=== PATIENT | female | born 1965 | race Caucasian/White ===

== ENCOUNTER → 2019-10-18 10:40 | Outpatient (BNVA) | payer MEDICAID, SELFPAY | PROVIDERS: Family Provider Nurse Practitioner; PCP Family Medicine; Referring Provider Family Medicine; Visit Provider Family Medicine | DX: M25.571 Pain in right ankle and joints of right foot (principal) | CPT/HCPCS: 73610 ==

== ENCOUNTER 2019-12-15 11:42 | Outpatient (CLI) | payer MEDICAID, SELFPAY ==
--- NOTE | 2019-12-15 11:50 | XR_ITS ---
WS: [id number] CHEST 2 VIEWS HISTORY: BRONCHITIS ACUTE COMPARISON: 09/19/2018 Lungs: Hyperinflated lungs from emphysema. No mass or pulmonary nodule. Cardiac size: Normal. Mediastinum/Aorta: Normal mediastinum. Bones: Normal. XR/XR chest 2V* [id number] IMPRESSION: Moderate chronic emphysema. No pneumonia.
== END 2019-12-15 11:43 | disposition home or self-care (01) ==
LOC: RADWPI 11:47
PROVIDERS: Family Provider Nurse Practitioner; PCP Nurse Practitioner; Visit Provider Nurse Practitioner
DX: J42 Unspecified chronic bronchitis (principal); J43.9 Emphysema, unspecified
CPT/HCPCS: 71046

== ENCOUNTER 2020-06-08 14:26 | Outpatient (CLI) | payer MEDICAID, SELFPAY ==
--- NOTE | 2020-06-08 15:01 | XR_ITS ---
WS: [id number] Left foot, 3 views, 06/08/2020 Clinical Data: ACUTE FOOT PAIN Comparison: Left foot, 03/11/2010. Findings: No new fractures or dislocations are seen. No bone destruction or erosion is noted. The joint spaces and soft tissues are normal. There is minimal irregularity of the medial distal aspect of the first cuneiform which represents a h ealed fracture. XR/XR foot LT min 3V* [id number] Impression: Negative left foot.
== END 2020-06-08 14:27 | disposition home or self-care (01) ==
LOC: RADWPI 14:30
PROVIDERS: Family Provider Nurse Practitioner; PCP Nurse Practitioner; Visit Provider Nurse Practitioner
DX: M79.672 Pain in left foot (principal)
CPT/HCPCS: 73630

== ENCOUNTER 2021-02-01 14:30 | Emergency (ER) | payer MEDICAID, SELFPAY ==
[2021-02-01 15:40] VITALS: BP 167/94; PULSE 86; RESP 18; TEMP 36.6; O2SAT 93
[2021-02-01 16:26] VITALS: BP 164/86; PULSE 74; RESP 18; O2SAT 95
[2021-02-01 16:31] LABS: Urine Appearance Hazy (CLEAR); Urine Color Yellow (Yellow)
[2021-02-01 16:32] LABS: Add Urine Microscopic? YES; Bilirubin Urine 2+ (Negative); Blood Urine 3+ (Negative); Glucose Urine UA Norm (Normal); Ketones Urine Negative (Negative); Leukocyte Esterase Urine 2+ (Negative); Nitrate Urine Positive (Negative); Protein Urine 3+ (Negative); Specific Gravity, Urine 1.025 (1.005-1.030); Urobilinogen Urine 8 mg/dL (Negative); WBC Urine 15-25 /hpf (0-5); pH Urine 5 (5-7)
[2021-02-01 16:33] LABS: Add Urine Culture? Yes; Bacteria Urine 2+ /hpf; Mucus Urine 1+ /hpf
--- NOTE | 2021-02-01 16:34 | CTR_ITS ---
PROCEDURE INFORMATION: Exam: CT Abdomen And Pelvis Without Contrast Exam date and time: 02/01/2021 4:34 PM Age: 55 years old Clinical indication: Prior surgery; Surgery date: 6+ months; Surgery type: Hyst, gb, appy; Patient HX: C/O hematuria x 5 days w worsening R flank pain; Additional info: Right flank pain TECHNIQUE: Imaging protocol: Computed tomography of the abdomen and pelvis without contrast. Radiation optimization: All CT scans at this facility use at least one of these dose optimization techniques: automated exposure control; mA and/or kV adjustment per patient size (includes targeted exams where dose is matched to clinical indication); or iterative reconstruction. COMPARISON: No relevant prior studies available. RADIATION DOSE METRICS: Total DLP (mGy-cm): 567.86 FINDINGS: Limitations: The absence of intravenous contrast lessens the sensitivity of this study for solid organ abnormalities. Liver: There is no focal abnormality within the liver. Gallbladder and bile ducts: There has been a cholecystectomy. Pancreas: The pancreas is normal. Spleen: The spleen is normal. Adrenal glands: The adrenal glands are normal. Kidneys and ureters: The kidneys are normal. There is no evidence of hydronephrosis. There is no evidence of renal or ureteral calcifications. Stomach and bowel: Moderate diverticulosis is present in the distal colon. There is no evidence of colitis/diverticulitis. There is no evidence of intestinal obstruction. Appendix: Not Identified Intraperitoneal space: There is no evidence of free intraperitoneal fluid. There is no evidence of free intraperitoneal fluid. Vasculature: The aorta demonstrates moderate atherosclerotic calcification. There is mild ectasia of the mid to distal abdominal aorta with maximum transverse diameter of 2.4 cm. Lymph nodes: There is no evidence of lymphadenopathy. Urinary bladder: Unremarkable as visualized. Reproductive: There has been a hysterectomy. Bones/joints: Unremarkable. No acute fracture. Soft tissues: There is a Bochdalek's hernia on the left containing only fat. Surgical clips are seen along the anterior abdominal wall of uncertain significance. CT/CT kidney stone [id number] IMPRESSION: No acute findings. There is no evidence for urinary tract calculi. Radiation Dose CTDIVOL = (mGy): DLP = 567.86 (mGy-cm)
[2021-02-01 16:40] LABS: Basophils # 0.1 10^3/uL (0.0-0.1); Basophils % 0.9 %; Eosinophils # 0.4 10^3/uL (0.0-0.8); Eosinophils % 3.5 %; Hematocrit 42.3 % (37.0-47.0); Hemoglobin 13.8 g/dL (11.5-15.3); Lymphocytes % 34.8 %; Mean Corpuscular HGB Conc 32.6 g/dL (30.0-36.0); Mean Corpuscular Hemoglobin 29.7 pg (28.0-34.0); Mean Corpuscular Volume 91.2 fL (81-99); Mean Platelet Volume 10.3 fL (7.4-10.4); Monocytes # 0.9 10^3/uL (0.2-0.9); Monocytes % 8.1 %; Neutrophils # 5.98 10^3/uL (1.8-7.7); Neutrophils % 52.4 %; Nucleated Red Blood Cells % 0 %; Platelet Count 280 10^3/cmm (130-400); Red Blood Count 4.64 10^6/uL (4.1-5.3); Red Cell Distribution Width 14.8 % (12.1-15.1); White Blood Count 11.4 10^3/uL (4.0-10.0)
[2021-02-01] MEDS: sodium chloride 0.9% 1,000 ML 999 ML IV (16:57)
[2021-02-01 16:59] LABS: Lactate (Lactic Acid level) 0.6 mmol/L (0.5-2.2); Lipase 26 U/L (13-60)
[2021-02-01 17:00] VITALS: BP 152/92; PULSE 82; RESP 16; O2SAT 95
[2021-02-01 17:00] LABS: Alanine Aminotransferase 22 U/L (0-33); Albumin Level 4.4 g/dL (3.5-5.2); Alkaline Phosphatase 82 IU/L (35-105); Anion Gap 14.2 (5-19); Aspartate Amino Transferase 21 U/L (0-32); Blood Urea Nitrogen 19 mg/dL (6-20); Calcium 9.3 mg/dL (8.5-10.5); Carbon Dioxide 25 mmol/L (22-29); Chloride 104 mmol/L (98-107); Globulin 2.9 g/dL (1.3-4.6); Glomerular Filtration Rate 64.8 mL/min (90-130); Glucose 82 mg/dL (65-115); Osmolality Calculated 289 mOsm/kg (285-295); Potassium 4.2 mmol/L (3.5-5.1); Sodium 139 mmol/L (136-145); Total Bilirubin 0.2 mg/dL (0.15-1.2); Total Protein 7.3 g/dL (6.6-8.7)
[2021-02-01] MEDS: cefTRIAXone 1,000 MG in sodium chloride 0.9% (plus) 50 ML 100 MG IV (17:36)
[2021-02-01] MEDS: ketorolac 30 mg/mL INJ 15 MG IVP (17:37)
--- NOTE | 2021-02-01 18:30 | ED_ITS ---
HPI - Female Genitourinary General: Chief complaint: Urogenital-Female Stated complaint: blood in urine Time Seen by Provider: 02/01/21 16:12 History of Present Illness: HPI Narrative: The patient is a 55-year-old female with past medical history UTIs and she thinks she has had a kidney stone 1 time. She says she is had right flank pain radiating to her groin for the past 4 days and thinks she had some blood in her urine today. She is taking Flomax and Azo without relief. She thinks she possibly start a stone this morning in the bottom of her toilet but she is not sure. She has a history of an appendectomy years ago. MD elicited complaint: dysuria, UTI and flank pain Severity: moderate Female Urogenital Radiation: R Flank Quality of pain: sharp Vaginal discharge: none Vaginal bleeding: none Urinary symptoms: Dysuria, Flank Pain and Hematuria Exacerbating factors: none Relieving factors: none Associated symptoms: Reports no associated symptoms; Deny abdominal pain or headache(s) Review of Systems General: Reports: 10 or more systems reviewed and unremarkable except in HPI and below Const: Denies: fatigue Eyes: Denies: change in vision, blurry vision or eye redness ENMT: Denies: throat pain, swelling of lips/tongue, ear or mastoid pain or nasal congestion Card: Denies: chest pain, palpitations, irregular heart rhythm, edema, dyspnea on exertion or orthopnea Resp: Denies: dyspnea, productive cough or non-productive cough GI: Denies: abdominal pain, diarrhea or GI cramping : Reports: flank pain; Denies: difficulty voiding, urinary frequency or urinary urgency Musc: Denies: neck pain, back pain, extremity pain, joint pain, joint redness, limited range of motion or muscle weakness Skin/Breast: Denies: rash, pruritus, erythema, skin pain or skin tenderness Neuro: Denies: headache(s), numbness in extremities, weakness in extremities, sensory changes, difficulty walking, dizziness, confusion or Slurred speech present Psych: Denies: anxiety or depression Endo: Denies: polyuria All/Imm: Denies: urticaria, throat swelling or tongue swelling PFSH ED PFSH: Social History (Updated 10/18/19 @ 10:15 by Donita Reynolds LPN) Smoking and tobacco status: current every day smoker Alcohol intake: never Physical Exam Const: COMMON NORMALS: no acute distress, average body habitus, patient oriented x3, no limitations, healthy appearing, alert and well nourished GENERAL APPEARANCE: cooperative, comfortable, well kempt and well developed ORIENTATION/CONSCIOUSNESS: Yes awake, Yes oriented to person, Yes oriented to place and Yes oriented to time HENMT: COMMON NORMALS: normocephalic, external ears normal and Normal external nose present HEAD & SCALP: normal to inspection and normocephalic NOSE: Normal external nose present EXTERNAL EAR: Yes external ears normal MOUTH: Normal oral and palatal mucosa present THROAT: posterior oropharynx normal Eye: COMMON NORMALS: Equal, round and reactive pupils present and EOMs intact bilaterally GENERAL EYE: appearance normal, both eyes and all related structures PUPIL: Yes Equal, round and reactive pupils present Neck/C-Spine: COMMON NORMALS: full ROM, no lymphadenopathy, no meningeal signs and no JVD GENERAL: Yes normal visual inspection Lymph: LYMPHATIC: no lymphadenopathy noted Chest: COMMONS NORMALS: normal inspection of the chest and normal palpation of entire chest wall Resp: COMMON NORMALS: normal respiratory effort, No retractions, No use of accessory muscles, clear to auscultation bilaterally and percussion normal EFFORT & INSPECTION: Yes able to speak in complete sentences AUSCULTATION: clear to auscultation bilaterally PERCUSSION: percussion normal Cardio: COMMON NORMALS: no JVD, regular rate, regular rhythm, S1 normal heart sound present, S2 normal heart sound present and Peripheral pulses 2+ throughout RATE: regular rate RHYTHM: regular rhythm HEART SOUNDS: S1 normal heart sound present and S2 normal heart sound present PERIPHERAL PULSES: Peripheral pulses 2+ throughout GI: COMMON NORMALS: Normal to inspection, nondistended, normoactive bowel sounds present, Soft to palpation, non-tender and no masses INSPECTION: Yes normal to inspection PALPATION: Yes Soft to palpation : BLADDER/KIDNEY EXAM: Yes CVA tenderness on the right Back/Pelvis: COMMON NORMALS: thoracic and lumbar spine normal to inspection, no thoracic nor lumbar tenderness and thoraco-lumbar ROM normal GENERAL BACK: Yes CVA tenderness Extremity: COMMON NORMALS: normal to inspection, full ROM, capillary refill normal, no joint enlargement and no pedal edema GENERAL: Yes normal exam except as noted Neuro: COMMON NORMALS: patient oriented x3, CN's II-XII intact bilaterally, moves all extremities, no focal motor deficits, no sensory deficits noted and gait normal SENSORIUM/ORIENTATION: Yes alert, Yes oriented to person, Yes oriented to place and Yes oriented to time MENINGEAL SIGNS: Yes no meningeal signs Psych: COMMON NORMALS: mental status grossly normal, Normal thought process present, cooperative, normal affect and speech normal APPEARANCE: Yes well kempt ATTITUDE: Yes calm SPEECH: Yes normal speech THOUGHT PROCESS: Normal thought process present Skin: COMMON NORMALS: no rashes or lesions noted GENERAL SKIN EXAM: no rashes or lesions noted Course Vital Signs: Vital signs: Vital Signs Temperature 97.9 F 02/01/21 15:40 Pulse Rate 81 02/01/21 18:40 Respiratory Rate 16 02/01/21 18:40 Blood Pressure 151/100 02/01/21 18:40 Pulse Oximetry 96 02/01/21 18:40 MDM - Female MDM Narrative: Medical decision making narrative: The patient comes to the ER complaining of right flank pain radiating to her groin for 4 days. Suspicious of UTI though she does have some complains of some blood in it. Microscopic analysis does show some blood but also white cells. She has been taking Azo with no effect. CT abdomen pelvis shows no stone. She was given a gram of ceftriaxone and discharged with Keflex. Lab Data: Labs: Lab Results 02/01/21 02/01/21 02/01/21 Range/Units 16:00 16:24 16:24 WBC 11.4 H (4.0-10.0) 10^3/ uL RBC 4.64 (4.1-5.3) 10^6/u L Hgb 13.8 (11.5-15.3) g/dL Hct 42.3 (37.0-47.0) % MCV 91.2 (81-99) fL MCH 29.7 (28.0-34.0) pg MCHC 32.6 (30.0-36.0) g/dL RDW 14.8 (12.1-15.1) % Plt Count 280 (130-400) 10^3/c mm MPV 10.3 (7.4-10.4) fL Neut % (Auto) 52.4 % Lymph % (Auto) 34.8 % [place] % (Auto) 8.1 % Eos % (Auto) 3.5 % Baso % (Auto) 0.9 % Neut # (Auto) 5.98 (1.8-7.7) 10^3/u L Lymph # (Auto) 4.0 (0.8-4.8) 10^3/u L [place] # (Auto) 0.9 (0.2-0.9) 10^3/u L Eos # (Auto) 0.4 (0.0-0.8) 10^3/u L Baso # (Auto) 0.1 (0.0-0.1) 10^3/u L Nucleated RBC % (a uto) 0 % Nucleated RBCs # 0.0 /100WBC Sodium 139 (136-145) mmol/L Potassium 4.2 (3.5-5.1) mmol/L Chloride 104 (98-107) mmol/L Carbon Dioxide 25 (22-29) mmol/L Anion Gap 14.2 (5-19) BUN 19 (6-20) mg/dL Creatinine 0.9 (0.5-0.9) mg/dL GFR Calculation 64.8 L (90-130) mL/min Glucose 82 (65-115) mg/dL Calculated Osmolal ity 289 (285-295) mOsm/k g Lactate (0.5-2.2) mmol/L Calcium 9.3 (8.5-10.5) mg/dL Total Bilirubin 0.2 (0.15-1.2) mg/dL AST 21 (0-32) U/L ALT 22 (0-33) U/L Alkaline Phosphata se 82 (35-105) IU/L Total Protein 7.3 (6.6-8.7) g/dL Albumin 4.4 (3.5-5.2) g/dL Globulin 2.9 (1.3-4.6) g/dL Lipase (13-60) U/L Urine Color Yellow (Yellow) Urine Appearance Hazy A (CLEAR) Urine pH 5 (5-7) Ur Specific Gravit y 1.025 (1.005-1.030) Urine Protein 3+ H (Negative) Urine Glucose (UA) Norm (Normal) Urine Ketones Negative (Negative) Urine Blood 3+ H (Negative) Urine Nitrate Positive H (Negative) Urine Bilirubin 2+ H (Negative) Urine Urobilinogen 8 H (Negative) mg/dL Ur Leukocyte [place] ase 2+ H (Negative) Urine RBC 5-10 H (0-2) /hpf Urine WBC 15-25 H (0-5) /hpf Ur Squamous Epith Cells 5-10 H (0-5) /hpf Amorphous Sediment Not Reportable Urine Bacteria 2+ H (NONE) /hpf Urine Mucus 1+ /hpf 02/01/21 02/01/21 Range/Units 16:24 16:24 WBC (4.0-10.0) 10^3/ uL RBC (4.1-5.3) 10^6/u L Hgb (11.5-15.3) g/dL Hct (37.0-47.0) % MCV (81-99) fL MCH (28.0-34.0) pg MCHC (30.0-36.0) g/dL RDW (12.1-15.1) % Plt Count (130-400) 10^3/c mm MPV (7.4-10.4) fL Neut % (Auto) % Lymph % (Auto) % [place] % (Auto) % Eos % (Auto) % Baso % (Auto) % Neut # (Auto) (1.8-7.7) 10^3/u L Lymph # (Auto) (0.8-4.8) 10^3/u L [place] # (Auto) (0.2-0.9) 10^3/u L Eos # (Auto) (0.0-0.8) 10^3/u L Baso # (Auto) (0.0-0.1) 10^3/u L Nucleated RBC % (a uto) % Nucleated RBCs # /100WBC Sodium (136-145) mmol/L Potassium (3.5-5.1) mmol/L Chloride (98-107) mmol/L Carbon Dioxide (22-29) mmol/L Anion Gap (5-19) BUN (6-20) mg/dL Creatinine (0.5-0.9) mg/dL GFR Calculation (90-130) mL/min Glucose (65-115) mg/dL Calculated Osmolal ity (285-295) mOsm/k g Lactate 0.6 (0.5-2.2) mmol/L Calcium (8.5-10.5) mg/dL Total Bilirubin (0.15-1.2) mg/dL AST (0-32) U/L ALT (0-33) U/L Alkaline Phosphata se (35-105) IU/L Total Protein (6.6-8.7) g/dL Albumin (3.5-5.2) g/dL Globulin (1.3-4.6) g/dL Lipase 26 (13-60) U/L Urine Color (Yellow) Urine Appearance (CLEAR) Urine pH (5-7) Ur Specific Gravit y (1.005-1.030) Urine Protein (Negative) Urine Glucose (UA) (Normal) Urine Ketones (Negative) Urine Blood (Negative) Urine Nitrate (Negative) Urine Bilirubin (Negative) Urine Urobilinogen (Negative) mg/dL Ur Leukocyte [place] ase (Negative) Urine RBC (0-2) /hpf Urine WBC (0-5) /hpf Ur Squamous Epith Cells (0-5) /hpf Amorphous Sediment Urine Bacteria (NONE) /hpf Urine Mucus /hpf Discharge Plan Discharge Patient Disposition: Home Clinical Impression: Urinary tract infection, Pyelonephritis Condition: Stable Prescriptions: New cephalexin 500 mg capsule 500 mg PO BID 14 Days Qty: 28 RF: 0 No Action clopidogrel [Plavix] 75 mg tablet 75 mg PO DAILY RF: 0 ibuprofen 800 mg tablet 800 mg PO Q8H PRN (Reason: pain) RF: 0 lisinopril 10 mg tablet 10 mg PO DAILY RF: 0 diltiazem HCl 180 mg capsule,extended release 24hr 180 mg PO DAILY RF: 0 tamsulosin 0.4 mg capsule 0.4 mg PO DAILY RF: 0 pantoprazole 40 mg tablet,delayed release (DR/EC) 40 mg PO BID RF: 0 nitroglycerin 0.4 mg tablet, sublingual 0.4 mg sublingual Q5MIN PRN (Reason: Chest Pain) RF: 0 perphenazine-amitriptyline 2-10 mg tablet 1 tab PO TID PRN (Reason: depression) RF: 0 aspirin 81 mg Tablet,Chewable 81 mg PO DAILY RF: 0 ProAir HFA 90 mcg/actuation HFA aerosol inhaler 2 puff INHALATION QID PRN (Reason: Shortness Of Breath) RF: 0 ezetimibe 10 mg tablet 10 mg PO DAILY RF: 0 rosuvastatin 40 mg tablet 40 mg PO DAILY RF: 0 Repatha SureClick 140 mg/mL pen injector 140 mg SUBCUT Q14D RF: 0 Discharge Orders: Discharge ED (Routine); Ordered 02/01/21 Ordered By: Denzel Freitas Referrals: Lulu Briceno FNP [Primary Care Provider] - Discharge Diet: Advance as tolerated Discharge Activity: Resume usual activity Patient Instructions: Acute Pyelonephritis (ED), Opioid Safety Activity Restrictions/Additional Instructions: You likely have a urinary tract infection going up to your kidney. Please take the antibiotics as directed and return to the ER with worsening symptoms. Follow-up with your primary care physician in a week and have your urine checked again to make sure you are clear of infection. Coding Level of Care Code ED Cut Out Marker for Yolig Fwd Exam Comprehensive
[2021-02-01 18:40] VITALS: BP 151/100; PULSE 81; RESP 16; O2SAT 96
[2021-02-01 19:45] VITALS: BP 166/80; PULSE 80; RESP 18; TEMP 37; O2SAT 95
== END 2021-02-01 20:16 | disposition home or self-care (01) ==
PROVIDERS: Physician Assistant; Emergency Provider Family Medicine; PCP Nurse Practitioner
DX: N39.0 Urinary tract infection, site not specified (principal); N12 Tubulo-interstitial nephritis, not specified as acute or chronic; Z79.02 Long term (current) use of antithrombotics/antiplatelets; Z79.82 Long term (current) use of aspirin; F17.210 Nicotine dependence, cigarettes, uncomplicated
CPT/HCPCS: 74176; 80053; 81001; 83605; 83690; 85025; 87086; 96365; 96375; 99284; J0696; J1885; J7030

== ENCOUNTER 2021-02-17 09:18 | Emergency (ER) | payer MEDICAID, SELFPAY ==
[2021-02-17] VITALS (7 sets, daily range): BP systolic 136–166; BP diastolic 72–94; PULSE 70–85; RESP 16–22; TEMP 36.1; O2SAT 94–97; BMI 20.2
--- NOTE | 2021-02-17 09:58 | ECG_ITS ---
[facility] Test Date: 2021-02-17 Pat Name: Luil Rios Department: Room: Gender: Female [employer] Tester: : 1965 Requested By: Raymond Suazo Order Number: [id number] Yue MD: Johnathan Rossi M.D. Measurements Intervals Maxie Rate: 74 P: 81 AR: 152 QRS: 80 QRSD: 89 T: 82 QT: 379 QTc: 422 Interpretive Statements SINUS RHYTHM Compared to ECG 09/19/2018 17:51:51 Sinus tachycardia no longer present T-wave abnormality no longer present Electronically Signed On 02-18-2021 21:02:58 CDT by Johnathan Rossi M.D. [id number] f
--- NOTE | 2021-02-17 09:58 | XRR_ITS ---
PROCEDURE INFORMATION: Exam: XR Chest Exam date and time: 02/17/2021 9:58 AM Age: 55 years old Clinical indication: Pain; On breathing; Additional info: Cp TECHNIQUE: Imaging protocol: XR of the chest. Views: 1 view. COMPARISON: CR XR chest 2V* [id number] 12/15/2019 12:36 PM FINDINGS: Lungs: Stable moderate COPD . Pleural spaces: Unremarkable. No pleural effusion. No pneumothorax. Heart/Mediastinum: Unremarkable. No cardiomegaly. Bones/joints: Unremarkable. XR/XR chest 1V portable [id number] IMPRESSION: Stable moderate COPD .
--- NOTE | 2021-02-17 10:00 | ED_ITS ---
HPI - Chest Pain General: Chief Complaint: Chest Pain Stated Complaint: CP, BP HIGH Time Seen by Provider: 02/17/21 09:53 History of Present Illness: HPI narrative: Patient complained about kidney problems. Just recently an angiogram was completely negative. That was 2 weeks ago. Did have a chest pain short time in duration yesterday lasting a few seconds. When her blood pressure is up. Did have higher blood pressure in day and she is concerned about her blood pressure and has some reading support mild hypertension. Says she still pain blood and has appointment scheduled see Dr. Holloway. THAPA complaint: other (Kidney problems) Onset (ago): week(s) Timing of current episode: episodic Prior episodes: Yes Associated symptoms: Deny abdominal pain, dyspnea, fever(s), nausea or vomiting Review of Systems Narrative: Says hands are swollen Const: Denies: fever(s), chills or body aches Eyes: Denies: change in vision or blurry vision ENMT: Denies: throat pain or nasal congestion Card: Reports: chest pain (When her blood pressure is high recent angiogram negative for vessel diseas); Denies: dyspnea on exertion Resp: Denies: dyspnea, productive cough or non-productive cough GI: Denies: abdominal pain, nausea or vomiting : Reports: urinary frequency and hematuria Musc: Denies: extremity pain Skin/Breast: Denies: rash Neuro: Denies: headache(s) Psych: Denies: anxiety or depression Jeffery/Lymph: Denies: easy bruising PFS ED PFSH: Social History (Updated 10/18/19 @ 10:15 by Donita Reynolds LPN) Smoking and tobacco status: current every day smoker Alcohol intake: never Physical Exam Const: COMMON NORMALS: no acute distress, average body habitus and patient oriented x3 HENMT: COMMON NORMALS: normocephalic HEAD & SCALP: normal to inspection and normocephalic FACE & SINUS: normal facial exam Eye: COMMON NORMALS: conjunctivae normal GENERAL EYE: appearance normal, both eyes and all related structures CONJUNCTIVA: Yes conjunctivae normal Neck/C-Spine: COMMON NORMALS: no JVD Chest: COMMONS NORMALS: normal inspection of the chest Resp: COMMON NORMALS: normal respiratory effort and clear to auscultation bilaterally AUSCULTATION: clear to auscultation bilaterally Cardio: COMMON NORMALS: no JVD, regular rate and regular rhythm RATE: regular rate RHYTHM: regular rhythm GI: COMMON NORMALS: Normal to inspection, nondistended, normoactive bowel sounds present Extremity: COMMON NORMALS: normal to inspection and full ROM Neuro: COMMON NORMALS: patient oriented x3 Skin: NARRATIVE SKIN EXAM: No significant swelling on the hands or lower extremities. Course Vital Signs: Vital signs: Vital Signs Temperature 96.9 F L 02/17/21 09:39 Pulse Rate 70 02/17/21 12:22 Respiratory Rate 18 02/17/21 12:22 Blood Pressure 149/85 02/17/21 12:00 Pulse Oximetry 97 02/17/21 12:22 MDM - Chest Pain MDM Narrative: Medical decision making narrative: Patient did not have chest pain while here. Labs negative except for urine shows blood and bacteria. Will treat for ongoing UTI follow-up primary care to get urine repeated. Lab Data: Labs: Lab Results 02/17/21 02/17/21 02/17/21 Range/Units 10:20 10:20 10:20 WBC 7.1 (4.0-10.0) 10^3/ uL RBC 4.39 (4.1-5.3) 10^6/u L Hgb 13.1 (11.5-15.3) g/dL Hct 39.6 (37.0-47.0) % MCV 90.2 (81-99) fL MCH 29.8 (28.0-34.0) pg MCHC 33.1 (30.0-36.0) g/dL RDW 14.5 (12.1-15.1) % Plt Count 221 (130-400) 10^3/c mm MPV 10.9 H (7.4-10.4) fL Neut % (Auto) 47.9 % Lymph % (Auto) 37.6 % [place] % (Auto) 8.9 % Eos % (Auto) 4.2 % Baso % (Auto) 1.1 % Neut # (Auto) 3.41 (1.8-7.7) 10^3/u L Lymph # (Auto) 2.7 (0.8-4.8) 10^3/u L [place] # (Auto) 0.6 (0.2-0.9) 10^3/u L Eos # (Auto) 0.3 (0.0-0.8) 10^3/u L Baso # (Auto) 0.1 (0.0-0.1) 10^3/u L Nucleated RBC % (a uto) 0 % Nucleated RBCs # 0.0 /100WBC Sodium 142 (136-145) mmol/L Potassium 4.7 (3.5-5.1) mmol/L Chloride 107 (98-107) mmol/L Carbon Dioxide 25 (22-29) mmol/L Anion Gap 14.7 (5-19) BUN 22 H (6-20) mg/dL Creatinine 1.0 H (0.5-0.9) mg/dL GFR Calculation 57.4 L (90-130) mL/min Glucose 102 (65-115) mg/dL Calculated Osmolal ity 298 H (285-295) mOsm/k g Calcium 9.8 (8.5-10.5) mg/dL Total Bilirubin 0.2 (0.15-1.2) mg/dL AST 16 (0-32) U/L ALT 11 (0-33) U/L Alkaline Phosphata se 78 (35-105) IU/L Troponin T Gen 5 n g/L 6 (0-10) ng/L Total Protein 6.2 L (6.6-8.7) g/dL Albumin 4.0 (3.5-5.2) g/dL Globulin 2.2 (1.3-4.6) g/dL Urine Color (Yellow) Urine Appearance (CLEAR) Urine pH (5-7) Ur Specific Gravit y (1.005-1.030) Urine Protein (Negative) Urine Glucose (UA) (Normal) Urine Ketones (Negative) Urine Blood (Negative) Urine Nitrate (Negative) Urine Bilirubin (Negative) Urine Urobilinogen (Negative) mg/dL Ur Leukocyte [place] ase (Negative) Urine RBC (0-2) /hpf Urine WBC (0-5) /hpf Ur Squamous Epith Cells (0-5) /hpf Amorphous Sediment Urine Bacteria (NONE) /hpf 02/17/ Range/Units 10:30 WBC (4.0-10.0) 10^3/ uL RBC (4.1-5.3) 10^6/u L Hgb (11.5-15.3) g/dL Hct (37.0-47.0) % MCV (81-99) fL MCH (28.0-34.0) pg MCHC (30.0-36.0) g/dL RDW (12.1-15.1) % Plt Count (130-400) 10^3/c mm MPV (7.4-10.4) fL Neut % (Auto) % Lymph % (Auto) % [place] % (Auto) % Eos % (Auto) % Baso % (Auto) % Neut # (Auto) (1.8-7.7) 10^3/u L Lymph # (Auto) (0.8-4.8) 10^3/u L [place] # (Auto) (0.2-0.9) 10^3/u L Eos # (Auto) (0.0-0.8) 10^3/u L Baso # (Auto) (0.0-0.1) 10^3/u L Nucleated RBC % (a uto) % Nucleated RBCs # /100WBC Sodium (136-145) mmol/L Potassium (3.5-5.1) mmol/L Chloride (98-107) mmol/L Carbon Dioxide (22-29) mmol/L Anion Gap (5-19) BUN (6-20) mg/dL Creatinine (0.5-0.9) mg/dL GFR Calculation (90-130) mL/min Glucose (65-115) mg/dL Calculated Osmolal ity (285-295) mOsm/k g Calcium (8.5-10.5) mg/dL Total Bilirubin (0.15-1.2) mg/dL AST (0-32) U/L ALT (0-33) U/L Alkaline Phosphata se (35-105) IU/L Troponin T Gen 5 n g/L (0-10) ng/L Total Protein (6.6-8.7) g/dL Albumin (3.5-5.2) g/dL Globulin (1.3-4.6) g/dL Urine Color Straw (Yellow) Urine Appearance Clear (CLEAR) Urine pH 5 (5-7) Ur Specific Gravit y 1.010 (1.005-1.030) Urine Protein Neg (Negative) Urine Glucose (UA) Norm (Normal) Urine Ketones Negative (Negative) Urine Blood 2+ H (Negative) Urine Nitrate Negative (Negative) Urine Bilirubin Neg (Negative) Urine Urobilinogen Norm (Negative) mg/dL Ur Leukocyte [place] ase Negative (Negative) Urine RBC Rare (0-2) /hpf Urine WBC 0-4 H (0-5) /hpf Ur Squamous Epith Cells 5-10 H (0-5) /hpf Amorphous Sediment Not Reportable Urine Bacteria 1+ H (NONE) /hpf EKG Data^: EKG 1: EKG interpretation date: 02/17/21 EKG interpretation time: 09:47 Computer generated interpretation: Normal sinus rhythm ventricular rate 74 bpm UT interval 152 ms QRS duration 89 ms QT 379 ms Discharge Plan Discharge Patient Disposition: Home Clinical Impression: UTI (urinary tract infection) Qualifiers: Urinary tract infection type: acute cystitis Hematuria presence: with hematuria Qualified Code(s): N30.01 - Acute cystitis with hematuria Condition: Stable Prescriptions: New Macrobid 100 mg capsule 100 mg PO BID 5 Days Qty: 10 RF: 0 No Action clopidogrel [Plavix] 75 mg tablet 75 mg PO DAILY RF: 0 ibuprofen 800 mg tablet 800 mg PO Q8H PRN (Reason: pain) RF: 0 lisinopril 10 mg tablet 10 mg PO BID RF: 0 diltiazem HCl 180 mg capsule,extended release 24hr 180 mg PO DAILY RF: 0 tamsulosin 0.4 mg capsule 0.4 mg PO DAILY RF: 0 pantoprazole 40 mg tablet,delayed release (DR/EC) 40 mg PO BID RF: 0 nitroglycerin 0.4 mg tablet, sublingual 0.4 mg sublingual Q5MIN PRN (Reason: Chest Pain) RF: 0 aspirin 81 mg Tablet,Chewable 81 mg PO DAILY RF: 0 albuterol sulfate [ProAir HFA] 90 mcg/actuation HFA aerosol inhaler 2 puff INHALATION QID PRN (Reason: Shortness Of Breath) RF: 0 ezetimibe 10 mg tablet 10 mg PO DAILY RF: 0 rosuvastatin 40 mg tablet 40 mg PO DAILY RF: 0 Repatha SureClick 140 mg/mL pen injector 140 mg SUBCUT Q14D RF: 0 cyclobenzaprine 10 mg Tablet 10 mg PO TID RF: 0 Discharge Orders: Discharge ED (Routine); Ordered 02/17/21 Ordered By: Raymond Suazo Referrals: Lulu Briceno FNP [Primary Care Provider] - Discharge Diet: Usual diet Discharge Activity: Increase activity as tolerated Patient Instructions: Urinary Tract Infection in Women (ED) Activity Restrictions/Additional Instructions: Follow-up with medical provider as directed. Take medications as prescribed. Return to the ER or your medical provider if condition worsens. Please read and understand discharge instructions. If any questions ask please. Keep appointment Dr. Lowe's office. Coding Level of Care Code ED Resin Shaver for Chg Fwd Exam Comprehensive
[2021-02-17 10:40] LABS: Basophils # 0.1 10^3/uL (0.0-0.1); Basophils % 1.1 %; Eosinophils # 0.3 10^3/uL (0.0-0.8); Eosinophils % 4.2 %; Hematocrit 39.6 % (37.0-47.0); Hemoglobin 13.1 g/dL (11.5-15.3); Lymphocytes # 2.7 10^3/uL (0.8-4.8); Lymphocytes % 37.6 %; Mean Corpuscular HGB Conc 33.1 g/dL (30.0-36.0); Mean Corpuscular Hemoglobin 29.8 pg (28.0-34.0); Mean Corpuscular Volume 90.2 fL (81-99); Mean Platelet Volume 10.9 fL (7.4-10.4); Monocytes # 0.6 10^3/uL (0.2-0.9); Monocytes % 8.9 %; Neutrophils # 3.41 10^3/uL (1.8-7.7); Neutrophils % 47.9 %; Nucleated Red Blood Cells % 0 %; Platelet Count 221 10^3/cmm (130-400); Red Blood Count 4.39 10^6/uL (4.1-5.3); Red Cell Distribution Width 14.5 % (12.1-15.1); White Blood Count 7.1 10^3/uL (4.0-10.0)
[2021-02-17 10:59] LABS: Alanine Aminotransferase 11 U/L (0-33); Alkaline Phosphatase 78 IU/L (35-105); Aspartate Amino Transferase 16 U/L (0-32); Blood Urea Nitrogen 22 mg/dL (6-20); Calcium 9.8 mg/dL (8.5-10.5); Carbon Dioxide 25 mmol/L (22-29); Chloride 107 mmol/L (98-107); Globulin 2.2 g/dL (1.3-4.6); Glomerular Filtration Rate 57.4 mL/min (90-130); Glucose 102 mg/dL (65-115); Osmolality Calculated 298 mOsm/kg (285-295); Sodium 142 mmol/L (136-145); Total Bilirubin 0.2 mg/dL (0.15-1.2); Total Protein 6.2 g/dL (6.6-8.7)
[2021-02-17 11:00] LABS: Add Urine Microscopic? YES; Bilirubin Urine Neg (Negative); Blood Urine 2+ (Negative); Glucose Urine UA Norm (Normal); Ketones Urine Negative (Negative); Leukocyte Esterase Urine Negative (Negative); Nitrate Urine Negative (Negative); Protein Urine Neg (Negative); Urine Appearance Clear (CLEAR); Urine Color Straw (Yellow); Urobilinogen Urine Norm (Negative); pH Urine 5 (5-7)
[2021-02-17 11:01] LABS: Add Urine Culture? No; Bacteria Urine 1+ /hpf; RBC Urine RARE /hpf (0-2); WBC Urine 0-4 /hpf (0-5)
[2021-02-17 11:04] LABS: Anion Gap 14.7 (5-19); Potassium 4.7 mmol/L (3.5-5.1)
[2021-02-17 11:47] LABS: Troponin T (5th) Once 6 ng/L (0-10)
== END 2021-02-17 12:22 | disposition home or self-care (01) ==
PROVIDERS: Emergency Provider Nurse Practitioner Family; PCP Nurse Practitioner
DX: N30.01 Acute cystitis with hematuria (principal); Z79.82 Long term (current) use of aspirin; Z79.02 Long term (current) use of antithrombotics/antiplatelets; F17.210 Nicotine dependence, cigarettes, uncomplicated
CPT/HCPCS: 71045; 80053; 81001; 84484; 85025; 93005; 99283

== ENCOUNTER → 2021-03-07 15:21 | Outpatient (BNVA) | payer MEDICAID, SELFPAY | PROVIDERS: PCP Nurse Practitioner; Visit Provider Nurse Practitioner Family | DX: R31.9 Hematuria, unspecified (principal); N39.0 Urinary tract infection, site not specified | CPT/HCPCS: 81003; 87086; 88112 ==

== ENCOUNTER → 2021-03-19 07:47 | Outpatient (BNVA) | payer MEDICAID, SELFPAY | PROVIDERS: PCP Nurse Practitioner; Visit Provider Urology | DX: N39.0 Urinary tract infection, site not specified (principal); R31.0 Gross hematuria; M54.5 Low back pain | CPT/HCPCS: 81003 ==

== ENCOUNTER 2021-04-01 08:05 | Outpatient (CLI) | payer MEDICAID, SELFPAY ==
--- NOTE | 2021-04-01 08:17 | XR_ITS ---
WS: [id number] THORACIC SPINE TECHNIQUE: AP and lateral views are performed. HISTORY: BACK PAIN AT L4-L5 COMPARISON: None available. Mild straightening of the normal thoracic kyphosis. Pedicles are all identified. No fractures. Minima l atherosclerosis within the aorta. Row of surgical sutures in the LEFT upper lung. XR/XR thoracic spine 3V* [id number] IMPRESSION: Very minimal spondylitic changes in thoracic spine. No fracture.
--- NOTE | 2021-04-01 08:17 | XR_ITS ---
WS: [id number] LUMBAR SPINE: 3 VIEWS TECHNIQUE: AP, lateral and L5-S1 spot. HISTORY: BACK PAIN L4-L5 COMPARISON: None available. Mild LEFT curvature lumbar spine. Posterior alignment is normal. Very minimal facet joint arthritis a t L4-5 and L5-S1. Pedicles are identified. No loss of disc space or vertebral body height. SI joints are symmetric bilaterally. No soft tissue abnormalities. Numerous clips are noted within the abdominal wall from prior hernia repair. Mild scattered calcifica tions in the aorta. XR/XR lumbar spine 2-3V* [id number] IMPRESSION: 1. Mild LEFT curvature lumbar spine. 2. No fracture. 3. Mild facet joint arthritis L4-5 and L5-S1.
== END 2021-04-01 08:06 | disposition home or self-care (01) ==
PROVIDERS: PCP Nurse Practitioner; Visit Provider Nurse Practitioner
DX: M47.816 Spondylosis without myelopathy or radiculopathy, lumbar region (principal); M47.817 Spondylosis without myelopathy or radiculopathy, lumbosacral region
CPT/HCPCS: 72072; 72100

== ENCOUNTER → 2021-04-30 10:32 | Outpatient (BNVA) | payer MEDICAID, SELFPAY | PROVIDERS: PCP Nurse Practitioner; Referring Provider Nurse Practitioner; Visit Provider Orthopaedic Surgery | DX: M54.5 Low back pain (principal) | CPT/HCPCS: 72110 ==

== ENCOUNTER → 2021-05-11 14:21 | Outpatient (BNVA) | payer MEDICAID, SELFPAY | PROVIDERS: PCP Nurse Practitioner; Visit Provider Registered Nurse Neonatal Intensive Care | DX: Z20.822 Contact with and (suspected) exposure to COVID-19 (principal) | CPT/HCPCS: 87635 ==

== ENCOUNTER → 2021-05-21 08:41 | Outpatient (BNVA) | payer MEDICAID, SELFPAY | PROVIDERS: PCP Nurse Practitioner; Visit Provider Urology | DX: N30.20 Other chronic cystitis without hematuria (principal); R33.9 Retention of urine, unspecified; R31.0 Gross hematuria | CPT/HCPCS: 81003 ==

== ENCOUNTER 2021-05-27 07:27 | Outpatient (CLI) | payer MEDICAID, SELFPAY ==
--- NOTE | 2021-05-27 08:00 | MR_ITS ---
WS: [id number] MRI LUMBAR SPINE NONCONTRAST HISTORY: M54.5 - Low back pain, bilateral leg pain and numbness for 3 months. COMPARISON: 03/15/2015 TECHNIQUE: Sagittal and axial multisequence imaging is submitted. Mild straightening of the normal lumbar lordosis with LEFT curvature. Similar to the prior examinatio n. Mild disc desiccation at L5-S1. No acute marrow edema or fracture. Conus terminates normally at L1-2 disc level. L1-L2: Normal. L2-L3: Normal. L3-L4: Very minimal ligamentum flavum and facet arthritis. No stenosis. L4-L5: Very mild annular disc bulging with annular fissures bilaterally in the neural foramen. No foc al disc protrusion. Mild ligamentum flavum and facet hypertrophy. Very mild encroachment and contact upon the exiting L5 nerve roots. Similar to the prior study. No progression. L5-S1: Small central disc protrusion and mild annular disc bulging. Central disc protrusion is contac ting the S1 nerve roots bilaterally, slightly greater involving the LEFT S1 nerve root. Very mild pro gression of disease since the prior study. Mild ligamentum flavum and facet arthritis. Small bilateral renal cysts. MR/MR lumbar spine wo con* [id number] IMPRESSION: 1. Small central disc protrusion at L5-S1 contacting the S1 nerve roots bilate rally, greatest on the LEFT. Very minimal progression since the prior study. 2. Mild annular disc bulging at L4-5 with minimal disc contact on the L5 nerve roots but no displacement. No change. 3. Facet joint arthritis stable from L3-4 to L5-S1.
== END 2021-05-27 07:28 | disposition home or self-care (01) ==
LOC: RADSHAW 07:31
PROVIDERS: PCP Nurse Practitioner; Visit Provider Orthopaedic Surgery
DX: M51.27 Other intervertebral disc displacement, lumbosacral region (principal); M51.26 Other intervertebral disc displacement, lumbar region; M47.816 Spondylosis without myelopathy or radiculopathy, lumbar region; M47.817 Spondylosis without myelopathy or radiculopathy, lumbosacral region
CPT/HCPCS: 72148

== ENCOUNTER → 2021-06-04 09:30 | Outpatient (BNVA) | payer MEDICAID, SELFPAY | PROVIDERS: PCP Nurse Practitioner; Referring Provider Physician Assistant; Visit Provider Anesthesiology Pain Medicine | DX: G89.29 Other chronic pain (principal); M47.816 Spondylosis without myelopathy or radiculopathy, lumbar region; M48.062 Spinal stenosis, lumbar region with neurogenic claudication; M79.604 Pain in right leg; M79.605 Pain in left leg; Z79.891 Long term (current) use of opiate analgesic | CPT/HCPCS: 99204 ==

== ENCOUNTER → 2021-06-11 14:18 | Outpatient (BNVA) | payer MEDICAID, SELFPAY | PROVIDERS: PCP Nurse Practitioner; Visit Provider Anesthesiology Pain Medicine | DX: M47.816 Spondylosis without myelopathy or radiculopathy, lumbar region (principal); M48.062 Spinal stenosis, lumbar region with neurogenic claudication | CPT/HCPCS: 64493; 64494; 64495; J3490 ==

== ENCOUNTER → 2021-06-25 10:46 | Outpatient (BNVA) | payer MEDICAID, SELFPAY | PROVIDERS: PCP Nurse Practitioner; Visit Provider Anesthesiology Pain Medicine | DX: M48.062 Spinal stenosis, lumbar region with neurogenic claudication (principal); M47.816 Spondylosis without myelopathy or radiculopathy, lumbar region; M79.604 Pain in right leg; M79.605 Pain in left leg; F17.200 Nicotine dependence, unspecified, uncomplicated | CPT/HCPCS: 99214 ==

== ENCOUNTER → 2021-07-23 13:37 | Outpatient (BNVA) | payer MEDICAID, SELFPAY | PROVIDERS: PCP Nurse Practitioner; Visit Provider Anesthesiology Pain Medicine | DX: M47.816 Spondylosis without myelopathy or radiculopathy, lumbar region (principal); M48.062 Spinal stenosis, lumbar region with neurogenic claudication | CPT/HCPCS: 64635; 64636; J1030 ==

== ENCOUNTER → 2021-07-29 09:50 | Outpatient (BNVA) | payer MEDICAID, SELFPAY | PROVIDERS: PCP Nurse Practitioner; Visit Provider Nurse Practitioner Family | DX: Z20.822 Contact with and (suspected) exposure to COVID-19 (principal) | CPT/HCPCS: 87635 ==

== ENCOUNTER → 2021-07-31 11:15 | Outpatient (BNVA) | payer MEDICAID, SELFPAY | PROVIDERS: PCP Nurse Practitioner; Visit Provider Nurse Practitioner | DX: R05.9 Cough, unspecified (principal) | CPT/HCPCS: 87400 ==

== ENCOUNTER 2021-12-31 14:14 | Outpatient (CLI) | payer MEDICAID, SELFPAY ==
--- NOTE | 2021-12-31 15:16 | XR_ITS ---
WS: [id number] CHEST 2 VIEWS HISTORY: ACUTE COUGH COMPARISON: 02/17/2021 Lungs: LEFT upper lobectomy. Surgical sutures are noted at the LEFT lung apex. No mass identified. Th e lungs are clear. No pneumonia. Normal vasculature. Cardiac size: Normal. Mediastinum/Aorta: Normal mediastinum. Bones: Normal. XR/XR chest 2V* [id number] IMPRESSION: 1. Postsurgical changes LEFT upper lobe. Stable chest. 2. No pneumonia.
--- NOTE | 2021-12-31 15:16 | XR_ITS ---
WS: [id number] RIGHT WRIST: 3 VIEW(S) TECHNIQUE: PA, oblique and lateral. HISTORY: HAND PAIN COMPARISON: None available. No acute fracture or dislocation. No joint space abnormality. No soft tissue swelling. XR/XR wrist RT min 3V* [id number] IMPRESSION: Negative RIGHT wrist.
--- NOTE | 2021-12-31 15:16 | XR_ITS ---
WS: [id number] RIGHT HAND: 3 VIEW(S) TECHNIQUE: PA, oblique and lateral. HISTORY: HAND PAIN COMPARISON: None available. No acute fracture or dislocation. No soft tissue or bone abnormality. XR/XR hand RT min 3V* [id number] IMPRESSION: Normal RIGHT hand.
== END 2021-12-31 14:15 | disposition home or self-care (01) ==
LOC: RAD 14:23
PROVIDERS: PCP Nurse Practitioner; Visit Provider Nurse Practitioner
DX: M79.641 Pain in right hand (principal); R05.1 Acute cough
CPT/HCPCS: 71046; 73110; 73130

== ENCOUNTER → 2022-01-03 10:18 | Outpatient (BNVA) | payer MEDICAID, SELFPAY | PROVIDERS: PCP Nurse Practitioner; Referring Provider Nurse Practitioner; Visit Provider Nurse Practitioner Family | DX: S69.91XA Unspecified injury of right wrist, hand and finger(s), initial encounter (principal); X58.XXXA Exposure to other specified factors, initial encounter; F17.210 Nicotine dependence, cigarettes, uncomplicated | CPT/HCPCS: 99214 ==

== ENCOUNTER → 2022-01-07 10:16 | Outpatient (BNVA) | payer MEDICAID, SELFPAY | PROVIDERS: PCP Nurse Practitioner; Visit Provider Surgery | DX: K92.1 Melena (principal); K21.9 Gastro-esophageal reflux disease without esophagitis; R19.7 Diarrhea, unspecified | CPT/HCPCS: 99214 ==

== ENCOUNTER 2022-03-12 15:53 | Outpatient (CLI) | payer MEDICAID, SELFPAY ==
--- NOTE | 2022-03-12 16:00 | CT_ITS ---
WS: [id number] CT RIGHT HAND, NONCONTRAST. HISTORY: right hand injury Technique: All CT scans at [facility] use at least one of these dose optimization techniques: automated exposure control; mA and/or kV adjustment per patient size (includes targeted exams where dose is matched to clinical indication); or iterative reconstruction. DLP: 122.78 mGy.cm COMPARISON: Radiograph 12/31/2021 No fracture is identified. There is a normal alignment at the metacarpal and phalangeal joints. Mild degenerative changes at the first carpometacarpal joint with slight subluxation. No soft tissue abnor malities are identified. The hook of the hamate is intact. CT/CT hand RT wo con* [id number] IMPRESSION: No acute fracture identified. If pain persists MRI may provide additional information concerning the soft tis sid and ligamentous and also evaluate for more subtle marrow edema.
== END 2022-03-12 15:54 | disposition home or self-care (01) ==
LOC: RAD 15:54
PROVIDERS: PCP Nurse Practitioner; Visit Provider Nurse Practitioner Family
DX: S69.91XA Unspecified injury of right wrist, hand and finger(s), initial encounter (principal); X58.XXXA Exposure to other specified factors, initial encounter
CPT/HCPCS: 73200

== ENCOUNTER → 2022-03-14 07:50 | Outpatient (BNVA) | payer MEDICAID, SELFPAY | PROVIDERS: PCP Nurse Practitioner; Visit Provider Nurse Practitioner Family | DX: M19.041 Primary osteoarthritis, right hand (principal) | CPT/HCPCS: 99214 ==

== ENCOUNTER → 2022-03-20 15:05 | Outpatient (BNVA) | payer MEDICAID, SELFPAY | PROVIDERS: PCP Nurse Practitioner; Visit Provider Surgery | DX: R19.7 Diarrhea, unspecified (principal); K21.9 Gastro-esophageal reflux disease without esophagitis | CPT/HCPCS: 99213 ==

== ENCOUNTER → 2022-05-28 08:57 | Outpatient (BNVA) | payer MEDICAID, SELFPAY | PROVIDERS: PCP Nurse Practitioner; Visit Provider Surgery | DX: R19.7 Diarrhea, unspecified (principal); R10.9 Unspecified abdominal pain | CPT/HCPCS: 99213 ==

== ENCOUNTER 2022-05-30 05:59 | Day surgery (SDC) | payer MEDICAID, SELFPAY ==
[2022-05-26 12:11] VITALS: BMI 19.2
[2022-05-30 06:25] VITALS: BP 141/84; PULSE 94; RESP 18; TEMP 36.1; O2SAT 95
--- NOTE | 2022-05-30 06:31 | W.PM.OPSUD ---
Surgery/Procedure H&P Update DATE OF PROCEDURE: May 30, 2022 DATE H&P PERFORMED: 05/28/22 H&P UPDATE INFORMATION: I have reviewed H&P completed within last 30 days, I have examined patient prior to procedure and No changes to prior documentation PREOP DIAGNOSIS: Abdominal pain and bloody diarrhea PRIMARY INDICATION FOR PROCEDURE: The same PLANNED PROCEDURE: Operation Date: 05/30/22 07:30 Proposed Procedures p EGD and colonoscopy [id number],R10.9,K92.1,Kk21.9,R19.7(Not Applicable) - Kian Ellsworth MD s Colonoscopy(Not Applicable) - Kian Ellsworth MD
[2022-05-30] MEDS: sodium chloride 0.9% 1,000 ML 30 ML IV (06:37)
--- NOTE | 2022-05-30 06:58 | ANES.PREANE2 ---
Pre-Anesthetic Assessment Height/Weight: Height 1.63 m Weight 50.802 kg Temp Pulse Resp BP Pulse Ox O2 Del Method 97 F L 94 18 141/84 95 05/30/22 06:25 05/30/22 06:25 05/30/22 06:25 05/30/22 06:25 05/30/22 06:25 05/30/22 06:25 Preop Diagnosis: Abdominal pain and bloody diarrhea Operation Date: 05/30/22 07:30 Proposed Procedures p EGD and colonoscopy [id number],R10.9,K92.1,Kk21.9,R19.7(Not Applicable) - Kian Ellsworth MD s Colonoscopy(Not Applicable) - Kian Ellsworth MD Familial anesthetic complications: none Was Beta Karen taken within 24 hours: N/A Was Clonidine taken within 24 hours: N/A Last intake: Intake Last Liquid Date 05/29/22 Last Liquid Time 23:55 Last Solid Date 05/28/22 Last Solid Time 19:00 Social Tobacco and No alcohol Exam alert, oriented x 3 and regular rate & rhythm Wheezing b/l Airway Submandibular: within normal limits Cervical ROM: within normal limits Mallampati: Class II Comments: Comments: missing teeth Pulmonary Chronic Obstructive Pulmonary Disease CV/HEM Coronary Artery Disease (1 stetn ) and Hypertension None reported Hepatic None reported GI Gastroesophageal Reflux Disease (Poorly controlled ) Metabolic None reported Musc/skel Lower Back Pain and Osteoarthritis/DJD Neuropsych None reported Anesthetic Plan ASA status: 3 Anesthesia: Anesthesia Evaluation, General and MAC Other: I discussed with the patient risks, goals, and benefits of MAC and general anesthesia. We discussed spectrum of MAC anesthesia including conversion to general as well as possibility of recall of intraoperative stimuli including discomfort/pain. Patient agrees to proceed with MAC. Risk of > 500 ml blood loss (7ml/kg in children): No Medications/Allergies Home Medications Medication Instructions Recorded Confirmed Last Taken Type clopidogrel 75 mg tablet (Plavix) 75 mg PO DAILY 10/18/19 05/28/22 05/24/22 History albuterol sulfate 90 mcg/actuation 2 puff inhalation QID PRN 02/01/21 05/30/22 05/30/22 History aerosol inhaler (ProAir HFA) Shortness Of Breath aspirin 81 mg chewable tablet 81 mg PO DAILY 02/01/21 05/28/2222 History evolocumab 140 mg/mL subcutaneous 140 mg SUBCUT Q14D 02/01/21 05/28/22 05/18/22 History pen injector (Yolette Carter) ezetimibe 10 mg tablet 10 mg PO DAILY 02/01/21 05/28/22 05/29/22 History nitroglycerin 0.4 mg sublingual 0.4 mg sublingual Q5MIN PRN Chest 02/01/21 05/28/22 Unknown History tablet Pain pantoprazole 40 mg tablet,delayed 40 mg PO BID 02/01/21 05/28/22 05/29/22 History release rosuvastatin 40 mg tablet 40 mg PO DAILY 02/01/21 05/28/22 05/29/22 History diltiazem HCl 240 mg capsule,24 240 mg PO DAILY 03/07/21 05/28/22 05/29/22 History hr,extended release losartan 25 mg tablet 25 mg PO DAILY 03/19/21 05/28/22 05/29/22 History cholestyramine (with sugar) 4 gram 4 g PO TID #378 grams 10/25/21 05/28/22 Unknown Rx oral powder diclofenac sodium 50 mg 50 mg PO BID PRN pain #60 tabs 03/14/22 05/28/22 04/26/22 Rx tablet,delayed release sucralfate 1 gram tablet (Carafate) 1 g PO TID 12 weeks #252 tabs 05/30/22 Unknown Rx Allergies Allergy/AdvReac Type Severity Reaction Status Date / Time morphine Allergy RASH Verified 05/28/22 10:34 Penicillins Allergy RASH Verified 05/28/22 10:34 Current Medications Generic Name Dose Route Start Last Admin Trade Name Freq PRN Reason Stop Dose Admin Sodium Chloride 1,000 mls @ 30 mls/hr 05/30/22 06:15 05/30/22 06:37 Sodium Chloride 0.9% IV 30 mls/hr .Q24H VONDA Administration PFSH Anesthesia Medical History COVID-19 GERD (gastroesophageal reflux disease) Incomplete bladder emptying Melena Surgical History H/O esophagogastroduodenoscopy H/O ventral hernia repair History of appendectomy History of cholecystectomy History of colon resection History of colonoscopy History of hysterectomy History of lobectomy of lung Family History Father , AT 39 No problems noted. Mother Heart disease Social History Smoking and tobacco status: current every day smoker Alcohol intake: never Marital status: Current occupational status: disabled History of recent travel: No Data Anesthesia Cardiac Studies: No Data to Display
[2022-05-30 07:45] VITALS: BP 134/93; PULSE 70; RESP 20; TEMP 36.1; O2SAT 92
[2022-05-30 07:52] VITALS: BP 155/93; PULSE 74; RESP 18; O2SAT 96
[2022-05-30 08:01] VITALS: BP 133/99; PULSE 77; RESP 18; O2SAT 95
--- NOTE | 2022-05-30 14:38 | ANE.PACU2 ---
Inpatient post-anesthesia follow up: Airway intact: Yes Vital signs: Temperature 97.0 F Pulse Rate 77 Respiratory Rate 18 Blood Pressure 133/99 Pulse Oximetry 95 Oxygen Delivery Me thod Room Air Oxygen Flow Rate 3 Fraction of Inspir ed Oxygen Hydration adequate: Yes Nausea and vomiting: No Pain level: 1 Mental status: Baseline
== END 2022-05-30 08:12 | disposition home or self-care (01) ==
PROVIDERS: PCP Nurse Practitioner; Visit Provider Surgery
PROC: 0DJ08ZZ Inspection of Upper Intestinal Tract, Via Natural or Artificial Opening Endoscopic (ICD-10-PCS; CPT 43235; principal; 2022-05-30 07:30)
PROC: 0DJD8ZZ Inspection of Lower Intestinal Tract, Via Natural or Artificial Opening Endoscopic (ICD-10-PCS; CPT 45378; 2022-05-30 07:30)
DX: K92.1 Melena (principal); K57.30 Diverticulosis of large intestine without perforation or abscess without bleeding; K21.00 Gastro-esophageal reflux disease with esophagitis, without bleeding; K44.9 Diaphragmatic hernia without obstruction or gangrene; K29.80 Duodenitis without bleeding; K29.50 Unspecified chronic gastritis without bleeding; B96.81 Helicobacter pylori [H. pylori] as the cause of diseases classified elsewhere; J44.9 Chronic obstructive pulmonary disease, unspecified; I25.10 Atherosclerotic heart disease of native coronary artery without angina pectoris; I10 Essential (primary) hypertension; Z95.5 Presence of coronary angioplasty implant and graft; Z86.16 Personal history of COVID-19; F17.210 Nicotine dependence, cigarettes, uncomplicated
CPT/HCPCS: 43239; 45378; 82274; 83630; 87493; 87506; 88305; J2704; J7030

== ENCOUNTER → 2022-06-16 14:34 | Outpatient (BNVA) | payer MEDICAID, SELFPAY | PROVIDERS: PCP Nurse Practitioner; Visit Provider Surgery | DX: Z09 Encounter for follow-up examination after completed treatment for conditions other than malignant neoplasm (principal); Z87.898 Personal history of other specified conditions; K57.31 Diverticulosis of large intestine without perforation or abscess with bleeding; K29.90 Gastroduodenitis, unspecified, without bleeding; R19.7 Diarrhea, unspecified | CPT/HCPCS: 99213 ==

== ENCOUNTER 2022-08-21 09:06 | Outpatient (CLI) | payer MEDICAID, SELFPAY ==
--- NOTE | 2022-08-21 10:12 | CT_ITS ---
WS: [id number] CT ABDOMEN PELVIS TECHNIQUE: Contrast-enhanced CT of the abdomen and pelvis with coronal and sagittal reformatted image s. CLINICAL INFORMATION: R10.9 - Unspecified abdominal pain COMPARISON: CT March 01, 2021 DLP: 718.[address] scans at [facility] use at least one of these dose optimization techniques: automated e xposure control; mA and/or kV adjustment per patient size (includes targeted exams where dose is matc hed to clinical indication); or iterative reconstruction. FINDINGS: Prior ventral abdominal wall hernia repair. No evidence of recurrent hernia. No herniated b owel. Lung bases are well aerated. Prior hysterectomy. Diffuse fatty infiltration liver. Normal portal vein and splenic vein. Prior cholecystectomy. Normal GE junction. Air-fluid level in the stomach. Lung bases are well aerated. Slightly aneurysmal infrare nal abdominal aorta measuring 2.1 x 2.3 CM. Adrenal glands are normal. Normal renal parenchymal enhan cement. No hydronephrosis. Incidental bilateral renal cysts. Some are too small to characterize. Norm al pancreatic parenchymal enhancement. Rectosigmoid constipation. Sigmoid diverticulosis. No evidence of acute diverticulitis. No evidence o f high-grade small or large bowel obstruction. Normal lumbar spine. CT/CT abdomen pelvis w con* [id number] IMPRESSION: 1. Prior postoperative changes ventral abdominal wall hernia repair. No eviden ce of recurrent hernia. 2. Tiny fat-containing umbilical hernia. 3. Sigmoid diverticulosis. No evidence of acute diverticulitis. 4. Rectosigmoid constipation with distention of the rectum. 5. Prior cholecystectomy. 6. Slightly aneurysmal infrarenal abdominal aorta measuring 2.1 x 2.3 cm AP by transverse. 7. Prior hysterectomy. 8. No other acute findings.
[2022-08-21] MEDS: iohexol 350 mg/mL 500 mL Btl (per mL) IV (10:33)
[2022-08-21] MEDS: iohexol 350 mg/mL 500 mL Btl (per mL) PO (10:33)
== END 2022-08-21 09:07 | disposition home or self-care (01) ==
LOC: RAD 09:07
PROVIDERS: PCP Nurse Practitioner; Visit Provider Surgery
DX: K42.9 Umbilical hernia without obstruction or gangrene (principal); Z98.890 Other specified postprocedural states; K57.30 Diverticulosis of large intestine without perforation or abscess without bleeding; Z90.49 Acquired absence of other specified parts of digestive tract; K59.00 Constipation, unspecified; I71.43 Infrarenal abdominal aortic aneurysm, without rupture; Z90.710 Acquired absence of both cervix and uterus
CPT/HCPCS: 74177; Q9967

== ENCOUNTER → 2022-08-26 08:56 | Outpatient (BNVA) | payer MEDICAID, SELFPAY | PROVIDERS: PCP Nurse Practitioner; Visit Provider Surgery | DX: Z09 Encounter for follow-up examination after completed treatment for conditions other than malignant neoplasm (principal); R19.7 Diarrhea, unspecified; R10.9 Unspecified abdominal pain | CPT/HCPCS: 99213 ==

== ENCOUNTER 2022-08-28 09:03 | Outpatient (CLI) | payer MEDICAID, SELFPAY ==
--- NOTE | 2022-08-28 10:00 | FL_ITS ---
WS: [id number] Small bowel follow-through, 08/28/2022 Clinical Data: DYSPHAGIA Comparison: None. Fluoroscopy time: 0min [id number] # of spot films: Findings: The preliminary film showed surgical clips and aziza in the upper abdomen. At ingestion of barium t he stomach and duodenum were normal. At 15 minutes postingestion there was rapid progress from the du odenum into the jejunum and ileum. The small bowel is normal in size with no evidence of any obstruct ion or dilatation. There is no stenosis. The barium proceeded through the ileum and entered the cecum via the ileocecal valve. FL/FL small bowel series* [id number] Impression: Normal small bowel follow-through.
== END 2022-08-28 09:04 | disposition home or self-care (01) ==
LOC: RAD 09:04
PROVIDERS: PCP Nurse Practitioner; Visit Provider Surgery
DX: R13.10 Dysphagia, unspecified (principal)
CPT/HCPCS: 74250

== ENCOUNTER → 2022-08-29 10:30 | Outpatient (BNVA) | payer MEDICAID, SELFPAY | PROVIDERS: PCP Nurse Practitioner; Visit Provider Surgery | DX: Z09 Encounter for follow-up examination after completed treatment for conditions other than malignant neoplasm (principal); R19.7 Diarrhea, unspecified | CPT/HCPCS: 99212 ==

== ENCOUNTER 2023-03-24 06:00 | Outpatient (CLI) | payer MEDICAID, SELFPAY | END 2023-03-24 06:01 | disposition home or self-care (01) | LOC: SOT 04-20 07:44 | PROVIDERS: PCP Nurse Practitioner; Visit Provider Student in an Organized Health Care Education/Training Program | DX: Z46.89 Encounter for fitting and adjustment of other specified devices (principal); S61.419A Laceration without foreign body of unspecified hand, initial encounter; S66.929A Laceration of unspecified muscle, fascia and tendon at wrist and hand level, unspecified hand, initial encounter; X58.XXXA Exposure to other specified factors, initial encounter | CPT/HCPCS: 97760; L3806; L3923 ==

== ENCOUNTER 2023-03-28 10:08 | Emergency (ER) | payer MEDICAID, SELFPAY ==
[2023-03-28 10:12] VITALS: BP 129/91; PULSE 95; RESP 18; TEMP 37; O2SAT 95; BMI 19.3
--- NOTE | 2023-03-28 10:20 | ED_ITS ---
Documented by User: CHERI Albert 03/30/23 09:46 HPI - Extremity Problem General: Chief complaint: Extremity Injury, Upper Stated complaint: RT hand lac Time Seen by Provider: 03/28/23 10:10 Source: patient Mode of arrival: ambulatory Limitations: no limitations History of Present Illness: Patient is a 57-year-old female presents to ED today with a complaint of a lacer ation to the right hand that she sustained just prior to arrival after a piece of glass came down and landed directly onto the dorsum of the hand. She states she sustained a laceration to the dorsal aspect of the fifth MCP joint. Patient states she cannot extend her fifth finger. She states her tetanus is up-to-date. MD Complaint: extremity pain and other (finger laceration) Onset (ago): hour(s) Pain Consistency: constant Location: right and upper extremity Radiation: none Relieving factors: immobilization Exacerbating factors: range of motion Associated symptoms: Reports no associated symptoms Review of Systems Musc: Reports: extremity pain (R hand/finger) Skin/Breast: Reports: other (laceration R hand/finger) Neuro: Reports: numbness in extremities, weakness in extremities and sensory changes PFS ED PFSH: Medical History COVID-19 GERD (gastroesophageal reflux disease) Incomplete bladder emptying Melena Surgical History H/O esophagogastroduodenoscopy H/O ventral hernia repair History of appendectomy History of cholecystectomy History of colon resection History of colonoscopy History of hysterectomy History of lobectomy of lung Family History Father , AT 39 No problems noted. Mother Heart disease Social History Smoking and tobacco status: current every day smoker Alcohol intake: never Substance/Drug Use: never Marital status: Current occupational status: disabled Physical Exam Const: COMMON NORMALS: no acute distress, average body habitus, patient oriented x3, no limitations, alert and well nourished GENERAL APPEARANCE: cooperative ORIENTATION/CONSCIOUSNESS: Yes awake, Yes oriented to person, Yes oriented to place and Yes oriented to time Extremity: COMMON NORMALS: capillary refill normal GENERAL: Yes normal exam except as noted RIGHT UPPER EXTREMITY: Yes hand & digits OTHER: patient has a 1cm laceration overlying the dorsal aspect of right MCP joint; with passive ROM of 5th finger I can visualize lacerated extensor tendon; no bleeding; sensory appears intact at this time; normal cap refill Neuro: COMMON NORMALS: patient oriented x3 SENSORIUM/ORIENTATION: Yes alert, Yes oriented to person, Yes oriented to place and Yes oriented to time Course ED course: Care transferred to Dr. Cody pending XR and repair. ES Vital Signs: Vital signs: Vital Signs Temperature 98.6 F 03/28/23 10:12 Pulse Rate 99 03/28/23 10:31 Respiratory Rate 14 03/28/23 13:22 Blood Pressure 166/100 03/28/23 13:22 Pulse Oximetry 94 03/28/23 10:31 Oxygen Delivery Me thod Room Air 03/28/23 10:31 MDM - Extremity (Nontraumatic) Medical Decision Making Care transferred to Dr. Cody. Please see his note for procedure/disposition. ES Lab Data Radiology Impressions Finger X-Ray 03/28/23 10:20 IMPRESSION: No acute findings. Discharge Plan Discharge Patient Disposition: Home Clinical Impression: Hand laceration involving tendon Condition: Stable Prescriptions: New cephalexin 500 mg capsule 500 mg PO Q6H 10 Days Qty: 40 0RF ondansetron 4 mg tablet,disintegrating 4 mg PO Q8H PRN (Reason: nausea and vomiting) Qty: 15 0RF oxycodone 5 mg tablet 5 mg PO Q4H PRN (Reason: pain) Qty: 10 0RF No Action clopidogrel [Plavix] 75 mg tablet 75 mg PO DAILY Hold Instructions: Resume on 06/04/22. diltiazem HCl 240 mg capsule,extended release 24 hr 240 mg PO DAILY (DME) cock up splint See Rx Instructions .Route .MEDSUPPLY Qty: 1 0RF Rx Instructions: As directed diclofenac sodium 50 mg tablet,delayed release (DR/EC) 50 mg PO BID PRN (Reason: pain) Qty: 60 0RF Hold Instructions: Resume on 06/04/22. pantoprazole [Protonix] 40 mg tablet,delayed release (DR/EC) 40 mg PO BID 14 Days Qty: 28 0RF diphenhydramine HCl [Benadryl] 25 mg capsule 50 mg PO ONCE PRN (Reason: allergy symptoms) Qty: 2 0RF Rx Instructions: take two capsules 1 hour prior to appointment nitroglycerin 0.4 mg tablet, sublingual 0.4 mg sublingual Q5MIN PRN (Reason: Chest Pain) aspirin 81 mg Tablet,Chewable 81 mg PO DAILY Hold Instructions: Resume on 06/04/22. albuterol sulfate [ProAir HFA] 90 mcg/actuation HFA aerosol inhaler 2 puff INHALATION QID PRN (Reason: Shortness Of Breath) ezetimibe 10 mg tablet 10 mg PO DAILY rosuvastatin [Crestor] 40 mg tablet 40 mg PO DAILY Questran 4 gram powder 4 g PO TID Rx Instructions: administer w/meal; avoid other meds within 1hr before or 4-6hr after dose Farxiga 10 mg tablet 10 mg PO 1XD hydrocodone-acetaminophen 5-325 mg tablet 1 tab PO Q6H PRN (Reason: pain) 5 Days Qty: 20 0RF Discharge Orders: Discharge ED (Routine); Ordered 03/28/23 Ordered By: Moustapha Cody Referrals: Luul Briceno FNP [Primary Care Provider] - Discharge Diet: Usual diet Discharge Activity: Limit activity as instructed Patient Instructions: Laceration (ED), Tendon Laceration (ED), Opioid Safety Activity Restrictions/Additional Instructions: Thank you for visiting the emergency department. You were seen and evaluated for hand injury. The most likely cause of your symptoms is laceration with tendon laceration. The skin was closed with sutures. Keep the area clean and dry. We will place you in a splint. Please wear this until follow-up. I will message case management for follow-up with orthopedics. If you do not hear from them by Thursday please call Dr. Kothari's office at orthopedics at [phone] and let them know that you were seen in the emergency department and need follow-up appointment ideally on Thursday. I will prescribe pain medication. Use this cautiously. You may use sxuy-prs-smnyviv medications such as acetaminophen and ibuprofen for pain however please do not exceed the daily recommended dosage as listed on the packaging and please keep in mind that many namebrand medications contain the same active ingredients. Please avoid these medications if previously instructed to do so by another physician due to other underlying medical condition. Elevation will also likely help. Return for uncontrolled pain, or anything else that you are concerned about and feel needs emergency department evaluation. Coding Level of Care Code ED Maintenance Dispatcher for Chg Fwd Documented by User: Moustapha Cody MD 04/05/23 22:11 HPI - Extremity Problem General: Chief complaint: Extremity Injury, Upper Stated complaint: RT hand lac Time Seen by Provider: 03/28/23 10:10 PFSH ED PFSH: Medical History COVID-19 GERD (gastroesophageal reflux disease) Incomplete bladder emptying Melena Surgical History H/O esophagogastroduodenoscopy H/O ventral hernia repair History of appendectomy History of cholecystectomy History of colon resection History of colonoscopy History of hysterectomy History of lobectomy of lung Family History Father , AT 39 No problems noted. Mother Heart disease Social History Smoking and tobacco status: current every day smoker Alcohol intake: never Substance/Drug Use: never Marital status: Current occupational status: disabled Procedures Laceration Laceration 1: Site: hand Side (If applicable): right Size (cm): 1 Description: linear Depth: involves tendon Local Anesthetic: lidocaine 1% and with epi Amount of anesthesia used (mL): 1 Pre-repair: wound explored and irrigated extensively Skin layer closed with: nylon Size (cm): 6-0 Number of sutures: 2 Course Vital Signs: Vital signs: Vital Signs Temperature 98.6 F 03/28/23 10:12 Pulse Rate 99 03/28/23 10:31 Respiratory Rate 14 03/28/23 13:22 Blood Pressure 166/100 03/28/23 13:22 Pulse Oximetry 94 03/28/23 10:31 Oxygen Delivery Me thod Room Air 03/28/23 10:31 MDM - Extremity (Nontraumatic) Medical Decision Making Care transferred to Dr. Cody. Please see his note for procedure/disposition. ES Patient care discussed with CHERI Albert. I personally saw and the patient. I reperformed martinez portions of E/M. Discussed with orthopedics. Suspect extensor tendon laceration. Loose closure of the laceration and plan for outpatient orthopedic follow-up with splint placed. Discussed with orthopedics. The results of ED evaluation were discussed with the patient including prescriptions and/or symptomatic cares (if applicable) including appropriate and responsible use, followup plan, and return precautions. The patient verbalized understanding and felt safe for discharge. Moustapha Cody MD Emergency Medicine Lab Data Radiology Impressions Finger X-Ray 03/28/23 10:20 IMPRESSION: No acute findings. Discharge Plan Discharge Patient Disposition: Home Clinical Impression: Hand laceration involving tendon Condition: Stable Prescriptions: New cephalexin 500 mg capsule 500 mg PO Q6H 10 Days Qty: 40 0RF ondansetron 4 mg tablet,disintegrating 4 mg PO Q8H PRN (Reason: nausea and vomiting) Qty: 15 0RF oxycodone 5 mg tablet 5 mg PO Q4H PRN (Reason: pain) Qty: 10 0RF No Action clopidogrel [Plavix] 75 mg tablet 75 mg PO DAILY Hold Instructions: Resume on 06/04/22. diltiazem HCl 240 mg capsule,extended release 24 hr 240 mg PO DAILY (DME) cock up splint See Rx Instructions .Route .MEDSUPPLY Qty: 1 0RF Rx Instructions: As directed diclofenac sodium 50 mg tablet,delayed release (DR/EC) 50 mg PO BID PRN (Reason: pain) Qty: 60 0RF Hold Instructions: Resume on 06/04/22. pantoprazole [Protonix] 40 mg tablet,delayed release (DR/EC) 40 mg PO BID 14 Days Qty: 28 0RF diphenhydramine HCl [Benadryl] 25 mg capsule 50 mg PO ONCE PRN (Reason: allergy symptoms) Qty: 2 0RF Rx Instructions: take two capsules 1 hour prior to appointment nitroglycerin 0.4 mg tablet, sublingual 0.4 mg sublingual Q5MIN PRN (Reason: Chest Pain) aspirin 81 mg Tablet,Chewable 81 mg PO DAILY Hold Instructions: Resume on 06/04/22. albuterol sulfate [ProAir HFA] 90 mcg/actuation HFA aerosol inhaler 2 puff INHALATION QID PRN (Reason: Shortness Of Breath) ezetimibe 10 mg tablet 10 mg PO DAILY rosuvastatin [Crestor] 40 mg tablet 40 mg PO DAILY Questran 4 gram powder 4 g PO TID Rx Instructions: administer w/meal; avoid other meds within 1hr before or 4-6hr after dose Farxiga 10 mg tablet 10 mg PO 1XD hydrocodone-acetaminophen 5-325 mg tablet 1 tab PO Q6H PRN (Reason: pain) 5 Days Qty: 20 0RF Discharge Orders: Discharge ED (Routine); Ordered 03/28/23 Ordered By: Moustapha Cody Referrals: Lulu Briceno FNP [Primary Care Provider] - Discharge Diet: Usual diet Discharge Activity: Limit activity as instructed Patient Instructions: Laceration (ED), Tendon Laceration (ED), Opioid Safety Activity Restrictions/Additional Instructions: Thank you for visiting the emergency department. You were seen and evaluated for hand injury. The most likely cause of your symptoms is laceration with tendon laceration. The skin was closed with sutures. Keep the area clean and dry. We will place you in a splint. Please wear this until follow-up. I will message case management for follow-up with orthopedics. If you do not hear from them by Thursday please call Dr. Kothari's office at orthopedics at [phone] and let them know that you were seen in the emergency department and need follow-up appointment ideally on Thursday. I will prescribe pain medication. Use this cautiously. You may use nfaw-duu-xjuuxxj medications such as acetaminophen and ibuprofen for pain h owever please do not exceed the daily recommended dosage as listed on the packaging and please keep in mind that many namebrand medications contain the same active ingredients. Please avoid these medications if previously instructed to do so by another physician due to other underlying medical condition. Elevation will also likely help. Return for uncontrolled pain, or anything else that you are concerned about and feel needs emergency department evaluation. Coding Level of Care Code ED Maintenance Dispatcher for Vicky Alegria
--- NOTE | 2023-03-28 10:20 | XRR_ITS ---
PROCEDURE INFORMATION: Exam: XR Right Finger(s) Exam date and time: 03/28/2023 10:32 AM Age: 57 years old Clinical indication: Injury or trauma; Other: Laceration; Right; Little finger; Additional info: 5th; Laceration, tendon involvement TECHNIQUE: Imaging protocol: Radiologic exam of the right fingers. Views: Minimum 2 views. COMPARISON: No relevant prior studies available. FINDINGS: Bones/joints: No acute fracture or dislocation. No focal osteopenia. Joints are maintained. Soft tissues: Unremarkable. XR/XR finger RT min 2V [id number] IMPRESSION: No acute findings.
[2023-03-28 10:31] VITALS: BP 128/97; PULSE 99; RESP 16; O2SAT 94
[2023-03-28] MEDS: oxyCODONE 5 mg IR Tab/Cap PO (11:52)
[2023-03-28] MEDS: ketorolac 30 mg/mL INJ 15 MG IM (11:53)
[2023-03-28] MEDS: ondansetron 2 mg/ML SDV 2 mL 4 MG IM (11:54)
[2023-03-28] MEDS: lidocaine-epi 1% 20 mL INJ INJECTION (11:54)
[2023-03-28 13:22] VITALS: BP 166/100; RESP 14
--- NOTE | 2023-03-30 09:29 | DCPLANNER ---
Addendum entered by Sydnie Pugh 04/01/23 08:56: Patient had a follow up appointment scheduled with ortho - patient did attend appointment. Original Note: international tax manager had message to schedule a follow up appointment for patient with ortho. international tax manager sent patients information to the front office staff at ortho. Patients information will be printed and reviewed. Clinic will call patient with appointment information.
== END 2023-03-28 13:24 | disposition home or self-care (01) ==
PROVIDERS: Emergency Provider Emergency Medicine; PCP Nurse Practitioner
DX: S61.411A Laceration without foreign body of right hand, initial encounter (principal); S66.821A Laceration of other specified muscles, fascia and tendons at wrist and hand level, right hand, initial encounter; Z79.82 Long term (current) use of aspirin; Z79.02 Long term (current) use of antithrombotics/antiplatelets; F17.210 Nicotine dependence, cigarettes, uncomplicated; W25.XXXA Contact with sharp glass, initial encounter
CPT/HCPCS: 73140; 96372; 99284; J1885; J2405

== ENCOUNTER → 2023-03-31 15:29 | Outpatient (BNVA) | payer MEDICAID, SELFPAY | PROVIDERS: PCP Nurse Practitioner; Referring Provider Emergency Medicine; Visit Provider Student in an Organized Health Care Education/Training Program | DX: S61.411A Laceration without foreign body of right hand, initial encounter; S66.921A Laceration of unspecified muscle, fascia and tendon at wrist and hand level, right hand, initial encounter; W25.XXXA Contact with sharp glass, initial encounter | CPT/HCPCS: 99204 ==

== ENCOUNTER 2023-04-02 09:38 | Day surgery (SDC) | payer MEDICAID, SELFPAY ==
[2023-04-01 11:23] VITALS: BMI 19.3
[2023-04-02] VITALS (8 sets, daily range): BP systolic 106–153; BP diastolic 65–105; PULSE 71–87; RESP 16–18; TEMP 36.2–36.6; O2SAT 90–97
[2023-04-02] MEDS: ketorolac 30 mg/mL INJ IVP (10:18)
[2023-04-02] MEDS: acetaminophen 1,000 MG/100 ML PIGGYBACK 400 MG IV (10:20)
[2023-04-02] MEDS: sodium chloride 0.9% 1,000 ML 30 ML IV (10:21)
[2023-04-02 10:31] LABS: Hematocrit 47.9 % (37.0-47.0); Mean Corpuscular HGB Conc 33.4 g/dL (30.0-36.0); Mean Corpuscular Hemoglobin 29.3 pg (28.0-34.0); Mean Corpuscular Volume 87.7 fl (81-99); Mean Platelet Volume 10.3 fL (7.4-10.4); Platelet Count 298 10^3/cmm (130-400); Red Blood Count 5.46 10^6/uL (4.1-5.3); Red Cell Distribution Width 15.8 % (12.1-15.1)
[2023-04-02] MEDS: ondansetron 2 mg/ML SDV 2 mL 4 MG IVP (10:33)
--- NOTE | 2023-04-02 11:00 | ANES.PREANE2 ---
Pre-Anesthetic Assessment Height/Weight: Height 1.63 m Weight 51.256 kg Temp Pulse Resp BP Pulse Ox O2 Del Method 97.7 F 87 16 153/105 93 Room Air 04/02/23 10:04 04/02/23 10:04 04/02/23 10:04 04/02/23 10:04 04/02/23 10:04 04/02/23 10:08 Preop Diagnosis: Right extensor tendon injury small finger Operation Date: 04/02/23 11:30 Proposed Procedures p RIGHT SMALL FINGER, WOUND EXPLORATION,IRRIGATION AND DEBRIDEMENT,EXTENSOR TENDON REPAIR S61.419A(Right) - Royer Sabine, DO s Wound Exploration(Right) - Royer Saniya, DO s Tendon Repair Finger(Right) - Royer Sabine, DO Familial anesthetic complications: None Was Beta Karen taken within 24 hours: N/A Was Clonidine taken within 24 hours: N/A Last intake: Intake Last Liquid Date 04/01/23 Last Liquid Time 23:30 Last Solid Date 04/01/23 Last Solid Time 19:00 Social Tobacco and No alcohol Exam alert, oriented x 3, clear to auscultation bilaterally and regular rate & rhythm Airway Mallampati: Class II Dentition: false Pulmonary Chronic Obstructive Pulmonary Disease CV/HEM Coronary Artery Disease and Hypertension GI Gastroesophageal Reflux Disease Anesthetic Plan ASA status: 3 Anesthesia: General Risk of > 500 ml blood loss (7ml/kg in children): No Medications/Allergies Home Medications Medication Instructions Recorded Confirmed Last Taken Type clopidogrel 75 mg tablet (Plavix) 75 mg PO DAILY 10/18/19 04/01/23 03/27/23 History albuterol sulfate 90 mcg/actuation 2 puff inhalation QID PRN 02/01/21 04/01/23 04/02/23 History aerosol inhaler (ProAir HFA) Shortness Of Breath aspirin 81 mg chewable tablet 81 mg PO DAILY 02/01/21 04/01/23 03/28/23 History ezetimibe 10 mg tablet 10 mg PO DAILY 02/01/21 04/01/23 03/22/23 History nitroglycerin 0.4 mg sublingual 0.4 mg sublingual Q5MIN PRN Chest 02/01/21 04/01/23 Unknown History tablet Pain rosuvastatin 40 mg tablet (Crestor) 40 mg PO DAILY 02/01/21 04/01/23 03/31/23 History diltiazem HCl 240 mg capsule,24 240 mg PO DAILY 03/07/21 04/01/23 04/02/23 History hr,extended release diclofenac sodium 50 mg 50 mg PO BID PRN pain #60 tabs 03/14/22 04/01/23 12/31/22 Rx tablet,delayed release pantoprazole 40 mg tablet,delayed 40 mg PO BID 14 days #28 tabs 06/20/22 04/01/23 04/02/23 Rx release (Protonix) diphenhydramine HCl 25 mg capsule 50 mg PO ONCE PRN allergy symptoms 08/20/22 04/01/23 03/28/23 Rx (Benadryl) #2 caps cephalexin 500 mg capsule 500 mg PO Q6H 10 days #40 caps 03/28/23 04/01/23 04/01/23 Rx ondansetron 4 mg disintegrating 4 mg PO Q8H PRN nausea and 03/28/23 04/01/23 Unknown Rx tablet vomiting #15 tabs oxycodone 5 mg tablet 5 mg PO Q4H PRN pain #10 tabs 03/28/23 04/01/23 03/31/23 Rx cock up splint #1 ea 03/31/23 03/31/23 Unknown Rx cholestyramine (with sugar) 4 gram 4 g PO TID 04/01/23 04/01/23 12/31/22 History oral powder (Questran) dapagliflozin 10 mg tablet 10 mg PO 1XD 04/01/23 04/01/23 04/02/23 History (Farxiga) hydrocodone 5 mg-acetaminophen 325 1 tab PO Q6H PRN pain 5 days #20 04/02/23 Unknown Rx mg tablet tabs ondansetron 4 mg disintegrating 4 mg PO DAILY PRN nausea and 04/02/23 Unknown Rx tablet vomiting 3 days #9 tabs Allergies Allergy/AdvReac Type Severity Reaction Status Date / Time Iodinated Contrast Media Allergy burning, Verified 03/31/23 15:53 itch, throat swelling morphine Allergy RASH Verified 03/31/23 15:53 Penicillins Allergy ALGY-Anaphy Verified 04/02/23 09:55 laxis Current Medications Generic Name Dose Route Start Last Admin Trade Name Freq PRN Reason Stop Dose Admin Sodium Chloride 1,000 mls @ 30 mls/hr 04/02/23 09:45 04/02/23 10:21 Sodium Chloride 0.9% IV 04/03/23 09:44 30 mls/hr .Q24H VONDA Administration Ondansetron HCl 4 mg 04/02/23 09:44 04/02/23 10:33 Ondansetron 2 Mg/Ml Sdv 2 Ml IVP 4 mg Q5M PRN Administration NAUSEA AND VOMITING PFSH Anesthesia Medical History COVID-19 GERD (gastroesophageal reflux disease) Incomplete bladder emptying Melena Surgical History H/O esophagogastroduodenoscopy H/O ventral hernia repair History of appendectomy History of cholecystectomy History of colon resection History of colonoscopy History of hysterectomy History of lobectomy of lung Family History Father , AT 39 No problems noted. Mother Heart disease Social History Smoking and tobacco status: current every day smoker Alcohol intake: never Substance/Drug Use: never Marital status: Current occupational status: disabled Data Anesthesia 04/02/23 10:10 04/02/23 10:10 Short CBC 04/02/23 Range/Units 10:10 WBC 10.0 (4.0-10.0) 10^3/uL Hgb 16.0 H (11.5-15.3) g/dL Hct 47.9 H (37.0-47.0) % MCV 87.7 (81-99) fl Plt Count 298 (130-400) 10^3/cmm Cardiac Studies: No Data to Display
[2023-04-02 11:01] LABS: Anion Gap 16.7 (5-19); Blood Urea Nitrogen 18 mg/dL (6-20); Calcium 10.1 mg/dL (8.5-10.5); Carbon Dioxide 26 mmol/L (22-29); Chloride 103 mmol/L (98-107); Glomerular Filtration Rate 64.3 mL/min (90-130); Glucose 101 mg/dL (65-115); Osmolality Calculated 294 mOsm/kg (285-295); Potassium 4.7 mmol/L (3.5-5.1); Sodium 141 mmol/L (136-145)
[2023-04-02 11:07] LABS: Absolute Eosinophils 0.2 10^3/cmm (0.0-0.7); Eosinophils 2 %; Lymphocytes 43 %; Lymphocytes Absolute 4.3 10^3/cmm (1.2-3.4); Monocytes Absolute 0.5 10^3/cmm (0.1-0.6); Platelet Estimate Normal (Normal); Segmented Neutrophils 50 %; Total Cells Counted 100 (0-100)
--- NOTE | 2023-04-02 12:26 | W.PM.OPSUD ---
Surgery/Procedure H&P Update DATE OF PROCEDURE: April 02, 2023 DATE H&P PERFORMED: 03/31/23 CHANGES TO PREVIOUS DOCUMENTATION: none. PREOP DIAGNOSIS: Right extensor tendon injury small finger PRIMARY INDICATION FOR PROCEDURE: Right small finger extensor tendon injury PLANNED PROCEDURE: Operation Date: 04/02/23 11:30 Proposed Procedures p RIGHT SMALL FINGER, WOUND EXPLORATION,IRRIGATION AND DEBRIDEMENT,EXTENSOR TENDON REPAIR S61.419A(Right) - DO precious Braswell Wound Exploration(Right) - DO precious Braswell Tendon Repair Finger(Right) - Royer Kothari DO
[2023-04-02] MEDS: ceFAZolin 2,000 MG in sodium chloride 0.9% (plus) 50 ML 100 MG IV (12:31)
--- NOTE | 2023-04-02 12:56 | PM.OP ---
Operative Report Date of procedure: April 02, 2023 Pre-op diagnosis: Preop Diagnosis Right extensor tendon injury small finger Post-op diagnosis: Right dorsal hand zone 6 extensor tendon injury to extensor digiti minimi Procedure done: Right small finger irrigation and debridement with wound exploration Right small finger extensor tendon digiti minimi repair zone 6 Right ulnar gutter splint application Implants: Arthrex 4-0 FiberWire and Prolene suture Surgeon: oRyer Kothari DO Senior Network Security Engineer: Marshall Kothari PA-C PA was necessary for this case for protection of neurovascular structures as well as an assistance with hand positioning and maintenance of extensor tendon tension while performing repair. Estimated blood loss (mL): 3 24min IV fluids: 200 mL Complications: None Findings: See operative report narrative Condition: stable Disposition: same day Brief History: Patient presents to the office in outpatient setting with her a laceration to the right small finger she has inability to fully extend her right small finger. Injury is in a zone 6 region of the right hand. We talked about treatment options given her lack of extension and function of the right small finger recommended surgical exploration as well as likely tendon repair. She understands the ins and outs procedure risk benefits complication alternatives with surgery through shared decision making she elects proceed with surgical intervention all questions been answered at this time. Procedure: Patient was seen evaluate in the preoperative holding area. Consent was reviewed and signed with patient correct extremity was then marked. Patient was then seen evaluate by anesthesia was cleared for surgery was taken back to the operative suite she was kept on the OR gurney and transported the OR safely she then had an armboard applied to the right upper arm. She then underwent anesthesia per the anesthesia apartment once properly anesthetized the right upper extremity had a nonsterile tourniquet applied to the right upper arm. Once properly anesthetized the right upper extremity was then prepped and draped in standard orthopedic fashion. Final timeout performed. Patient received appropriate preoperative antibiotics. Esmarch tourniquet was used exsanguinate the right upper extremity and tourniquet was insufflated to 250 mmHg. Small transverse incision was then extended both proximally and distally from previous laceration site. I switched to Littler dissection scissors to create full-thickness skin flaps protecting my neurovascular structures utilizing my assistant professor of nursing CHERI. Once this was performed I then came down directly over to the extensor digit and me tendon which was found to be completely lacerated at zone 6. There had been retraction of the tendon proximally. At this point time I had him extend my incision proximally in order to find the tendon. This was retracted right up to the distal aspect of the dorsal wrist crease/extensor compartment hoods. At this point in time I performed appropriate dissection and then utilizing a tendon passer stayed within the sheath distally and dorsal are in the hand and subsequently reapproximated this tendon into appropriate position and I utilized a 22-gauge needle to loving the tendon into appropriate position to allow for repair. At this point time I Manship the appropriate ends I did have to freshen up a small couple millimeters and of the tendon that was frayed and nonviable for repair once this was then done I then thoroughly irrigated the wound bed my entire area of irrigation debridement of skin and subcutaneous tissue fascia and tendon that was debrided was a total of 8 cm x 2 cm x 1 cm. Once this was completed I was ready for my repair I utilized Arthrex 4-0 FiberWire and placed a standard 4 core strand stitches within the tendon to reapproximate that. These were then tied and appropriate opposition was made this finger was held under appropriate tension utilizing my assistant professor of nursing. Once this was then completed I then selected 6-0 Prolene suture and did a running epitendinous stitch to increase strength and my repair as well as to debulk the repair site. This was then tied off satisfied with my repair I then took the hand through tenodesis effect which had appropriate excursion as well as stress to my repair and there is no evidence of tendon gapping. This completed my repair. Tourniquet was deflated hemostasis satisfactory wound bed was then thoroughly irrigated. Wound was closed with interrupted 3-0 Vicryl suture as well as interrupted horizontal mattress stitches. This was then dressed with Xeroform 4 x 4's ABD Curlex soft roll Vivi wrap as well as ulnar gutter splint applied. Patient was then awakened from anesthesia and taken to PACU in stable condition. Disposition: Patient taken to PACU in stable condition recovering well will receive appropriate discharge structure as well as pain medication postoperatively. We will keep her in a splint until follow-up after that we will begin to start her on extensor tendon repair protocol. Patient understands and agrees with current plan. All questions answered. We will follow-up in the office in 2 weeks. Patient instructed to continue and complete her Keflex antibiotics that were written from the emergency department.
[2023-04-02] MEDS: ROPivacaine 0.5% SDV 30 mL 50 MG INJECTION (13:46)
[2023-04-02] MEDS: lidocaine 1% INJ 10 mL (per mL) XX (13:48)
--- NOTE | 2023-04-02 13:55 | PM.OP2 ---
Brief Operative Note Date of procedure: 04/02/23 Pre-op diagnosis: Right Small finger Tendon Laceration Post-op diagnosis: same Procedure Done: Right small finger, wound exploration, irrigation and debridement, extensor tendon repair Surgeon: Royer Kothari Estimated blood loss (mL): 3 Complications: No complications Post-op Plan: ulnar gutter splint with her fourth and fifth digits held in extension. Follow up in 2 weeks. Pain and Nausea meds sent to pt's preferred pharmacy. Condition: stable Disposition: same day Coding Level of Care Code Acute Code for Vicky Alegria
--- NOTE | 2023-04-02 14:00 | PM.PACU ---
PACU note Narrative: Patient had right small finger, wound exploration, irrigation and debridement, extensor tendon repair performed by Dr. Kothari. Procedure went well and tendon laceration was repaired. Patient was placed in a ulnar gutter splint with fourth and fifth digits held in extension. Patient is feeling well and is awake, alert and interactive. She has good perfusion to the digits on right hand. Decreased sensation secondary to local. rest of exam on Right hand is limited due to splint in place. No other complaints. Exam: awake and vital signs stable Disposition: discharged
--- NOTE | 2023-04-02 14:25 | ANE.PACU2 ---
Inpatient post-anesthesia follow up: Airway intact: Yes Vital signs: Temperature 97.8 F Pulse Rate 77 Respiratory Rate 16 Blood Pressure 125/80 Pulse Oximetry 94 Oxygen Delivery Me thod Room Air Oxygen Flow Rate 2 Fraction of Inspir ed Oxygen Hydration adequate: Yes Nausea and vomiting: No Pain level: 1 Mental status: Baseline
== END 2023-04-02 14:40 | disposition home or self-care (01) ==
PROVIDERS: Anesthesiology; PCP Nurse Practitioner; Visit Provider Student in an Organized Health Care Education/Training Program
PROC: (CPT 26180; principal; 2023-04-02 11:30)
PROC: (CPT 26180; 2023-04-02 11:30)
PROC: (CPT 26180; 2023-04-02 11:30)
DX: S66.326A Laceration of extensor muscle, fascia and tendon of right little finger at wrist and hand level, initial encounter (principal); J44.9 Chronic obstructive pulmonary disease, unspecified; I10 Essential (primary) hypertension; I25.10 Atherosclerotic heart disease of native coronary artery without angina pectoris; K21.9 Gastro-esophageal reflux disease without esophagitis; F17.200 Nicotine dependence, unspecified, uncomplicated; Z79.82 Long term (current) use of aspirin; Z79.899 Other long term (current) drug therapy; Z86.16 Personal history of COVID-19; Z88.0 Allergy status to penicillin; Z88.5 Allergy status to narcotic agent; W25.XXXA Contact with sharp glass, initial encounter
CPT/HCPCS: 26180; 29130; 36415; 80048; 85007; 85027; J0131; J0690; J1885; J2371; J2405; J2704; J2795; J3010; J7030

== ENCOUNTER → 2023-04-07 10:51 | Outpatient (BNVA) | payer MEDICAID, SELFPAY | PROVIDERS: PCP Nurse Practitioner; Visit Provider Nurse Practitioner Family | DX: Z98.890 Other specified postprocedural states (principal) | CPT/HCPCS: 99024; 99213 ==

== ENCOUNTER 2023-04-21 06:00 | Outpatient (RCR) | payer SELFPAY | END 2023-04-23 23:59 | disposition home or self-care (01) | LOC: SOT 06:00 | PROVIDERS: PCP Nurse Practitioner; Visit Provider Physician Assistant | DX: Z98.890 Other specified postprocedural states (principal) | CPT/HCPCS: 97140; 97165 ==

== ENCOUNTER 2023-04-24 06:00 | Outpatient (RCR) | payer SELFPAY | END 2023-05-23 23:59 | disposition home or self-care (01) | LOC: SOT 06:00 | PROVIDERS: PCP Nurse Practitioner; Visit Provider Physician Assistant | DX: S61.419D Laceration without foreign body of unspecified hand, subsequent encounter (principal); X58.XXXD Exposure to other specified factors, subsequent encounter | CPT/HCPCS: 97022; 97110; 97140 ==

== ENCOUNTER → 2023-05-15 07:28 | Outpatient (BNVA) | payer MEDICAID, SELFPAY | PROVIDERS: PCP Nurse Practitioner; Visit Provider Physician Assistant | DX: S66.306A Unspecified injury of extensor muscle, fascia and tendon of right little finger at wrist and hand level, initial encounter; S66.326A Laceration of extensor muscle, fascia and tendon of right little finger at wrist and hand level, initial encounter; X58.XXXA Exposure to other specified factors, initial encounter | CPT/HCPCS: 99213 ==

== ENCOUNTER → 2023-06-25 11:02 | Outpatient (BNVA) | payer MEDICAID, SELFPAY | PROVIDERS: PCP Nurse Practitioner; Visit Provider Physician Assistant | DX: M25.811 Other specified joint disorders, right shoulder; Z98.890 Other specified postprocedural states | CPT/HCPCS: 20610; 73030; 99213; J3301 ==

== ENCOUNTER → 2023-11-03 14:54 | Outpatient (BNVA) | payer MEDICARE, MEDICAID, SELFPAY | PROVIDERS: PCP Nurse Practitioner; Visit Provider Podiatrist Foot & Ankle Surgery | DX: B35.1 Tinea unguium (principal) | CPT/HCPCS: 36415; 80053; 99203 ==

== ENCOUNTER → 2023-11-24 10:54 | Outpatient (BNVA) | payer MEDICARE, MEDICAID, SELFPAY | PROVIDERS: PCP Nurse Practitioner; Visit Provider Physician Assistant | DX: Z98.890 Other specified postprocedural states (principal); M25.811 Other specified joint disorders, right shoulder | CPT/HCPCS: 99213 ==

== ENCOUNTER 2023-12-02 20:07 | Emergency (ER) | payer MEDICARE, MEDICAID, SELFPAY ==
--- NOTE | 2023-12-02 20:10 | ECG_ITS ---
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 Measurements Intervals [place] Rate: 115 P: 82 MA: 132 QRS: 75 QRSD: 97 T: 74 QT: 385 QTc: 533 Interpretive Statements SINUS TACHYCARDIA POSSIBLE RIGHT ATRIAL ENLARGEMENT [0.25mV P-WAVE] POSSIBLE LEFT ATRIAL ENLARGEMENT [-0.1mV P-WAVE IN V1/V2] NONSPECIFIC ST & T-WAVE ABNORMALITY Compared to ECG 02/17/2021 09:47:29 T-wave abnormality now present Sinus rhythm no longer present Electronically Signed On 12-04-2023 17:04:13 CDT by Burke Best M.D. [id number] f
[2023-12-02 20:14] VITALS: BP 145/94; PULSE 117; RESP 24; TEMP 36.8; O2SAT 93
--- NOTE | 2023-12-02 20:24 | XRR_ITS ---
PROCEDURE INFORMATION: Exam: XR Chest Exam date and time: 12/02/2023 8:33 PM Age: 58 years old Clinical indication: Cough; Additional info: Dyspnea TECHNIQUE: Imaging protocol: Radiologic exam of the chest. Views: 1 view. COMPARISON: CR XR chest 2V* [id number] 12/31/2021 3:24 PM FINDINGS: Lungs: Moderately hyperinflated lungs with mild basilar peribronchial thickening. No focal consolidation. Pleural spaces: Unremarkable. No pleural effusion. No pneumothorax. Heart/Mediastinum: Unremarkable. No cardiomegaly. Bones/joints: Unremarkable. XR/XR chest 1V portable [id number] IMPRESSION: Moderate hyperinflation compatible with COPD. Mild chronic basal peribronchial thickening without focal consolidation.
[2023-12-02 20:37] LABS: Basophils # 0.1 10^3/uL (0.0-0.1); Basophils % 0.8 %; Eosinophils # 0.2 10^3/uL (0.0-0.8); Eosinophils % 1.9 %; Hematocrit 42.5 % (36-47); Lymphocytes # 2.6 10^3/uL (0.8-4.8); Lymphocytes % 29.6 %; Mean Corpuscular HGB Conc 33.9 g/dL (30-55); Mean Corpuscular Hemoglobin 30.2 pg (27-33); Mean Corpuscular Volume 89.1 fl (85-98); Mean Platelet Volume 10.1 fL (7.4-10.4); Monocytes # 0.7 10^3/uL (0.2-0.9); Monocytes % 8.5 %; Neutrophils # 5.09 10^3/uL (1.8-7.7); Nucleated Red Blood Cells % 0 %; Platelet Count 234 10^3/cmm (157-399); Red Blood Count 4.77 10^6/uL (3.85-5.65); Red Cell Distribution Width 14.5 % (12.1-15.1); White Blood Count 8.62 10^3/uL (3.29-11.43)
--- NOTE | 2023-12-02 20:47 | ED_ITS ---
HPI - SOB/Dyspnea 2 General: Chief Complaint: Shortness of Breath/Dyspnea Stated Complaint: sob Time Seen by Provider: 12/02/23 20:23 History of Present Illness: HPI Narrative: 58-year-old female presents emergency de partment complaints of intermittent productive cough for the previous 5 days. She states she feels more short of breath over the last 24 hours and reports a fever of 103 ?F last night. She does have a history of COPD and does wear 3 L of supplemental nasal cannula oxygen at night and given her increased shortness of breath she has needed to wear it [id number]. She continues to use tobacco products daily. She denies chills or night sweats. She states that she has been coughing so much that her ribs hurt. She states there rib pain is a 4 out of 10 and worse with coughing. Patient does have a history of COPD, lobectomy of the lung, colon resection and cholecystectomy and appendectomy, H. pylori gastritis, duodenitis, diverticulosis. Review of Systems 2 General: Reports: 10 or more systems reviewed and unremarkable except in HPI and below Resp: Reports: dyspnea, productive cough and wheezing PFSH ED 2 PFSH: Medical History Melena GERD (gastroesophageal reflux disease) COVID-19 Incomplete bladder emptying Surgical History H/O esophagogastroduodenoscopy H/O ventral hernia repair History of colon resection History of lobectomy of lung History of colonoscopy History of appendectomy History of cholecystectomy History of hysterectomy Family History Father , AT 39 No problems noted. Mother Heart disease Social History Smoking and tobacco/nicotine status: current every day tobacco/nicotine user Alcohol intake: never Substance/Drug Use: never Marital status: Current occupational status: disabled Physical Exam 2 Narrative: EXAM NARRATIVE: Constitutional: the patient appears well nourished and of normal development. Vital signs as documented. No acute distress at present. Alert and oriented-to person, place, time and situation. Head, eyes, ears, nose, mouth, throat: Normocephalic, atraumatic. Pupils-equal, round, reactive to light. No scleral icterus. Normal-appearing external ears. Normal appearing nasal turbinates, no drainage. No obvious oral lesions, posterior oropharynx without erythema or exudates. Neck: Supple, trachea is midline, no lymphadenopathy, no jugular venous distension, thyromegaly, or carotid bruits. Carotid upstrokes are brisk bilaterally. Lungs: Symmetrical rise and fall of chest, expiratory wheezes noted, prolonged expiratory phase noted. She does sound like she is having some intermittent crackles bilaterally. She is tachypneic although she is not exhibiting any accessory muscle usage or tripoding. Cardiac: Sinus tachycardia, positive S1, S2. No murmurs, rubs or gallops that I can appreciate Abdomen: Soft, non-tender to palpation, normal active bowel sounds to all quadrants. No palpable masses, no organomegaly and abdominal bruits. Extremities: 2+ pulses in the upper extremities that are equal bilaterally, 2+ pulses in the lower extremities that are equal bilaterally. Non-edematous. Moves all extremities well, sensation to all extremities are noted. Skin: Warm, dry, intact. Course 2 Vital Signs: Vital signs: Vital Signs Temperature 98.2 F 12/02/23 20:14 Pulse Rate 100 12/02/23 22:03 Respiratory Rate 24 H 12/02/23 22:03 Blood Pressure 135/87 12/02/23 22:03 Pulse Oximetry 92 12/02/23 22:03 Oxygen Delivery Me thod Nasal Cannula 12/02/23 20:54 Oxygen Flow Rate 2 12/02/23 20:54 MDM - SOB/Dyspnea Medical Decision Making Physical exam completed and documented I will obtain a CBC, CMP, chest x-ray, I have provided the patient with IV steroids and DuoNeb breathing treatment. I have also ordered serial cardiac enzymes and twelve-lead EKGs for evaluation. A COVID screen is negative. Patient CBC was essentially normal her cardiac enzyme was 13 she has not complained of any chest pain. Her BNP was 461, her CMP was essentially normal, chest x-ray findings are consistent with COPD exacerbation. I have provided the patient with written prescriptions for corticosteroids, antibiotics, and will discharge her home with follow-up with her PCP. Medical Records I reviewed the patient's medical records. Lab Data I reviewed the patient's lab results. 12/02/23 20:29 12/02/23 20:29 Labs/Radiology: Radiology Impressions Chest X-Ray 12/02/23: IMPRESSION: Moderate hyperinflation compatible with COPD. Mild chronic basal peribronchial thickening without focal consolidation. Laboratory Results WBC 8.62 10^3/uL (3.29-11.43) 12/02/23 20: RBC 4.77 10^6/uL (3.85-5.65) 12/02/23 20: Hgb 14.40 g/dL (11.27-16.99) 12/02/23 20: Hct 42.5 % (36-47) 12/02/23 20: MCV 89.1 fl (85-98) 12/02/23 20: MCH 30.2 pg (27-33) 12/02/23: MCHC 33.9 g/dL (30-55) 12/02/23: RDW 14.5 % (12.1-15.1) 12/02/23: Plt Count 234 10^3/cmm (157-399) 12/02/23: MPV 10.1 fL (7.4-10.4) 12/02/23 20: Neut % (Auto) 59.0 % 12/02/23: Lymph % (Auto) 29.6 % 12/02/23: [place] % (Auto) 8.5 % 12/02/23: Eos % (Auto) 1.9 % 12/02/23: Baso % (Auto) 0.8 % 12/02/23: Neut # (Auto) 5.09 10^3/uL (1.8-7.7) 12/02/23 20: Lymph # (Auto) 2.6 10^3/uL (0.8-4.8) 12/02/23: [place] # (Auto) 0.7 10^3/uL (0.2-0.9) 12/02/23 20: Eos # (Auto) 0.2 10^3/uL (0.0-0.8) 12/02/23 20: Baso # (Auto) 0.1 10^3/uL (0.0-0.1) 12/02/23: Nucleated RBC % (auto) 0 % 12/02/23 20: Nucleated RBCs # 0.0 /100WBC 12/02/23 20: PT 12.70 SECONDS (12.1-14.9) 12/02/23 20: INR 0.93 (0.8-1.2) 12/02/23 20: Sodium 139 mmol/L (136-145) 12/02/23 20: Potassium 3.7 mmol/L (3.5-5.1) 12/02/23 20: Chloride 100 mmol/L (98-107) 12/02/23: Carbon Dioxide 25 mmol/L (22-29) 12/02/23: Anion Gap 17.7 (5-19) 12/02/23 20: BUN 17 mg/dL (6-20) 12/02/23 20: Creatinine 1.0 mg/dL (0.5-0.9) H 12/02/23: GFR Calculation 56.7 mL/min (90-130) L 12/02/23: Glucose 142 mg/dL (65-115) H 12/02/23: Calculated Osmolality 292 mOsm/kg (285-295) 12/02/23: Lactic Acid 1.9 mmol/L (0.5-2.2) 12/02/23: Calcium 9.6 mg/dL (8.5-10.5) 12/02/23 20: Total Bilirubin 0.2 mg/dL (0.15-1.2) 12/02/23 20: AST 18 U/L (0-32) 12/02/23 20: ALT 15 U/L (0-33) 12/02/23 20: Alkaline Phosphatase 75 U/L (35-105) 12/02/23 20: Troponin T Baseline 13 ng/L (0-10) H 12/02/23 20: NT-Pro-B Natriuret Pep 461 pg/mL (0-125) H 12/02/23 20: Total Protein 6.9 g/dL (6.6-8.7) 12/02/23 20: Albumin 4.4 g/dL (3.5-5.2) 12/02/23 20:29 Globulin 2.5 g/dL (1.3-4.6) 12/02/23 20:29 Procalcitonin 0.08 ng/mL (0-0.5) 12/02/23 20:29 SARS-CoV-2 Ag (Rapid) negative (Negative) 12/02/23 20:51 All radiology interpretation(s) finalized by discharge EKG Data EKG 1: Interpretation: Twelve-lead EKG obtained at 2009 and reviewed at 2009 demonstrates sinus tachycardia with a ventricular rate of 115, NH interval 132, QRS duration 97, QT 385, QTc [address] elevation or depression at present Discharge Plan Discharge Patient Disposition: Home Clinical Impression: COPD exacerbation, Cough Condition: Stable Prescriptions: New benzonatate 200 mg capsule 200 mg PO TID Qty: 30 0RF guaifenesin 1,200 mg tablet extended release 12hr 1,200 mg PO BID Qty: 14 0RF prednisone 20 mg tablet 40 mg PO DAILY 5 Days Qty: 10 0RF Zithromax TRI-ROXANE 500 mg tablet See Rx Instructions .ROUTE .COMPLEX Qty: 3 0RF Rx Instructions: For 250 mg dose pack: take 500 mg today (day 1), then 250 mg for 4 days (days 2-5) No Action clopidogrel [Plavix] 75 mg tablet 75 mg PO DAILY Hold Instructions: Resume on 06/04/22. diltiazem HCl 240 mg capsule,extended release 24 hr 240 mg PO DAILY (DME) cock up splint See Rx Instructions .Route .MEDSUPPLY Qty: 1 0RF Rx Instructions: As directed tramadol 50 mg tablet 50 mg PO Q6H PRN (Reason: pain) 5 Days Qty: 20 0RF prednisone 20 mg tablet 20 mg PO DAILY Qty: 15 0RF Rx Instructions: 60mg X3 days 40mg X2 days 20mg X 2days diclofenac sodium [Voltaren Arthritis Pain] 1 % gel 2 g topical QID Qty: 100 0RF Rx Instructions: apply to single elbow, wrist or hand; for hand includes palm/fingers/back of hand diclofenac sodium 50 mg tablet,delayed release (DR/EC) 50 mg PO BID PRN (Reason: pain) Qty: 60 0RF Hold Instructions: Resume on 06/04/22. pantoprazole [Protonix] 40 mg tablet,delayed release (DR/EC) 40 mg PO BID 14 Days Qty: 28 0RF hydrocodone-acetaminophen 5-325 mg tablet 1 tab PO Q6H PRN (Reason: pain) 5 Days Qty: 20 0RF (DME) Volar Blocking Splint See Rx Instructions .Route .MEDSUPPLY Qty: 1 0RF Rx Instructions: As directed diphenhydramine HCl [Benadryl] 25 mg capsule 50 mg PO ONCE PRN (Reason: allergy symptoms) Qty: 2 0RF Rx Instructions: take two capsules 1 hour prior to appointment terbinafine HCl 250 mg tablet 250 mg PO DAILY Qty: 30 2RF nitroglycerin 0.4 mg tablet, sublingual 0.4 mg sublingual Q5MIN PRN (Reason: Chest Pain) aspirin 81 mg Tablet,Chewable 81 mg PO DAILY Hold Instructions: Resume on 06/04/22. albuterol sulfate [ProAir HFA] 90 mcg/actuation HFA aerosol inhaler 2 puff INHALATION QID PRN (Reason: Shortness Of Breath) ezetimibe 10 mg tablet 10 mg PO DAILY rosuvastatin [Crestor] 40 mg tablet 40 mg PO DAILY ondansetron 4 mg tablet,disintegrating 4 mg PO Q8H PRN (Reason: nausea and vomiting) Qty: 15 0RF oxycodone 5 mg tablet 5 mg PO Q4H PRN (Reason: pain) Qty: 10 0RF Questran 4 gram powder 4 g PO TID Rx Instructions: administer w/meal; avoid other meds within 1hr before or 4-6hr after dose Farxiga 10 mg tablet 10 mg PO 1XD Discharge Orders: Discharge ED (Routine); Ordered 12/02/23 Ordered By: Spencer Yung Referrals: Lulu Briceno FNP [Primary Care Provider] - Discharge Diet: Usual diet Discharge Activity: Resume usual activity Patient Instructions: Opioid Safety, Pain Management Activity Restrictions/Additional Instructions: Activity Restrictions/Additional Instructions: Thank you for choosing [facility] for your healthcare needs today. Please realize that you were seen in the Emergency Department and that we are providing you with an emergency medical screening exam and this may not be a complete and all inclusive of all the testing and or medical work-up that you may need to determine your ailment or severity of your illness. It is very important that you follow-up as instructed with your Primary care provider or Specialist for additional evaluation and to discuss your medical treatment plan. You may return to the Emergency Department should you have concerns or if your condition changes or worsens in any way. Coding Level of Care Code ED Deputy Manager for Vicky Alegria
[2023-12-02 20:50] VITALS: PULSE 110; RESP 20; O2SAT 94
[2023-12-02] MEDS: ipratropium-albuterol 3 mL Neb INHALATION (20:50)
[2023-12-02 20:54] VITALS: PULSE 113; RESP 18; O2SAT 94
[2023-12-02] MEDS: methylPREDNISolone sod succ 125 mg/2 mL INJ 60 MG IVP (20:54)
[2023-12-02 20:58] LABS: INR 0.93 (0.8-1.2)
[2023-12-02 21:02] VITALS: BP 158/100; PULSE 103; RESP 26; O2SAT 95
[2023-12-02 21:05] LABS: Troponin(5th) Baseline 13 ng/L (0-10)
[2023-12-02 21:08] LABS: Lactic Sepsis W/Reflex 1.9 mmol/L (0.5-2.2)
[2023-12-02 21:14] LABS: SARS Covid-2 Antigen negative (Negative)
[2023-12-02 21:17] LABS: NT Pro B Type Natriuretic Pept 461 pg/mL (0-125); Procalcitonin 0.08 ng/mL (0-0.5)
[2023-12-02 21:28] LABS: Alanine Aminotransferase 15 U/L (0-33); Albumin Level 4.4 g/dL (3.5-5.2); Alkaline Phosphatase 75 U/L (35-105); Anion Gap 17.7 (5-19); Aspartate Amino Transferase 18 U/L (0-32); Blood Urea Nitrogen 17 mg/dL (6-20); Calcium 9.6 mg/dL (8.5-10.5); Carbon Dioxide 25 mmol/L (22-29); Chloride 100 mmol/L (98-107); Creatinine Clr Calc Pharmacy 52.5509; Globulin 2.5 g/dL (1.3-4.6); Glomerular Filtration Rate 56.7 mL/min (90-130); Glucose 142 mg/dL (65-115); Osmolality Calculated 292 mOsm/kg (285-295); Potassium 3.7 mmol/L (3.5-5.1); Sodium 139 mmol/L (136-145); Total Bilirubin 0.2 mg/dL (0.15-1.2); Total Protein 6.9 g/dL (6.6-8.7)
[2023-12-02 21:36] VITALS: BP 147/101; PULSE 96; RESP 30; O2SAT 94
[2023-12-02 22:03] VITALS: BP 135/87; PULSE 100; RESP 24; O2SAT 92
== END 2023-12-02 22:04 | disposition home or self-care (01) ==
PROVIDERS: Emergency Provider Internal Medicine; PCP Nurse Practitioner
DX: J44.1 Chronic obstructive pulmonary disease with (acute) exacerbation (principal); Z79.02 Long term (current) use of antithrombotics/antiplatelets; Z79.82 Long term (current) use of aspirin; Z11.52 Encounter for screening for COVID-19; Z72.0 Tobacco use; Z90.2 Acquired absence of lung [part of]
CPT/HCPCS: 71045; 80053; 83605; 83880; 84145; 84484; 85025; 85610; 87426; 93005; 94640; 96374; 99285; J2919

== ENCOUNTER → 2023-12-15 12:45 | Outpatient (BNVA) | payer MEDICARE, MEDICAID, SELFPAY | PROVIDERS: PCP Nurse Practitioner; Visit Provider Podiatrist Foot & Ankle Surgery | DX: B35.1 Tinea unguium (principal); L60.3 Nail dystrophy | CPT/HCPCS: 36415; 80053; 99213 ==

== ENCOUNTER → 2024-01-26 14:50 | Outpatient (BNVA) | payer MEDICARE, MEDICAID, SELFPAY | PROVIDERS: PCP Nurse Practitioner; Referring Provider Nurse Practitioner; Visit Provider Internal Medicine | DX: R07.9 Chest pain, unspecified (principal); I25.10 Atherosclerotic heart disease of native coronary artery without angina pectoris | CPT/HCPCS: 93005; 99204 ==

== ENCOUNTER 2024-02-01 09:24 | Outpatient (CLI) | payer MEDICARE, MEDICAID, SELFPAY ==
--- NOTE | 2024-02-01 | ECG_ITS ---
[facility] Test Date: 2024-02-01 Pat Name: Luli Rios Department: Room: Gender: Female Manager Asset: : 1965 Requested By: Burke Best Order Number: [id number] Yue MD: Burke Best M.D. Interpretive Statements NAME OF STUDY: LEXISCAN SESTAMIBI STRESS TEST INDICATION: [Chest Pain, ] Procedure: At the baseline, the blood pressure was 167/102 mmHg with a heart rate of 91 bpm. The electrocardiogram showed normal sinus rhythm, normal axis with normal ST and T's. The Lexiscan was infused over a period of 20 seconds. A total of 0.4 mg of Lexiscan was infused. The stress phase was continued for a total of 5 minutes. Heart rate was at the end of stress phase was 108 bpm and a blood pressure of 174/105 mmHg. The EKG at the peak infusion revealed normal sinus rhythm with no significant ST-T wave changes. Sestamibi was injected 20 seconds after the Lexiscan infusion. Blood pressure at the end of recovery phase was 163/88 mmHg with a heart rate of 106 bpm. Conclusion: 1. Normal EKG response to Lexiscan infusion 2. No Lexiscan induced chest pain or cardiac arrhythmia. 3. Normal blood pressure and heart rate response. 4. Sestamibi/sestamibi perfusion scan pending; see separate report. Electronically Signed On 02-08-2024 9:05:44 CDT by Burke Best M.D. [id number]
[2024-02-01 09:41] VITALS: BMI 20.5
--- NOTE | 2024-02-01 09:44 | NMCV_ITS ---
NM girish perf SPECT r/s* [id number] Luli Rios Age: 58 Gender: F : 1965 Exam Date: 02/01/2024 10:23 Ordering Phys: Burke Best M.D ([email or web address]) Technologist: JOVANNI Palomares Exam Location: [facility] Indications: CP, SOB STRESS TEST Please [facility] IMAGE PROTOCOL Rest/Stress 1 Lexiscan Day Radiopharmaceutical Dose (mCi) Administration Site Administered by Rest: Tc-99m 10.8 IV JOVANNI Palomares Sestamibi Stress:Tc-99m 32.6 IV JOVANNI Palomares Sestamibi Rest: 01-Feb-2024 30 Discovery 630 Stress: 01-Feb-2024 60 Discovery 630 0.4mg Lexiscan. Images obtained in supine and prone position. SPECT RESULTS Technical Quality: Good Raw Data Analysis: Normal Image Corrections: No attenuation or motion correction applied Summed Stress Score: 0 Summed Rest Score: 3 Summed Difference Score: 0 PERFUSION FINDINGS SPECT images demonstrate homogeneous tracer distribution throughout the myocardium. FUNCTIONAL RESULTS (calculated via Gated SPECT) Stress Image LV EF (%): 49 Stress EDV (mL):74 TID: 0.73 Stress ESV (mL):38 FUNCTIONAL FINDINGS: LV systolic function is borderline low with heart rate of 49% IMPRESSIONS 1. Normal myocardial perfusion imaging with no evidence of ischemia 2. LV systolic function is normal Burke Best MD (Electronically Signed) Final Date: 01 February 2024 12:36 S
[2024-02-01] MEDS: regadenoson 0.4 Mg/5 ml Syringe 0.400000000000000022 MG IVP (11:04)
[2024-02-01 11:34] VITALS: BP 181/105; PULSE 105
== END 2024-02-01 09:25 | disposition home or self-care (01) ==
PROVIDERS: PCP Nurse Practitioner; Visit Provider Internal Medicine
DX: R07.9 Chest pain, unspecified (principal)
CPT/HCPCS: 36415; 78452; 93017; 96374; A9500; J2785

== ENCOUNTER → 2024-02-10 10:39 | Outpatient (CLI) | payer MEDICARE, MEDICAID, SELFPAY ==
--- NOTE | 2024-02-10 11:15 | USCV_ITS ---
Luli Rios Age: 58 Gender: F : 1965 Exam Date: 02/10/2024 10:54 Ordering Phys: Burke Best M.D ([email or web address]) Technologist: [place] [facility] [place]: CP BP: / HR: Rhythm: Sinus Technical Quality: Technically difficult study MEASUREMENTS (Male / Female) Normal Values FINDINGS Left Ventricle Mildly increased left ventricular cavity size. Moderately decreased left ventricular systolic function. Left ventricular ejection fraction is estimated at 45 %. Global left ventricular hypokinesis. Grade I/IV diastolic dysfunction (abnormal relaxation filling pattern), normal to mildly elevated filling pressures. Right Ventricle The right ventricle is normal in size and function. Right Atrium The right atrium is normal in size. Left Atrium The left atrium is normal in size. Mitral Valve Moderately thickened mitral valve. Moderate mitral annular calcification. No mitral valve stenosis. Trace mitral valve regurgitation. Aortic Valve Structurally normal aortic valve without significant sclerosis or stenosis. There is no aortic regurgitation. Tricuspid Valve Structurally normal tricuspid valve without significant stenosis or regurgitation. Pulmonary artery systolic pressure is normal. Pulmonic Valve Structurally normal pulmonic valve without significant stenosis. There is no pulmonic regurgitation. Pericardium Normal pericardium without effusion. Aorta Normal ascending aorta dimension. IVC The inferior vena cava appears normal. CONCLUSIONS 1-Mildly increased left ventricular cavity size. Moderately decreased left ventricular systolic function. Left ventricular ejection fraction is estimated at 45 %. Global left ventricular hypokinesis. Grade I/IV diastolic dysfunction (abnormal relaxation filling pattern), normal to mildly elevated filling pressures. 2-Moderately thickened mitral valve. Moderate mitral annular calcification. No mitral valve stenosis. Trace mitral valve regurgitation. 3-There is no pericardial effusion. 4-Right atrial pressure is around 5 mm of mercury. Jackelin Velasquez MD (Electronically Signed) Final Date: 10 February 2024 23:09 S
== END | disposition home or self-care (01) ==
LOC: RAD 10:38
PROVIDERS: PCP Nurse Practitioner; Visit Provider Internal Medicine
DX: I51.7 Cardiomegaly (principal); I50.30 Unspecified diastolic (congestive) heart failure; I34.81 Nonrheumatic mitral (valve) annulus calcification; R06.02 Shortness of breath
CPT/HCPCS: 93306

== ENCOUNTER 2024-03-02 09:59 | Emergency (ER) | payer MEDICARE, MEDICAID, SELFPAY ==
--- NOTE | 2024-03-02 10:08 | ECG_ITS ---
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 Measurements Intervals [place] Rate: 109 P: 85 IN: 151 QRS: 78 QRSD: 94 T: 78 QT: 347 QTc: 468 Interpretive Statements SINUS TACHYCARDIA POSSIBLE RIGHT ATRIAL ENLARGEMENT [0.25mV P-WAVE] LEFT ATRIAL ENLARGEMENT [-0.15mV P-WAVE IN V1/V2] NONSPECIFIC T-WAVE ABNORMALITY Compared to ECG 01/26/2024 15:02:30 T-wave abnormality now present Sinus rhythm no longer present Electronically Signed On 03-02-2024 17:11:50 CDT by Burke Best M.D. [id number] f
--- NOTE | 2024-03-02 10:08 | XR_ITS ---
WS: [id number] Portable AP upright chest, 03/02/2024 Clinical Data: dyspnea/cough Comparison: Portable chest, 12/02/2023 Findings: No nodules, masses or effusions are seen. The heart is normal. The pulmonary vascularity is not increased. No pneumonia or pneumothorax is seen. The diaphragms are flattened. Monitor leads are on the chest wall. XR/XR chest 1V portable [id number] Impression: Hyperinflation.
[2024-03-02 10:12] VITALS: BP 130/75; PULSE 97; TEMP 36.7; O2SAT 91
--- NOTE | 2024-03-02 10:13 | ED_ITS ---
HPI - Chest Pain 2 General: Chief Complaint: Chest Pain Stated Complaint: sob, tigh chest, left arm numbness Time Seen by Provider: 03/02/24 10:07 Source: patient Mode of arrival: ambulatory History of Present Illness: 58-year-old female who presents to the [facility] complaining of chest tightness at times radiates into her arms. She has had this intermittently for several days. She does have a history of coronary disease with previous stent placement. She had a stress test 1 month ago today that was read as negative. She is noticing mostly that she gets short of breath with exertion and has increased cough mildly productive. He denies any hemoptysis. No fever. MD complaint: chest pain Pertinent past history: coronary artery disease Onset (ago): day(s) Onset: during rest Pain location: left chest Pain radiation: left shoulder Severity: mild Quality: heaviness Relieving factors: nothing Exacerbating factors: nothing Associated symptoms: Deny no associated symptoms, abdominal pain, diaphoresis, dyspnea, fever(s), leg edema, nausea, palpitations, sense of impending doom, syncope, vomiting or other Risk Factors: Coronary artery disease risk factors: smoking history Thoracic aortic dissection risk factors: acortic valve defect (bicuspid aortic valve) Review of Systems 2 Const: Denies: fever(s), chills or diaphoresis Card: Denies: chest pain, palpitations or syncope Resp: Denies: dyspnea GI: Denies: abdominal pain, nausea or vomiting : Denies: dysuria, urinary frequency or urinary urgency Musc: Denies: neck pain or back pain Skin/Breast: Denies: rash PFSH ED 2 PFSH: Medical History Melena GERD (gastroesophageal reflux disease) COVID-19 Incomplete bladder emptying Surgical History H/O esophagogastroduodenoscopy H/O ventral hernia repair History of colon resection History of lobectomy of lung History of colonoscopy History of appendectomy History of cholecystectomy History of hysterectomy Family History Father , AT 39 No problems noted. Mother Heart disease Social History (Reviewed 03/02/24 @ 10:13 by JOHN Camargo Smoking and tobacco/nicotine status: current every day tobacco/nicotine user Alcohol intake: never Substance/Drug Use: never Marital status: Current occupational status: disabled Physical Exam 2 Const: COMMON NORMALS: no acute distress GENERAL APPEARANCE: cooperative and comfortable ORIENTATION/CONSCIOUSNESS: Yes awake, Yes oriented to person, Yes oriented to place and Yes oriented to time HENMT: COMMON NORMALS: normocephalic, atraumatic and hearing grossly normal bilaterally HEAD & SCALP: normocephalic and atraumatic Resp: COMMON NORMALS: normal respiratory effort, No retractions, No use of accessory muscles and clear to auscultation bilaterally AUSCULTATION: clear to auscultation bilaterally Cardio: COMMON NORMALS: regular rate, regular rhythm and No murmurs present (Cardio) RATE: regular rate RHYTHM: regular rhythm GI: COMMON NORMALS: Soft to palpation and No hepatosplenomegaly present A USCULTATION: Yes normoactive bowel sounds PALPATION: Yes Soft to palpation, No Tenderness to palpation present (GI), No Guarding due to palpation present (GI) and Yes No hepatosplenomegaly present Extremity: COMMON NORMALS: normal to inspection, capillary refill normal, no clubbing, cyanosis or edema, no calf tenderness and no pedal edema Neuro: SENSORIUM/ORIENTATION: Yes oriented to person, Yes oriented to place and Yes oriented to time Skin: COMMON NORMALS: no rashes or lesions noted GENERAL SKIN EXAM: no rashes or lesions noted Course 2 Vital Signs: Vital signs: Vital Signs Temperature 98.1 F 03/02/24 10:12 Pulse Rate 77 03/02/24 14:13 Respiratory Rate 13 03/02/24 10:29 Blood Pressure 132/90 03/02/24 14:13 Pulse Oximetry 91 03/02/24 14:13 Oxygen Delivery Me thod Room Air 03/02/24 10:12 MDM - Chest Pain Medical Decision Making Cardiac enzymes and EKG unremarkable no sign of acute coronary syndrome given the fact she recently had a stress test that was negative and she is completely asymptomatic now with a productive cough we will go and treat her for exacerbation COPD steroid taper doxycycline regular use of her albuterol recheck if not improving or symptoms change. Medical Records I reviewed the patient's medical records. Lab Data I reviewed the patient's lab results. 03/02/24 10:30 03/02/24 10:30 Radiology Impressions Chest X-Ray 03/02/24 10:08 Impression: Hyperinflation. Laboratory Results WBC 7.98 10^3/uL (3.29-11.43) 03/02/24 10:30 RBC 5.17 10^6/uL (3.85-5.65) 03/02/24 10:30 Hgb 15.10 g/dL (11.27-16.99) 03/02/24 10:30 Hct 44.9 % (36-47) 03/02/24 10:30 MCV 86.8 fl (85-98) 03/02/24 10:30 MCH 29.2 pg (27-33) 03/02/24 10: MCHC 33.6 g/dL (30-55) 03/02/24 10:30 RDW 15.2 % (12.1-15.1) H 03/02/24 10:30 Plt Count 268 10^3/cmm (157-399) 03/02/24 10:30 MPV 10.5 fL (7.4-10.4) H 03/02/24 10:30 Neut % (Auto) 53.3 % 03/02/24 10:30 Lymph % (Auto) 35.2 % 03/02/24 10:30 Parker % (Auto) 7.8 % 03/02/24 10:30 Eos % (Auto) 2.5 % 03/02/24 10:30 Baso % (Auto) 0.9 % 03/02/24 10:30 Neut # (Auto) 4.26 10^3/uL (1.8-7.7) 03/02/24 10:30 Lymph # (Auto) 2.8 10^3/uL (0.8-4.8) 03/02/24 10:30 Parker # (Auto) 0.6 10^3/uL (0.2-0.9) 03/02/24 10:30 Eos # (Auto) 0.2 10^3/uL (0.0-0.8) 03/02/24 10:30 Baso # (Auto) 0.1 10^3/uL (0.0-0.1) 03/02/24 10:30 Nucleated RBC % (auto) 0 % 03/02/24 10:30 Nucleated RBCs # 0.0 /100WBC 03/02/24 10:30 Sodium 137 mmol/L (136-145) 03/02/24 10:30 Potassium 4.3 mmol/L (3.5-5.1) 03/02/24 10:30 Chloride 100 mmol/L (98-107) 03/02/24 10:30 Carbon Dioxide 23 mmol/L (22-29) 03/02/24 10:30 Anion Gap 18.3 (5-19) 03/02/24 10:30 BUN 18 mg/dL (6-20) 03/02/24 10:30 Creatinine 0.8 mg/dL (0.5-0.9) 03/02/24 10:30 GFR Calculation 73.4 mL/min (90-130) L 03/02/24 10:30 Glucose 152 mg/dL (65-115) H 03/02/24 10:30 Calculated Osmolality 289 mOsm/kg (285-295) 03/02/24 10:30 Calcium 9.9 mg/dL (8.5-10.5) 03/02/24 10:30 Magnesium 1.9 mg/dL (1.7-2.3) 03/02/24 10:30 Total Bilirubin 0.3 mg/dL (0.15-1.2) 03/02/24 10:30 AST 16 U/L (0-32) 03/02/24 10:30 ALT 13 U/L (0-33) 03/02/24 10:30 Alkaline Phosphatase 83 U/L (35-105) 03/02/24 10:30 Troponin T Baseline 10 ng/L (0-10) 03/02/24 10:30 Troponin T 120 Minute 10.67 ng/L (0-10) H 03/02/24 12:50 Delta Troponin T 0.67 ABS# (0-10) 03/02/24 12:50 Total Protein 6.9 g/dL (6.6-8.7) 03/02/24 10:30 Albumin 4.3 g/dL (3.5-5.2) 03/02/24 10:30 Globulin 2.6 g/dL (1.3-4.6) 03/02/24 10:30 All radiology interpretation(s) finalized by discharge Discharge Plan Discharge Patient Disposition: Home Clinical Impression: COPD with acute exacerbation Condition: Stable Prescriptions: New doxycycline hyclate 100 mg capsule 100 mg PO BID 10 Days Qty: 20 0RF prednisone 20 mg tablet 20 mg PO TID Qty: 15 0RF Rx Instructions: 1 p.o. 3 times daily x3 days, 1 p.o. twice daily x2 days, 1 p.o. daily x2 days albuterol sulfate 90 mcg/actuation HFA aerosol inhaler 2 inh INHALATION Q4H PRN (Reason: shortness of breath or wheezing) Qty: 18 0RF No Action (DME) cock up splint See Rx Instructions .Route .MEDSUPPLY Qty: 1 0RF Rx Instructions: As directed metoprolol tartrate 25 mg tablet 25 mg PO BID Qty: 180 3RF amlodipine 2.5 mg tablet 2.5 mg PO DAILY Qty: 60 3RF pantoprazole [Protonix] 40 mg tablet,delayed release (DR/EC) 40 mg PO BID 14 Days Qty: 28 0RF (DME) Volar Blocking Splint See Rx Instructions .Route .MEDSUPPLY Qty: 1 0RF Rx Instructions: As directed Entresto 24-26 mg tablet 1 tab PO BID Qty: 180 3RF nitroglycerin 0.4 mg tablet, sublingual 0.4 mg sublingual Q5MIN PRN (Reason: Chest Pain) Qty: 30 2RF aspirin 81 mg Tablet,Chewable 81 mg PO QAM Hold Instructions: Resume on 06/04/22. benzonatate 200 mg capsule 200 mg PO TID Qty: 30 0RF guaifenesin 1,200 mg tablet extended release 12hr 1,200 mg PO BID Qty: 14 0RF Ventolin HFA 90 mcg/actuation HFA aerosol inhaler 2 puff INHALATION QID PRN (Reason: Shortness Of Breath) Voltaren Arthritis Pain 1 % gel 2 g topical QID PRN (Reason: Pain) Rx Instructions: apply to single elbow, wrist or hand; for hand includes palm/fingers/back of hand cetirizine 10 mg tablet 10 mg PO DAILY Praluent Pen 150 mg/mL pen injector 150 mg SUBCUT Q14D Discharge Orders: Discharge ED (Routine); Ordered 03/02/24 Ordered By: Haseeb Juarez Referrals: Lulu Briceno FNP [Primary Care Provider] - Discharge Diet: Usual diet Discharge Activity: Resume usual activity Patient Instructions: Opioid Safety, Pain Management Activity Restrictions/Additional Instructions: Thank you for choosing [facility] for your healthcare needs today. It is very important that you follow up as instructed or that you return to the Emergency Department should you have concerns or if your condition changes or worsens in any way. Cardiac evaluation was normal. Your EKG and troponins did not show any acute abnormalities. Stress testing done last month was negative. 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
[2024-03-02] MEDS: aspirin 81 mg Chew Tablet 324 MG PO (10:22)
[2024-03-02 10:29] VITALS: BP 130/75; PULSE 85; RESP 13; O2SAT 92
[2024-03-02 10:45] LABS: Basophils # 0.1 10^3/uL (0.0-0.1); Basophils % 0.9 %; Eosinophils # 0.2 10^3/uL (0.0-0.8); Eosinophils % 2.5 %; Hematocrit 44.9 % (36-47); Lymphocytes # 2.8 10^3/uL (0.8-4.8); Lymphocytes % 35.2 %; Mean Corpuscular HGB Conc 33.6 g/dL (30-55); Mean Corpuscular Hemoglobin 29.2 pg (27-33); Mean Corpuscular Volume 86.8 fl (85-98); Mean Platelet Volume 10.5 fL (7.4-10.4); Monocytes # 0.6 10^3/uL (0.2-0.9); Monocytes % 7.8 %; Neutrophils # 4.26 10^3/uL (1.8-7.7); Neutrophils % 53.3 %; Nucleated Red Blood Cells % 0 %; Platelet Count 268 10^3/cmm (157-399); Red Blood Count 5.17 10^6/uL (3.85-5.65); Red Cell Distribution Width 15.2 % (12.1-15.1); White Blood Count 7.98 10^3/uL (3.29-11.43)
[2024-03-02 11:04] LABS: Troponin(5th) Baseline 10 ng/L (0-10)
[2024-03-02 11:17] LABS: Alanine Aminotransferase 13 U/L (0-33); Albumin Level 4.3 g/dL (3.5-5.2); Alkaline Phosphatase 83 U/L (35-105); Anion Gap 18.3 (5-19); Aspartate Amino Transferase 16 U/L (0-32); Blood Urea Nitrogen 18 mg/dL (6-20); Calcium 9.9 mg/dL (8.5-10.5); Carbon Dioxide 23 mmol/L (22-29); Chloride 100 mmol/L (98-107); Globulin 2.6 g/dL (1.3-4.6); Glomerular Filtration Rate 73.4 mL/min (90-130); Glucose 152 mg/dL (65-115); Magnesium 1.9 mg/dL (1.7-2.3); Osmolality Calculated 289 mOsm/kg (285-295); Potassium 4.3 mmol/L (3.5-5.1); Sodium 137 mmol/L (136-145); Total Bilirubin 0.3 mg/dL (0.15-1.2); Total Protein 6.9 g/dL (6.6-8.7)
--- NOTE | 2024-03-02 12:08 | ECG_ITS ---
[facility] Test Date: 2024-03-02 Pat Name: Luli Rios Department: Room: Gender: Female Form Drafter: : 1965 Requested By: Haseeb Mccarthy Order Number: [id number] Yue MD: Burke Best M.D. Measurements Intervals [place] Rate: 77 P: 79 [place]: 174 QRS: 74 QRSD: 97 T: 76 QT: 404 QTc: 459 Interpretive Statements SINUS RHYTHM Compared to ECG 03/02/2024 10:06:02 Sinus tachycardia no longer present Atrial abnormality no longer present T-wave abnormality no longer present Electronically Signed On 03-02-2024 17:13:31 CDT by Burke Best M.D. [id number]
[2024-03-02 13:15] LABS: Troponin 5 2HR 10.67 ng/L (0-10); Troponin 5 2HR Delta 0.67 ABS# (0-10)
[2024-03-02 13:19] VITALS: BP 137/35; PULSE 79; O2SAT 93
[2024-03-02 14:13] VITALS: BP 132/90; PULSE 77; O2SAT 91
== END 2024-03-02 14:14 | disposition home or self-care (01) ==
PROVIDERS: Emergency Provider Family Medicine; PCP Nurse Practitioner
DX: J44.1 Chronic obstructive pulmonary disease with (acute) exacerbation; Z72.0 Tobacco use
CPT/HCPCS: 36415; 71045; 80053; 83735; 84484; 85025; 93005; 99285

== ENCOUNTER → 2024-04-05 12:44 | Outpatient (BNVA) | payer MEDICARE, MEDICAID, SELFPAY | PROVIDERS: PCP Nurse Practitioner; Visit Provider Internal Medicine | DX: R07.9 Chest pain, unspecified (principal); I25.10 Atherosclerotic heart disease of native coronary artery without angina pectoris; Z72.0 Tobacco use | CPT/HCPCS: 99214 ==

== ENCOUNTER 2024-04-19 05:57 | Outpatient (CLI) | payer MEDICARE, MEDICAID, SELFPAY ==
[2024-04-19] VITALS (17 sets, daily range): BP systolic 114–178; BP diastolic 69–107; PULSE 79–89; RESP 18–24; TEMP 36.5; O2SAT 91–97; BMI 20.5
--- NOTE | 2024-04-19 06:00 | XACV_ITS ---
Exam Room: 2 Ht: 163 cm Wt: 54 kg BSA: 1.57 m2 Gender: Female : 1965 Any Known Allergies: Contrast Exam Priority: Routine Procedure(s): Procedure Description: Diagnostic procedure Procedure Description: Left Heart Catheterization Procedure Description: Coronary Angiography Procedure Description: Pressure Wire Diagnostic Cath Status: Elective Diagnostic Findings * Left Main has no significant disease. * Left Anterior Descending has mild luminal irregularities. * Circumflex has mild luminal irregularities. Large sized OM 1 has a moderate 60% stenosis. * Proximal to mid Right Coronary Artery: has a patent prior stent. minimal 30% stenosis noted in the mid RCA, ERIKA: 3 flow. * First Obtuse Marginal Branch Segment: obstructive 60% stenosis, EIRKA: 3 flow. * Coronary angiography shows right dominance. Interventional Findings * Procedure detail: We engaged left main artery with XB 3.0 guide catheter. IV heparin was administered to maintain anticoagulation. After normalization, IFR wire was advanced into distal OM vessel. iFR value of 0.92 was obtained that was nonischemic. At this time, final angiogram was performed. 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 . Conclusions 1. Moderate OM 1 stenosis s/p iFR that is non-signfiicant. Recommendations * Aggressive risk factor modification. * Outpatient cardiology follow up in 2 weeks. Interventional RX Recommendation: medical therapy and/or counseling Diagnostic RX Recommendation: medical therapy and/or counseling Anticoagulation: Heparin Pressures Phase:Rest AO : 139 / 84 ( 105 ) @ 9:02:00 AM 146 / 78 ( 106 ) @ 9:09:00 AM 144 / 75 ( 103 ) @ 9:09:00 AM LV : 148 / - @ 9:09:00 AM 150 / -9 13 @ 9:09:00 AM 151 / - @ 9:09:00 AM Valves Phase:DefaultPhase AV : 5.0 @ 8:28:06 AM AV Mean Gradient: 11.0 @ 8:28:06 AM Clinical Evaluation EBL: 5mL-10mL Procedural Details Pre-Procedure Time Out. Identified patient by full name and date of as verbalized by the patient/guarantor. Does the consent match the physician's order: Yes. Accurate & Complete Informed Consent: Yes. Inpatient/Outpatient History & Physical on Chart: Yes. If H&P is completed, is and addenduem needed: No; If yes, is the addendum complete: N/A. Visualize and Verify Site with Patient/Guarantor: N/A. Relevant Radiology Images available: Yes. Pre-op teaching completed and patient verbalized understanding. The risks, benefits, and alternatives of sedation and/or procedure were discussed by physician. The patient agrees to continue. Procedure started. Physician arrived. Current Diagnosis : Chest Pain. [facility] Clinical Fraility Score: 4: Vulnerable. 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 Chest Pain Symptom Assessment: Atypical Angina. Correct patient, site and procedure confirmed by cath team. Current diagnosis: Chest Pain. PERRLA. Strong, equal hand predatory hunter bilaterally. Lungs clear x 5 lobes. IV Site on Arrival: 20 gauge in the left forearm. IV Fluids: 0.9% NaCl at KVO. 0 mL infused prior to label printing machinist. Pre Procedural Pulses: bilateral dorsalis pedis was 2+. Pre Procedural Pulses: bilateral posterior tibial was 1+. Pre Procedural Pulses: bilateral radial was 3+. Oxygen started at 2liters/min via nasal canula. right groin was prepped with chloroprep then draped in the usual sterile fashion. right radial was prepped with chloroprep then draped in the usual sterile fashion. Baseline sample Acquired. HR: 78 BPM. Physician scrubbed in. Immediate Pre-Procedure Time Out. Correct Patient: Yes; Correct Procedure: Yes; Correct Site: Yes; Correct Patient Position: Yes; Correct Supplies: Yes; Dried Flammable Prep: Yes; Blood Products Available: N/A;. Lidocaine 1% infiltrated to the right radial. Arterial access obtained. Wire unable to advance. Wire and needle removed. Ultrasound being used to obtain access. Arterial access obtained. A 5 swazi TIG catheter in over wire. Multiple views taken of left coronary artery. Catheter redirected to the RCA. Catheter removed over the exchange wire. A 5 swazi JR4 catheter in over wire. Multiple views taken of right coronary artery. EDP Sample taken: LV 150/-10,13; HR: 83 BPM; SpO2: 96%. Pullback taken: LV 151/-11,13; AO 146/78(106); Mean: 11mmHg, Peak to Peak: 5mmHg, SEP: 22sec/min; HR: 83 BPM; SpO2: 96%. Catheter removed over the exchange wire. 6 swazi XB 3 guide catheter was inserted over the wire. IFR guidewire was advanced through the guide catheter to lesion in the OM. IFR Results: 0.92. Wire out. Results checked. Guide catheter out. A TR Band was successful obtaining hemostatsis at the Right Radial artery insertion site. Post Procedure: Pulses reassessed and unchanged. PERRLA. Strong, equal hand predatory hunter bilaterally. No VTE prophylaxis required. Vital chart was stopped. Medication's Wasted: Lidocaine 1% = 18 mL. Medication's Wasted: Nitro = 49.7 mcg. Medication's Wasted: Heparin = 1000 units. Medication's Wasted: Other = Fentanyl 75mcg. Total IV fluids: 50 mL. Post-op diagnosis: Non-obstructive CAD. Complications: None. Estimated blood loss: 5mL-10mL. Responsiveness - Normal response to verbal stimuli; alert and oriented, PERRLA. Airway - Unaffected, no intervention required; spontaneous ventilation. Circulation: W/N/L, pulses unchanged. Nausea/Vomiting: No. Procedure completed. Patient transferred by wheelchair to CPRU. Access Site Site: Right Radial artery Sheath Size: 6 Fr Hemostasis Method: TR Band Hemostasis Success: Successful Procedure Medications Start: 7:46 AM Stop: 7:46 AM Medication: Zofran (ondansetron) Amount: 4 mg Route: I.V. Start: 7:47 AM Stop: 7:47 AM Medication: Versed 1 mg and Fentanyl 25 mcg Amount: 1 Route: I.V. Start: 8:00 AM Stop: 8:00 AM Medication: Nitrogylcerin Amount: 300 mcg Route: I.A. Start: 8:01 AM Stop: 8:01 AM Medication: Heparin Amount: 5000 units Route: I.V. Start: 8:12 AM Stop: 8:12 AM Medication: Versed Amount: 1 mg Route: I.V. I, the attending physician, have reviewed and verified all procedure medications. Yes, all medications given per verbal order History/Risk Factors Hypertension: Yes Dyslipidemia: Yes Peripheral Arterial Disease (PAD): No Myocardial Infarction (PA): Yes Obesity: No Renal Disease: No Tobacco Use: Current/Recent(w/in 1 year) Prior Interventions PCI: Yes CABG: No Valve Surgery: No Report Signatures Finalized by Burke Best MD on 04/21/2024 02:49 PM
[2024-04-19 06:18] LABS: Basophils % 0.3 %; Hematocrit 42.4 % (36-47); Lymphocytes # 1.2 10^3/uL (0.8-4.8); Lymphocytes % 20.5 %; Mean Corpuscular HGB Conc 32.8 g/dL (30-55); Mean Corpuscular Hemoglobin 29.1 pg (27-33); Mean Corpuscular Volume 88.9 fl (85-98); Mean Platelet Volume 10.4 fL (7.4-10.4); Monocytes # 0.1 10^3/uL (0.2-0.9); Monocytes % 1.7 %; Neutrophils # 4.43 10^3/uL (1.8-7.7); Nucleated Red Blood Cells % 0 %; Platelet Count 279 10^3/cmm (157-399); Red Blood Count 4.77 10^6/uL (3.85-5.65); Red Cell Distribution Width 15.3 % (12.1-15.1); White Blood Count 5.76 10^3/uL (3.29-11.43)
[2024-04-19 06:37] LABS: Anion Gap 17.6 (5-19); Blood Urea Nitrogen 19 mg/dL (6-20); Carbon Dioxide 22 mmol/L (22-29); Chloride 104 mmol/L (98-107); Creatinine Clr Calc Pharmacy 58.0044; Glomerular Filtration Rate 64.1 mL/min (90-130); Glucose 177 mg/dL (65-115); Osmolality Calculated 295 mOsm/kg (285-295); Potassium 4.6 mmol/L (3.5-5.1); Sodium 139 mmol/L (136-145)
--- NOTE | 2024-04-19 07:37 | P.HPUD_ITS ---
Surgery/Procedure H&P Update DATE OF PROCEDURE: April 19, 2024 DATE H&P PERFORMED: 04/05/24 H&P UPDATE INFORMATION: I have reviewed H&P completed within last 30 days, I have examined patient prior to procedure and No changes to prior documentation PREOP DIAGNOSIS: Worsening angina PRIMARY INDICATION FOR PROCEDURE: Worsening angina PLANNED PROCEDURE: Operation Date: 04/19/24 07:00 Proposed Procedures p Cardiac Catheterization - [facility] w/wo LV & Coros(Left) - Burke Best M.D Possible percutaneous coronary intervention PATIENT REASSESSED PRIOR TO SEDATION, WITH NO CHANGE NOTED: Yes PHYSICAL EXAM: alert, oriented x 3, clear to auscultation bilaterally and r egular rate & rhythm AIRWAY EVAL/ANESTHESIA PLAN: normal airway, ASA III, Local Anesthesia, Risks, benefits & alternatives of sedation and/or procedure discussed and Patient ag mariel to continue as planned ADDITIONAL INFORMATION: Moderate sedation
[2024-04-19] MEDS: ipratropium-albuterol 3 mL Neb INHALATION (08:42)
--- NOTE | 2024-04-19 11:10 | PC.NURSE ---
TR band Removal Note Started to release air of right radial TR band at 0930. 1-3ml of air released every 5-15min . TR band deflated and removed at 1100. Site is asymptomatic, no signs of bleeding or hematoma. Radial pulse palpable. Pt complains of numbness and tingling to right hand. Will continue to monitor. Clean bandage applied to right wrist.
== END 2024-04-19 12:06 | disposition home or self-care (01) ==
PROVIDERS: PCP Nurse Practitioner; Visit Provider Internal Medicine
DX: I25.10 Atherosclerotic heart disease of native coronary artery without angina pectoris (principal); Z95.5 Presence of coronary angioplasty implant and graft; I10 Essential (primary) hypertension; E78.5 Hyperlipidemia, unspecified; I25.2 Old myocardial infarction
CPT/HCPCS: 36415; 80048; 85025; 93458; 93571; 94640; 96374; 96375; 99152; 99153; C1769; C1887; C1894; J1644; J2250; J2405; J3010; J3490; J7030; Q9967

== ENCOUNTER → 2024-05-04 13:31 | Outpatient (BNVA) | payer MEDICARE, MEDICAID, SELFPAY | PROVIDERS: PCP Nurse Practitioner; Visit Provider Nurse Practitioner Family | DX: I25.10 Atherosclerotic heart disease of native coronary artery without angina pectoris (principal); Z72.0 Tobacco use | CPT/HCPCS: 99214 ==

== ENCOUNTER 2024-05-09 11:45 | Outpatient (CLI) | payer MEDICARE, MEDICAID, SELFPAY ==
[2024-05-09 13:00] LABS: Anion Gap 16.7 (5-19); Blood Urea Nitrogen 17 mg/dL (6-20); Calcium 9.6 mg/dL (8.5-10.5); Carbon Dioxide 26 mmol/L (22-29); Chloride 98 mmol/L (98-107); Glomerular Filtration Rate 64.1 mL/min (90-130); Glucose 143 mg/dL (65-115); NT Pro B Type Natriuretic Pept 250 pg/mL (0-125); Osmolality Calculated 288 mOsm/kg (285-295); Potassium 3.7 mmol/L (3.5-5.1); Sodium 137 mmol/L (136-145)
== END 2024-05-09 11:46 | disposition home or self-care (01) ==
LOC: LAB 11:46
PROVIDERS: PCP Nurse Practitioner; Visit Provider Nurse Practitioner Family
DX: I25.10 Atherosclerotic heart disease of native coronary artery without angina pectoris (principal)
CPT/HCPCS: 80048; 83880

== ENCOUNTER → 2024-06-02 10:11 | Outpatient (BNVA) | payer MEDICARE, MEDICAID, SELFPAY | PROVIDERS: PCP Nurse Practitioner; Visit Provider Nurse Practitioner Family | DX: I11.0 Hypertensive heart disease with heart failure (principal); I50.22 Chronic systolic (congestive) heart failure; F17.200 Nicotine dependence, unspecified, uncomplicated; R07.89 Other chest pain | CPT/HCPCS: 99214 ==

== ENCOUNTER 2024-06-21 06:55 | Outpatient (CLI) | payer MEDICARE, MEDICAID, SELFPAY ==
[2024-06-21 07:22] VITALS: PULSE 110; RESP 18; O2SAT 92
[2024-06-21] MEDS: albuterol 2.5 mg/3 mL Neb INHALATION (07:22)
== END 2024-06-21 06:56 | disposition home or self-care (01) ==
PROVIDERS: PCP Nurse Practitioner; Visit Provider Nurse Practitioner
DX: J44.0 Chronic obstructive pulmonary disease with (acute) lower respiratory infection (principal); J44.9 Chronic obstructive pulmonary disease, unspecified; R94.2 Abnormal results of pulmonary function studies
CPT/HCPCS: 94060; 94726; 94729; J7613

== ENCOUNTER → 2024-07-05 09:37 | Outpatient (BNVA) | payer MEDICARE, MEDICAID, SELFPAY | PROVIDERS: PCP Nurse Practitioner; Visit Provider Nurse Practitioner Family | DX: I50.22 Chronic systolic (congestive) heart failure (principal); F17.200 Nicotine dependence, unspecified, uncomplicated | CPT/HCPCS: 99213 ==

== ENCOUNTER 2024-07-11 05:57 | Outpatient (CLI) | payer MEDICARE, MEDICAID, SELFPAY ==
--- NOTE | 2024-07-11 06:15 | USCV_ITS ---
Luli Rios Age: 58 Gender: F : 1965 Exam Date: 07/11/2024 06:12 Ordering Phys: Emily Tariq Technologist: [place] [facility] [place]: high risk meds BP: 158 / 85 HR: Rhythm: Sinus Technical Quality: Adequate MEASUREMENTS (Male / Female) Normal Values 2D ECHO LV Diastolic Diameter PLAX 4.8 cm 4.2 - 5.9 / 3.9 - 5.3 cm IVS Diastolic Thickness 0.8 cm 0.6 - 1.0 / 0.6 - 0.9 cm IVS Systolic Thickness 0.9 cm LVPW Diastolic Thickness 1.1 cm 0.6 - 1.0 / 0.6 - 0.9 cm LVPW Systolic Thickness 1.2 cm LVOT Diameter 1.6 cm LV Ejection Fraction 2D Teich 47.9 % LV Ejection Fraction MOD 4C 51.9 % LV Ejection Fraction MOD 2C 42.4 % LV Ejection Fraction 2C AL 43.1 % LA Diameter 2.6 cm Aorta at Sinotubular Diameter 2.4 cm IVC Diameter 1.4 cm M-MODE LA Ao Ratio MM 1.2 AV Cusp Separation MM 2.5 cm FINDINGS Left Ventricle Mildly increased left ventricular cavity size. Moderately decreased left ventricular systolic function. Left ventricular ejection fraction is estimated at 45 %. There appeared to be global hypokinesis. Right Ventricle Right Atrium Left Atrium Mitral Valve Aortic Valve Tricuspid Valve Pulmonic Valve Pericardium Aorta IVC CONCLUSIONS Please note that this is a limited echo Mildly increased left ventricular cavity size. Moderately decreased left ventricular systolic function. Left ventricular ejection fraction is estimated at 45 %. There appeared to be global hypokinesis. There is no pericardial effusion. Right atrial pressure is around 5 mm of mercury. Jackelin Velasquez MD (Electronically Signed) Final Date: 11 July 2024 21:10 S
== END 2024-07-11 05:58 | disposition home or self-care (01) ==
PROVIDERS: PCP Nurse Practitioner; Visit Provider Nurse Practitioner Family
DX: I25.10 Atherosclerotic heart disease of native coronary artery without angina pectoris (principal); I50.20 Unspecified systolic (congestive) heart failure
CPT/HCPCS: 93308

== ENCOUNTER 2024-08-16 08:51 | Emergency (ER) | payer MEDICARE, MEDICAID, SELFPAY ==
[2024-08-16] VITALS (26 sets, daily range): BP systolic 103–160; BP diastolic 66–90; PULSE 80–108; RESP 15–31; TEMP 36.5; O2SAT 90–95; BMI 19.3
--- NOTE | 2024-08-16 08:58 | ECG_ITS ---
[facility] Test Date: 2024-08-16 Pat Name: Luli Rios Department: Room: Gender: Female Engineer Station Mainline: : 1965 Requested By: Shelby Khan Order Number: [id number] Yue MD: Johnathan Rossi M.D. Measurements Intervals [place] Rate: 96 P: 87 [place]: 148 QRS: 81 QRSD: 86 T: 82 QT: 334 QTc: 423 Interpretive Statements SINUS RHYTHM NONSPECIFIC T-WAVE ABNORMALITY Compared to ECG 03/02/2024 12:36:10 T-wave abnormality now present Electronically Signed On 08-16-2024 21:35:16 LABORATORY WORKER by Johnathan Rossi M.D. [id number]
--- NOTE | 2024-08-16 09:04 | XR_ITS ---
WS: [id number] PORTABLE CHEST HISTORY: sob COMPARISON: 03/02/2024 Moderate pulmonary hyperexpansion. Bullous emphysema in the upper lung marquez. Surgical sutures towar ds the LEFT apex. No pleural effusion or pneumothorax. Cardiac size: Normal. Mediastinum/Aorta: Normal mediastinum. No osseous abnormality seen. XR/XR chest 1V portable [id number] IMPRESSION: 1. Hyperinflation from emphysema. 2. No pneumonia.
--- NOTE | 2024-08-16 09:13 | W.ED.SOB ---
HPI - SOB/Dyspnea General: Chief Complaint: Shortness of Breath/Dyspnea Stated Complaint: SOB Time Seen by Provider: 08/16/24 08:58 Source: patient Mode of arrival: ambulatory Limitations: no limitations History of Present Illness: HPI Narrative: Patient is a 58-year-old female presents to ED today stating I cannot breathe . Patient states she has been sick for several weeks with a nonproductive cough. She states she has phlegm feels like it is stuck . She states I cannot cough it up and I cannot swallow it down . She was seen by primary care approximately 2 weeks ago and given azithromycin which did not seem to improve symptoms. She has been using her albuterol inhaler more frequently. Patient has a history of COPD and continues to smoke daily. She states she normally wears 2 to 3 L of oxygen at night. She states over the past week she has had to wear her oxygen continuously. She is not running fevers. Earlier in her illness, she did have some diarrhea but this has subsided. She has had a few episodes of posttussive vomiting. Shortness of breath is significantly exacerbated with minimal exertion. She states her chest hurts from coughing so much. MD elicited complaint: shortness of breath Pertinent past history: COPD Onset (ago): week(s) Timing: progressively worsening Severity: moderate Exacerbating factors: exertion Relieving factors: nothing Known history of: COPD Associated symptoms: Reports chest congestion, chest pain ( from coughing ) and vomiting (post-tussive); Deny abdominal pain, dizziness, extremity pain, fever(s), hemoptysis, lightheadedness, nausea, palpitations or syncope Treatment prior to arrival: none Related Data Home Medications Medication Instructions Recorded Confirmed albuterol sulfate 90 mcg/actuation 2 inh inhalation Q4H PRN shortness 08/16/24 08/16/24 aerosol inhaler (Ventolin HFA) of breath or wheezing ipratropium 0.5 mg-albuterol 3 mg 3 ml inhalation Q6H 08/16/24 08/16/24 (2.5 mg base)/3 mL nebulization soln sacubitril 49 mg-valsartan 51 mg 1 tab PO BID 08/16/24 08/16/24 tablet (Entresto) Previous Rx's Medication Instructions Recorded pantoprazole 40 mg tablet,delayed 40 mg PO BID 14 days #28 tabs 06/20/22 release (Protonix) cock up splint #1 ea 03/31/23 Volar Blocking Splint #1 ea 04/17/23 nitroglycerin 0.4 mg sublingual 0.4 mg sublingual Q5MIN PRN Chest 02/29/24 tablet Pain #30 tabs isosorbide mononitrate 30 mg 15 mg (1/2 x 30 mg) PO DAILY #90 06/02/24 tablet,extended release 24 hr tabs metoprolol succinate 25 mg 25 mg PO DAILY #90 tabs 07/13/24 tablet,extended release 24 hr levofloxacin 750 mg tablet 750 mg PO DAILY 7 days #7 tabs 08/16/24 prednisone 10 mg tablet 10 mg PO DAILY 6 days #20 tabs 08/16/24 Allergies Allergy/AdvReac Type Severity Reaction Status Date / Time doxycycline Allergy Mild ADR-Nausea Verified 08/16/24 09:03 Iodinated Contrast Media Allergy burning, Verified 08/16/24 09:03 itch, throat swelling morphine Allergy RASH Verified 08/16/24 09:03 Penicillins Allergy ALGY-Anaphy Verified 08/16/24 09:03 laxis Review of Systems Const: Reports: fatigue; Denies: fever(s), chills, body aches or malaise ENMT: Denies: throat pain, odynophagia, ear or mastoid pain, nasal discharge, nasal congestion or sinus pain Card: Reports: chest pain ( from coughing ) and dyspnea on exertion (chronic); Denies: palpitations, irregular heart rhythm, edema, swelling of feet/ankles, lightheadedness, syncope or pre-syncope Resp: Reports: dyspnea, non-productive cough, change in phlegm color and chest congestion; Denies: hemoptysis GI: Reports: vomiting (post-tussive) and diarrhea (subsided); Denies: abdominal pain or nausea : Denies: flank pain, difficulty voiding, dysuria, urinary frequency, urinary urgency or urinary hesitancy Musc: Denies: neck pain, back pain, extremity pain, extremity swelling, joint pain or joint swelling Skin/Breast: Denies: rash Neuro: Denies: headache(s), numbness in extremities, weakness in extremities, sensory changes or dizziness PFS ED PFSH: Medical History Systolic CHF Melena GERD (gastroesophageal reflux disease) COVID-19 Incomplete bladder emptying Surgical History H/O esophagogastroduodenoscopy H/O ventral hernia repair History of colon resection History of lobectomy of lung History of colonoscopy History of appendectomy History of cholecystectomy History of hysterectomy Family History Father , AT 39 No problems noted. Mother Heart disease Social History Smoking and tobacco/nicotine status: current every day tobacco/nicotine user Alcohol intake: never Substance/Drug Use: never Marital status: Current occupational status: disabled Physical Exam Const: COMMON NORMALS: patient oriented x3, no limitations, alert and well nourished GENERAL APPEARANCE: cooperative, in distress (probable acute on chronic respiratory distress) and appears older than stated age ORIENTATION/CONSCIOUSNESS: Yes awake, Yes oriented to person, Yes oriented to place and Yes oriented to time HENMT: COMMON NORMALS: normocephalic and atraumatic HEAD & SCALP: normal to inspection, normocephalic and atraumatic Eye: GENERAL EYE: appearance normal, both eyes and all related structures Neck/C-Spine: COMMON NORMALS: no lymphadenopathy Chest: COMMONS NORMALS: normal inspection of the chest and normal palpation of entire chest wall Resp: EFFORT & INSPECTION: Yes tachypneic, Yes respiratory distress, Yes labored, No grunting, No stridor, No Actively coughing and No audible wheezes AUSCULTATION: other (significant diffuse course lung sounds) Cardio: COMMON NORMALS: regular rate and regular rhythm RATE: regular rate RHYTHM: regular rhythm : COMMON NORMALS: Yes no CVA tenderness BLADDER/KIDNEY EXAM: Yes no CVA tenderness Back/Pelvis: COMMON NORMALS: no CVA tenderness and thoracic and lumbar spine normal to inspection Extremity: COMMON NORMALS: no clubbing, cyanosis or edema, no calf tenderness and no pedal edema GENERAL: Yes normal exam except as noted Neuro: BEN COMA SCALE: document GCS findings Ben coma scale eye opening: Spontaneous [place] coma scale verbal response: Orientated [place] coma scale motor response: Obey commands Ben coma scale total score: 15 COMMON NORMALS: patient oriented x3, moves all extremities, no focal motor deficits and no sensory deficits noted SENSORIUM/ORIENTATION: Yes alert, Yes oriented to person, Yes oriented to place and Yes oriented to time Skin: COMMON NORMALS: no rashes or lesions noted GENERAL SKIN EXAM: no rashes or lesions noted Course Vital Signs: Vital signs: Vital Signs Temperature 97.7 F 08/16/24 08:59 Pulse Rate 88 08/16/24 10:00 Respiratory Rate 30 H 08/16/24 10:00 Blood Pressure 121/66 08/16/24 10:00 Pulse Oximetry 95 08/16/24 10:00 Oxygen Delivery Me thod Nasal Cannula 08/16/24 10:00 Oxygen Flow Rate 2 08/16/24 10:00 MDM - SOB/Dyspnea Medical Decision Making Patient is a 58-year-old female here for an acute exacerbation of her chronic COPD. At this time I do not have any other concerns for her dyspnea including coronary artery syndrome, CHF exacerbation, pulmonary emboli, etc. She feels significantly better after IV Solu-Medrol and DuoNeb here. She is currently satting 98% on 2L. She has home O2 that she wears mainly at night but can wear during the day as needed. Patient is not febrile. She has a normal white count as well as a normal lactic and normal procalcitonin. Baseline troponin is unremarkable. EKG is non-ischemic. Her CXR showing chronic hyperinflation from emphysema. Patient does not want to be admitted to the hospital and have to spend [place] here. Will send her home with Prednisone and Levaquin. Return to ED precautions given. Differential Diagnosis Likely acute exacerbation of chronic obstructive airways disease Medical Records I reviewed the patient's medical records. Lab Data I reviewed the patient's lab results. 08/16/24 09:40 08/16/24 09:40 Labs/Radiology: Radiology Impressions Chest X-Ray 08/16/24 09:04 IMPRESSION: 1. Hyperinflation from emphysema. 2. No pneumonia. Laboratory Results WBC 9.65 10^3/uL (3.29-11.43) 08/16/24 09:40 RBC 5.04 10^6/uL (3.85-5.65) 08/16/24 09:40 Hgb 14.30 g/dL (11.27-16.99) 08/16/24 09:40 Hct 44.3 % (36-47) 08/16/24 09:40 MCV 87.9 fl (85-98) 08/16/24 09:40 MCH 28.4 pg (27-33) 08/16/24 09:40 MCHC 32.3 g/dL (30-55) 08/16/24 09:40 RDW 15.4 % (12.1-15.1) H 08/16/24 09:40 Plt Count 263 10^3/cmm (157-399) 08/16/24 09:40 MPV 10.9 fL (7.4-10.4) H 08/16/24 09:40 Neut % (Auto) 51.0 % 08/16/24 09:40 Lymph % (Auto) 37.7 % 08/16/24 09:40 [place] % (Auto) 7.7 % 08/16/24 09:40 Eos % (Auto) 2.6 % 08/16/24 09:40 Baso % (Auto) 0.8 % 08/16/24 09:40 Neut # (Auto) 4.92 10^3/uL (1.8-7.7) 08/16/24 09:40 Lymph # (Auto) 3.6 10^3/uL (0.8-4.8) 08/16/24 09:40 [place] # (Auto) 0.7 10^3/uL (0.2-0.9) 08/16/24 09:40 Eos # (Auto) 0.3 10^3/uL (0.0-0.8) 08/16/24 09:40 Baso # (Auto) 0.1 10^3/uL (0.0-0.1) 08/16/24 09:40 Nucleated RBC % (auto) 0 % 08/16/24 09:40 Nucleated RBCs # 0.0 /100WBC 08/16/24 09:40 Specimen Type Arterial 08/16/24 09:21 Sample Site Brachial, left 08/16/24 09:21 ABG pH 7.39 (7.35-7.45) 08/16/24 09:21 ABG pCO2 45.0 mmHg (35-45) 08/16/24 09:21 ABG pO2 67.8 mmHg (80.0-100.0) L 08/16/24 09:21 ABG PO2/FiO2 Ratio 242 08/16/24 09:21 ABG HCO3 27.0 mmol/L (22-26) H 08/16/24 09:21 ABG O2 Saturation 93.8 08/16/24 09:21 ABG Base Excess 1.5 mmol/L (-2.0-2.0) 08/16/24 09:21 Abdi Test N/a 08/16/24 09:21 A-a O2 Gradient 10.1 mmHg (5-10) H 08/16/24 09:21 Hematocrit 44.1 % (37-47) 08/16/24 09:21 Hgb O2 Saturation 88.7 % (95-100) L 08/16/24 09:21 Carboxyhemoglobin 4.5 %THgb (0.4-20.1) 08/16/24 09:21 Methemoglobin 1.0 % (0.4-1.5) 08/16/24 09:21 Total Hemoglobin 14.4 g/dL (12-16) 08/16/24 09:21 Sodium 139.0 mmol/L (131-143) 08/16/24 09:21 Potassium 4.0 mmol/L (3.5-5.0) 08/16/24 09:21 Glucose 113.0 mg/dL (70-115) 08/16/24 09:21 Ionized Calcium 1.3 mmol/L (1.1-1.4) 08/16/24 09:21 O2 Delivery Device Nc 08/16/24 09:21 O2 Liters/Min 2.0 % 08/16/24 09:21 FiO2 28.0 % 08/16/24 09:21 Corporate Legal Manager ID Amh 08/16/24 09:21 Sodium 138 mmol/L (136-145) 08/16/24 09:40 Potassium 4.6 mmol/L (3.5-5.1) 08/16/24 09:40 Chloride 101 mmol/L (98-107) 08/16/24 09:40 Carbon Dioxide 26 mmol/L (22-29) 08/16/24 09:40 Anion Gap 15.6 (5-19) 08/16/24 09:40 BUN 13 mg/dL (6-20) 08/16/24 09:40 Creatinine 0.7 mg/dL (0.5-0.9) 08/16/24 09:40 GFR Calculation 85.6 mL/min (90-130) L 08/16/24 09:40 Glucose 105 mg/dL (65-115) 08/16/24 09:40 Calculated Osmolality 286 mOsm/kg (285-295) 08/16/24 09:40 Lactic Acid 1.6 mmol/L (0.5-2.2) 08/16/24 09:40 Calcium 9.9 mg/dL (8.5-10.5) 08/16/24 09:40 Total Bilirubin 0.2 mg/dL (0.15-1.2) 08/16/24 09:40 AST 15 U/L (0-32) 08/16/24 09:40 ALT 11 U/L (0-33) 08/16/24 09:40 Alkaline Phosphatase 60 U/L (35-105) 08/16/24 09:40 Troponin T Baseline 10 ng/L (0-10) 08/16/24 09:40 Total Protein 7.1 g/dL (6.6-8.7) 08/16/24 09:40 Albumin 4.1 g/dL (3.5-5.2) 08/16/24 09:40 Globulin 3.0 g/dL (1.3-4.6) 08/16/24 09:40 Procalcitonin 0.04 ng/mL (0-0.5) 08/16/24 09:40 All radiology interpretation(s) finalized by discharge Discharge Plan Discharge Patient Disposition: Home Clinical Impression: Acute exacerbation of chronic obstructive pulmonary disease Condition: Stable Prescriptions: New prednisone 10 mg tablet 10 mg PO DAILY 6 Days Qty: 20 0RF Rx Instructions: Take 5 tabs on day 1-2, 4 tabs on day 3, 3 tabs on day 4, 2 tabs on day 5, and 1 tab on day 6 levofloxacin 750 mg tablet 750 mg PO DAILY 7 Days Qty: 7 0RF No Action (DME) cock up splint See Rx Instructions .Route .MEDSUPPLY Qty: 1 0RF Rx Instructions: As directed pantoprazole [Protonix] 40 mg tablet,delayed release (DR/EC) 40 mg PO BID 14 Days Qty: 28 0RF (DME) Volar Blocking Splint See Rx Instructions .Route .MEDSUPPLY Qty: 1 0RF Rx Instructions: As directed isosorbide mononitrate 30 mg tablet extended release 24 hr 15 mg PO DAILY Qty: 90 3RF nitroglycerin 0.4 mg tablet, sublingual 0.4 mg sublingual Q5MIN PRN (Reason: Chest Pain) Qty: 30 2RF metoprolol succinate 25 mg tablet extended release 24 hr 25 mg PO DAILY Qty: 90 3RF albuterol sulfate [Ventolin HFA] 90 mcg/actuation HFA aerosol inhaler 2 inh INHALATION Q4H PRN (Reason: shortness of breath or wheezing) sacubitril-valsartan [Entresto] 49-51 mg tablet 1 tab PO BID ipratropium-albuterol 0.5 mg-3 mg(2.5 mg base)/3 mL solution for nebulization 3 ml INHALATION Q6H Discharge Orders: Discharge ED (Routine); Ordered 08/16/24 Ordered By: Shelby Khan Referrals: Lulu Briceno FNP [Primary Care Provider] - Patient Instructions: COPD (Chronic Obstructive Pulmonary Disease) (DC) Coding Level of Care Code ED Lymphedema Therapist for Vicky Alegria
[2024-08-16] MEDS: ipratropium-albuterol 3 mL Neb INHALATION (09:21)
[2024-08-16 09:33] LABS: ABG PH Result 7.39 (7.35-7.45); Alveolar-Arterial Oxygen Gradi 10.1 mmHg (5-10); Arterial Blood Gas Hematocrit 44.1 % (37-47); Base Excess ABG 1.5 mmol/L (-2.0-2.0); Blood Gas Operator Identificat AMH; Blood Gas Sample Site Brachial, left; Blood Gas Sample Type Arterial; Carboxyhemoglobin 4.5 %THgb (0.4-20.1); HGB O2 Sat 88.7 % (95-100); Ionized Calcium Level - ABG 1.3 mmol/L (1.1-1.4); Oxygen Device NC; Oxygen Saturation ABG 93.8; PO2 ABG 67.8 mmHg (80.0-100.0); PO2 FiO2 Ratio Arterial Blood 242; Total Hemoglobin 14.4 g/dL (12-16)
[2024-08-16 09:56] LABS: Basophils # 0.1 10^3/uL (0.0-0.1); Basophils % 0.8 %; Eosinophils # 0.3 10^3/uL (0.0-0.8); Eosinophils % 2.6 %; Hematocrit 44.3 % (36-47); Lymphocytes # 3.6 10^3/uL (0.8-4.8); Lymphocytes % 37.7 %; Mean Corpuscular HGB Conc 32.3 g/dL (30-55); Mean Corpuscular Hemoglobin 28.4 pg (27-33); Mean Corpuscular Volume 87.9 fl (85-98); Mean Platelet Volume 10.9 fL (7.4-10.4); Monocytes # 0.7 10^3/uL (0.2-0.9); Monocytes % 7.7 %; Neutrophils # 4.92 10^3/uL (1.8-7.7); Nucleated Red Blood Cells % 0 %; Platelet Count 263 10^3/cmm (157-399); Red Blood Count 5.04 10^6/uL (3.85-5.65); Red Cell Distribution Width 15.4 % (12.1-15.1); White Blood Count 9.65 10^3/uL (3.29-11.43)
[2024-08-16] MEDS: methylPREDNISolone sod succ 125 mg/2 mL INJ IVP (10:03)
[2024-08-16 10:14] LABS: Alanine Aminotransferase 11 U/L (0-33); Albumin Level 4.1 g/dL (3.5-5.2); Alkaline Phosphatase 60 U/L (35-105); Aspartate Amino Transferase 15 U/L (0-32); Blood Urea Nitrogen 13 mg/dL (6-20); Calcium 9.9 mg/dL (8.5-10.5); Carbon Dioxide 26 mmol/L (22-29); Chloride 101 mmol/L (98-107); Creatinine Clr Calc Pharmacy 72.8422; Glomerular Filtration Rate 85.6 mL/min (90-130); Glucose 105 mg/dL (65-115); Lactic Sepsis W/Reflex 1.6 mmol/L (0.5-2.2); Osmolality Calculated 286 mOsm/kg (285-295); Sodium 138 mmol/L (136-145); Total Bilirubin 0.2 mg/dL (0.15-1.2); Total Protein 7.1 g/dL (6.6-8.7)
[2024-08-16 10:15] LABS: Troponin(5th) Baseline 10 ng/L (0-10)
[2024-08-16 10:18] LABS: Anion Gap 15.6 (5-19); Potassium 4.6 mmol/L (3.5-5.1)
[2024-08-16 10:20] LABS: Procalcitonin 0.04 ng/mL (0-0.5)
[2024-08-16 12:34] LABS: Adenovirus Not Detected (NOT DETECT); Chlamydia Pneumoniae Not Detected (NOT DETECT); Coronavirus 229E,HKU1,NL63,OC4 Not Detected (NOT DETECT); Human Metapneumovirus Not Detected (NOT DETECT); Human Rhinovirus/Enterovirus Detected (NOT DETECT); Influenza A Not Detected (NOT DETECT); Influenza A H1 Not Detected (NOT DETECT); Influenza A H1-2009 Not Detected (NOT DETECT); Influenza A H3 Not Detected (NOT DETECT); Influenza B Not Detected (NOT DETECT); Mycoplasma Pneumoniae Not Detected (NOT DETECT); Parainfluenza Virus Type 1 Not Detected (NOT DETECT); Parainfluenza Virus Type 2 Not Detected (NOT DETECT); Parainfluenza Virus Type 3 Not Detected (NOT DETECT); Parainfluenza Virus Type 4 Not Detected (NOT DETECT); Respiratory Syncytial Virus A Not Detected (NOT DETECT); Respiratory Syncytial Virus B Not Detected (NOT DETECT); SARS-COV-2 Not Detected (NOT DETECT)
== END 2024-08-16 11:41 | disposition home or self-care (01) ==
PROVIDERS: Emergency Provider Physician Assistant; PCP Nurse Practitioner
DX: J44.1 Chronic obstructive pulmonary disease with (acute) exacerbation (principal); Z72.0 Tobacco use; I50.20 Unspecified systolic (congestive) heart failure
CPT/HCPCS: 36415; 36600; 71045; 80051; 80053; 82330; 82805; 83605; 84145; 84484; 85025; 87486; 87581; 87633; 93005; 94640; 96374; 99285; J2919

== ENCOUNTER 2024-08-24 20:06 | Emergency (ER) | payer MEDICARE, MEDICAID, SELFPAY ==
[2024-08-24] VITALS (9 sets, daily range): BP systolic 103–159; BP diastolic 69–81; PULSE 87–102; RESP 18–28; TEMP 36.5; O2SAT 90–100
--- NOTE | 2024-08-24 20:10 | XRR_ITS ---
PROCEDURE INFORMATION: Exam: XR Chest Exam date and time: 08/24/2024 8:41 PM Age: 58 years old Clinical indication: Pain; Chest pressure; Additional info: Cp TECHNIQUE: Imaging protocol: Radiologic exam of the chest. Views: 1 view. COMPARISON: CR (CHEST, ) 08/16/2024 9:09 AM FINDINGS: Lungs: Stable hyperinflation. No consolidation. Pleural spaces: Unremarkable. No pleural effusion. No pneumothorax. Heart/Mediastinum: Unremarkable. No cardiomegaly. Bones/joints: Unremarkable. XR/XR chest 1V portable [id number] IMPRESSION: Hyperinflated lungs without focal consolidation. No other significant plain radiographic abnormality.
--- NOTE | 2024-08-24 20:11 | ECG_ITS ---
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 Measurements Intervals [place] Rate: 94 P: 84 VT: 154 QRS: 79 QRSD: 87 T: 76 QT: 324 QTc: 407 Interpretive Statements SINUS RHYTHM Compared to ECG 08/16/2024 08:58:49 T-wave abnormality no longer present Electronically Signed On 08-25-2024 12:27:21 [employer] by Burke Best M.D. [email or web address]
[2024-08-24 20:44] LABS: Basophils # 0.1 10^3/uL (0.0-0.1); Basophils % 0.7 %; Eosinophils # 0.9 10^3/uL (0.0-0.8); Eosinophils % 5.7 %; Hematocrit 43.1 % (36-47); Lymphocytes # 4.6 10^3/uL (0.8-4.8); Lymphocytes % 30.7 %; Mean Corpuscular HGB Conc 32.7 g/dL (30-55); Mean Corpuscular Hemoglobin 29.3 pg (27-33); Mean Corpuscular Volume 89.4 fl (85-98); Mean Platelet Volume 10.2 fL (7.4-10.4); Monocytes # 1.1 10^3/uL (0.2-0.9); Monocytes % 7.7 %; Neutrophils # 8.09 10^3/uL (1.8-7.7); Neutrophils % 54.7 %; Nucleated Red Blood Cells % 0 %; Platelet Count 224 10^3/cmm (157-399); Red Blood Count 4.82 10^6/uL (3.85-5.65); White Blood Count 14.81 10^3/uL (3.29-11.43)
--- NOTE | 2024-08-24 21:06 | W.ED.SOB ---
HPI - SOB/Dyspnea General: Chief Complaint: Shortness of Breath/Dyspnea Stated Complaint: CP SOB CHF Time Seen by Provider: 08/24/24 20:25 History of Present Illness: HPI Narrative: He presents to the ER with complaints of shortness of breath substernal chest pain that radiates to the jaw and right arm. Patient states she has been short of breath ever since [place] where she come and go around of antibiotics she finished them and she is no better. Previous to that she got a round of antibiotics and a round of steroids from her primary care doctor which did not help. Patient's chest pain started earlier today. She says right sided that radiates up into her neck and right arm. Is not reproducible with pain. Patient does have 1 stent multiple years ago. And does see a pm technician here. Related Data Home Medications Medication Instructions Recorded Confirmed albuterol sulfate 90 mcg/actuation 2 inh inhalation Q4H PRN shortness 08/16/24 08/16/24 aerosol inhaler (Ventolin HFA) of breath or wheezing ipratropium 0.5 mg-albuterol 3 mg 3 ml inhalation Q6H 08/16/24 08/16/24 (2.5 mg base)/3 mL nebulization soln sacubitril 49 mg-valsartan 51 mg 1 tab PO BID 08/16/24 08/16/24 tablet (Entresto) Previous Rx's Medication Instructions Recorded pantoprazole 40 mg tablet,delayed 40 mg PO BID 14 days #28 tabs 06/20/22 release (Protonix) cock up splint #1 ea 03/31/23 Volar Blocking Splint #1 ea 04/17/23 nitroglycerin 0.4 mg sublingual 0.4 mg sublingual Q5MIN PRN Chest 02/29/24 tablet Pain #30 tabs isosorbide mononitrate 30 mg 15 mg (1/2 x 30 mg) PO DAILY #90 06/02/24 tablet,extended release 24 hr tabs metoprolol succinate 25 mg 25 mg PO DAILY #90 tabs 07/13/24 tablet,extended release 24 hr prednisone 50 mg tablet 50 mg PO DAILY #5 tabs 08/24/24 Allergies Allergy/AdvReac Type Severity Reaction Status Date / Time doxycycline Allergy Mild ADR-Nausea Verified 08/24/24 20:14 Iodinated Contrast Media Allergy burning, Verified 08/24/24 20:14 itch, throat swelling morphine Allergy RASH Verified 08/24/24 20:14 Penicillins Allergy ALGY-Anaphy Verified 08/24/24 20:14 laxis Review of Systems General: Reports: 10 or more systems reviewed and unremarkable except in HPI and below PFSH ED PFSH: Medical History Systolic CHF Melena GERD (gastroesophageal reflux disease) COVID-19 Incomplete bladder emptying Surgical History H/O esophagogastroduodenoscopy H/O ventral hernia repair History of colon resection History of lobectomy of lung History of colonoscopy History of appendectomy History of cholecystectomy History of hysterectomy Family History Father , AT 39 No problems noted. Mother Heart disease Social History Smoking and tobacco/nicotine status: current every day tobacco/nicotine user Alcohol intake: never Substance/Drug Use: never Marital status: Current occupational status: disabled Physical Exam Const: COMMON NORMALS: no acute distress, average body habitus, patient oriented x3, no limitations, healthy appearing, alert and well nourished HENMT: COMMON NORMALS: normocephalic, atraumatic, hearing grossly normal bilaterally, external ears normal, Normal external nose present and moist oral mucous membranes HEAD & SCALP: normocephalic and atraumatic NOSE: Normal external nose present EXTERNAL EAR: Yes external ears normal Neck/C-Spine: COMMON NORMALS: no JVD Chest: COMMONS NORMALS: normal inspection of the chest and normal palpation of entire chest wall Resp: COMMON NORMALS: normal respiratory effort, No retractions, No use of accessory muscles and clear to auscultation bilaterally AUSCULTATION: clear to auscultation bilaterally Cardio: COMMON NORMALS: no JVD, regular rate, regular rhythm, S1 normal heart sound present, S2 normal heart sound present, No gallops present (Cardio), No clicks present (Cardio), No murmurs present (Cardio) and No rub (Cardio) RATE: regular rate RHYTHM: regular rhythm HEART SOUNDS: S1 normal heart sound present and S2 normal heart sound present GI: COMMON NORMALS: Normal to inspection, nondistended, normoactive bowel sounds present, Soft to palpation, non-tender, No hepatosplenomegaly present and no masses PALPATION: Yes Soft to palpation and Yes No hepatosplenomegaly present Neuro: COMMON NORMALS: patient oriented x3 SENSORIUM/ORIENTATION: Yes alert Course Vital Signs: Vital signs: Vital Signs Temperature 97.7 F 08/24/24 20:08 Pulse Rate 93 08/24/24 22:30 Respiratory Rate 21 H 08/24/24 22:30 Blood Pressure 122/70 08/24/24 22:30 Pulse Oximetry 93 08/24/24 22:30 Oxygen Delivery Me thod Nasal Cannula 08/24/24 21:30 Oxygen Flow Rate 2 08/24/24 20:14 MDM - SOB/Dyspnea Medical Decision Making Patient DuoNeb treatment 125 mg Solu-Medrol, lab work was obtained and reviewed as well as chest x-ray and EKG, is thought to be a typical exacerbation of COPD possible due to chemical pneumonitis. Patient be placed on steroids and discharged home. Medical Records I reviewed the patient's medical records. Lab Data I reviewed the patient's lab results. 08/24/24 20:39 08/24/24 20:39 Labs/Radiology: Radiology Impressions Chest X-Ray 08/24/24 20:10 IMPRESSION: Hyperinflated lungs without focal consolidation. No other significant plain radiographic abnormality. Laboratory Results WBC 14.81 10^3/uL (3.29-11.43) H 08/24/24 20:39 RBC 4.82 10^6/uL (3.85-5.65) 08/24/24 20:39 Hgb 14.10 g/dL (11.27-16.99) 08/24/24 20:39 Hct 43.1 % (36-47) 08/24/24 20:39 MCV 89.4 fl (85-98) 08/24/24 20:39 MCH 29.3 pg (27-33) 08/24/24 20:39 MCHC 32.7 g/dL (30-55) 08/24/24 20:39 RDW 16.0 % (12.1-15.1) H 08/24/24 20:39 Plt Count 224 10^3/cmm (157-399) 08/24/24 20:39 MPV 10.2 fL (7.4-10.4) 08/24/24 20:39 Neut % (Auto) 54.7 % 08/24/24 20:39 Lymph % (Auto) 30.7 % 08/24/24 20:39 [place] % (Auto) 7.7 % 08/24/24 20:39 Eos % (Auto) 5.7 % 08/24/24 20:39 Baso % (Auto) 0.7 % 08/24/24 20:39 Neut # (Auto) 8.09 10^3/uL (1.8-7.7) H 08/24/24 20:39 Lymph # (Auto) 4.6 10^3/uL (0.8-4.8) 08/24/24 20:39 [place] # (Auto) 1.1 10^3/uL (0.2-0.9) H 08/24/24 20:39 Eos # (Auto) 0.9 10^3/uL (0.0-0.8) H 08/24/24 20:39 Baso # (Auto) 0.1 10^3/uL (0.0-0.1) 08/24/24 20:39 Nucleated RBC % (auto) 0 % 08/24/24 20: Nucleated RBCs # 0.0 /100WBC 08/24/24 20:39 Specimen Type Arterial 08/24/24 21:31 Sample Site Brachial, right 08/24/24 21:31 ABG pH 7.41 (7.35-7.45) 08/24/24 21:31 ABG pCO2 46.7 mmHg (35-45) H 08/24/24 21:31 ABG pO2 79.7 mmHg (80.0-100.0) L 08/24/24 21:31 ABG HCO3 29.5 mmol/L (22-26) H 08/24/24 21:31 ABG O2 Saturation 96.4 08/24/24 21:31 ABG Base Excess 3.9 mmol/L (-2.0-2.0) H 08/24/24 21:31 Abdi Test N/a 08/24/24 21:31 A-a O2 Gradient 1.8 mmHg (5-10) L 08/24/24 21:31 Hematocrit 43.4 % (37-47) 08/24/24 21:31 Hgb O2 Saturation 89.0 % (95-100) L 08/24/24 21:31 Carboxyhemoglobin 6.6 %THgb (0.4-20.1) 08/24/24 21:31 Methemoglobin 1.2 % (0.4-1.5) 08/24/24 21:31 Total Hemoglobin 14.2 g/dL (12-16) 08/24/24 21:31 Sodium 138.0 mmol/L (131-143) 08/24/24 21:31 Potassium 4.0 mmol/L (3.5-5.0) 08/24/24 21:31 Glucose 122.0 mg/dL (70-115) H 08/24/24 21:31 Ionized Calcium 1.3 mmol/L (1.1-1.4) 08/24/24 21:31 O2 Delivery Device Nc 08/24/24 21:31 O2 Liters/Min 1.0 % 08/24/24 21:31 Paper Production Engineer ID [email or web address] 08/24/24 21:31 Sodium 136 mmol/L (136-145) 08/24/24 20:39 Potassium 4.7 mmol/L (3.5-5.1) 08/24/24 20:39 Chloride 100 mmol/L (98-107) 08/24/24 20:39 Carbon Dioxide 24 mmol/L (22-29) 08/24/24 20:39 Anion Gap 16.7 (5-19) 08/24/24 20:39 BUN 25 mg/dL (6-20) H 08/24/24 20:39 Creatinine 0.9 mg/dL (0.5-0.9) 08/24/24 20:39 GFR Calculation 64.1 mL/min (90-130) L 08/24/24 20:39 Glucose 120 mg/dL (65-115) H 08/24/24 20:39 Calculated Osmolality 288 mOsm/kg (285-295) 08/24/24 20:39 Calcium 9.2 mg/dL (8.5-10.5) 08/24/24 20:39 Total Bilirubin 0.2 mg/dL (0.15-1.2) 08/24/24 20:39 AST 13 U/L (0-32) 08/24/24 20:39 ALT 10 U/L (0-33) 08/24/24 20:39 Alkaline Phosphatase 59 U/L (35-105) 08/24/24 20:39 Troponin T Baseline 9 ng/L (0-10) 08/24/24 20:39 Troponin T 120 Minute 9.33 ng/L (0-10) 08/24/24 22:26 Delta Troponin T 0.33 ABS# (0-10) 08/24/24 22:26 NT-Pro-B Natriuret Pep 205 pg/mL (0-125) H 08/24/24 20:39 Total Protein 6.0 g/dL (6.6-8.7) L 08/24/24 20:39 Albumin 3.5 g/dL (3.5-5.2) 08/24/24 20:39 Globulin 2.5 g/dL (1.3-4.6) 08/24/24 20:39 All radiology interpretation(s) finalized by discharge Discharge Plan Discharge Patient Disposition: Home Clinical Impression: Acute exacerbation of chronic obstructive airways disease Condition: Stable Prescriptions: New prednisone 50 mg tablet 50 mg PO DAILY Qty: 5 0RF No Action (DME) cock up splint See Rx Instructions .Route .MEDSUPPLY Qty: 1 0RF Rx Instructions: As directed pantoprazole [Protonix] 40 mg tablet,delayed release (DR/EC) 40 mg PO BID 14 Days Qty: 28 0RF (DME) Volar Blocking Splint See Rx Instructions .Route .MEDSUPPLY Qty: 1 0RF Rx Instructions: As directed isosorbide mononitrate 30 mg tablet extended release 24 hr 15 mg PO DAILY Qty: 90 3RF nitroglycerin 0.4 mg tablet, sublingual 0.4 mg sublingual Q5MIN PRN (Reason: Chest Pain) Qty: 30 2RF metoprolol succinate 25 mg tablet extended release 24 hr 25 mg PO DAILY Qty: 90 3RF albuterol sulfate [Ventolin HFA] 90 mcg/actuation HFA aerosol inhaler 2 inh INHALATION Q4H PRN (Reason: shortness of breath or wheezing) sacubitril-valsartan [Entresto] 49-51 mg tablet 1 tab PO BID ipratropium-albuterol 0.5 mg-3 mg(2.5 mg base)/3 mL solution for nebulization 3 ml INHALATION Q6H Discharge Orders: Discharge ED (Routine); Ordered 08/24/24 Ordered By: Shiv Jacome Referrals: Lulu Briceno FNP [Primary Care Provider] - 1 week Patient Instructions: COPD Activity Restrictions/Additional Instructions: Thank you for choosing [facility] for your healthcare needs today. Please realize that you were seen in the emergency department and that we are providing you with an emergency medical screening exam and this may not be a complete and all exclusive of all testing and/or medical workup we may need to determine your element or severity of your illness. It is very important that you follow-up as instructed with your primary care provider or specialist for the additional evaluation and to discuss your medical treatment plan. You may return to the emergency department should you have concerns or if your condition changes or worsens in any way. Coding Level of Care Code ED Instrument Lens Grinder for Vicky Alegria
[2024-08-24] MEDS: methylPREDNISolone sod succ 125 mg/2 mL INJ IVP (21:07)
[2024-08-24 21:20] LABS: Troponin(5th) Baseline 9 ng/L (0-10)
[2024-08-24 21:40] LABS: Alanine Aminotransferase 10 U/L (0-33); Albumin Level 3.5 g/dL (3.5-5.2); Alkaline Phosphatase 59 U/L (35-105); Blood Urea Nitrogen 25 mg/dL (6-20); Calcium 9.2 mg/dL (8.5-10.5); Carbon Dioxide 24 mmol/L (22-29); Chloride 100 mmol/L (98-107); Creatinine Clr Calc Pharmacy 56.4621; Globulin 2.5 g/dL (1.3-4.6); Glomerular Filtration Rate 64.1 mL/min (90-130); Glucose 120 mg/dL (65-115); NT Pro B Type Natriuretic Pept 205 pg/mL (0-125); Osmolality Calculated 288 mOsm/kg (285-295); Sodium 136 mmol/L (136-145); Total Bilirubin 0.2 mg/dL (0.15-1.2)
[2024-08-24 21:41] LABS: Anion Gap 16.7 (5-19); Aspartate Amino Transferase 13 U/L (0-32); Potassium 4.7 mmol/L (3.5-5.1)
[2024-08-24 21:42] LABS: ABG PCO2 46.7 mmHg (35-45); ABG PH Result 7.41 (7.35-7.45); Alveolar-Arterial Oxygen Gradi 1.8 mmHg (5-10); Arterial Blood Gas Hematocrit 43.4 % (37-47); Base Excess ABG 3.9 mmol/L (-2.0-2.0); Blood Gas Sample Site Brachial, right; Blood Gas Sample Type Arterial; Carboxyhemoglobin 6.6 %THgb (0.4-20.1); HCO3 ABG 29.5 mmol/L (22-26); Ionized Calcium Level - ABG 1.3 mmol/L (1.1-1.4); Methemoglobin 1.2 % (0.4-1.5); Oxygen Device NC; Oxygen Saturation ABG 96.4; PO2 ABG 79.7 mmHg (80.0-100.0); Total Hemoglobin 14.2 g/dL (12-16)
[2024-08-24] MEDS: ipratropium-albuterol 3 mL Neb INHALATION (21:44)
--- NOTE | 2024-08-24 22:10 | ECG_ITS ---
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 Measurements Intervals [place] Rate: 93 P: 80 CA: 154 QRS: 76 QRSD: 90 T: 74 QT: 338 QTc: 422 Interpretive Statements SINUS RHYTHM WITH OCCASIONAL VENTRICULAR PREMATURE COMPLEXES Compared to ECG 08/16/2024 08:58:49 Ventricular premature complex(es) now present T-wave abnormality no longer present Electronically Signed On 08-25-2024 12:34:18 STEM DRYER MAINTAINER by Burke Best M.D. [email or web address]
[2024-08-24 22:54] LABS: Troponin 5 2HR 9.33 ng/L (0-10); Troponin 5 2HR Delta 0.33 ABS# (0-10)
== END 2024-08-24 23:40 | disposition home or self-care (01) ==
PROVIDERS: Emergency Medicine; Emergency Provider Emergency Medicine; PCP Nurse Practitioner
DX: J44.1 Chronic obstructive pulmonary disease with (acute) exacerbation (principal); Z72.0 Tobacco use; I50.20 Unspecified systolic (congestive) heart failure
CPT/HCPCS: 36415; 36600; 71045; 80051; 80053; 82330; 82805; 83880; 84484; 85025; 93005; 93010; 94640; 96374; 99285; J2919

== ENCOUNTER 2024-09-19 09:23 | Outpatient (CLI) | payer MEDICARE, MEDICAID, SELFPAY ==
--- NOTE | 2024-09-19 09:33 | MM_ITS ---
WS: [id number] SCREENING DIGITAL BREAST TOMOSYNTHESIS MAMMOGRAM WITH CAD HISTORY: SCREENING COMPARISON: 03/18/2017, 11/01/2015 Bilateral CC and MLO with tomosynthesis and synthetic mammography submitted. Computer aided detection analyzed. Breast composition: The breasts are heterogeneously dense, which may obscure small masses. Irregular mass is indistinct with equal density of adjacent breast parenchyma upper outer quadrant LEFT breast. This mass measures 6 x 4 x 5 mm. Prior biopsy clip in the central retroareolar LEFT breast. Vascular calcifications RIGHT breast. MM/MM scr tomosynthesis [id number] IMPRESSION: BI-RADS: 0 - Incomplete: Need additional imaging evaluation FOLLOW UP: Need Additional Imaging LEFT breast: Spot compression views (CC and MLO). True ML. Ultrasound to follow if abnormality persists.
== END 2024-09-19 09:24 | disposition home or self-care (01) ==
LOC: RAD 09:24
PROVIDERS: PCP Nurse Practitioner; Visit Provider Nurse Practitioner
DX: Z12.31 Encounter for screening mammogram for malignant neoplasm of breast (principal); R92.333 Mammographic heterogeneous density, bilateral breasts; N63.21 Unspecified lump in the left breast, upper outer quadrant; R92.1 Mammographic calcification found on diagnostic imaging of breast; R92.8 Other abnormal and inconclusive findings on diagnostic imaging of breast
CPT/HCPCS: 77063; 77067

== ENCOUNTER 2024-10-18 10:19 | Outpatient (CLI) | payer MEDICARE, MEDICAID, SELFPAY ==
--- NOTE | 2024-10-18 10:24 | MM_ITS ---
WS: [id number] DIAGNOSTIC LEFT DIGITAL TOMOSYNTHESIS MAMMOGRAPHY WITH CAD. HISTORY: Additional imaging. LEFT breast follow-up. COMPARISON: 09/19/2024, 03/18/2017 Technique: Spot compression LEFT CC and MLO. True ML. Breast composition: The breasts are heterogeneously dense, which may obscure small masses. Asymmetry described upper outer quadrant of the LEFT breast resolves with additional spot compression views. There are no suspicious remaining asymmetries. Biopsy clip central breast retroareolar. MM/MM diag LT tomosynthesis [id number] IMPRESSION: BI-RADS: 2 - Benign FOLLOW UP: 1 Year Follow-up LEFT breast asymmetry resolves with additional imaging. Return to annual screen ing mammography.
== END 2024-10-18 10:20 | disposition home or self-care (01) ==
PROVIDERS: PCP Nurse Practitioner; Visit Provider Nurse Practitioner
DX: R92.8 Other abnormal and inconclusive findings on diagnostic imaging of breast (principal); R92.332 Mammographic heterogeneous density, left breast
CPT/HCPCS: 77061; G0279

== ENCOUNTER 2024-12-26 12:33 | Outpatient (CLI) | payer MEDICARE, MEDICAID, SELFPAY | END 2024-12-26 12:34 | disposition home or self-care (01) | LOC: RAD 12-27 07:06 | PROVIDERS: PCP Nurse Practitioner; Visit Provider Internal Medicine | DX: I25.10 Atherosclerotic heart disease of native coronary artery without angina pectoris (principal); F17.200 Nicotine dependence, unspecified, uncomplicated | CPT/HCPCS: 99213 ==

== ENCOUNTER 2025-03-14 10:56 | Emergency (ER) | payer OTHER, MEDICAID, SELFPAY ==
--- OUTSIDE RECORDS SUMMARY | 2022-07-01 06:45 | XMS_ITS | Continuity of Care Document ---
Author Organization [facility] Address [id number] [address] Phone Care Team Providers Care Street Light Cleaner Name Role Phone Ranjeet Salcedo DDS Unavailable Unavailabl e Allergies, Adverse Reactions, Alerts Substance Reaction Status Criticality PENICILLIN Active No Information morphine Active No Information codeine Active No Information Medications Medication Instructions Dosage Effective Dates (start - stop) Status Comments Boniva 150 mg tablet take 1 tablet by oral route every month (same date) with a full glass of water and remain in upright positionat least 1 hour. - Active Celexa 40 mg tablet take 1 tablet by oral route every day 40 MG - Active Combivent Respimat 20 mcg-100 mcg/actuation solution for inhalation inhale 1 puff by inhalation route 4 times every day ; may take additional puffs as needed not to exceed 6 puffs in 24hrs 1.00 puff - Active diltiazem ER (XR/XT) 240 mg capsule,extended release 24 hr, controlled take 1 capsule by oral route every day 240 MG - Active Symjepi 0.3 mg/0.3 mL injection syringe inject 0.3 milliliter by intramuscular route once as needed for anaphylaxis - Active TOUCH-TROL 10 Fr misc - Acti ve ProAir HFA 90 mcg/actuation aerosol inhaler inhale 2 puff by inhalation route every 4 - 6 hours as needed - Active promethazine 25 mg/mL injection solution inject 1 milliliter by intramuscular route once, may repeat in 2 hours 25 MG - Active amitriptyline 10 mg tablet take 1 tablet by oral route every day at bedtime 10 MG - Active All Day Allergy (cetirizine) 10 mg capsule - Active dextromethorphan polistirex ER 30 mg/5 mL oral susp ext.release 12hr - Active diclofenac potassium 50 mg tablet take 1 tablet by oral route 2 times every day 50 MG - Active diclofenac sodium 50 mg tablet,delayed release take 1 tablet by oral route 2 times every day 50 MG - Active Esgic 50 mg-325 mg-40 mg tablet take 1 - 2 tablet by oral route every 4 hours as needed not to exceed 6 tablets per 24hrs - Active hydralazine 10 mg tablet take 1 tablet by oral route 2 times every day with food 10 MG - Active nitroglycerin 0.4 mg/hr transdermal 24 hour patch apply 1 patch by transdermal route every day remove at night for 10-12 hours 1.00 patch - Active pantoprazole 40 mg tablet,delayed release take 1 tablet by oral route every day 40 MG - Active prednisone 10 mg tablet take 1 tablet by oral route every day 10 MG - Active tamsulosin 0.4 mg capsule take 1 capsule by oral route every day 1/2 hour following the same meal each day 0.4 MG - Active Procedures Procedure Date Limited Oral Evaluation Problem Focused EDR Approval Note Advance Directives Directive Yes / No Effective Date File Name No Information Encounters Encounter Description Practice Location Reason(s) For Visit Diagnoses Date Provider Providers Copied on Encounter [facility], [id number] [facility], [place], [place], [id number], [place] tel:[phone] [facility] No Information Matias Pollack. [address] [place] [address], [address], [place]. tel:[phone] Referring Provider: Ranjeet Salcedo, [address] [place], [address]. tel:[phone] Family History Family Member Type Diagnosis Age At Onset No Information Payers Payer name Insurance type Covered constitution party ID Leighton riley(s) D Medicaid [id number] Social History Type Description Quantity Date Captured Comments Alcohol Use Details No Caffeine Use Details Unknown Tobacco Use Status Moderate cigarette smoker (10-19 cigs/day) Smoking Status Heavy tobacco smoker Smoking Tobacco Use Details Cigarette: No Details Available Cigarette: 0.5 Packs per day Sex Female Gender Identity Female Chief Complaint And Reason For Visit No Information Reason For Referral Reason For Referral No Information History Of Present Illness Encounter Date Complaint History Of Prese nt Illness No Information Functional Status Date Functional Assessmen t No Information Instructions Date Instruction Additional Infor mation No Information Assessments Type Assessment Date No Information Patient Care Teams Name Effective Dates (start - stop) Status Members No Information
[2025-03-14 11:01] VITALS: BP 163/103; PULSE 103; RESP 16; TEMP 36.8; O2SAT 85; BMI 19.9
--- NOTE | 2025-03-14 11:05 | XRR_ITS ---
PROCEDURE INFORMATION: Exam: XR Chest Exam date and time: 03/14/2025 11:10 AM Age: 59 years old Clinical indication: Shortness of breath; Additional info: SOB TECHNIQUE: Imaging protocol: Radiologic exam of the chest. Views: 1 view. COMPARISON: CR XR chest 1V portable [id number] 08/24/2024 8:41 PM FINDINGS: Lungs: Hyperinflated lungs. No focal consolidation. Pleural spaces: No pleural effusion. No pneumothorax. Heart/Mediastinum: No cardiomegaly. Bones/joints: No acute abnormality. XR/XR chest 1V portable [id number] IMPRESSION: 1. No acute pulmonary process. 2. COPD/emphysema.
--- NOTE | 2025-03-14 11:13 | ED_ITS ---
HPI - General Adult 2 General: Chief complaint: Shortness of Breath/Dyspnea Stated complaint: Fever, Headache, sore throat Time Seen by Provider: 03/14/25 10:59 Source: patient Mode of arrival: ambulatory Limitations: no limitations History of Present Illness: 59-year-old female who presents to the E D for worsening shortness of breath over the past 2 days. Patient reports of subjective fever, chills, body aches, productive cough, wheezing, sore throat,, and headaches that began around the same time. Has been around someone sick- an aunt that was recovering from a URI. Denies any abdominal pain, nausea, vomiting, or bowel or bladder changes. She states she has tried Mucinex and her albuterol inhaler which gave her some relief. She is on 3L NC at baseline-wears this always at night and sometimes during the day if needed. She is a current every day smoker. No other complaints at this time. MD complaint: Shortness of breath Onset (ago): day(s) (2) Severity: moderate Relieving factors: other (Mucinex and albuterol inhaler) Exacerbating factors: none Associated symptoms: Reports cough, dyspnea, fevers/chills and short of breath; Deny chest pain, headache(s), nausea, palpitations, syncope or vomiting Treatments prior to arrival: none Related Data Home Medications ?Medication ?Instructions ?Recorded ?Confirmed albuterol sulfate 90 mcg/actuation 2 inh inhalation Q4 H PRN shortness 08/16/24 12/26/24 aerosol inhaler (Ventolin HFA) of breath or wheezing ipratropium 0.5 mg-albuterol 3 mg 3 ml inhalation Q6H 08/16/24 12/26/24 (2.5 mg base)/3 mL nebulization soln sacubitril 49 mg-valsartan 51 mg 1 tab PO BID 08/16/24 12/26/24 tablet (Entresto) dapagliflozin propanediol 10 mg 10 mg PO DAILY 5 12/26/24 tablet (Farxiga) Previous Rx's ?Medication ?Instructions ?Recorded pantoprazole 40 mg tablet,delayed 40 mg PO BID 14 days #28 tabs 06/20/22 release (Protonix) cock up splint #1 ea 03/31/23 Volar Blocking Splint #1 ea 04/17/23 isosorbide mononitrate 30 mg 15 mg (1/2 x 30 mg) PO DA MALLIKA #90 06/02/24 tablet,extended release 24 hr tabs metoprolol succinate 25 mg 25 mg PO DAILY #90 tabs tablet,extended release 24 hr nitroglycerin 0.4 mg sublingual See Rx Instructions .R oute 03/10/25 tablet .COMPLEX #25 tabs levofloxacin 500 mg tablet 500 mg PO DAILY 7 days #7 t abs 03/14/25 prednisone 50 mg tablet 50 mg PO DAILY 5 days #5 tab s 03/14/25 Allergies Allergy/AdvReac Type Severity Reaction Status Date / Time doxycycline Allergy Mild ADR-Nausea Verified 12/26/24 12:41 Iodinated Contrast Media Allergy burning, Verified 12/26/24 12:41 itch, throat swelling morphine Allergy RASH Verified 12/26/24 12:41 Penicillins Allergy ALGY-Anaphy Verified 12/26/24 12:41 laxis Review of Systems 2 Const: Reports: fever(s) (subjective), chills and body aches; Denies: change in appetite or change in weight ENMT: Reports: throat pain; Denies: ear or mastoid pain, nasal discharge, nasal congestion or sinus pain Card: Denies: chest pain, palpitations, irregular heart rhythm, edema, lightheadedness, syncope or pre-syncope Resp: Reports: dyspnea, non-productive cough and chest congestion GI: Denies: abdominal pain, nausea, vomiting or diarrhea Musc: Denies: neck pain, back pain, extremity pain, extremity swelling or joint swelling Neuro: Denies: headache(s) or dizziness PFSH ED 2 PFSH: Medical History Systolic CHF Melena GERD (gastroesophageal reflux disease) COVID-19 Incomplete bladder emptying Surgical History H/O esophagogastroduodenoscopy H/O ventral hernia repair History of colon resection History of lobectomy of lung History of colonoscopy History of appendectomy History of cholecystectomy History of hysterectomy Family History Father , AT 39 No problems noted. Mother Heart disease Social History Smoking and tobacco/nicotine status: current every day tobacco/nicotine user Alcohol intake: never Substance/Drug Use: never Marital status: Current occupational status: disabled Physical Exam 2 Const: COMMON NORMALS: average body habitus, patient oriented x3, no limitations, healthy appearing, alert and well nourished GENERAL APPEARANCE: cooperative and in distress (minor respiratory distress with labored breathing; requiring oxygen) ORIENTATION/CONSCIOUSNESS: Yes awake, Yes oriented to person, Yes oriented to place and Yes oriented to time Chest: COMMONS NORMALS: normal inspection of the chest and normal palpation of entire chest wall Resp: EFFORT & INSPECTION: Yes labored and No retractions AUSCULTATION: r honchi Cardio: COMMON NORMALS: regular rate and regular rhythm RATE: regular rate RHYTHM: regular rhythm Extremity: COMMON NORMALS: no clubbing, cyanosis or edema, no calf tenderness and no pedal edema GENERAL: Yes normal exam except as noted Neuro: COMMON NORMALS: patient oriented x3 SENSORIUM/ORIENTATION: Yes alert, Yes oriented to person, Yes oriented to place and Yes oriented to time Course 2 Vital Signs: Vital signs: Vital Signs Temperature 98.3 F 03/14/25 11:01 Pulse Rate 77 03/14/25 11:52 Respiratory Rate 24 H 03/14/25 11:44 Blood Pressure 163/103 03/14/25 11:01 Pulse Oximetry 96 03/14/25 11:44 Oxygen Delivery Me thod Nasal Cannula 03/14/25 11:44 Oxygen Flow Rate 3 03/14/25 11:44 [facility] - General Adult Medical Decision Making Patient reports feeling significantly better after IV Solu-Medrol and DuoNeb. On re-examination she is sleeping comfortably in bed in no acute distress. Blood work showing a white count of almost 19,000. She does have a normal procalcitonin. Flu/COVID/RSV negative. Her CXR is unremarkable apart from chronic emphysema/hyperinflation. Patient feels comfortable going home at this time. Will place her on steroids and antibiotics. She does have a nebulizer machine at home with medications she can continue using. Recommend follow-up with primary care later this week. Return to ED precautions discussed. Medical Records I reviewed the patient's medical records. Lab Data I reviewed the patient's lab results. 03/14/25 11:05 03/14/25 11:05 Laboratory Results WBC 18.98 10^3/uL (3.29-11.43) H 03/14/25 11:05 RBC 4.78 10^6/uL (3.85-5.65) 03/14/25 11:05 Hgb 14.30 g/dL (11.27-16.99) 03/14/25 11:05 Hct 44.7 % (36-47) 03/14/25 11:05 MCV 93.5 fl (85-98) 03/14/25 11:05 MCH 29.9 pg (27-33) 03/14/25 11:05 MCHC 32.0 g/dL (30-55) 03/14/25 11:05 RDW 15.6 % (12.1-15.1) H 03/14/25 11:05 Plt Count 238 10^3/cmm (157-399) 03/14/25 11:05 MPV 10.6 fL (7.4-10.4) H 03/14/25 11:05 Neut % (Auto) 76.5 % 03/14/25 11:05 Lymph % (Auto) 13.3 % 03/14/25 11:05 [place] % (Auto) 7.7 % 03/14/25 11:05 Eos % (Auto) 1.6 % 03/14/25 11:05 Baso % (Auto) 0.5 % 03/14/25 11:05 Neut # (Auto) 14.51 10^3/uL (1.8-7.7) H 03/14/25 11:05 Lymph # (Auto) 2.5 10^3/uL (0.8-4.8) 03/14/25 11:05 [place] # (Auto) 1.5 10^3/uL (0.2-0.9) H 03/14/25 11:05 Eos # (Auto) 0.3 10^3/uL (0.0-0.8) 03/14/25 11:05 Baso # (Auto) 0.1 10^3/uL (0.0-0.1) 03/14/25 11:05 Nucleated RBC % (auto) 0 % 03/14/25 11:05 Nucleated RBCs # 0.0 /100WBC 03/14/25 11:05 Sodium 137 mmol/L (136-145) 03/14/25 11:05 Potassium 4.6 mmol/L (3.5-5.1) 03/14/25 11:05 Chloride 102 mmol/L (98-107) 03/14/25 11:05 Carbon Dioxide 22 mmol/L (22-29) 03/14/25 11:05 Anion Gap 17.6 (5-19) 03/14/25 11:05 BUN 18 mg/dL (8-23) 03/14/25 11:05 Creatinine 0.7 mg/dL (0.5-0.9) 03/14/25 11:05 GFR Calculation 85.4 mL/min (90-130) L 03/14/25 11:05 Glucose 100 mg/dL (65-115) 03/14/25 11:05 Calculated Osmolality 286 mOsm/kg (285-295) 03/14/25 11:05 Calcium 9.6 mg/dL (8.5-10.5) 03/14/25 11:05 Total Bilirubin 0.4 mg/dL (0.15-1.2) 03/14/25 11:05 AST 13 U/L (0-32) 03/14/25 11:05 ALT 8 U/L (0-33) 03/14/25 11:05 Alkaline Phosphatase 72 U/L (35-105) 03/14/25 11:05 Total Protein 7.2 g/dL (6.6-8.7) 03/14/25 11:05 Albumin 3.9 g/dL (3.5-5.2) 03/14/25 11:05 Globulin 3.3 g/dL (1.3-4.6) 03/14/25 11:05 Procalcitonin 0.09 ng/mL (0-0.5) 03/14/25 11:05 Influenza A (PCR) Negative (Negative) 03/14/25 10:08 Influenza Type B (PCR) Negative (Negative) 03/14/25 10:08 RSV (PCR) Negative (Negative) 03/14/25 10:08 SARS-CoV-2 (PCR) Negative (Negative) 03/14/25 10:08 All radiology interpretation(s) finalized by discharge Discharge Plan Discharge Patient Disposition: Home Clinical Impression: COPD exacerbation Condition: Stable Prescriptions: New levofloxacin 500 mg tablet 500 mg PO DAILY 7 Days Qty: 7 0RF Changed prednisone 50 mg tablet 50 mg PO DAILY 5 Days Qty: 5 0RF No Action (DME) cock up splint See Rx Instructions .Route .MEDSUPPLY Qty: 1 0RF Rx Instructions: As directed pantoprazole [Protonix] 40 mg tablet,delayed release (DR/EC) 40 mg PO BID 14 Days Qty: 28 0RF (DME) Volar Blocking Splint See Rx Instructions .Route .MEDSUPPLY Qty: 1 0RF Rx Instructions: As directed isosorbide mononitrate 30 mg tablet extended release 24 hr 15 mg PO DAILY Qty: 90 3RF dapagliflozin propanediol [Farxiga] 10 mg tablet 10 mg PO DAILY metoprolol succinate 25 mg tablet extended release 24 hr 25 mg PO DAILY Qty: 90 3RF nitroglycerin 0.4 mg tablet, sublingual See Rx Instructions .ROUTE .COMPLEX Qty: 25 2RF Dose Instruction: DISSOLVE 1 TABLET UNDER THE TONGUE EVERY 5 MINUTES NEEDED CHEST PAIN Rx Instructions: DISSOLVE 1 TABLET UNDER THE TONGUE EVERY 5 MINUTES NEEDED CHEST PAIN albuterol sulfate [Ventolin HFA] 90 mcg/actuation HFA aerosol inhaler 2 inh INHALATION Q4H PRN (Reason: shortness of breath or wheezing) sacubitril-valsartan [Entresto] 49-51 mg tablet 1 tab PO BID ipratropium-albuterol 0.5 mg-3 mg(2.5 mg base)/3 mL solution for nebulization 3 ml INHALATION Q6H Discharge Orders: Discharge ED (Routine); Ordered 03/14/25 Ordered By: Shelby Khan Referrals: Lulu Briceno FNP [Primary Care Provider, Nurse Practitioner] Patient Instructions: COPD (Chronic Obstructive Pulmonary Disease) (DC), Patient Portal & [facility] Instructions Print Language: Telugu Coding Level of Care Code ED Machine Farmworker for Vicky Alegria
[2025-03-14] MEDS: methylPREDNISolone sod succ 125 mg/2 mL INJ IVP (11:19)
[2025-03-14 11:20] LABS: Hematocrit 44.7 % (36-47); Hemoglobin 14.30 g/dL (11.27-16.99); Mean Corpuscular HGB Conc 32.0 g/dL (30-55); Mean Corpuscular Hemoglobin 29.9 pg (27-33); Mean Corpuscular Volume 93.5 fl (85-98); Nucleated Red Blood Cells % 0 %; Platelet Count 238 10^3/cmm (157-399); Red Blood Count 4.78 10^6/uL (3.85-5.65); White Blood Count 18.98 10^3/uL (3.29-11.43)
--- OUTSIDE RECORDS SUMMARY | 2025-03-14 11:32 | XMS_ITS | Encounter Summary ---
Author Organization [facility] Address [address] [place] [address] Care Team Providers Care Manager Property Name Role Phone Arash Hooper MD Primary Care Provider [phone] Encounter Details Date Type Department Care Team (Latest Contact Info) Description 06/23/2007 Outpatient [facility] Breast Center [facility] [address] [place] [address] Breanna Krishnamurthy, DO [address] [place] [address] Lump or Mass in Breast (Primary Dx) Social History Tobacco Use Types Packs/Day Years Used Date Smoking Tobacco: Never Assessed Comments Unknown Sex and Gender Information Value Date Recorded Sex Assigned at Not on file Legal 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
--- OUTSIDE RECORDS SUMMARY | 2025-03-14 11:32 | XMS_ITS | Clinical Summary ---
Author Organization [facility] Address [address] [place] [address] Phone Care Team Providers Care Lime Kiln And Recausticizing Operator Name Role Phone Arash Hooper MD Primary Care Provider [phone] Allergies Active Allergy Reactions Criticality Noted Date Comments Iodinated Contrast Media Other (See Comments) 05/11/2009 My body feels like it is on fire Morphine Hives,Itching,Other (See Comments) High 05/11/2009 Penicillins Rash,Other (See Comments) Low 05/11/2009 Medications albuterol (PROVENTIL,VENT IZA) 90 mcg/Actuation Inhalation Aero Take 2 Puffs by inhalation every 6 hours as needed for Other (See Comment). Active nitroglycerin (NITROSTAT) 0.[address] 1 Tab under tongue every 5 minutes as needed for Chest Pain. 30 Tab 4 9 Active montelukast (SINGULAIR) 10 mg Oral tablet Take 10 mg by mouth daily at bedtime. Active gabapentin (NEURONTIN) 300 mg Oral capsuleIndicati ons:Throat pain,Odynophagi a,Chronic laryngitis Take 300 mg by mouth 3 times daily. Active dicyclomine (BENTYL) 20 mg tablet Take 20 mg by mouth 1 time daily as needed. Active pantoprazole (PROTONIX) 20 mg Tablet, Delayed Release (E.C.) Take 20 mg by mouth daily. Active mirtazapine (REMERON) 30 mg tablet Take 30 mg by mouth daily. Active aspirin (ECOTRIN EC) 81 mg Tablet, Delayed Release (E.C.) Take 81 mg by mouth daily. Active rosuvastatin (CRESTOR) 40 mg tablet TAKE 1 TABLET BY MOUTH EVERY NIGHT AT BEDTIME 30 Tablet 11 0 Active ezetimibe (ZETIA) 10 mg tablet TAKE 1 TABLET(10 MG) BY MOUTH DAILY 90 Tablet 3 0 Active Repatha SureClick 140 mg/mL Pen Injector INJECT 1 ML UNDER THE SKIN EVERY 2 WEEKS. 2 mL 1 1 Active diltiaZEM (CARDIZEM CD) 180 mg Controlled Delivery 24 hour capsule TAKE ONE CAPSULE BY MOUTH DAILY 180 Capsule 3 1 Active clopidogreL (PLAVIX) 75 mg Tablet Take 1 Tablet (75 mg) by mouth daily. 90 Tablet 3 1 Active Active Problems Problem Noted Date Diagnosed Date Angina, class III 12/24/2020 Overview (12/24/2020): Added automatically from request for surgery [id number] SOB (shortness of breath) 12/24/2020 Overview (12/24/2020): Added automatically from request for surgery [id number] History of coronary artery stent placement 12/20 Tobacco dependence 12/05/2018 Dyslipidemia, goal LDL below 70 12/05/2018 Benign hypertension 12/05/2018 Other headache syndrome 09/01/2017 ASHD (arteriosclerotic heart disease) 09/01/2017 Throat pain 11/21/2011 Otalgia 08/15/2011 Tonsil asymmetry 08/15/2011 Diarrhea 09/16/2010 COPD (chronic obstructive pulmonary disease) Hernia of unspecified site o f abdominal cavity without mention of obstruction or gangrene 05/07/2009 Resolved Problems Problem Noted Date Diagnosed Date Resolved Date Angina, class III 10/20/2018 12/05/2018 Abnormal cardiovascular stress test 10/20/2018 12/05/2018 Chest pain 06/15/2009 10/20/2018 Immunizations Immunization Administration Dates Next Due Influenza Seasonal Unspecified Formulation IM ,06/06/2004 Family History Medical History Relation Name Comments Heart Disease Brother High Cholesterol Brother Hypertension Brother Other Father murdered Asthma Mother Diabetes Mother Heart Disease Mother High Cholesterol Mother Hypertension Mother Stroke Mother Cancer Sister 1 uterine Liver Disease Sister 1 Respiratory Disease Sister 1 Breast Cancer Sister 2 Cancer Sister 2 cervical Colon Cancer Sister 2 Other Sister 2 alcoholism Healthy Son Other Son SIDS in infancy /no resolved Relation Name Status Comments Brother Alive Father Mother Alive Sister 1 Alive Sister 2 Alive Son Alive Social History Tobacco Use Types Packs/Day Years Used Date Smoking Tobacco: Every Day Cigarettes 0.3 30 Smokeless Tobacco: Never Tobacco Cessation:Ready to Q uit: Yes Comments:Currently smokes .50 ppd, 10/23/17 Alcohol Use Standard Drinks/Week Comments No 0 (1 standard drink = 0.6 oz pur e alcohol) Comments No Sex and Gender Information Value Date Recorded Sex Assigned at Not on file Legal 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 Gender Identity Not on file Sexual Orientation Not on file Occupation Industry Job Start Date Job End Date Not on file Not on file Not on file Not on file Last Filed Vital Signs Vital Sign Reading Time Taken Comments Blood Pressure 153/83 01/11/2021 1:00 PM CDT Pulse 80 01/11/2021 1:00 PM CDT Temperature 35.8 C (96.5 F) 01/11/2021 11:46 AM CDT Respiratory Rate 16 01/11/2021 1:00 PM CDT Oxygen Saturation 91% 01/11/2021 1:00 PM CDT Inhaled Oxygen Concentration - - Weight 55.2 kg (121 lb 11.1 oz) 021 11:46 AM CDT Height 162.6 cm (5' 4 ) 01/11/2021 11:4 6 AM CDT Body Mass Index 20.89 01/11/2021 11:46 AM CDT Plan of Treatment Health Maintenance Due Date Last Done Comments DTAP/TDAP/TD VACCINES (1 - Tdap) 11/17/1983 FIT-DNA Q 3 years 2009 FIT/FOBT Q 1 year 2009 Flex Sig/CT Colonography Q 5 years 2009 BREAST CANCER SCREENING 11/27/2011 11/27/19 11, 11/22/2010, 10/22/2010, Additional history exists ZOSTER VACCINE (1 of 2) 2014 COLORECTAL SCREENING 09/17/2020 09/17/2010, 09/16/19 11 Colorectal Cancer Screening 09/17/2020 RSV VACCINE (60+ or ) (1 - Risk 60-74 years 1-dose series) 2024 INFLUENZA VACCINE (#1) 2025 05/24/2020, 2003 HEPATITIS B VACCINES Aged Out No long er eligible based on patient's age to complete this topic Medical Devices Implanted Type Area Collar Starcher Device Identifier Shelf Expiration Date Model / Serial / Lot Closure Perclose Proglide [id number] - [id number] Implanted:Qty: 1 on 01/11/2021 by Aroldo Gonzales MD at [facility] Closure Device Right: Groin FELDER- VASC DEVICE 09/23/2022 [id number] / / [id number] Mesh Proceed [id number] Pcdm1 Implanted:Qty: 1 on 05/17/2009 at [facility] Mesh Abdomen [employer]- [employer] 01/22/2011 PCDM1 / / [id number] Stent- Implanted:Qty: 1 on 10/19/2018 by Aroldo Gonzales MD Stent Heart [id number] 04/13/2020 / / [id number] Description:3.50x16 Procedures Procedure Name Priority Date/Time Associated Diagnosis Comments MAMMO UNILATERAL ADDL VW LEFT Routine 11/26/2010 9:13 AM CDT Lump or mass in breast ENDOSCOPY, COLON, DIAGNOSTIC Routine 09/17/2010 7:51 AM MORTICIAN HELPER Diarrhea Other symptoms involving digestive system from Last 3 Months or Most Recently Relevant to Health Maintenance Results * MAMMO UNILATERAL ADDL VW LEFT (11/26/2010 9:13 AM CDT) Anatomical Region Laterality Modality Breast Left Mammography Narrative 11/28/2010 1:20 PM CDT Post-procedural mammogram report is included in the left breast biopsy report of 11/26/2010. FRANCISCO/jake Procedure Note Reynaldo Batista MD - 11/28/2010 Post-procedural mammogram report is included in the left breast biopsyreport of 11/26/2010. FRANCISCO/jake us Lulupablo Briceno NP MAMMO ORDERABLES Final Re sult * ENDOSCOPY, COLON, DIAGNOSTIC (09/17/2010 7:51 AM MORTICIAN HELPER) Narrative Transcriptions Constantino Locke MD - 09/17/2010 7:51 AM CST [place], [place] ENDOSCOPY NAME LULI RIOS [facility] # [id number] 1965 AGE 44Y PHYSICIAN Constantino Locke MD DATE: 09/16/2010 REFERRING PHYSICIAN: Arash Hooper MD PROCEDURE: Colonoscopy to cecum with biopsies. INDICATIONS: A 44-year-old woman referred for colonoscopy exam toevaluate chronic diarrhea. The patient also reports episodicconstipation. ENDOSCOPIST: Constantino Locke MD NURSES: Esthela Samuel RN and Yamilka Soto RN ENDOSCOPE: Olympus CF-Q180AL video colonoscope. MEDICATIONS: Versed 7 mg IV in increments and fentanyl 150 mcg IV inincrements. MONITORING: Blood pressure, oxygen saturation, and cardiac monitoring.The patient was on 2 liters of oxygen per nasal cannula. DESCRIPTION OF PROCEDURE: Digital rectal examination was unremarkable.The colonoscope was easily advanced to the cecum. Location was verifiedby identifying the base of cecum and ileocecal valve. The valve wasentered and terminal ileum was noted be grossly normal. Circumferentialinspection of the mucosal surface was performed on slow withdrawal of theinstrument. The bowel prep was fair. Mild diverticulosis was notedthrough the sigmoid colon. There was no endoscopic evidence ofdiverticulitis or stricture. A few diminutive, pale, hyperplastic polypswere noted in the region of the rectosigmoid junction, otherwise, therewere no polyps identified. There were no mass lesions. Noangiodysplasias were evident. There were no endoscopic findings toaccount for the patient's chronic diarrheal symptoms. Random colonbiopsies were obtained to rule out microscopic colitis. A retroflex viewof the rectum was unremarkable. The procedure was well tolerated. There were no complications.Endoscopic photos were obtained. IMPRESSION: 1. Sigmoid diverticulosis, mild. 2. No abnormalities identified to account for chronic diarrheal symptoms.Random colon biopsies were obtained to rule out microscopic colitis. RECOMMENDATIONS: Await path results. Constantino Locke MD medq D: [id number] V: [id number] cc: Arash Hooper MD Lulupablo Briceno NP GI PROCEDURE ORDERABLES F inal Result from Last 3 Months or Most Recently Relevant to Health Maintenance Insurance MEDICAID [place] RX INFOCROSSING Medicaid RX INFOCROSSING Medicaid RX STEWART PLANS (INTERNAL) [facility] Internal Plans Advance Directives For more information, please contact: [phone] * Full Code (Latest Code Status on File) Date Activated Date Inactivated Comments 01/11/2021 1:31 PM 01/11/2021 6:23 PM * Full Code Date Activated Date Inactivated Comments 01/11/2021 11:28 AM 01/11/2021 1:31 PM * Full Code Date Activated Date Inactivated Comments 09/01/2017 4:03 PM 09/02/2017 5:17 PM * Full Code Date Activated Date Inactivated Comments 09/16/2010 3:23 PM 09/16/2010 5:48 PM * Full Code Date Activated Date Inactivated Comments 09/16/2010 2:24 PM 09/16/2010 3:23 PM Care Teams Lime Kiln And Recausticizing Operator Relationship Specialty Start Date End Date Arash Hooper MD [address] [facility] [place] [address] PCP - General 06/12/09
--- OUTSIDE RECORDS SUMMARY | 2025-03-14 11:32 | XMS_ITS | Encounter Summary ---
Author Organization [facility] Address [address] [place] [address] Care Team Providers Care Wireless Engineer Name Role Phone Arash Hooper MD Primary Care Provider [phone] Encounter Details Date Type Department Care Team (Late st Contact Info) Description 02/04/2008 Outpatient [facility] Breast Center [facility] [address] [place] [address] Breanna Krishnamurthy, DO [address] [place], [place] [id number] Social History Tobacco Use Types Packs/Day Years Used Date Smoking Tobacco: Never Assessed Comments Unknown Sex and Gender Information Value Date Recorded Sex Assigned at Not on file Legal Sex Female 4:06 AM ROW BOSS Gender Identity Not on file Sexual Orientation Not on file documented as of this encounter Plan of Treatment Not on file documented as of this encounter Procedures Procedure Name Priority Date/Time Associated Diagnosis Comments US BREAST UNI LEFT COMPLETE Routine 02/10/2008 12:15 PM CDT documented in this encounter Results * US BREAST UNILATERAL LEFT (02/10/2008 12:15 PM CDT) Anatomical Region Laterality Modality Breast Left Other 02/10/2008 12:1 5 PM CDT Narrative 02/10/2008 12:15 PM CDT Report Available in [facility] Procedure Note 09/25/2008 Report Available in [facility] us Breanna Krishnamurthy DO US ORDERABLES Final Result documented in this encounter Visit Diagnoses Not on filedocumented in this encounter Care Teams Wireless Engineer Relationship Specialty Start Date End Date Arash Hooper MD [address] [place] [address] PCP - General 06/12/09 documented as of this encounter
--- OUTSIDE RECORDS SUMMARY | 2025-03-14 11:32 | XMS_ITS | Encounter Summary ---
Author Organization [facility] Address [address] [place] [address] Care Team Providers Care Stone Cleaner Name Role Phone Arash Hooper MD Primary Care Provider Reason for Referral * Outpatient Services (Routine) - Canceled Specialty Diagnoses / Procedures Referred By Tamara kwong Referred To Contact Diagnoses Lump or mass in breast Procedures MAMMO UNILATERAL ADDL VW LEFT Lulu Briceno NP [address] [place] [address] Phone: tel: fax: Referral ID Status Reason Start Date Expiration Date V isits Requested Visits Authorized [id number] Canceled 11/25/2010 05/24/2011 1 1 * Outpatient Services (Routine) - Closed Specialty Diagnoses / Procedures Referred By Tamara kwong Referred To Contact Diagnoses Lump or mass in breast Procedures MAMMO BREAST US BIOPSY LEFT Lulu Briceno NP [address] [place] [address] Phone: tel: fax: Referral ID Status Reason Start Date Expiration Date Visits Re quested Visits Authorized [id number] Closed 11/25/2010 05/24/2011 1 2 Encounter Details Date Type Department Care Team (Late st Contact Info) Description 11/25/2010 Ancillary Orders [facility] Breast Center [address] [place] [address] Lulu Briceno NP [address] [facility] [place] [address] Lump or mass in breast Social History Tobacco Use Types Packs/Day Years Used Date Smoking Tobacco: Every Day Cigarettes 0.1 30 Smokeless Tobacco: Never Alcohol Use Standard Drinks/Week Comments No 0 (1 standard drink = 0.6 oz pur e alcohol) Comments No Sex and Gender Information Value Date Recorded Sex Assigned at Not on file 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 That was rechecked with ultrasound prior to performing the biopsy. The procedure was explained to the patient prior to obtaining informed consent. The skin was prepped in a usual fashion and a lateral to medial transverse approach was utilized. Superficial and deep anesthesia was undertaken. A small skin hiwot was made with a scalpel. A 9 gauge Suros probe was utilized to biopsy the hypoechoic region of interest. The probe initially was positioned posterior to the region of interest and biopsy was performed with vacuum assistance. Suros sampling undertaken and excellent correlation of the targeted region being thoroughly biopsied. At the conclusion of the procedure a clip was deployed to jimy the lesion site. There was only minimal hypoechoic change remaining. The postprocedure radiographs show the clip to be present in the central 3 o'clock position. That is different than the 1-2 demarcation. However, the clip was seen to deploy and I believe it is in the proper site. SUMMARY: Successful percutaneous biopsy on the left. We will await final pathology report. Josemanuel PATHOLOGY RESULTS REVIEWED 11/28/10: BENIGN. Left breast percutaneous biopsy reveals a complex sclerosing lesion with focal microcalcifications. No atypia reported. No malignancy. Findings would be deemed concordant and acceptable to me. Recommendation would be for short-term six-month sonographic follow-up. Elizbaeth Procedure Note Reynaldo Batista MD - 11/28/2010 ULTRASOUND-GUIDED PERCUTANEOUS BIOPSY OF THE LEFT BREAST WITH VACUUMASSISTANCE, CLIP PLACEMENT, AND DIGITAL UNILATERAL DIAGNOSTIC MAMMOGRAMLEFT BREAST: The patient has a known indeterminate area of the left breast at the 1- 2position. That was rechecked with ultrasound prior to performing thebiopsy. The procedure was explained to the patient prior to obtaining informedconsent. The skin was prepped in a usual fashion and a lateral to medial transverseapproach was utilized. Superficial and deep anesthesia was undertaken. Asmall skin hiwot was made with a scalpel. A 9 gauge Suros probe wasutilized to biopsy the hypoechoic region of interest. The probe initiallywas positioned posterior to the region of interest and biopsy wasperformed with vacuum assistance. Suros sampling undertaken and excellentcorrelation of the targeted region being thoroughly biopsied. At the conclusion of the procedure a clip was deployed to jimy the lesionsite. There was only minimal hypoechoic change remaining. The postprocedure radiographs show the clip to be present in the central 3o'clock position. That is different than the 1-2 demarcation. However,the clip was seen to deploy and I believe it is in the proper site. SUMMARY: Successful percutaneous biopsy on the left. We will await final pathologyreport. Josemanuel PATHOLOGY RESULTS REVIEWED 11/28/10: BENIGN. Left breast percutaneous biopsy reveals a complex sclerosing lesion withfocal microcalcifications. No atypia reported. No malignancy. Findings would be deemed concordant and acceptable to me. Recommendation would be for short-term six-month sonographic follow-up. Elizabeth us Lulu Briceno VAUDEVILLE ACTOR MAMMO ORDERABLES Final Re sult * MAMMO UNILATERAL ADDL VW LEFT (11/26/2010 9:13 AM CDT) Anatomical Region Laterality Modality Breast Left Mammography Narrative 11/28/2010 1:20 PM CDT Post-procedural mammogram report is included in the left breast biopsy report of 11/26/2010. FRANCISCO/sdm Procedure Note Reynaldo Batista MD - 11/28/2010 Post-procedural mammogram report is included in the left breast biopsyreport of 11/26/2010. FRANCISCO/jake us Lulu Briceno VAUDEVILLE ACTOR MAMMO ORDERABLES Final Re sult documented in this encounter Visit Diagnoses Diagnosis Lump or mass in breast Lump or mass in breast Lump or mass in breast documented in this encounter Care Teams Stone Cleaner Relationship Specialty Start Date End Date Arash Hooper MD [address] [place] [address] PCP - General 06/12/09 documented as of this encounter
--- OUTSIDE RECORDS SUMMARY | 2025-03-14 11:32 | XMS_ITS | Encounter Summary ---
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
--- OUTSIDE RECORDS SUMMARY | 2025-03-14 11:32 | XMS_ITS | Encounter Summary ---
Author Organization [facility] Address [address] [place] [address] Care Team Providers Care Foster Care Therapist Name Role Phone Arash Hooper MD Primary Care Provider [phone] Reason for Referral * Outpatient Services (Routine) - Closed Specialty Diagnoses / Procedures Referred By Tamara kwong Referred To Contact Diagnoses Left adnexal tenderness RUQ pain Family history of ovarian cancer Procedures US PELVIS COMPLETE Lulu Briceno NP [address] [place] [address] Phone: tel: fax: Referral ID Status Reason Start Date Expiration Date Visits Re quested Visits Authorized [id number] Closed 09/16/2010 12/15/2010 1 1 STMENT TRADER Encounter Details Date Type Department Care Team (Latest Contact Info) Description 09/17/2010 Ancillary Orders [facility] Ultrasound [address] [place] [address] Lulu Briceno NP [address] [place] [address] RUQ pain; History of ovarian cancer; Left adnexal tenderness; Family history of ovarian cancer Social History Tobacco Use Types Packs/Day Years Used Date Smoking Tobacco: Every Day Cigarettes 0.1 30 Smokeless Tobacco: Never Alcohol Use Standard Drinks/Week Comments No 0 (1 standard drink = 0.6 oz pur e alcohol) Comments No Sex and Gender Information Value Date Recorded Sex Assigned at Not on file Legal Sex Female 4:06 AM INVESTMENT TRADER Gender Identity Not on file Sexual Orientation Not on file documented as of this encounter Plan of Treatment Not on file documented as of this encounter Results * US PELVIS COMPLETE (10/22/2010 2:17 PM INVESTMENT TRADER) Anatomical Region Laterality Modality Pelvis Ultrasound 10/22/2010 12:4 9 PM INVESTMENT TRADER Impressions 10/22/2010 5:48 PM INVESTMENT TRADER Impression: 1. Surgical absence of the uterus. 2. Follicles identified in both ovaries. ljw 1658 PM - uploaded from [employer]- Narrative 10/22/2010 5:48 PM INVESTMENT TRADER Exam: US PELVIS COMPLETE Date/Time of Exam: Oct 22, 2010 02:17:00 PM History: LEFT ADNEXAL TENDERNESS. Findings: The uterus is surgically absent. The right ovary measures 18 mm x 13 mm x 19 mm in diameter for an estimated volume of 2.5 mL. Two tiny follicles are visible in the right ovary. The left ovary measures 16 mm x 20 mm x 24 mm for an estimated volume of 4.2 mL. There is a 10 mm x 11 mm x 13 mm diameter cyst in the left ovary. Procedure Note Etienne Pace MD - 10/22/2010 Exam: US PELVIS COMPLETE Date/Time of Exam: Oct 22, 2010 02:17:00 PM History: LEFT ADNEXAL TENDERNESS. Findings: The uterus is surgically absent. The right ovary measures 18 mm x 13 mm x 19 mm in diameter for an estimated volume of 2.5 mL. Two tiny follicles are visible in the right ovary. The left ovary measures 16 mm x 20 mm x 24 mm for an estimated volume of 4.2 mL. There is a 10 mm x 11 mm x 13 mm diameter cyst in the left ovary. IMPRESSION Impression: 1. Surgical absence of the uterus. 2. Follicles identified in both ovaries. ljw 8 PM - uploaded from [employer]- us Lulu Briceno HAND TRUCKER US ORDERABLES Final Res ult documented in this encounter Visit Diagnoses Diagnosis RUQ pain Abdominal pain, right upper quadrant History of ovarian cancer Personal history of malignant neoplasm of ovary Left adnexal tenderness Unspecified symptom associated with female genital organs Family history of ovarian cancer Family history of malignant neoplasm of ovary Left adnexal tenderness Unspecified symptom associated with female genital organs RUQ pain Abdominal pain, right upper quadrant Family history of ovarian cancer Family history of malignant neoplasm of ovary documented in this encounter Care Teams Foster Care Therapist Relationship Specialty Start Date End Date Arash Hooper MD [address] [place] [address] PCP - General 06/12/09 documented as of this encounter
--- OUTSIDE RECORDS SUMMARY | 2025-03-14 11:32 | XMS_ITS | Encounter Summary ---
Author Organization [facility] Address [address] [place] [address] Care Team Providers Care Gambling Supervisor Name Role Phone Arash Hooper MD Primary Care Provider [phone] Reason for Referral * Outpatient Services (Routine) - Closed Specialty Diagnoses / Procedures Referred By Tamara kwong Referred To Contact Diagnoses Other (abnormal) findings on radiological examination of breast Procedures MAMMO BREAST US LT Jude Flores MD [address] [place] [address] Phone: tel: fax: Referral ID Status Reason Start Date Expiration Date Visits Re quested Visits Authorized [id number] Closed 10/25/2010 04/23/2011 1 1 D CARE PHYSICIAN * Outpatient Services (Routine) - Closed Specialty Diagnoses / Procedures Referred By Tamara kwong Referred To Contact Diagnoses Other (abnormal) findings on radiological examination of breast Procedures MAMMO DIGITAL DIAG UNI LEFT Jude Flores MD [address] [place] [address] Phone: tel: fax: Referral ID Status Reason Start Date Expiration Date Visits Re quested Visits Authorized [id number] Closed 10/25/2010 04/23/2011 1 1 D CARE PHYSICIAN Encounter Details Date Type Department Care Team (Late st Contact Info) Description 10/25/2010 Ancillary Orders [facility] [place] [address] [facility] [address] [place] [address] Jude Flores MD [address] [place] [address] Other (abnormal) findings on radiological examination of breast Social History Tobacco Use Types Packs/Day Years Used Date Smoking Tobacco: Every Day Cigarettes 0.1 30 Smokeless Tobacco: Never Alcohol Use Standard Drinks/Week Comments No 0 (1 standard drink = 0.6 oz pur e alcohol) Comments No Sex and Gender Information Value Date Recorded Sex Assigned at Not on file Legal Sex Female 4:06 AM WOUND CARE PHYSICIAN Gender Identity Not on file Sexual Orientation Not on file documented as of this encounter Plan of Treatment Not on file documented as of this encounter Results * MAMMO BREAST US LT (11/22/2010 3:31 PM CDT) Anatomical Region Laterality Modality Breast Left Ultrasound Narrative 11/26/2010 8:13 AM CDT For full report, please see diagnostic mammogram of 11/22/2010. FRANCISCO/sdm Procedure Note Reynaldo Batista MD - 11/26/2010 For full report, please see diagnostic mammogram of 11/22/2010. FRANCISCO/sdm us Jude Flores MD MAMMO ORDERABLES Final R esult * MAMMO DIGITAL DIAG UNI LEFT (11/22/2010 2:09 PM CDT) Anatomical Region Laterality Modality Breast Left Mammography Narrative 11/26/2010 8:13 AM CDT UNILATERAL DIGITAL DIAGNOSTIC MAMMOGRAM LEFT BREAST AND LEFT BREAST ULTRASOUND: The patient returned for further evaluation of nodularity in the lateral central aspect of the left breast. The mammographic imaging spreads out most of the nodularity. There is some persistent nodularity identified on the spot CC and spot MLO views. This does appear to correspond with increased tissue density centrally in the lateral view as well. We did take the patient to ultrasound to evaluate the upper outer aspect of the left breast as well as the lateral aspect. Sonographically at the 1-2 position in the left breast there is an area of hypoechogenicity measuring approximately 6 x 11 x 6 mm which is irregular. It is embedded in dense breast tissue. Fremitus imaging shows that this is void of color flow. There is normal color around it making it a suspicious finding. At the 3:30-3 position there initially was thought to be an isoechoic nodule. However, with extensive Real-time scanning that is shown to represent a trapped fatty breast tissue component. A fremitus image there is negative and homogeneous and fairly diffuse with the surrounding fat. I did review the images with the patient and talked to her about biopsy of the lesion of 1-2. This digital mammogram was also analyzed by the Computer Aided Detection System (CAD), Last 2 Left, Version 8.3. SUMMARY: 1. Indeterminate area on ultrasound at the 1-2 position left breast. Ultrasound-guided percutaneous biopsy recommended for histiologic evaluation and to evaluate for possible malignancy. 2. Numerous small cysts in the left breast accounting for some of the mammographic nodularity. Those cysts do not need any further workup. Patient received a result/recommendation letter. FRANCISCO/jake ADDENDUM: The original referring physician was in error. The corrected referring physician is Lulu Briceno N.P. This report has been sent to her office. Procedure Note Reynaldo Batista MD - 11/26/2010 UNILATERAL DIGITAL DIAGNOSTIC MAMMOGRAM LEFT BREAST AND LEFT BREASTULTRASOUND: The patient returned for further evaluation of nodularity in the lateralcentral aspect of the left breast. The mammographic imaging spreads out most of the nodularity. There issome persistent nodularity identified on the spot CC and spot MLO views.This does appear to correspond with increased tissue density centrally inthe lateral view as well. We did take the patient to ultrasound to evaluate the upper outer aspectof the left breast as well as the lateral aspect. Sonographically at the 1-2 position in the left breast there is an area ofhypoechogenicity measuring approximately 6 x 11 x 6 mm which is irregular.It is embedded in dense breast tissue. Fremitus imaging shows that thisis void of color flow. There is normal color around it making it asuspicious finding. At the 3:30-3 position there initially was thought to be an isoechoicnodule. However, with extensive Real-time scanning that is shown torepresent a trapped fatty breast tissue component. A fremitus image thereis negative and homogeneous and fairly diffuse with the surrounding fat. I did review the images with the patient and talked to her about biopsy ofthe lesion of 1-2. This digital mammogram was also analyzed by the Computer Aided DetectionSystem (CAD), Ecovisioner, Version 8.3. SUMMARY: 1. Indeterminate area on ultrasound at the 1-2 position left breast.Ultrasound- guided percutaneous biopsy recommended for histiologicevaluation and to evaluate for possible malignancy. 2. Numerous small cysts in the left breast accounting for some of themammographic nodularity. Those cysts do not need any further workup. Patient received a result/recommendation letter. FRANCISCO/jake ADDENDUM: The original referring physician was in error. The correctedreferring physician is Lulu Briceno N.P. This report has beensent to her office. us Jude Flores MD MAMMO ORDERABLES Final R esult documented in this encounter Visit Diagnoses Diagnosis Other (abnormal) findings on radiological examination of breast Other (abnormal) findings on radiological examination of breast Other (abnormal) findings on radiological examination of breast documented in this encounter Care Teams Gambling Supervisor Relationship Specialty Start Date End Date Arash Hooper MD [address] [place] [address] PCP - General 06/12/09 documented as of this encounter
--- OUTSIDE RECORDS SUMMARY | 2025-03-14 11:32 | XMS_ITS | Encounter Summary ---
Author Organization [facility] Address [address] [place] [address] Care Team Providers Care Director Speech Language Name Role Phone Arash Hooper MD Primary Care Provider [phone] Encounter Details Date Type Department Care Team (Late st Contact Info) Description 11/22/2010 Ancillary Orders [facility] [address] [id number] Jude Flores MD [address] [place] [address] Lump or mass in breast Social History Tobacco Use Types Packs/Day Years Used Date Smoking Tobacco: Every Day Cigarettes 0.1 30 Smokeless Tobacco: Never Alcohol Use Standard Drinks/Week Comments No 0 (1 standard drink = 0.6 oz pur e alcohol) Comments No Sex and Gender Information Value Date Recorded Sex Assigned at Not on file Legal Sex Female 4: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
--- OUTSIDE RECORDS SUMMARY | 2025-03-14 11:32 | XMS_ITS | Encounter Summary ---
Author Organization [facility] Address [address] [place] [address] Care Team Providers Care Extractive Metallurgist Name Role Phone Arash Hooper MD Primary Care Provider [phone] Encounter Details Date Type Department Care Team (Late st Contact Info) Description 01/25/2008 Outpatient Historical [facility] IN BED Ed, Physician NO ADDRESS ON FILE Yuridia Lantigua MD [address] [place] [address] Parth Flowers MD [address] [place] [address] Marshall Carias MD [address] [place] [address] Unspecified Chest Pain Social History Tobacco Use Types Packs/Day Years Used Date Smoking Tobacco: Never Assessed Comments Unknown Sex and Gender Information Value Date Recorded Sex Assigned at Not on file 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 Gender Identity Not on file Sexual Orientation Not on file documented as of this encounter Plan of Treatment Not on file documented as of this encounter Procedures Procedure Name Priority Date/Time Associated Diagnosis Comments CTA CHEST W WO CONTRAST Routine 01/26/2008 7:55 AM CDT CTA CHEST W WO CONTRAST Routine 01/26/2008 7:55 AM CDT CARDIAC ENZYMES Routine 01/26/2008 3:14 AM CDT BASIC METABOLIC PANEL Routine 01/26/2008 3:14 AM CDT CARDIAC ENZYMES Routine 01/25/2008 9:27 PM CDT CARDIAC ENZYMES Stat 01/25/2008 3:11 PM CDT BASIC METABOLIC PANEL Stat 01/25/2008 3:11 PM CDT documented in this encounter Results * CTA CHEST W WO CONTRAST (01/26/2008 7:55 AM CDT) Anatomical Region Laterality Modality Chest Other 01/26/2008 7:55 AM CDT Narrative 01/26/2008 7:55 AM CDT Exam: CT Chest Extra Cardiac Date/Time of Exam: Jan 26, 2008 7:55:24 AM History: Please see admitting diagnosis. Contiguous thin section images were obtained of the chest with and without the administration of IV contrast. A coronary artery CTA protocol was utilized. Images submitted for extra cardiac CT of chest interpretation. Coronal and sagittal reconstructed images were performed. Contrast administered was: 105 mL of Optiray-240 through an existing IV site in the antecubital fossa. No comparisons. Visualized chest: The heart is of normal size and configuration without pericardial effusion. The thoracic aorta appears normal without aneurysm or dissection. The central pulmonary arteries are patent. The tracheal and main bronchial airways are patent. There are nonenlarged but prominent lymph nodes in the mediastinum of uncertain significance. These may be reactive in nature. There is moderate to advancing emphysema. There are enhancing streaky opacities in the posterior lung bases most consistent with atelectasis. There are no consolidations or pleural effusions. There is soft tissue involving the anterior mediastinum measuring 2.8 x 1.8 cm that may represent residual thymic tissue of uncertain significance. There is an enhancing rounded nodule involving the left breast parenchyma laterally measuring 1.3 cm and seen on series 154B image 24. Please correlate with any recent mammography or breast ultrasound. The visualized portions of the liver and spleen appear to be within normal limits. Review of the osseous structures reveals no significant abnormalities. Summary: 1. Mild to moderate bibasilar atelectasis. 2. Moderate to advanced emphysema. 3. Soft tissue in the anterior mediastinum is nonspecific, but may represent residual thymic tissue. 4. Enhancing left breast nodule. Please correlate with recent mammography or breast ultrasound. If no prior imaging exists, further workup is recommended. - Dictated By: Moustapha Wu Jr., M.D. Electronically Signed By: Moustapha Wu Jr., M.D. Date Signed: 01/27/08 Procedure Note Moustapha Wu Jr. - 01/27/2008 Exam: CT Chest Extra Cardiac Date/Time of Exam: Jan 26, 2008 7:55:24 AM History: Please see admitting diagnosis. Contiguous thin section images were obtained of the chest with and withoutthe administration of IV contrast. A coronary artery CTA protocol was utilized. Images submittedfor extra cardiac CT of chest interpretation. Coronal and sagittal reconstructed images were performed.Contrast administered was: 105 mL of Optiray-240 through an existing IV site in the antecubital fossa.No comparisons. Visualized chest: The heart is of normal size and configuration withoutpericardial effusion. The thoracic aorta appears normal without aneurysm or dissection. The centralpulmonary arteries are patent. The tracheal and main bronchial airways are patent. There are nonenlargedbut prominent lymph nodes in the mediastinum of uncertain significance. These may be reactive innature. There is moderate to advancing emphysema. There are enhancing streaky opacities in theposterior lung bases most consistent with atelectasis. There are no consolidations or pleural effusions. Thereis soft tissue involving the anterior mediastinum measuring 2.8 x 1.8 cm that may represent residualthymic tissue of uncertain significance. There is an enhancing rounded nodule involving the leftbreast parenchyma laterally measuring 1.3 cm and seen on series 154B image 24. Please correlate withany recent mammography or breast ultrasound. The visualized portions of the liver and spleen appear to bewithin normal limits. Review of the osseous structures reveals no significant abnormalities. Summary: 1. Mild to moderate bibasilar atelectasis. 2. Moderate to advanced emphysema. 3. Soft tissue in the anterior mediastinum is nonspecific, but mayrepresent residual thymic tissue. 4. Enhancing left breast nodule. Please correlate with recent mammographyor breast ultrasound. If no prior imaging exists, further workup is recommended. - Dictated By: Moustapha Wu Jr., M.D. Electronically Signed By: Moustapha Wu Jr., M.D. Date Signed: 01/27/[address] ORDERABLES Final Result * CTA CHEST W WO CONTRAST (01/26/2008 7:55 AM CDT) Anatomical Region Laterality Modality Chest Other 01/26/2008 7:55 AM CDT Narrative 01/26/2008 7:[address] Scan Report: Left ventricle: The left ventricle is normal size with normal wall thickness. The functional analysis the left ventricle revealed a calculated left ventricular ejection fraction of 69 %. Cardiac output is 4.5 liters per minute. Right ventricle: The right ventricle is normal size. Cardiac valves: The aortic valve was well visualized with no specific abnormalities detected. The mitral valve was well visualized with no specific abnormalities detected. Pericardium: The pericardium was well visualized. No abnormalities were detected. There is a thin structure with no pathological abnormalities. Aorta: Aorta was well visualized. The ascending arch and descending portions were all normal size with no specific pathological abnormalities. Coronary arteries: 1. Left main was well visualized, normal size with no abnormalities. 2. Left anterior descending artery was well visualized as a normal vessel with no evidence for any calcification or any atherosclerotic vascular disease. 3. Circumflex artery supplied the normal obtuse marginal distribution and posterior lateral distribution. It was a normal-sized artery with no evidence of significant atherosclerotic disease. 4. Right coronary artery was a normal-sized vessel with no evidence of coronary artery disease or calcification. - Dictated By: Jude Jennings M.D. Electronically Signed By: Jude Jennings M.D. Date Signed: 01/26/08 Procedure Note Provider, Historical - 01/26/[address] Scan Report: Left ventricle: The left ventricle is normal size with normal wallthickness. The functional analysis the left ventricle revealed a calculated left ventricular ejection fractionof 69 %. Cardiac output is 4.5 liters per minute. Right ventricle: The right ventricle is normal size. Cardiac valves: The aortic valve was well visualized with no specificabnormalities detected. The mitral valve was well visualized with no specific abnormalities detected. Pericardium: The pericardium was well visualized. No abnormalities weredetected. There is a thin structure with no pathological abnormalities. Aorta: Aorta was well visualized. The ascending arch and descendingportions were all normal size with no specific pathological abnormalities. Coronary arteries: 1. Left main was well visualized, normal size with no abnormalities. 2. Left anterior descending artery was well visualized as a normal vesselwith no evidence for any calcification or any atherosclerotic vascular disease. 3. Circumflex artery supplied the normal obtuse marginal distribution andposterior lateral distribution. It was a normal-sized artery with no evidence of significantatherosclerotic disease. 4. Right coronary artery was a normal-sized vessel with no evidence ofcoronary artery disease or calcification. - Dictated By: Jude Jennings M.D. Electronically Signed By: Jude Jennings M.D. Date Signed: 01/26/08 us Parth Flowers MD CT ORDERABLES Final Result * (ABNORMAL) BASIC METABOLIC PANEL (01/26/2008 3:14 AM CDT) OSMOLALITY, CALCULATED 294 275 - 295 mOsm/Kg [facility] CREATININE 0.9 0.7 - 1.2 mg/dL [facility] CALCIUM 9.6 8.4 - 10.5 mg/dL [facility] GLUCOSE 160(H) 70 - 110 mg/dL [facility] CHLORIDE 112(H) 95 - 110 mEq/L [facility] ANION GAP 9 9 - 20 mEq/L [facility] SODIUM 141 136 - 145 mEq/L [facility] BUN 13 7 - 17 mg/dL [facility] CO2 24 22 - 32 mmol/l [facility] POTASSIUM 4.2 3.5 - 5.0 mEq/L [facility] Blood specimen (specimen) 01/26/2008 3:14 AM CDT 01/26/2008 3:35 AM CDT Parth Flowers MD CHEMISTRY ORDERABLES Final Re sult Performing Organization Address [facility] Co de Phone Number [facility] CLIA# [id number] [address] [place] [address] * CARDIAC ENZYMES (01/26/2008 3:14 AM CDT) [facility] TROPONIN I <0.1 0.0 - 1.3 ng/mL [facility] CKMB 0.9 0.0 - 5.0 ng/mL [facility] Blood specimen (specimen) 01/26/2008 3:14 AM CDT 01/26/2008 3:35 AM CDT Yuridia Lantigua MD CHEMISTRY ORDERABLES Final Result Performing Organization Address [facility] de Phone Number [facility] CLIA# [id number] [address] [place] [phone] * CARDIAC ENZYMES (01/25/2008 9:27 PM CDT) [facility] TROPONIN I <0.1 0.0 - 1.3 ng/mL [facility] CKMB 1.2 0.0 - 5.0 ng/mL [facility] Blood specimen (specimen) 01/25/2008 9:27 PM CDT 01/25/2008 9:27 PM CDT Yuridia Lantigua MD CHEMISTRY ORDERABLES Final Result Performing Organization Address [facility] Co de Phone Number [facility] CLIA# [id number] [address] [place] [phone] * (ABNORMAL) BASIC METABOLIC PANEL (01/25/2008 3:11 PM CDT) Pathologist [facility] OSMOLALITY, CALCULATED 288 275 - 295 mOsm/Kg [facility] POTASSIUM 4.1 3.5 - 5.0 mEq/L [facility] CREATININE 0.8 0.7 - 1.2 mg/dL [facility] CALCIUM 9.0 8.4 - 10.5 mg/dL [facility] GLUCOSE 93 70 - 110 mg/dL [facility] CHLORIDE 115(H) 95 - 110 mEq/L [facility] SODIUM 141 136 - 145 mEq/L [facility] ANION GAP 10 9 - 20 mEq/L [facility] BUN 8 7 - 17 mg/dL [facility] CO2 20(L) 22 - 32 mmol/l [facility] Blood specimen (specimen) 01/25/2008 3:11 PM CDT 01/25/2008 7:33 PM CDT us Parth Flowers MD CHEMISTRY ORDERABLES Final Re sult Performing Organization Address [facility] Co de Phone Number [facility] CLIA# [id number] [address] [place] [address] * CARDIAC ENZYMES (01/25/2008 3:11 PM CDT) TROPONIN I <0.1 0.0 - 1.3 ng/mL [facility] CKMB 0.9 0.0 - 5.0 ng/mL [facility] Blood specimen (specimen) 01/25/2008 3:11 PM CDT 01/25/2008 3:11 PM CDT us Yuridia Lantigua MD CHEMISTRY ORDERABLES Edite d Performing Organization Address [facility] de Phone Number [facility] CLIA# [id number] [address] [place] [address] documented in this encounter Visit Diagnoses Diagnosis Chest pain, unspecified documented in this encounter Care Teams Extractive Metallurgist Relationship Specialty Start Date End Date Arash Hooper MD [address] [place] [address] PCP - General 10/20/09 documented as of this encounter
--- OUTSIDE RECORDS SUMMARY | 2025-03-14 11:33 | XMS_ITS | Encounter Summary ---
Author Organization [facility] Address [address] [place] [address] Care Team Providers Care Standard Machine Stitcher Name Role Phone Arash Hooper MD Primary Care Provider [phone] Encounter Details Date Type Department Care Team (Latest Contact Info) Description 06/22/2006 Outpatient Historical [facility] Gastroenterology- [place] [address] [address] Cnostantino Locke MD [address] [address] Foreign Body in Stomach (Primary Dx) Social History Tobacco Use Types Packs/Day Years Used Date Smoking Tobacco: Never Assessed Comments Unknown Sex and Gender Information Value Date Recorded Sex Assigned at Not on file 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
--- OUTSIDE RECORDS SUMMARY | 2025-03-14 11:33 | XMS_ITS | Encounter Summary ---
Author Organization [facility] Address [address] [place] [address] Care Team Providers Care Master Deputy Sheriff Court Security Name Role Phone Arash Hooper MD Primary Care Provider [phone] Encounter Details Date Type Department Care Team (Latest Contact Info) Description 05/27/2004 Outpatient Historical [facility] OBGYN-[address] [place] [address] Kianna Mao MD [address] [place] [address] PREOP EXAM OTHER UNSPECIFIED (Primary Dx); DYSPLASIA OF CERVIX NOS Social History Tobacco Use Types Packs/Day Years Used Date Smoking Tobacco: Never Assessed Comments Unknown Sex and Gender Information Value Date Recorded Sex Assigned at Not on file 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
--- OUTSIDE RECORDS SUMMARY | 2025-03-14 11:33 | XMS_ITS | Encounter Summary ---
Author Organization [facility] Address [address] [place] [address] Care Team Providers Care Analysis Consultant Name Role Phone Arash Hooper MD Primary Care Provider [phone] Encounter Details Date Type Department Care Team (Latest Contact Info) Description 10/22/2006 Outpatient Historical [facility] [place] [facility] 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
--- OUTSIDE RECORDS SUMMARY | 2025-03-14 11:33 | XMS_ITS | Encounter Summary ---
Author Organization [facility] Address [address] [place] [address] Care Team Providers Care Multi Sensor Operator Name Role Phone Arash Hooper MD Primary Care Provider [phone] Encounter Details Date Type Department Care Team (Late st Contact Info) Description 06/11/2009 Ancillary Orders [facility] CT Scan [address] 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 Status post hysterectomy and ventral hernia repair with mild induration/infiltration of the omental fat of the upper abdomen identified possibly postsurgical in etiology. Clinical correlation with time of ventral hernia repair is recommended. 2. Multiple cysts of the left ovary. Further evaluation with pelvic ultrasound may be of benefit if clinical warranted. 3. Status post cholecystectomy. 4. Mild focal eventration of the posterior aspect of the left hemidiaphragm. cgf: [id number] - uploaded from [facility] 06/14/2009 4:08 PM CDT Exam: CT ABDOMEN PELVIS WO CONTRAST Date/Time of Exam: Jun 14, 2009 2:26:00 PM History: ABDOMINAL PAIN. Technique: 5 mm volumetric acquisition with oral contrast alone. No intravenous contrast was administered. Comparison: CT abdomen without contrast 05/11/2009. Findings: Focal eventration of the posterior aspect of the left hemidiaphragm containing fat is present. Patient is status post ventral hernia repair. The gallbladder is surgically absent. The liver, spleen, adrenal glands, pancreas, and kidneys are unremarkable. A small amount of free fluid within the right pelvis is seen. The uterus is surgically absent. No free air or pathologic lymphadenopathy by CT size criteria is identified. The left ovary measures 3.3 x 2.2 cm in size and demonstrates multiple cysts. An approximately 1.3 cm cyst of the right ovary is present. There is mild induration/infiltration within the omental fat of the anterior abdomen identified best demonstrated on images 33 through 37. Findings may be postoperative in etiology. Procedure Note Joan Mehta MD - 06/14/2009 Exam: CT ABDOMEN PELVIS WO CONTRAST Date/Time of Exam: Jun 14, 2009 2:26:00 PM History: ABDOMINAL PAIN. Technique: 5 mm volumetric acquisition with oral contrast alone. Nointravenous contrast was administered. Comparison: CT abdomen without contrast 05/11/2009. Findings: Focal eventration of the posterior aspect of the lefthemidiaphragm containing fat is present. Patient is status post ventral hernia repair. The gallbladder issurgically absent. The liver, spleen, adrenal glands, pancreas, and kidneys are unremarkable. A small amount offree fluid within the right pelvis is seen. The uterus is surgically absent. No free air or pathologiclymphadenopathy by CT size criteria is identified. The left ovary measures 3.3 x 2.2 cm in size anddemonstrates multiple cysts. An approximately 1.3 cm cyst of the right ovary is present. There is mildinduration/infiltration within the omental fat of the anterior abdomen identified best demonstrated onimages 33 through 37. Findings may be postoperative in etiology. IMPRESSION Impression: 1. Status post hysterectomy and ventral hernia repair with mildinduration/infiltration of the omental fat of the upper abdomen identified possibly postsurgical in etiology.Clinical correlation with time of ventral hernia repair is recommended. 2. Multiple cysts of the left ovary. Further evaluation with pelvicultrasound may be of benefit if clinical warranted. 3. Status post cholecystectomy. 4. Mild focal eventration of the posterior aspect of the lefthemidiaphragm. cgf: [id number] - uploaded from [facility] - Arash Hooper MD CT ORDERABLES Final Result documented in this encounter Visit Diagnoses Diagnosis Abdominal pain Abdominal pain, unspecified site Abdominal pain Abdominal pain, unspecified site documented in this encounter Care Teams Multi Sensor Operator Relationship Specialty Start Date End Date Arash Hooper MD [address] [place] [address] PCP - General 06/12/09 documented as of this encounter
--- OUTSIDE RECORDS SUMMARY | 2025-03-14 11:33 | XMS_ITS | Encounter Summary ---
Author Organization [facility] Address [address] [place] [address] Care Team Providers Care Director River Restoration Name Role Phone Arash Hooper MD Primary Care Provider [phone] Encounter Details Date Type Department Care Team (Latest Contact Info) Description 03/26/2007 Outpatient Historical [facility] [address] [place] [id number] Aroldo Chery MD [address] [place], [place] [address] Painful Respiration (Primary Dx) Social History Tobacco Use Types Packs/Day Years Used Date Smoking Tobacco: Never Assessed Comments Unknown Sex and Gender Information Value Date Recorded Sex Assigned at Not on file Legal Sex Female 4:06 AM PRIMARY COUNSELOR Gender Identity Not on file Sexual Orientation Not on file documented as of this encounter Plan of Treatment Not on file documented as of this encounter Procedures Procedure Name Priority Date/Time Associated Diagnosis Comments STRESS TEST EXERCISE NUCLEAR MED Routine 03/26/2007 12:01 AM CDT NM MYOCARD PERF IMAG SPECT MULT Routine 03/26/2007 12:01 AM CDT documented in this encounter Results * NM MYOCARD PERF IMAG SPECT MULT (03/26/2007 12:01 AM CDT) 03/26/2007 12:0 1 AM CDT Narrative INTERFACE SYSTEM - 03/26/2007 12:01 AM CDT Radionuclide Myocardial Perfusion SPECT Rest/Persantine Stress Wall Motion and Ejection FractionEvaluation: Radiopharmaceutical: Tc-99m (technetium-99m) tetrofosminDose: 10.4 mCi (rest) / 31.2 mCi (stress)Reason for Consultation: Anterior chest pain/pressure, CAD risk, COPDRotating planar and tomographic slices demonstrate the left ventricular chamber to be within normallimits in size without transient dilation, pulmonary accumulation, or important motion. Tomographic slices demonstrate physiologic tracer distribution throughout the myocardium withoutreversible or fixed segmental defects. Gated tomographic imaging at rest following stress injection of tracer demonstrates physiologicthickening and excursion of all segments. Left ventricular end diastolic volume is 72 mL. Leftventricular ejection fraction is 50 %. Transient ischemic dilation index is normal at 0.87. Impression: 1. Normal myocardial perfusion imaging examination demonstrating no findings suggesting significantcoronary disease. 2. Normal regional and global left ventricular systolic function with viable myocardium throughout theleft ventricle. 3. Negative electrocardiographic response to pharmacologic intervention. - Dictated By: Aroldo Mustafa M.D. Electronically Signed By: Aroldo Mustafa M.D. Date Signed: 03/26/07 Procedure Note 07/14/2009 Radionuclide Myocardial Perfusion SPECT Rest/Persantine Stress Wall Motionand Ejection FractionEvaluation: Radiopharmaceutical: Tc-99m (technetium-99m) tetrofosminDose: 10.4 mCi (rest) / 31.2 mCi (stress)Reason for Consultation: Anterior chest pain/pressure, CAD risk, COPDRotating planar andtomographic slices demonstrate the left ventricular chamber to be within normallimits in size without transientdilation, pulmonary accumulation, or important motion. Tomographic slices demonstrate physiologic tracer distribution throughoutthe myocardium withoutreversible or fixed segmental defects. Gated tomographic imaging at rest following stress injection of tracerdemonstrates physiologicthickening and excursion of all segments. Left ventricular end diastolic volume is72 mL. Leftventricular ejection fraction is 50 %. Transient ischemic dilation index is normalat 0.87. Impression: 1. Normal myocardial perfusion imaging examination demonstrating nofindings suggesting significantcoronary disease. 2. Normal regional and global left ventricular systolic function withviable myocardium throughout theleft ventricle. 3. Negative electrocardiographic response to pharmacologic intervention. - Dictated By: Aroldo Mustaaf M.D. Electronically Signed By: Aroldo Mustafa M.D. Date Signed: 03/26/07 us Aroldo Chery MD NM ORDERABLES Final Resul t INTERFACE SYSTEM Refer to clinic/hospital department * STRESS TEST,EXERCISE, NUCLEAR MED (03/26/2007 12:01 AM CDT) 03/26/2007 12:0 1 AM CDT Narrative INTERFACE SYSTEM - 03/26/2007 12:01 AM CDT Cardiac Stress Test with Persantine Provocation, Monitoring, and Interpretation: Reason for Consultation: Anterior chest pain/pressure, CAD risk, COPDDr. Ramsey monitored the intervention and administered the pharmacologic agents. Pharmacologicintervention was performed due to exercise intolerance. Following the intravenous infusion of 32.6 mg of Persantine over four minutes, the radiopharmaceuticalagent was injected at maximum effect at seven minutes. Resting heart rate of 61 increased to 88,and blood pressure of 120/82 was measured at 114/66 at tracer administration. The patientexperienced body heaviness which was reversed with 125 mg aminophylline IV administered at 8minutes 30 seconds. Electrocardiographic monitoring demonstrated no changes diagnostic of ischemianor dysrhythmia. The patient was asymptomatic and stable when discharged from the stress area. Impression: Satisfactory pharmacologic stress in preparation for myocardial perfusion imaging. There was noelectrocardiographic evidence of ischemia nor dysrhythmia. Myocardial perfusion imaging report to follow. - Dictated By: Aroldo Mustafa M.D. Electronically Signed By: Aroldo Mustafa M.D. Date Signed: 03/26/07 Procedure Note 07/14/2009 Cardiac Stress Test with Persantine Provocation, Monitoring, andInterpretation: Reason for Consultation: Anterior chest pain/pressure, CAD risk, COPDDrTalon Mustafa monitored theintervention and administered the pharmacologic agents. Pharmacologicintervention was performed due toexercise intolerance. Following the intravenous infusion of 32.6 mg of Persantine over fourminutes, the radiopharmaceuticalagent was injected at maximum effect at seven minutes.Resting heart rate of 61 increased to 88,and blood pressure of 120/82 was measured at 114/66 attracer administration. The patientexperienced body heaviness which was reversed with 125 mgaminophylline IV administered at 8minutes 30 seconds. Electrocardiographic monitoring demonstrated nochanges diagnostic of ischemianor dysrhythmia. The patient was asymptomatic and stable when discharged fromthe stress area. Impression: Satisfactory pharmacologic stress in preparation for myocardial perfusionimaging. There was noelectrocardiographic evidence of ischemia nor dysrhythmia. Myocardial perfusion imaging report to follow. - Dictated By: Aroldo Mustafa M.D. Electronically Signed By: Aroldo Mustafa M.D. Date Signed: 03/26/07 us Aroldo Chery MD NM ORDERABLES Final Resul t INTERFACE SYSTEM Refer to clinic/hospital department documented in this encounter Visit Diagnoses Diagnosis Painful respiration- Primary documented in this encounter Care Teams Director River Restoration Relationship Specialty Start Date End Date Arash Hooper MD [address] [place] [address] PCP - General 06/12/09 documented as of this encounter
--- OUTSIDE RECORDS SUMMARY | 2025-03-14 11:33 | XMS_ITS | Encounter Summary ---
Author Organization [facility] Address [address] [place] [address] Care Team Providers Care Professor Of Communication Arts Name Role Phone Arash Hooper MD Primary Care Provider [phone] Encounter Details Date Type Department Care Team (Latest Contact Info) Description 07/01/2004 Outpatient Historical [facility] OBGYN-[address] [place] [address] Kianna Mao MD [address] [place] [address] SURGERY FOLLOWUP, UNSPEC (Primary Dx); MENSTRUAL DISORDER NEC; DYSMENORRHEA; DYSPLASIA OF CERVIX NOS Social History Tobacco Use Types Packs/Day Years Used Date Smoking Tobacco: Never Assessed Comments Unknown Sex and Gender Information Value Date Recorded Sex Assigned at Not on file Legal 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 Female 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
--- OUTSIDE RECORDS SUMMARY | 2025-03-14 11:33 | XMS_ITS | Encounter Summary ---
Author Organization [facility] Address [address] [place] [address] Care Team Providers Care Circulation Manager Name Role Phone Arash Hooper MD Primary Care Provider [phone] Encounter Details Date Type Department Care Team (Latest Contact Info) Description 05/28/2006 Outpatient Historical [facility] Gen Spec [address]urg [address] [place] [address] Marshall Mei MD [address] [place] [address] Chronic Cholecystitis (Primary Dx); Follow-Up Examination, Following Unspecified Surgery Social History Tobacco Use Types Packs/Day Years Used Date Smoking Tobacco: Never Assessed Comments Unknown Sex and Gender Information Value Date Recorded Sex Assigned at Not on file Legal Sex Female 4:06 AM HAND SOLE SEWER Gender Identity Not on file Sexual Orientation Not on file documented as of this encounter Plan of Treatment Not on file documented as of this encounter Visit Diagnoses Diagnosis Chronic cholecystitis- Primary Follow-up examination, following unspecified surgery documented in this encounter Care Teams Circulation Manager Relationship Specialty Start Date End Date Arash Hooper MD [address] [place], [place] [address] PCP - General 06/12/09 documented as of this encounter
--- OUTSIDE RECORDS SUMMARY | 2025-03-14 11:33 | XMS_ITS | Encounter Summary ---
Author Organization [facility] Address [address] [place] [address] Care Team Providers Care Surgical Territory Manager Name Role Phone Arash Hooper MD Primary Care Provider [phone] Reason for Referral * Eval and Treat (Routine) - Closed Specialty Diagnoses / Procedures Referred By Tamara kwong Referred To Contact Diagnoses Other screening mammogram Procedures MAMMO DIGITAL SCREEN BILAT Jude Flores MD [address] [place] [address] Phone: tel: fax: Referral ID Status Reason Start Date Expiration Date Visits Re quested Visits Authorized [id number] Closed 08/30/2010 02/26/2011 1 1 CTOR OF RETAIL MARKETING Encounter Details Date Type Department Care Team (Late st Contact Info) Description 08/30/2010 Ancillary Orders [facility] [address] [id number] Jude Flores MD [address] [place] [address] Other screening mammogram Social History Tobacco Use Types Packs/Day Years Used Date Smoking Tobacco: Every Day Cigarettes 0.1 30 Alcohol Use Standard Drinks/Week Comments No 0 (1 standard drink = 0.6 oz pur e alcohol) Comments No Sex and Gender Information Value Date Recorded Sex Assigned at Not on file Legal Sex Female 4:06 AM DIRECTOR OF RETAIL MARKETING Gender Identity Not on file Sexual Orientation Not on file documented as of this encounter Plan of Treatment Not on file documented as of this encounter Results * MAMMO DIGITAL SCREEN BILAT (10/22/2010 3:01 PM DIRECTOR OF RETAIL MARKETING) Anatomical Region Laterality Modality Breast Bilateral Mammography Narrative 10/25/2010 4:49 PM DIRECTOR OF RETAIL MARKETING SCREENING MAMMOGRAM: Bilateral CC and MLO views were obtained. Comparison was made with the studies of 09/29/06 and 02/10/08. There is a moderate degree of parenchymal tissue and the distribution of the tissue on the right appears to be stable. On the left, there is some nodularity identified laterally on the CC projection. It appears to be located centrally at the 2 to 4 o'clock position on the MLO view. I would recommend that the patient return for a true lateral projection, a magnification view in the CC projection initially for further evaluation, possible ultrasound. The patient was originally recommended to undergo a six-month follow-up after her evaluation of 02/10/08. This is the patient's first visit to our facility since 2007. This digital mammogram was also analyzed by the Computer Aided Detection System (CAD), [employer]Cell[employer], Version 8.3. KG/eaw Procedure Note Cierra Bustos MD - 10/25/2010 SCREENING MAMMOGRAM: Bilateral CC and MLO views were obtained. Comparison was made with thestudies of 09/29/06 and 02/10/08. There is a moderate degree of parenchymal tissue and the distribution ofthe tissue on the right appears to be stable. On the left, there is some nodularity identified laterally on the CCprojection. It appears to be located centrally at the 2 to 4 o'clockposition on the MLO view. I would recommend that the patient return for atrue lateral projection, a magnification view in the CC projectioninitially for further evaluation, possible ultrasound. The patient wasoriginally recommended to undergo a six-month follow-up after herevaluation of 02/10/08. This is the patient's first visit to our facilitysince 2007. This digital mammogram was also analyzed by the Computer Aided DetectionSystem (CAD), [employer]Cell[employer]cker, Version 8.3. KG/eaw us Jude Flores MD MAMMO ORDERABLES Final R esult documented in this encounter Visit Diagnoses Diagnosis Other screening mammogram Other screening mammogram documented in this encounter Care Teams Surgical Territory Manager Relationship Specialty Start Date End Date Arash Hooper MD [address] [place] [address] PCP - General 06/12/09 documented as of this encounter
--- OUTSIDE RECORDS SUMMARY | 2025-03-14 11:33 | XMS_ITS | Encounter Summary ---
Author Organization [facility] Address [address] [place] [address] Care Team Providers Care Tank Setter Helper Name Role Phone Arash Hooper MD Primary Care Provider [phone] Encounter Details Date Type Department Care Team (Late st Contact Info) Description 06/04/2004 Inpatient Historical [facility] Kianna Mao MD [address] [place] [address] EXCESSIVE MENSTRUATION (Primary Dx) Social History Tobacco Use Types Packs/Day Years Used Date Smoking Tobacco: Never Assessed Comments Unknown Sex and Gender Information Value Date Recorded Sex Assigned at Not on file Legal Sex Female 4:06 AM METALS ANALYST Gender Identity Not on file Sexual Orientation Not on file documented as of this encounter Plan of Treatment Not on file documented as of this encounter Visit Diagnoses Diagnosis Excessive or frequent menstruation- Primary documented in this encounter Care Teams Tank Setter Helper Relationship Specialty Start Date End Date Arash Hooper MD [address] [place], [place] [address] PCP - General 06/12/09 documented as of this encounter
--- OUTSIDE RECORDS SUMMARY | 2025-03-14 11:33 | XMS_ITS | Encounter Summary ---
Author Organization [facility] Address [address] [place] [address] Care Team Providers Care Utilization Coordinator Name Role Phone Arash Hooper MD Primary Care Provider [phone] Encounter Details Date Type Department Care Team (Latest Contact Info) Description 08/10/2009 Ancillary Orders [facility] Imaging Services [address] [place] [address] Arash Hooper MD [address] [place] [address] Diaphragmatic Hernia without Mention of Obstruction or Gangrene; Chronic Vascular Insufficiency of Intestine Social History Tobacco Use Types Packs/Day Years Used Date Smoking Tobacco: Every Day Cigarettes 0.1 30 Alcohol Use Standard Drinks/Week Comments No 0 (1 standard drink = 0.6 oz pur e alcohol) Comments No Sex and Gender Information Value Date Recorded Sex Assigned at Not on file Legal Sex Female 4:06 AM COMMERCIAL INSTRUCTOR SUPERVISOR Gender Identity Not on file Sexual Orientation Not on file documented as of this encounter Plan of Treatment Not on file documented as of this encounter Results * XR UPR GI AIR CONTRAST (08/14/2009 9:55 AM COMMERCIAL INSTRUCTOR SUPERVISOR) Anatomical Region Laterality Modality Abdomen Computed Radiogr aphy 08/14/2009 9:08 AM COMMERCIAL INSTRUCTOR SUPERVISOR Impressions 08/14/2009 2:01 PM COMMERCIAL INSTRUCTOR SUPERVISOR Impression: Unremarkable UGI. Narrative 08/14/2009 2:01 PM COMMERCIAL INSTRUCTOR SUPERVISOR Exam: XR UPR GI AIR CONTRAST Date/Time of Exam: Aug 14, 2009 9:55:00 AM History: DIAPHRAGMATIC HERNIA WITHOUT MENTION OF OBSTRUCTION OR GANGRENE. Findings: The images and findings were reviewed with Dr. Bennett prior to the time of dictation. The patient was given barium and an effervescent agent to swallow. There are no mucosal abnormalities, masses, or strictures seen in the esophagus. The esophageal motility is within normal limits. The gastroesophageal junction is within normal limits. There are no mucosal abnormalities or masses seen in the stomach. The duodenal bulb is within normal limits. The remainder of the duodenum and visualized proximal jejunum are unremarkable. There was no gastroesophageal reflux seen during this examination. Procedure Note Arash Bennett MD - 08/14/2009 Exam: XR UPR GI AIR CONTRAST Date/Time of Exam: Aug 14, 2009 9:55:00 AM History: DIAPHRAGMATIC HERNIA WITHOUT MENTION OF OBSTRUCTION OR GANGRENE. Findings: The images and findings were reviewed with Dr. Bennett prior tothe time of dictation. The patient was given barium and an effervescent agent to swallow. Thereare no mucosal abnormalities, masses, or strictures seen in the esophagus. The esophageal motility iswithin normal limits. The gastroesophageal junction is within normal limits. There are no mucosalabnormalities or masses seen in the stomach. The duodenal bulb is within normal limits. The remainder ofthe duodenum and visualized proximal jejunum are unremarkable. There was no gastroesophageal refluxseen during this examination. IMPRESSION Impression: Unremarkable UGI. Arash Hooper MD DIAGNOSTIC IMAGING ORDERABLES Final Result documented in this encounter Visit Diagnoses Diagnosis Diaphragmatic hernia without mention of obstruction or gangrene Chronic vascular insufficiency of intestine Diaphragmatic hernia without mention of obstruction or gangrene Chronic vascular insufficiency of intestine documented in this encounter Care Teams Utilization Coordinator Relationship Specialty Start Date End Date Arash Hooper MD [address] [place] [address] PCP - General 06/12/09 documented as of this encounter
--- OUTSIDE RECORDS SUMMARY | 2025-03-14 11:33 | XMS_ITS | Encounter Summary ---
Author Organization [facility] Address [address] [place] [address] Care Team Providers Care Ironworker Foreman Name Role Phone Arash Hooper MD Primary Care Provider [phone] Encounter Details Date Type Department Care Team (Late st Contact Info) Description 10/22/2006 Outpatient Historical [facility] Neurology [address], [address] [place] [address] Stevie Mittal MD [address] [phone] Headache (Primary Dx) Social History Tobacco Use Types Packs/Day Years Used Date Smoking Tobacco: Never Assessed Comments Unknown Sex and Gender Information Value Date Recorded Sex Assigned at Not on file Legal Sex Female 4:06 AM HELPER METAL HANGING Gender Identity Not on file Sexual Orientation Not on file documented as of this encounter Plan of Treatment Not on file documented as of this encounter Visit Diagnoses Diagnosis Headache(784.0)- Primary Headache documented in this encounter Care Teams Ironworker Foreman Relationship Specialty Start Date End Date Arash Hooper MD [facility] [address] [place], [place] [id number] PCP - General 06/12/09 documented as of this encounter
--- OUTSIDE RECORDS SUMMARY | 2025-03-14 11:33 | XMS_ITS | Encounter Summary ---
Author Organization [facility] Address [address] [place] [address] Care Team Providers Care Material Control Analyst Name Role Phone Arash Hooper MD Primary Care Provider [phone] Encounter Details Date Type Department Care Team (Latest Contact Info) Description 05/27/2004 Outpatient Historical [facility] [address] [place] [address] [place] [address] Kianna Mao MD [address] [place] [address] PREOP CARDIOVASC EXAM (Primary Dx) Social History Tobacco Use Types Packs/Day Years Used Date Smoking Tobacco: Never Assessed Comments Unknown Sex and Gender Information Value Date Recorded Sex Assigned at Not on file Legal Sex Female 4:06 AM COAL DRIER OPERATOR Gender Identity Not on file Sexual Orientation Not on file documented as of this encounter Plan of Treatment Not on file documented as of this encounter Visit Diagnoses Diagnosis Pre-operative cardiovascular examination- Primary documented in this encounter Care Teams Material Control Analyst Relationship Specialty Start Date End Date Arash Hooper MD [address] [place], [place] [address] PCP - General 06/12/09 documented as of this encounter
--- OUTSIDE RECORDS SUMMARY | 2025-03-14 11:33 | XMS_ITS | Encounter Summary ---
Author Organization [facility] Address [address] [place] [address] Care Team Providers Care Park Worker Supervisor Name Role Phone Arash Hooper MD Primary Care Provider [phone] Encounter Details Date Type Department Care Team (Late st Contact Info) Description 02/12/2004 Outpatient Historical [facility] [address] [place] [address] Social History Tobacco Use Types Packs/Day Years Used Date Smoking Tobacco: Never Assessed Comments Unknown Sex and Gender Information Value Date Recorded Sex Assigned at Not on file Legal Sex Female 4:06 AM CRADLE SLIDE MAKER Gender Identity Not on file Sexual Orientation Not on file documented as of this encounter Plan of Treatment Not on file documented as of this encounter Visit Diagnoses Not on filedocumented in this encounter Care Teams Park Worker Supervisor Relationship Specialty Start Date End Date Arash Hooper MD [facility] [place] [address] PCP - General 06/12/09 documented as of this encounter
--- OUTSIDE RECORDS SUMMARY | 2025-03-14 11:33 | XMS_ITS | Encounter Summary ---
Author Organization [facility] Address [address] [place] [address] Care Team Providers Care Tile Mason Name Role Phone Arash Hooper MD Primary Care Provider [phone] Encounter Details Date Type Department Care Team (Latest Contact Info) Description 07/25/2004 Outpatient Historical [facility] [address] [place] [address] Kianna Mao MD [address] [place] [address] SYMPTOMATIC FEMALE CLIMACTERIC STATE (Primary Dx) Social History Tobacco Use Types Packs/Day Years Used Date Smoking Tobacco: Never Assessed Comments Unknown Sex and Gender Information Value Date Recorded Sex Assigned at Not on file Legal Sex Female 4:06 AM LAP MACHINE TENDER Gender Identity Not on file Sexual Orientation Not on file documented as of this encounter Plan of Treatment Not on file documented as of this encounter Visit Diagnoses Diagnosis Symptomatic menopausal or female climacteric states- Primary documented in this encounter Care Teams Tile Mason Relationship Specialty Start Date End Date Arash Hooper MD [address] [place], [place] [address] PCP - General 06/12/09 documented as of this encounter
--- OUTSIDE RECORDS SUMMARY | 2025-03-14 11:33 | XMS_ITS | Encounter Summary ---
Author Organization [facility] Address [address] [place] [address] Care Team Providers Care At Risk Specialist Name Role Phone Arash Hooper MD Primary Care Provider [phone] Reason for Referral * Radiology Services (Routine) - Closed Specialty Diagnoses / Procedures Referred By Tamara kwong Referred To Contact Cardiology Diagnoses Arteriosclerotic heart disease (ASHD) Coronary artery disease of [place] artery of [place] heart with stable angina pectoris Procedures CL LT HEART CATHETERIZATION Aroldo Gonzales MD Phone: tel: fax: [facility] Cardiac Sign Out Clerk [address] [place] [address] Phone: tel: fax: Referral ID Status Reason Start Date Expiration Date Visits Re quested Visits Authorized [id number] Closed 10/19/2018 11/18/2018 1 1 UNTS RECEIVABLE ADMINISTRATOR Encounter Details Date Type Department Care Team (Latest Contact Info) Description 10/14/2018 Ancillary Orders [facility] Cardiology- [place] [address] [place] [address] Aroldo Gonzales MD [address] [place] [address] Arteriosclerotic heart disease (ASHD); Coronary artery disease of [place] artery of [place] heart with stable angina pectoris Social History Tobacco Use Types Packs/Day Years Used Date Smoking Tobacco: Every Day Cigarettes 0.3 30 Smokeless Tobacco: Never Comments:Currently smokes .5 0 ppd, 10/23/17 Alcohol Use Standard Drinks/Week Comments No 0 (1 standard drink = 0.6 oz pur e alcohol) Comments No Sex and Gender Information Value Date Recorded Sex Assigned at Not on file Legal Sex Female 4:06 AM ACCOUNTS RECEIVABLE ADMINISTRATOR Gender Identity Not on file Sexual Orientation Not on file Occupation Industry Job Start Date Job End Date Not on file Not on file Not on file Not on file documented as of this encounter Plan of Treatment Not on file documented as of this encounter Results * CL LT HEART CATHETERIZATION (10/19/2018 1:55 PM ACCOUNTS RECEIVABLE ADMINISTRATOR) EJECTION FRACTION 65 50 - 65 % [facility] 10/19/2018 1:18 PM ACCOUNTS RECEIVABLE ADMINISTRATOR Addenda Addendum by Aroldo Gonzales MD on 10/26/2018 1:03 PM ACCOUNTS RECEIVABLE ADMINISTRATOR ADDENDUM: ESTIMATED BLOOD LOSS: 5cc Narrative [facility] - 10/20/2018 10:40 AM ACCOUNTS RECEIVABLE ADMINISTRATOR PROCEDURES: Left heart catheterization, selective coronary arteriography and left ventriculography. Percutaneous drug-eluting stent placement proximal right coronary artery. 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 After consents were signed, the patient was taken to the cardiac catheterization laboratory, draped in a sterile fashion with exposure of the right femoral groin. A 6-Macedonian sheath was inserted. A 6-Macedonian Cee right 4 cm curve, Cee left 4 cm curve and pigtail catheters were used for diagnostic angiography. Conscious sedation time 1335 to 1355. APPROACH: Right radial. Heparin 5000 units intravenously affecting ACT of 343 seconds. Left ventriculogram performed in the MALONE projection reveals a normal LV systolic wall motion. Ejection fraction 65%. There was no mitral regurgitation. There was no systolic gradient across the aortic valve. Ao pressure 169/100 and LV pressure 160/15. Coronary angiographic evaluation demonstrates normal left main coronary artery. Left anterior descending has mild luminal plaque, but no severe angiographic disease. Diagonals are large. Septal perforators are normal. Left circumflex is small to medium size vessel without significant angiographic disease. Right coronary artery is dominant. Proximal calcific eccentric stenosis with ulcerations noted and narrows the lumen to 80% of its luminal diameter. This is considered the culprit vessel. Lesion length approximately 7 mm. Diameter of vessel 3.5 mm. Distally in the mid to distal right coronary artery and posterior descending vessel, there is mild diffuse luminal irregularities. Percutaneous intervention performed with a JR-4 6-Macedonian guide. Luge wire was taken beyond the area of stenosis without difficulty. Primary stenting performed with a 16 mm x 3.5 mm drug-eluting Synergy stent deployed to 16 atmospheres of pressure for 30 seconds. The angiographic result at this point was excellent with 0% residual stenosis. ERIKA grade 3 flow was present prior to the intervention and after the intervention ERIKA grade 3 flow was present. There were no mechanical complications and the patient tolerated the procedure well. CONCLUSIONS: 1. Angina pectoris refractory to medical therapy with positive stress testing. 2. 80% ulcerated proximal right coronary artery stenosis treated effectively with drug-eluting stent placement. 3. No significant disease of the left anterior descending and left circumflex coronary arteries. 4. Normal LV systolic wall motion, ejection fraction 65%. RFM/rli - transcribed in [facility] - us Aroldo Gonzales MD FLUOROSCOPY ORDERABLES Edite d Result - Final [facility] documented in this encounter Visit Diagnoses Diagnosis Arteriosclerotic heart disease (ASHD) Coronary atherosclerosis of unspecified type of vessel, [place] or graft Coronary artery disease of [place] artery of [place] heart with stable angina pectoris Stable angina pectoris- Primary Coronary artery disease involving [place] coronary artery of [place] heart with angina pectoris Arteriosclerotic heart disease (ASHD) Coronary atherosclerosis of unspecified type of vessel, [place] or graft Coronary artery disease of [place] artery of [place] heart with stable angina pectoris documented in this encounter Care Teams At Risk Specialist Relationship Specialty Start Date End Date Arash Hooper MD [address] [place] [address] PCP - General 06/12/09 documented as of this encounter
--- OUTSIDE RECORDS SUMMARY | 2025-03-14 11:33 | XMS_ITS | Encounter Summary ---
Author Organization [facility] Address [address] [place] [address] Care Team Providers Care Educational Institution President Name Role Phone Arash Hooper MD Primary Care Provider [phone] Encounter Details Date Type Department Care Team (Late st Contact Info) Description 09/29/2006 Outpatient Historical [facility] [employer] [address] [facility] [address] [place] [address] Cierra Bustos MD NO ADDRESS ON FILE Other Screening Mammogram (Primary Dx) Social History Tobacco Use Types Packs/Day Years Used Date Smoking Tobacco: Never Assessed Comments Unknown Sex and Gender Information Value Date Recorded Sex Assigned at Not on file Legal Sex Female 4:06 AM UNDERWRITING SERVICE REPRESENTATIVE Gender Identity Not on file Sexual Orientation Not on file documented as of this encounter Plan of Treatment Not on file documented as of this encounter Visit Diagnoses Diagnosis Other screening mammogram- Primary documented in this encounter Care Teams Educational Institution President Relationship Specialty Start Date End Date Arash Hooper MD [address] [place], [place] [id number] PCP - General 06/12/09 documented as of this encounter
--- OUTSIDE RECORDS SUMMARY | 2025-03-14 11:33 | XMS_ITS | Encounter Summary ---
Author Organization [facility] Address [address] [place] [address] Care Team Providers Care City Council Member Name Role Phone Arash Hooper MD Primary Care Provider [phone] Encounter Details Date Type Department Care Team (Late st Contact Info) Description 05/22/2006 Emergency [facility] Emergency Department [address] [place] [address] Eduardo Masters MD NO ADDRESS ON FILE Abdominal Pain, Right Upper Quadrant (Primary Dx) Social History Tobacco Use Types Packs/Day Years Used Date Smoking Tobacco: Never Assessed Comments Unknown Sex and Gender Information Value Date Recorded Sex Assigned at Not on file Legal Sex Female 4:06 AM CLIENT ADMINISTRATOR Gender Identity Not on file Sexual Orientation Not on file documented as of this encounter Plan of Treatment Not on file documented as of this encounter Procedures Procedure Name Priority Date/Time Associated Diagnosis Comments PT AND APTT Routine 05/22/2006 7:12 PM CDT CBC WITH DIFFERENTIAL Routine 05/22/2006 7:12 PM CDT LIPASE Routine 05/22/2006 7:12 PM CDT AMYLASE Routine 05/22/2006 7:12 PM CDT COMPREHENSIVE METABOLIC PANEL Routine 05/22/2006 7:12 PM CDT US RIGHT UPR QUADRANT Routine 05/22/2006 6:40 PM CDT documented in this encounter Results * PT AND APTT (05/22/2006 7:12 PM CDT) PROTIME 13.6 12.6 - 14.9 Secs INTERFACE SYSTEM Comment: As of 05 note change in normal range. INR 1.0 INTERFACE SYSTEM Comment: Expected Values for INR: DVT/PE Goal INR 2.5; range 2.0 - 3.0 Valve Replacement Tissue Goal INR 2.5; range 2.0 - 3.0 Mechanical Goal INR 3.0; range 2.5 - 3.5 POST-VT Goal INR 2.5; range 2.0 - 3.0 or Goal 3.0; range 2.5 - 3.5 Atrial Fibrillation Goal INR 2.5; range 2.0 - 3.0 Ischemic Stroke Goal INR 2.5; range 2.0 - 3.0 For additional information see Guidelines for Anticoagulation available from the pharmacy [facility]. PTT 28.2 21.5 - 34.4 Secs INTERFACE SYSTEM Comment: Therapeutic Range: Hi-level PE/DVT heparin protocol 90.1 -110 sec Lo-level PE/DVT heparin protocol 75.1 - 95 sec Cardiac Heparin Protocol 85.1 - 100 sec Neuro Heparin Protocol 70.1 - 85 sec As of 09/17/05 note change in APTT Normal Range. 05/22/2006 7:12 PM CDT Eduardo Masters MD HEMATOLOGY ORDERABLES Final Resu lt INTERFACE SYSTEM Refer to clinic/hospital department * LIPASE (05/22/2006 7:12 PM CDT) LIPASE 39 6 - 51 U/L INTERFACE SYSTEM Comment: As of 05 the [facility] has changed testing methods. The new reference range is 6-51 The old referance range was 23-300 05/22/2006 7:12 PM CDT us Eduardo Masters MD CHEMISTRY ORDERABLES Final Resul t Performing Organization Address City/[facility]/ZIP Co de Phone Number INTERFACE SYSTEM Refer to clinic/hospital department * AMYLASE (05/22/2006 7:12 PM CDT) AMYLASE 45 20 - 104 U/L INTERFACE SYSTEM Comment: As of [address] [facility] has changed testing methods. The new reference range is 20-104 The old referance range was 30-120 05/22/2006 7:12 PM CDT Eduardo Masters MD CHEMISTRY ORDERABLES Final Resul t Performing Organization Address [facility] Phone Number INTERFACE SYSTEM Refer to clinic/hospital department * (ABNORMAL) COMPREHENSIVE METABOLIC PANEL (05/22/2006 7:12 PM CDT) GLUCOSE 149(H) 70 - 110 mg/dL INTERFACE SYSTEM Comment:Slight Lipemia BUN 13 7 - 17 mg/dL INTERFACE SYSTEM CREATININE 0.8 0.7 - 1.2 mg/dL INTERFACE SYSTEM SODIUM 139 136 - 145 mEq/L INTERFACE SYSTEM POTASSIUM 4.0 3.5 - 5.0 mEq/L INTERFACE SYSTEM CHLORIDE 108 95 - 110 mEq/L INTERFACE SYSTEM CO2 23 22 - 32 mmol/l INTERFACE SYSTEM ANION GAP 12 9 - 20 mEq/L INTERFACE SYSTEM OSMOLALITY, CALCULATED 289 275 - 295 mOsm/Kg INTERFACE SYSTEM CALCIUM 10.0 8.4 - 10.5 mg/dL INTERFACE SYSTEM TOTAL PROTEIN 7.8 6.3 - 8.2 g/dL INTERFACE SYSTEM ALBUMIN 4.6 3.5 - 5.0 g/dL INTERFACE SYSTEM GLOBULIN (CALC) 3.2 2.4 - 3.9 g/dL INTERFACE SYSTEM ALBUMIN/GLOBULIN RATIO 1.4 1.0 - 2.3 INTERFACE SYSTEM ALKALINE PHOSPHATASE 139(H) 25 - 100 U/L INTERFACE SYSTEM Comment: As of 05 the [facility] has changed testing methods. The new reference range is 25-100 The old referance range was 38-126 AST 28 8 - 33 U/L INTERFACE SYSTEM Comment: As of 05 the [facility] has changed testing methods. The new reference range is 8-33 The old referance range was Males 17-59 Females 14-36 ALT 96(H) 4 - 36 IU/L INTERFACE SYSTEM Comment: As of [address] [facility] has changed testing methods. The new reference range is 4-36 The old referance range was Males 21-72 Females 9-52 BILIRUBIN TOTAL 0.4 0.3 - 1.2 mg/dL INTERFACE SYSTEM Comment: As of [address] [facility] has changed testing methods. The new reference range is 0.3-1.2 The old referance range was 0.2-1.4 05/22/2006 7:12 PM CDT us Eduardo Masters MD CHEMISTRY ORDERABLES Final Resul t INTERFACE SYSTEM Refer to clinic/hospital department * (ABNORMAL) CBC WITH DIFFERENTIAL (05/22/2006 7:12 PM CDT) WBC 11.2(H) 4.5 - 11.0 K/ul INTERFACE SYSTEM RBC 4.62 4.20 - 5.40 Mil/ul INTERFACE SYSTEM HEMOGLOBIN 14.7 12.0 - 16.0 g/dL INTERFACE SYSTEM HEMATOCRIT 41.8 36.0 - 46.0 % INTERFACE SYSTEM MCV 90.5 84.0 - 103.0 Fl INTERFACE SYSTEM MCH 31.8 27.0 - 34.0 pg INTERFACE SYSTEM MCHC 35.2(H) 30.0 - 35.0 g/dL INTERFACE SYSTEM RDW 13.6 11.0 - 14.5 % INTERFACE SYSTEM PLATELETS 339 140 - 440 K/ul INTERFACE SYSTEM MPV 10.3 8.9 - 12.8 Fl INTERFACE SYSTEM NEUTROPHILS 43.5 42.2 - 75.2 % INTERFACE SYSTEM LYMPHOCYTES 43.5 24.0 - 44.0 % INTERFACE SYSTEM MONOCYTES 7.4 2.0 - 10.0 % INTERFA CE SYSTEM EOSINOPHILS 4.6 0.0 - 7.0 % INTERF MARTIR SYSTEM BASOPHILS 1.0 0.0 - 1.0 % INTERFAC E SYSTEM NEUTROPHIL ABSOLUTE 4.9 2.0 - 8.0 K/uL INTERFACE SYSTEM LYMPHOCYTE ABSOLUTE 4.9(H) 1.2 - 4.0 K/ul INTERFACE SYSTEM MONOCYTE ABSOLUTE 0.8(H) 0.1 - 0.6 K/ul INTERFACE SYSTEM EOSINOPHIL ABSOLUTE 0.5 0.0 - 0.7 K/ul INTERFACE SYSTEM BASOPHILS ABSOLUTE 0.1 0.0 - 0.2 K/ul INTERFACE SYSTEM PERIPHERAL BLOOD SMEAR REVIEW Automated Diff Automated Diff INTERFACE SYSTEM 05/22/2006 7:12 PM CDT Eduardo Masters MD HEMATOLOGY ORDERABLES Final Resu lt INTERFACE SYSTEM Refer to clinic/hospital department * US RIGHT UPR QUADRANT (05/22/2006 6:40 PM CDT) Anatomical Region Laterality Modality Abdomen Other 05/22/2006 6:40 PM CDT Narrative 05/22/2006 6:40 PM CDT Right Upper Quadrant UltrasoundDate: 05/22/2006. Indication: Pain and fever. Findings: Postcholecystectomy changes are seen. Internal biliary stent is noted. No biliarydilatation. Visualized portions of the pancreas are unremarkable. A 5 mm right renal cyst isseen. Impression: Cholecystectomy. No biliary dilatation. - Dictated By: Marshall Mckenzie M.D. Electronically Signed By: Marshall Mckenzie M.D. Date Signed: 05/23/06 AMA Procedure Note 07/13/2009 Right Upper Quadrant UltrasoundDate: 05/22/2006. Indication: Pain and fever. Findings: Postcholecystectomy changes are seen. Internal biliary stent is noted. Nobiliarydilatation. Visualized portions of the pancreas are unremarkable. A 5 mm right renal cyst isseen. Impression: Cholecystectomy. No biliary dilatation. - Dictated By: Marshall Mckenzie M.D. Electronically Signed By: Marshall Mckenzie M.D. Date Signed: 05/23/06 AMA Eduardo Masters MD US ORDERABLES Final Result documented in this encounter Visit Diagnoses Diagnosis Abdominal pain, right upper quadrant- Primary documented in this encounter Care Teams City Council Member Relationship Specialty Start Date End Date Arash Hooper MD [address] [place] [address] PCP - General 06/12/09 documented as of this encounter
--- OUTSIDE RECORDS SUMMARY | 2025-03-14 11:33 | XMS_ITS | Encounter Summary ---
Author Organization [facility] Address [address] [place] [address] Care Team Providers Care Sheet Sorter Name Role Phone Arash Hooper MD Primary Care Provider [phone] Encounter Details Date Type Department Care Team (Late st Contact Info) Description 09/16/2006 Outpatient Historical [facility] Stevie Mittal MD [address] [place] [address] [phone] Headache (Primary Dx) Social History Tobacco Use Types Packs/Day Years Used Date Smoking Tobacco: Never Assessed Comments Unknown Sex and Gender Information Value Date Recorded Sex Assigned at Not on file Legal Sex Female 4:06 AM MACHINE WELDER Gender Identity Not on file Sexual Orientation Not on file documented as of this encounter Plan of Treatment Not on file documented as of this encounter Procedures Procedure Name Priority Date/Time Associated Diagnosis Comments MRI BRAIN W WO CONTRAST Routine 09/16/2006 4:[address] HEAD WO CONTRAST Routine 09/16/2006 4 :47 PM MACHINE WELDER XR EYE FOREIGN BODY Routine 09/16/2006 4 :47 PM MACHINE WELDER PT AND APTT Routine 09/16/2006 12:43 PM MACHINE WELDER CBC WITH DIFFERENTIAL Routine 09/16/2006 12:43 PM MACHINE WELDER BASIC METABOLIC PANEL Routine 09/16/2006 12:43 PM MACHINE WELDER documented in this encounter Results * MRI BRAIN W WO CONTRAST (09/16/2006 4:47 PM MACHINE WELDER) Anatomical Region Laterality Modality Head Other 09/16/2006 4:47 PM MACHINE WELDER Narrative 09/16/2006 4:47 PM MACHINE WELDER MRI Examination of the Brain With and Without Contrast: Technique: Sagittal and axial T1, axial proton density and T2 CHECO, axial FLAIR, axial hemoflash, axialDWI and ADC, axial T1 postcontrast sequences were performed. 15 mL Magnevist contrast wasadministered by hand injection. Findings: Axial DWI and ADC sequences show no signs of restricted diffusion. No diminished ADC valuesare noted. The axial FLAIR axial proton dense and T2 CHECO sequences show no abnormal signal from within the brain. The usual flow-voids in the carotids and in the vertebrobasilar circulations incidental note ismade of air-fluid levels in the maxillary antra the ethmoid air cells and in the sphenoid aircells. The sagittal and axial T1 precontrast and the axial T1 postcontrast sequences show no signs of [id number]. The postcontrast sequence shows enhancement of the usual vascular structures. Noenhancing mass lesions are noted. No meningeal enhancement is noted. The axial hemoflash sequence shows no signs of blood or blood byproduct. No magnetic susceptibilityartifacts are noted. Impression: 1. Generalized atrophy. 2. Incidental note made of air-fluid levels in the paranasal sinuses. - Dictated By: Justo Calderon M.D. Electronically Signed By: Justo Calderon M.D. Date Signed: 09/17/06 AMA Procedure Note 07/13/2009 MRI Examination of the Brain With and Without Contrast: Technique: Sagittal and axial T1, axial proton density and T2 CHECO, axial FLAIR, axialhemoflash, axialDWI and ADC, axial T1 postcontrast sequences were performed. 15 mL Magnevist contrastwasadministered by hand injection. Findings: Axial DWI and ADC sequences show no signs of restricted diffusion. Nodiminished ADC valuesare noted. The axial FLAIR axial proton dense and T2 CHECO sequences show no abnormalsignal from within the brain. The usual flow-voids in the carotids and in the vertebrobasilarcirculations incidental note ismade of air-fluid levels in the maxillary antra the ethmoid air cells and in thesphenoid aircells. The sagittal and axial T1 precontrast and the axial T1 postcontrastsequences show no signs of [id number]. The postcontrast sequence shows enhancement of the usualvascular structures. Noenhancing mass lesions are noted. No meningeal enhancement is noted. The axial hemoflash sequence shows no signs of blood or blood byproduct.No magnetic susceptibilityartifacts are noted. Impression: 1. Generalized atrophy. 2. Incidental note made of air-fluid levels in the paranasal sinuses. - Dictated By: Justo Calderon M.D. Electronically Signed By: Justo Calderon M.D. Date Signed: 09/17/06 AMA Stevie Mittal MD MR ORDERABLES Final Result * XR EYE FOREIGN BODY (09/16/2006 4:47 PM MACHINE WELDER) Anatomical Region Laterality Modality Abdomen Other 09/16/2006 4:47 PM MACHINE WELDER Narrative 09/16/2006 4:47 PM MACHINE WELDER MRI orbit screeningFindings: No metallic foreign bodies overlie the orbits. Apparent air-fluid level at the left inferior maxillary sinus and mild right inferior maxillary sinusmucosal thickening. Impression: 1. No radiopaque foreign bodies. 2. Apparent bilateral maxillary sinus disease. - Dictated By: Natan Bennett M.D. Electronically Signed By: Natan Bennett M.D. Date Signed: 09/16/06 Procedure Note 07/13/2009 MRI orbit screeningFindings: No metallic foreign bodies overlie the orbits. Apparent air-fluid level at the left inferior maxillary sinus and mildright inferior maxillary sinusmucosal thickening. Impression: 1. No radiopaque foreign bodies. 2. Apparent bilateral maxillary sinus disease. - Dictated By: Natan Bennett M.D. Electronically Signed By: Natan Bennett M.D. Date Signed: 09/16/06 Stevie Mittal MD DIAGNOSTIC IMAGING ORDERABLES Final Result * CT HEAD WO CONTRAST (09/16/2006 4:47 PM MACHINE WELDER) Anatomical Region Laterality Modality Head Other 09/16/2006 4:47 PM MACHINE WELDER Narrative 09/16/2006 4:[address] Head Without ContrastDate: 09/16/2006. History: 40-year-old female, right upper extremity numbness. Headache. Technique: Conventional axial images were obtained through the brain without contrast. Findings: Midline structures are central. Ventricles are nondilated. Brain parenchymal attenuationnormal. Skull base and calvaria are intact. Scattered paranasal sinus mucosal thickening withsphenoid sinus air-fluid level. IMPRESSION: Normal appearing brain. Paranasal sinusitis. - Dictated By: Abelardo Callahan D.O. Electronically Signed By: Abelardo Callahan D.O. Date Signed: 09/16/06 Procedure Note 07/13/2009 CT Head Without ContrastDate: 09/16/2006. History: 40-year-old female, right upper extremity numbness. Headache. Technique: Conventional axial images were obtained through the brain withoutcontrast. Findings: Midline structures are central. Ventricles are nondilated. Brainparenchymal attenuationnormal. Skull base and calvaria are intact. Scattered paranasal sinus mucosalthickening withsphenoid sinus air-fluid level. IMPRESSION: Normal appearing brain. Paranasal sinusitis. - Dictated By: Abelardo Callahan D.O. Electronically Signed By: Abelardo Callahan D.O. Date Signed: 09/16/[address] ORDERABLES Final Result * PT AND APTT (09/16/2006 12:43 PM MACHINE WELDER) PROTIME 13.4 13.0 - 15.7 Secs INTERFACE SYSTEM Comment: As of 06 note change in normal range. INR 0.9 INTERFACE SYSTEM Comment: Expected Values for INR: DVT/PE Goal INR 2.5; range 2.0 - 3.0 Valve Replacement Tissue Goal INR 2.5; range 2.0 - 3.0 Mechanical Goal INR 3.0; range 2.5 - 3.5 POST-NC Goal INR 2.5; range 2.0 - 3.0 or Goal 3.0; range 2.5 - 3.5 Atrial Fibrillation Goal INR 2.5; range 2.0 - 3.0 Ischemic Stroke Goal INR 2.5; range 2.0 - 3.0 For additional information see Guidelines for Anticoagulation available from the pharmacy [facility] PTT 27.0 21.6 - 35.6 Secs INTERFACE SYSTEM Comment: Therapeutic Range: Hi-level PE/DVT heparin protocol 80.1 -95.0 sec Lo-level PE/DVT heparin protocol 67.1 - 80.0 sec Cardiac Heparin Protocol 67.1 - 85.0 sec Neuro Heparin Protocol 67.1 - 80.0 sec As of 07/30/2006 note change in APTT Normal Range. 09/16/2006 12:4 3 PM MACHINE WELDER Bianca Roe MD HEMATOLOGY ORDERABLES Edited INTERFACE SYSTEM Refer to clinic/hospital department * (ABNORMAL) CBC WITH DIFFERENTIAL (09/16/2006 12:43 PM MACHINE WELDER) WBC 9.5 4.5 - 11.0 K/ul INTERFACE SYSTEM RBC 4.43 4.20 - 5.40 Mil/ul INTERFACE SYSTEM HEMOGLOBIN 13.8 12.0 - 16.0 g/dL INTERFACE SYSTEM HEMATOCRIT 38.8 36.0 - 46.0 % INTERFACE SYSTEM MCV 87.6 84.0 - 103.0 Fl INTERFACE SYSTEM MCH 31.2 27.0 - 34.0 pg INTERFACE SYSTEM MCHC 35.6(H) 30.0 - 35.0 g/dL INTERFACE SYSTEM RDW 13.2 11.0 - 14.5 % INTERFACE SYSTEM PLATELETS 219 140 - 440 K/ul INTERFACE SYSTEM MPV 10.4 8.9 - 12.8 Fl INTERFACE SYSTEM NEUTROPHILS 38.2(L) 42.2 - 75.2 % INTERFACE SYSTEM LYMPHOCYTES 52.1(H) 24.0 - 44.0 % INTERFACE SYSTEM MONOCYTES 7.4 2.0 - 10.0 % INTERFA CE SYSTEM EOSINOPHILS 2.0 0.0 - 7.0 % INTERF MARTIR SYSTEM BASOPHILS 0.3 0.0 - 1.0 % INTERFAC E SYSTEM NEUTROPHIL ABSOLUTE 3.6 2.0 - 8.0 K/uL INTERFACE SYSTEM LYMPHOCYTE ABSOLUTE 5.0(H) 1.2 - 4.0 K/ul INTERFACE SYSTEM MONOCYTE ABSOLUTE 0.7(H) 0.1 - 0.6 K/ul INTERFACE SYSTEM EOSINOPHIL ABSOLUTE 0.2 0.0 - 0.7 K/ul INTERFACE SYSTEM BASOPHILS ABSOLUTE 0.0 0.0 - 0.2 K/ul INTERFACE SYSTEM PERIPHERAL BLOOD SMEAR REVIEW Automated Diff Automated Diff INTERFACE SYSTEM HEM COMMENT Smear Reviewed Automated Diff INTERFACE SYSTEM 09/16/2006 12:4 3 PM MACHINE WELDER Bianca Roe MD HEMATOLOGY ORDERABLES Edited Performing Organization Address [facility] Phone Number INTERFACE SYSTEM Refer to clinic/hospital department * (ABNORMAL) BASIC METABOLIC PANEL (09/16/2006 12:43 PM MACHINE WELDER) GLUCOSE 132(H) 70 - 110 mg/dL INTERFACE SYSTEM Comment:Slight Lipemia;Speci men slightly hemolyzed BUN 11 7 - 17 mg/dL INTERFACE SYSTEM CREATININE 0.8 0.7 - 1.2 mg/dL INTERFACE SYSTEM SODIUM 141 136 - 145 mEq/L INTERFACE SYSTEM POTASSIUM 4.3 3.5 - 5.0 mEq/L INTERFACE SYSTEM CHLORIDE 110 95 - 110 mEq/L INTERFACE SYSTEM CO2 23 22 - 32 mmol/l INTERFACE SYSTEM ANION GAP 12 9 - 20 mEq/L INTERFACE SYSTEM OSMOLALITY, CALCULATED 292 275 - 295 mOsm/Kg INTERFACE SYSTEM CALCIUM 9.6 8.4 - 10.5 mg/dL INTERFACE SYSTEM 09/16/2006 12:4 3 PM MACHINE WELDER Bianca Roe MD CHEMISTRY ORDERABLES Edited Performing Organization Address [facility] Phone Number INTERFACE SYSTEM Refer to clinic/hospital department documented in this encounter Visit Diagnoses Diagnosis Headache(784.0)- Primary Headache documented in this encounter Care Teams Sheet Sorter Relationship Specialty Start Date End Date Arash Hooper MD [address] [place] [address] PCP - General 06/12/09 documented as of this encounter
--- OUTSIDE RECORDS SUMMARY | 2025-03-14 11:33 | XMS_ITS | Encounter Summary ---
Author Organization [facility] Address [address] [place] [address] Care Team Providers Care Educational Psychologist Name Role Phone Arash Hooper MD Primary Care Provider [phone] Encounter Details Date Type Department Care Team (Late st Contact Info) Description 10/22/2006 Outpatient Historical [facility] Imaging Services - Sports Medicine [address] [place] [address] Stevie Mittal MD [address] [place] [address] [phone] Unspecified Backache (Primary Dx) Social History Tobacco Use Types Packs/Day Years Used Date Smoking Tobacco: Never Assessed Comments Unknown Sex and Gender Information Value Date Recorded Sex Assigned at Not on file Legal Sex Female 4:06 AM HIDE BUFFER Gender Identity Not on file Sexual Orientation Not on file documented as of this encounter Plan of Treatment Not on file documented as of this encounter Visit Diagnoses Diagnosis Backache, unspecified- Primary documented in this encounter Care Teams Educational Psychologist Relationship Specialty Start Date End Date Arash Hooper MD [address] [place] [address] PCP - General 06/12/09 documented as of this encounter
--- OUTSIDE RECORDS SUMMARY | 2025-03-14 11:33 | XMS_ITS | Encounter Summary ---
Author Organization [facility] Address [address] [place] [address] Care Team Providers Care Counter Attendant Name Role Phone Arash Hooper MD Primary Care Provider [phone] Encounter Details Date Type Department Care Team (Latest Contact Info) Description 02/12/2004 Outpatient Historical [facility] [address] [place] [address] Kianna Mao MD [address] [place] [address] Excessive menstruation (Primary Dx); Irregular menstruation; DYSPLASIA OF CERVIX Social History Tobacco Use Types Packs/Day Years Used Date Smoking Tobacco: Never Assessed Comments Unknown Sex and Gender Information Value Date Recorded Sex Assigned at Not on file Legal Sex Female 4:06 AM STOCKROOM SUPERVISOR Gender Identity Not on file Sexual Orientation Not on file documented as of this encounter Plan of Treatment Not on file documented as of this encounter Visit Diagnoses Diagnosis Excessive menstruation- Primary Excessive or frequent menstruation Irregular menstruation Irregular menstrual cycle Dysplasia of cervix (uteri) documented in this encounter Care Teams Counter Attendant Relationship Specialty Start Date End Date Arash Hooper MD [address] [place], [place] [address] PCP - General 06/12/09 documented as of this encounter
--- OUTSIDE RECORDS SUMMARY | 2025-03-14 11:33 | XMS_ITS | Encounter Summary ---
Author Organization [facility] Address [address] [place] [address] Care Team Providers Care Wheat Farmer Name Role Phone Arash Hooper MD Primary Care Provider [phone] Encounter Details Date Type Department Care Team (Latest Contact Info) Description 02/12/2004 Outpatient Historical [facility] [address] [place] [address] Kianna Mao MD [address] [place] [address] CA IN SITU CERVIX UTERI (Primary Dx) Social History Tobacco Use Types Packs/Day Years Used Date Smoking Tobacco: Never Assessed Comments Unknown Sex and Gender Information Value Date Recorded Sex Assigned at Not on file Legal Sex Female 4:06 AM MEDICAL INVESTIGATOR Gender Identity Not on file Sexual Orientation Not on file documented as of this encounter Plan of Treatment Not on file documented as of this encounter Visit Diagnoses Diagnosis 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
--- OUTSIDE RECORDS SUMMARY | 2025-03-14 11:33 | XMS_ITS | Encounter Summary ---
Author Organization [facility] Address [address] [place] [address] Care Team Providers Care Travel Accommodation Inspector Name Role Phone Arash Hooper MD Primary Care Provider [phone] Reason for Referral * Outpatient Services (Routine) - Closed Specialty Diagnoses / Procedures Referred By Tamara kwong Referred To Contact Diagnoses Bilateral carotid bruits Procedures CT HEAD WO CONTRAST Lulu Briceno NP Phone: tel: [facility]: [facility] [place] [facility]Registration [place] CALL TO MAKE APPOINTMENT ONLY [address] [place] [address] Phone: tel: fax: Referral ID Status Reason Start Date Expiration Date V isits Requested Visits Authorized [id number] Closed [facility] TO SCHEDULE ([facility]) 09/10/2017 10/10/2017 1 1 CTOR TELEVISION NEWS * Outpatient Services (Routine) - Closed Specialty Diagnoses / Procedures Referred By Contrd kwong Referred To Contact Diagnoses Bilateral carotid bruits Procedures US CAROTID DOPPLER Lulu Briceno NP Phone: tel: fax: [facility] [place] CALL TO MAKE APPOINTMENT ONLY [address] [place] [address] Phone: tel: fax: Referral ID Status Reason Start Date Expiration Date V isits Requested Visits Authorized [id number] Closed [facility] TO [facility] ([facility] 09/11/2017 10/12/2018 1 1 CTOR TELEVISION NEWS Encounter Details Date Type Department Care Team (Latest Contact Info) Description 09/11/2017 Ancillary Orders [facility] Pre-Registration [place] CALL TO MAKE APPOINTMENT ONLY [address] [place] [phone] Lulu Briceno NP [address] [place] [address] Bilateral carotid bruits Social History Tobacco Use Types Packs/Day Years Used Date Smoking Tobacco: Every Day Cigarettes 0.1 30 Smokeless Tobacco: Never Alcohol Use Standard Drinks/Week Comments No 0 (1 standard drink = 0.6 oz pur e alcohol) Comments No Sex and Gender Information Value Date Recorded Sex Assigned at Not on file Legal Sex Female 4:06 AM DIRECTOR TELEVISION NEWS Gender Identity Not on file Sexual Orientation Not on file Occupation Industry Job Start Date Job End Date Not on file Not on file Not on file Not on file documented as of this encounter Plan of Treatment Not on file documented as of this encounter Results * CT HEAD WO CONTRAST (10/08/2017 11:19 AM DIRECTOR TELEVISION NEWS) Anatomical Region Laterality Modality Head Computed Tomogra phy 10/08/2017 11:2 0 AM DIRECTOR TELEVISION NEWS Impressions 10/08/2017 1:09 PM DIRECTOR TELEVISION NEWS IMPRESSION: No intracranial abnormality identified. [id number] Narrative 10/08/2017 1:09 PM DIRECTOR TELEVISION NEWS Exam: CT HEAD WO CONTRAST Date/Time of Exam: 10/08/2017 11:19 AM Reason For Exam: Bilateral carotid bruits. Technique: CT of the head was performed without the administration of intravenous contrast. Findings: The brain is unremarkable. There is no evidence of infarct, hemorrhage, or mass lesion. The ventricles appear normal in size and configuration. There is a small retention cyst in the left sphenoid sinus. The mastoids and middle ears are clear. Procedure Note Aroldo Hewitt MD - 10/08/2017 Exam: CT HEAD WO CONTRAST Date/Time of Exam: 10/08/2017 11:19 AM Reason For Exam: Bilateral carotid bruits. Technique: CT of the head was performed without the administration of intravenous contrast. Findings: The brain is unremarkable. There is no evidence of infarct, hemorrhage, or mass lesion. The ventricles appear normal in size and configuration. There is a small retention cyst in the left sphenoid sinus. The mastoids and middle ears are clear. IMPRESSION: No intracranial abnormality identified. [id number] us Lulu Briceno CLINICAL MANAGER HOME CARE CT ORDERABLES Final Res ult * US CAROTID DOPPLER (10/08/2017 10:46 AM DIRECTOR TELEVISION NEWS) Anatomical Region Laterality Modality Neck Ultrasound 10/08/2017 10:1 3 AM DIRECTOR TELEVISION NEWS Narrative 10/09/2017 7:25 AM DIRECTOR TELEVISION NEWS [facility] Cardiovascular Services Noninvasive Vascular Laboratory [address] [place] [id number] Noninvasive Vascular Lab Cerebrovascular Exam Carotid Duplex Patient: Luli Rios Study ID: US CAROTID DOPPL Gender: F : 1965 Age: 51 Room: Height: 162.6cm Weight: 57.3kg BSA: 1.61m\S\2 Pt status: Outpatient Study Date: 10/08/2017 Study Time: 10:13 AM BSA: 1.61m\S\2 Ordering: Tati Briceno Interpreting:Marshall Stanley MD Fox Farmer: Sandi Montanez T Indications: 785.9 Bruit. History: A bruitof the left carotid artery. A bruitof the right carotid artery. Coronary artery disease. Risk factors: Dyslipidemia. Summary Impression: 1. Study demonstrates mild atherosclerosis involving the right common carotid artery, the right internal carotid artery, and the left common carotid artery. 2. Study demonstrates 40-59% stenosis involving the distal left internal carotid artery. Study data: Carotid duplex study. Complete study and Doppler flow study including spectral analysis, color and beckham scale imaging. Birthdate: Patient birthdate: 1965. Age: Patient is 51yr old. Sex: Gender: female. Ethnicity: Ethnicity: white. Height: Height: 162.6cm. Height: 64in. Weight: Weight: 57.3kg. Weight: 126.1lb. Body mass index: BMI: 21.7kg/m\S\2. Body surface area: BSA: 1.61m\S\2. Study date: Study date: 10/08/2017. Study time: 10:13 AM. Location: Vascular laboratory. Patient status: Outpatient. Study status: Routine. Procedure: A vascular evaluation was performed. Image quality was good. Arterial flow: - Right CCA - proximal - 0.72m/sec 0.22m/sec - Right CCA - mid - 0.62m/sec 0.25m/sec - Right CCA - distal - 0.59m/sec 0.25m/sec - Right ECA - 0.62m/sec 0.13m/sec - Right ICA - proximal - 0.78m/sec 0.32m/sec - Right ICA - mid - 0.65m/sec 0.32m/sec - Right ICA - distal - 0.72m/sec 0.38m/sec - Right vertebral - 0.66m/sec - Left CCA - proximal - 0.73m/sec 0.31m/sec - Left CCA - mid - 0.77m/sec 0.28m/sec - Left CCA - distal - 0.87m/sec 0.39m/sec - Left ECA - 1.19m/sec 0.45m/sec - Left ICA - proximal - 0.61m/sec 0.28m/sec - Left ICA - mid - 0.78m/sec 0.39m/sec - Left ICA - distal - 1.09m/sec 0.4m/sec - Left vertebral - 0.69m/sec 0.3m/sec [facility] is accredited with the [facility] Commission for the Accreditation of Vascular Laboratories (ICAVL) Prepared and Electronically Authenticated Marshall Stanley MD Confirmed 10/09/2017 07:24 Procedure Note Marshall Stanley MD - 10/09/2017 [facility] Cardiovascular Services Noninvasive Vascular Laboratory [address] [place] [id number] Noninvasive Vascular Lab Cerebrovascular Exam Carotid Duplex Patient: Luli Rios Study ID: US CAROTID DOPPL Gender: F : 1965 Age: 51 Room: Height: 162.6cm Weight: 57.3kg BSA: 1.61m\S\2 Pt status: Outpatient Study Date: 10/08/2017 Study Time: 10:13 AM BSA: 1.61m\S\2 Ordering: Tati Briceno Interpreting:Marshall Stanley MD Fox Farmer: Sandi Montanez RVT Indications: 785.9 Bruit. History: A bruitof the left carotid artery. A bruitof the right carotid artery. Coronary artery disease. Risk factors: Dyslipidemia. Summary Impression: 1. Study demonstrates mild atherosclerosis involving the right common carotid artery, the right internal carotid artery, and the left common carotid artery. 2. Study demonstrates 40-59% stenosis involving the distal left internal carotid artery. Study data: Carotid duplex study. Complete study and Doppler flow study including spectral analysis, color and beckham scale imaging. Birthdate: Patient birthdate: 1965. Age: Patient is 51yr old. Sex: Gender: female. Ethnicity: Ethnicity: white. Height: Height: 162.6cm. Height: 64in. Weight: Weight: 57.3kg. Weight: 126.1lb. Body mass index: BMI: 21.7kg/m\S\2. Body surface area: BSA: 1.61m\S\2. Study date: Study date: 10/08/2017. Study time: 10:13 AM. Location: Vascular laboratory. Patient status: Outpatient. Study status: Routine. Procedure: A vascular evaluation was performed. Image quality was good. Arterial flow: - Right CCA - proximal - 0.72m/sec 0.22m/sec - Right CCA - mid - 0.62m/sec 0.25m/sec - Right CCA - distal - 0.59m/sec 0.25m/sec - Right ECA - 0.62m/sec 0.13m/sec - Right ICA - proximal - 0.78m/sec 0.32m/sec - Right ICA - mid - 0.65m/sec 0.32m/sec - Right ICA - distal - 0.72m/sec 0.38m/sec - Right vertebral - 0.66m/sec - Left CCA - proximal - 0.73m/sec 0.31m/sec - Left CCA - mid - 0.77m/sec 0.28m/sec - Left CCA - distal - 0.87m/sec 0.39m/sec - Left ECA - 1.19m/sec 0.45m/sec - Left ICA - proximal - 0.61m/sec 0.28m/sec - Left ICA - mid - 0.78m/sec 0.39m/sec - Left ICA - distal - 1.09m/sec 0.4m/sec - Left vertebral - 0.69m/sec 0.3m/sec [facility] is accredited with the Intersocietal Commission for the Accreditation of Vascular Laboratories (ICAVL) Prepared and Electronically Authenticated Marshall Stanley MD Confirmed 10/09/2017 07:24 us Lulu Briceno NP ORDERABLES Final Res ult documented in this encounter Visit Diagnoses Diagnosis Bilateral carotid bruits Bilateral carotid bruits Bilateral carotid bruits documented in this encounter Care Teams Travel Accommodation Inspector Relationship Specialty Start Date End Date Arash Hooper MD [facility] [place] [address] PCP - General 06/12/09 documented as of this encounter
--- OUTSIDE RECORDS SUMMARY | 2025-03-14 11:33 | XMS_ITS | Encounter Summary ---
Author Organization [facility] Address [address] [place] [address] Care Team Providers Care Celery Cutter Name Role Phone Arash Hooper MD Primary Care Provider Encounter Details Date Type Department Care Team (Latest Contact Info) Description 06/22/2006 Outpatient Historical [facility] [address] [place] [address] Constantino Locke MD [address] 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
--- OUTSIDE RECORDS SUMMARY | 2025-03-14 11:33 | XMS_ITS | Encounter Summary ---
Author Organization [facility] Address [address] [place] [address] Care Team Providers Care Database Analyst Name Role Phone Arash Hooper MD Primary Care Provider [phone] Encounter Details Date Type Department Care Team (Latest Contact Info) Description 09/29/2006 Outpatient [facility] [address] [place], [place] [id number] Aroldo Chery MD [address] [place], [place] [address] Encounters for Unspecified Administrative Purpose (Primary Dx) Social History Tobacco Use Types Packs/Day Years Used Date Smoking Tobacco: Never Assessed Comments Unknown Sex and Gender Information Value Date Recorded Sex Assigned at Not on file 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
--- OUTSIDE RECORDS SUMMARY | 2025-03-14 11:33 | XMS_ITS | Patient Health Record ---
Author Organization [email or web address] Address [address] [place], [place] [id number] Care Team Providers Care Corporate Director Talent Assessment Name Role Phone Rajesh Briceno MD Primary Care Provider Unavail able Luis THAPA, Luis Daniel Unavailable [phone] Allergies Allergen (clinical drug ingredient) Drug/Non Drug Allergy documented on EMR Reaction Allergy Type Onset Date Status radiographic dyes/iodine (uncoded) itching Allergy Active codeine codeine itching Drug Allergy Active morphine morphine hives Drug Allergy Active penicillin anaphylaxis Drug Allergy Acti ve Reason For Referral No Information Medications Medication SIG (Take, Route, Frequency, Duration) Notes Start Date End Date Status ProAir HFA CFC free 90 mcg/inh 2 puff(s) inhaled as directed Active menthol topical - 1 lio applied topically as directed Active Advair Diskus 500 mcg-50 mcg 1 puff inhaled 2 times a day Active Tylenol Caplet Extra Strength 500 mg orally as directed Active NexIUM 40 mg 1 cap orally once a day Active cloNIDine 0.1 mg 1 tab orally 3 times a day as needed with when blood pressure is up Active Lidoderm 5% 1 patch applied topically 12H on / 12H off Active pantoprazole 40 mg 1 tab orally once a day, as directed Active Fioricet 325 mg-50 mg-40 mg 1 tab po orally prn headache Active dicyclomine 20 mg 1 tab orally 4 times a day, as needed for abdominal pain Active Cartia XT 180 mg/24 hours 1 cap orally once a day Active Arkansaw 325 mg-5 mg 1 tab po orally TID prn severe pain Active amitriptyline-perphena zine 10 mg-2 mg 1 tab orally 2 times a day, as needed Active meloxicam 15 mg 1 tab po orally Q24H prn pain; take with food Active gabapentin 400 mg 1 cap po orally TID Active pravastatin 40 mg 1 tab orally once a day (at bedtime) Active traMADol 50 mg 1 tab po orally TID prn pain Active clonazePAM 1 mg 1 tab orally at bedtime, as needed Active baclofen 10 mg 1 tab po orally TID prn spasm Active Social History Tobacco Use: Social History Observation Description Date Details (start date - stop date) Current Smoker NA - NA Tobacco use: Question Answer Notes : current smoker Are you interested in quitting? Thinking about q uitting How many cigarettes a day do you smoke? 6-10 How often do you smoke cigarettes? every day How soon after you wake up d o you smoke your first cigarette? 6-30 min Problems Problem Type SNOMED Code ICD Code Onset Dates Problem Status W/U Status Risk Notes Problem Solitary sacroiliitis (126331682) Sacroiliitis (720.2) Active confirmed Problem Lumbosacral spondylosis without myelopathy (30636677) Lumbosacral spondylosis without myelopathy (721.3) Active confirmed Problem Displacement of lumbar intervertebral disc without myelopathy (96448840) Lumbar (w/out myelopathy) intervertebral disc disorder (722.10) Active confirmed Problem Spasm (36681096) Muscle spasm (728.85) Active confirmed Problem Limb pain (07438048) Limb pain (729.5) Active confirmed Problem Low back pain (696012324) Low back pain (724.2) Active confirmed Problem Long-term drug therapy (797034626) LONG-TERM USE MEDS NEC (V58.69) Active confirmed r/o substance abuse Problem Anxiety state (024083958) Anxiety State, other, specified: procedure related (300.09) Active confirmed Problem Enthesopathy of hip region (69973905) piriformis (726.5) Active confirmed Problem Solitary sacroiliitis (724236847) Sacroiliitis, not elsewhere classified (M46.1) Active confirmed Problem Low back pain (063394601) Low back pain (M54.5) Active confirmed Problem Lumbosacral spondylosis without myelopathy (68054694) Spondylosis without myelopathy or radiculopathy, lumbar region (M47.816) Active confirmed Problem Hypersomnia (10762697) Hypersomnia, unspecified (G47.10) Active confirmed Problem Radiculopathy due to lumbar intervertebral disc disorder (428947722259969 ) Intervertebral disc disorders with radiculopathy, lumbar region (M51.16) Active confirmed Problem Myalgia (21227749) Myalgia (M79.1) Active confirmed Problem Pain in limb (27468471) Pain in leg, unspecified (M79.606) Active confirmed Plan Of Treatment No Information Insurance Providers Payer Name Payer Address Payer Phone Subscriber Number Group Number Insured Name Patient Relationship to Insured Coverage Start Date Coverage End Date [place] [employer] [address] [place] [address] [id number] Luli Rios Self - patient is the insured Medical (General) History Medical History History ICD Code Lumbar radiculopathy Right hand pain Left knee pain Hypertension Myocardial infarction x 2 Chronic obstructive pulmonary disease Gastroesophageal reflux disease Endometriosis Osteoarthritis Hypoglycemia Parkinson's disease (dx'd 2011) Otitis media, frequent Amyloidosis Sinusitis Uterine cancer Anxiety disorder Depression, major Insomnia Bipolar Surgical History Surgery Date(Month/Year) Cholecystectomy 2009 Hysterectomy, partial 2006 Tonsillectomy Partial left upper lung removed Paratube placement 2011 Hospitalization History Reason Date(Month/Year)
--- OUTSIDE RECORDS SUMMARY | 2025-03-14 11:33 | XMS_ITS | Encounter Summary ---
Author Organization [facility] Address [address] [place] [address] Care Team Providers Care Coloring Checker Name Role Phone Arash Hooper MD Primary Care Provider Encounter Details Date Type Department Care Team (Latest Contact Info) Description 11/13/2005 Outpatient Historical [facility] [address] 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 CLINICAL HISTORY: Upper abdominal pain. COMPARISONS: None. FINDINGS: The liver is of normal size and echotexture. No focal hepatic lesions or perihepatic fluid collections are identified. There is no evidence for intra- or extrahepatic biliary dilatation. Common bile duct measures 4.4 mm in diameter, which is normal. In the gallbladder, there is a 1.2-mm focus possibly consistent with small polyp versus adherent stone. No gallbladder wall thickening, sludge, or pericholecystic fluid noted. Negative sonographic Gallo's sign is noted. Right kidney is unremarkable and measures 10.5 cm in length, which is normal. The head, body, and tail of the pancreas appear within normal limits. IMPRESSION: Tiny focus within the gallbladder, likely small polyp versus adherent stone. Clinical correlation suggested. massimo Dictated By: Thom Esparza M.D., Ph.D. Electronically Signed By: Thom Esparza M.D., Ph.D. Date Signed: 11/18/05 JAW Procedure Note 07/13/2009 RIGHT UPPER QUADRANT ULTRASOUND DATE: 11/13/2005. CLINICAL HISTORY: Upper abdominal pain. COMPARISONS: None. FINDINGS: The liver is of normal size and echotexture. No focal hepatic lesions orperihepatic fluid collections are identified. There is no evidence for intra- or extrahepatic biliarydilatation. Common bile duct measures 4.4 mm in diameter, which is normal. In the gallbladder, thereis a 1.2- mm focus possibly consistent with small polyp versus adherent stone. No gallbladder wallthickening, sludge, or pericholecystic fluid noted. Negative sonographic Gallo's sign is noted.Right kidney is unremarkable and measures 10.5 cm in length, which is normal. The head, body, and tailof the pancreas appear within normal limits. IMPRESSION: Tiny focus within the gallbladder, likely small polyp versus adherentstone. Clinical correlation suggested. massimo Dictated By: Tohm Esparza M.D., Ph.D. Electronically Signed By: Thom Esparza M.D., Ph.D. Date Signed: 11/18/05 MASSIMO us Historical Provider US ORDERABLES Final Result documented in this encounter Visit Diagnoses Diagnosis Unspecified disorder of gallbladder- Primary documented in this encounter Care Teams Coloring Checker Relationship Specialty Start Date End Date Arash Hooper MD [address] [place] [address] PCP - General 06/12/09 documented as of this encounter
--- OUTSIDE RECORDS SUMMARY | 2025-03-14 11:33 | XMS_ITS | Encounter Summary ---
Author Organization [facility] Address [address] [place] [address] Care Team Providers Care Play Back Operator Name Role Phone Arash Hooper MD Primary Care Provider [phone] Encounter Details Date Type Department Care Team (Late st Contact Info) Description 05/16/2006 Inpatient Historical [facility] Gonzalez Shabazz MD [facility] [address] Digestive System Complication (Primary Dx) Social History Tobacco Use Types Packs/Day Years Used Date Smoking Tobacco: Never Assessed Comments Unknown Sex and Gender Information Value Date Recorded Sex Assigned at Not on file 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 Gender Identity Not on file Sexual Orientation Not on file documented as of this encounter Plan of Treatment Not on file documented as of this encounter Procedures Procedure Name Priority Date/Time Associated Diagnosis Comments PT AND APTT Routine 05/17/2006 2:24 PM CDT CBC WITH DIFFERENTIAL Routine 05/17/2006 3:45 AM CDT HEPATIC FUNCTION PANEL Routine 6 3:45 AM CDT XR ERCP BILIARY AND PANCREATIC Routine 05/16/2006 10:29 PM CDT NM HEPATOBILIARY SCAN Routine 05/16/2006 10:29 PM CDT documented in this encounter Results * (ABNORMAL) PT AND APTT (05/17/2006 2:24 PM CDT) PROTIME 14.7 12.6 - 14.9 Secs INTERFACE SYSTEM Comment: As of 05 note change in normal range. INR 1.1 INTERFACE SYSTEM Comment: Expected Values for INR: DVT/PE Goal INR 2.5; range 2.0 - 3.0 Valve Replacement Tissue Goal INR 2.5; range 2.0 - 3.0 Mechanical Goal INR 3.0; range 2.5 - 3.5 POST-VA Goal INR 2.5; range 2.0 - 3.0 or Goal 3.0; range 2.5 - 3.5 Atrial Fibrillation Goal INR 2.5; range 2.0 - 3.0 Ischemic Stroke Goal INR 2.5; range 2.0 - 3.0 For additional information see Guidelines for Anticoagulation available from the pharmacy [facility]eb[facility] A[facility] PTT 37.4(H) 21.5 - 34.4 Secs INTERFACE SYSTEM Comment: Therapeutic Range: Hi-level PE/DVT heparin protocol 90.1 -110 sec Lo-level PE/DVT heparin protocol 75.1 - 95 sec Cardiac Heparin Protocol 85.1 - 100 sec Neuro Heparin Protocol 70.1 - 85 sec As of 09/17/05 note change in APTT Normal Range. 05/17/2006 2:24 PM CDT Result [facility] Trevor Shabazz MD HEMATOLOGY ORDERABLES Final Result INTERFACE SYSTEM Refer to clinic/hospital department * (ABNORMAL) CBC WITH DIFFERENTIAL (05/17/2006 3:45 AM CDT) WBC 7.8 4.5 - 11.0 K/ul INTERFACE SYSTEM RBC 3.82(L) 4.20 - 5.40 Mil/ul INTERFACE SYSTEM HEMOGLOBIN 11.6(L) 12.0 - 16.0 g/dL INTERFACE SYSTEM HEMATOCRIT 34.5(L) 36.0 - 46.0 % INTERFACE SYSTEM MCV 90.3 84.0 - 103.0 Fl INTERFACE SYSTEM MCH 30.4 27.0 - 34.0 pg INTERFACE SYSTEM MCHC 33.6 30.0 - 35.0 g/dL INTERFACE SYSTEM RDW 13.2 11.0 - 14.5 % INTERFACE SYSTEM PLATELETS 189 140 - 440 K/ul INTERFACE SYSTEM MPV 11.1 8.9 - 12.8 Fl INTERFACE SYSTEM NEUTROPHILS 62.5 42.2 - 75.2 % INTERFACE SYSTEM LYMPHOCYTES 27.1 24.0 - 44.0 % INTERFACE SYSTEM MONOCYTES 6.8 2.0 - 10.0 % INTERFACE SYSTEM EOSINOPHILS 3.2 0.0 - 7.0 % INTERFACE SYSTEM BASOPHILS 0.4 0.0 - 1.0 % INTERFACE SYSTEM NEUTROPHIL ABSOLUTE 4.9 2.0 - 8.0 K/uL INTERFACE SYSTEM LYMPHOCYTE ABSOLUTE 2.1 1.2 - 4.0 K/ul INTERFACE SYSTEM MONOCYTE ABSOLUTE 0.5 0.1 - 0.6 K/ul INTERFACE SYSTEM EOSINOPHIL ABSOLUTE 0.3 0.0 - 0.7 K/ul INTERFACE SYSTEM BASOPHILS ABSOLUTE 0.0 0.0 - 0.2 K/ul INTERFACE SYSTEM 05/17/2006 3:45 AM CDT [facility] Trevor Shabazz MD HEMATOLOGY ORDERABLES Final Result INTERFACE SYSTEM Refer to clinic/hospital department * (ABNORMAL) HEPATIC FUNCTION PANEL (05/17/2006 3:45 AM CDT) TOTAL PROTEIN 6.2(L) 6.3 - 8.2 g/dL INTERFACE SYSTEM ALBUMIN 3.6 3.5 - 5.0 g/dL INTERFACE SYSTEM ALKALINE PHOSPHATASE 168(H) 25 - 100 U/L INTERFACE SYSTEM Comment: As of 05 the [employer] [facility] has changed testing methods. The new reference range is 25-100 The old referance range was 38-126 AST 167(H) 8 - 33 U/L INTERFACE SYSTEM Comment: As of 05 the [employer] [facility] has changed testing methods. The new reference range is 8-33 The old referance range was Males 17-59 Females 14-36 ALT 417(H) 4 - 36 IU/L INTERFACE SYSTEM Comment: As of 05 the [employer] [facility] has changed testing methods. The new reference range is 4-36 The old referance range was Males 21-72 Females 9-52 BILIRUBIN DIRECT 0.6(H) 0.0 - 0.4 mg/dL INTERFACE SYSTEM BILIRUBIN TOTAL 1.1 0.3 - 1.2 mg/dL INTERFACE SYSTEM Comment: As of [address] [facility] has changed testing methods. The new reference range is 0.3-1.2 The old referance range was 0.2-1.4 05/17/2006 3:45 AM CDT [facility] Trevor Shabazz MD CHEMISTRY ORDERABLES Final R esult INTERFACE SYSTEM Refer to clinic/hospital department * XR ERCP BILIARY AND PANCREATIC (05/16/2006 10:29 PM CDT) Anatomical Region Laterality Modality Abdomen Other 05/16/2006 10:2 9 PM CDT Narrative 05/16/2006 10:29 PM CDT ERCP With Films And Fluoro Tube: 05/17/2006 at 1516Comparisons: None. Findings: Seven spot images from an ERCP performed by Dr. Pj Locke are provided for review. On mostof the images, a radiopaque endoscope is identified with cannulation of the distal common bileduct. Surgical clips are present on the proximal end of the cystic duct remnant. On the secondthrough fifth images, contrast is seen accumulating in the region of the gallbladder fossaworrisome for a leak. No filling defects, obstructing, or constricting lesions noted. On the lasttwo images, there is interval placement of an internal biliary stent. - Dictated By: Thom Esparza M.D., Ph.D. Electronically Signed By: Thom Esparza M.D., Ph.D. Date Signed: 05/17/06 Procedure Note 07/13/2009 ERCP With Films And Fluoro Tube: 05/17/2006 at 1516Comparisons: None. Findings: Seven spot images from an ERCP performed by Dr. Pj Locke are providedfor review. On mostof the images, a radiopaque endoscope is identified with cannulation of the distalcommon bileduct. Surgical clips are present on the proximal end of the cystic duct remnant. On thesecondthrough fifth images, contrast is seen accumulating in the region of the gallbladder fossaworrisome for aleak. No filling defects, obstructing, or constricting lesions noted. On the lasttwo images, thereis interval placement of an internal biliary stent. - Dictated By: Thom Esparza M.D., Ph.D. Electronically Signed By: Thom Esparza M.D., Ph.D. Date Signed: 05/17/06 us Constantino Locke MD DIAGNOSTIC IMAGING ORDERABLES Final Result * NM HEPATOBILIARY SCAN (05/16/2006 10:29 PM CDT) Anatomical Region Laterality Modality Abdomen Other 05/16/2006 10:2 9 PM CDT Narrative 05/16/2006 10:29 PM CDT Hepatobiliary Imaging: Radiopharmaceutical: Tc-99m (technetium-99m) mebrofeninDose: 5.1 mCiReason for Consultation: Status post laparoscopic cholecystectomy 4 days ago. Abdominal pain. Evaluation for a bile leak. The liver, hepatobiliary tree, and abdomen were sequentially imaged through 60 minutes post traceradministration. The initial tracer extraction from the blood pool by the liver appears prompt. . The liver is overallnormal in size with uniform tracer distribution throughout both lobes in the anterior projection. The common bile duct is visualized by approximately 15 minutes. At that point there is obviousextravasation of tracer from the connor hepatis region over the anterior surface of the liver andinto the upper abdomen. There does appear to be tracer excretion into the bowel lumen by at least45 minutes. The gallbladder is not visualized. Tracer washout from liver appears normal. Impression: There is evidence for what appears to be a bile leak that has a somewhat atypical appearance andpattern. The common bile duct is also grossly patent. - Dictated By: Oliver Ramirez M.D. Electronically Signed By: Oliver Ramirez M.D. Date Signed: 05/17/06 Procedure Note 07/13/2009 Hepatobiliary Imaging: Radiopharmaceutical: Tc-99m (technetium-99m) mebrofeninDose: 5.1 mCiReason for Consultation: Status post laparoscopic cholecystectomy 4 days ago. Abdominal pain. Evaluation for a bile leak. The liver, hepatobiliary tree, and abdomen were sequentially imagedthrough 60 minutes post traceradministration. The initial tracer extraction from the blood pool by the liver appearsprompt. . The liver is overallnormal in size with uniform tracer distributionthroughout both lobes in the anterior projection. The common bile duct is visualized by approximately 15 minutes. At thatpoint there is obviousextravasation of tracer from the connor hepatis region over theanterior surface of the liver andinto the upper abdomen. There does appear to be tracer excretion intothe bowel lumen by at least45 minutes. The gallbladder is not visualized. Tracer washout from liverappears normal. Impression: There is evidence for what appears to be a bile leak that has a somewhatatypical appearance andpattern. The common bile duct is also grossly patent. - Dictated By: Oliver Ramirez M.D. Electronically Signed By: Oliver Ramirez M.D. Date Signed: 05/17/06 [facility] Trevor Shabazz MD [place] ORDERABLES Final Result documented in this encounter Visit Diagnoses Diagnosis Digestive system complication- Primary documented in this encounter Care Teams Play Back Operator Relationship Specialty Start Date End Date Arash Hooper MD [address] [place] [address] PCP - General 06/12/09 documented as of this encounter
--- OUTSIDE RECORDS SUMMARY | 2025-03-14 11:34 | XMS_ITS | Encounter Summary ---
Author Organization [facility] Address [address] [place] [address] Care Team Providers Care E Commerce Marketing Analyst Name Role Phone Arash Hooper MD Primary Care Provider [phone] Encounter Details Date Type Department Care Team (Latest Contact Info) Description 01/15/2004 Outpatient Historical [facility] [address] [place] [address] Kianna Mao MD [address] [place] [address] OT NONSPEC ABNL PAP SMEAR CERVIX (Primary Dx) Social History Tobacco Use Types Packs/Day Years Used Date Smoking Tobacco: Never Assessed Comments Unknown Sex and Gender Information Value Date Recorded Sex Assigned at Not on file 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
--- OUTSIDE RECORDS SUMMARY | 2025-03-14 11:34 | XMS_ITS | Encounter Summary ---
Author Organization [facility] Address [address] [place] [address] Care Team Providers Care Glass Ribbon Machine Operator Assistant Name Role Phone Arash Hooper MD Primary Care Provider [phone] Encounter Details Date Type Department Care Team (Latest Contact Info) Description 01/15/2004 Outpatient Historical [facility] [employer] [address] [place] [address] Kianna Mao MD [address] [place] [address] [place] IN SITU CERVIX UTERI (Primary Dx) Social History Tobacco Use Types Packs/Day Years Used Date Smoking Tobacco: Never Assessed Comments Unknown Sex and Gender Information Value Date Recorded Sex Assigned at Not on file 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
--- OUTSIDE RECORDS SUMMARY | 2025-03-14 11:34 | XMS_ITS | Encounter Summary ---
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) Social History Tobacco Use Types Packs/Day Years Used Date Smoking Tobacco: Every Day Cigarettes 0.1 30 Smokeless Tobacco: Never Alcohol Use Standard Drinks/Week Comments No 0 (1 standard drink = 0.6 oz pur e alcohol) Comments No Sex and Gender Information Value Date Recorded Sex Assigned at Not on file 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 Gender Identity Not on file Sexual Orientation Not on file Occupation Industry Job Start Date Job End Date Not on file Not on file Not on file Not on file documented as of this encounter Plan of Treatment Not on file documented as of this encounter Visit Diagnoses Diagnosis Lack of coordination- Primary 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
--- OUTSIDE RECORDS SUMMARY | 2025-03-14 11:34 | XMS_ITS | Encounter Summary ---
Author Organization [facility] Address [address] [place] [address] Care Team Providers Care Social Service Assistant Name Role Phone Arash Hooper MD Primary Care Provider Encounter Details Date Type Department Care Team (Latest Contact Info) Description 05/08/2006 Outpatient Historical [facility] Services [address] [place] [phone] Jak Terry MD NO ADDRESS ON FILE Unspecified Congenital Cystic Kidney Disease (Primary Dx) Social History Tobacco Use Types Packs/Day Years Used Date Smoking Tobacco: Never Assessed Comments Unknown Sex and Gender Information Value Date Recorded Sex Assigned at Not on file 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
--- OUTSIDE RECORDS SUMMARY | 2025-03-14 11:34 | XMS_ITS | Encounter Summary ---
Author Organization [facility] Address [address] [place] [address] Care Team Providers Care Abrasive Mixer Helper Name Role Phone Arash Hooper MD Primary Care Provider [phone] Encounter Details Date Type Department Care Team (Late st Contact Info) Description 05/08/2006 Outpatient Historical [facility] Gen Spec Surg [place] [address] [facility] [address] [place] [address] Jak Terry MD NO ADDRESS ON FILE Abdominal Pain, Unspecified Site (Primary Dx) Social History Tobacco Use Types Packs/Day Years Used Date Smoking Tobacco: Never Assessed Comments Unknown Sex and Gender Information Value Date Recorded Sex Assigned at Not on file 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
--- OUTSIDE RECORDS SUMMARY | 2025-03-14 11:34 | XMS_ITS | Encounter Summary ---
Author Organization [facility] Address [address] [place] [address] Care Team Providers Care Entry Level Automotive Technician Name Role Phone Arash Hooper MD Primary Care Provider [phone] Encounter Details Date Type Department Care Team (Late st Contact Info) Description 05/06/2006 Emergency [facility] Emergency Department [address] [place] [id number] Rajesh Mccoy, [address] [place] [address] Calculus of GB w/o Cystitis/Obst (Primary Dx) Social History Tobacco Use Types Packs/Day Years Used Date Smoking Tobacco: Never Assessed Comments Unknown Sex and Gender Information Value Date Recorded Sex Assigned at Not on file 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 Gender Identity Not on file Sexual Orientation Not on file documented as of this encounter Plan of Treatment Not on file documented as of this encounter Procedures Procedure Name Priority Date/Time Associated Diagnosis Comments CBC WITH DIFFERENTIAL Routine 05/06/2006 4:54 PM CDT LIPASE Routine 05/06/2006 4:54 PM CDT AMYLASE Routine 05/06/2006 4:54 PM CDT COMPREHENSIVE METABOLIC PANEL Routine 05/06/2006 4:54 PM CDT US RIGHT UPR QUADRANT Routine 05/06/2006 4:01 PM CDT documented in this encounter Results * AMYLASE (05/06/2006 4:54 PM CDT) AMYLASE 49 20 - 104 U/L INTERFACE SYSTEM Comment: As of 05 the [facility] has changed testing methods. The new reference range is 20-104 The old referance range was 30-120 05/06/2006 4:54 PM CDT Rajesh Mccoy DO CHEMISTRY ORDERABLES Fi nal Result Performing Organization Address City/[facility]/ZIP Co de Phone Number INTERFACE SYSTEM Refer to clinic/hospital department * LIPASE (05/06/2006 4:54 PM CDT) Pathologist [facility] LIPASE 22 6 - 51 U/L INTERFACE SYSTEM Comment: As of 05 the [facility] has changed testing methods. The new reference range is 6-51 The old referance range was 23-300 05/06/2006 4:54 PM CDT Rajesh Mccoy DO CHEMISTRY ORDERABLES Fi nal Result Performing Organization Address [facility] Co de Phone Number INTERFACE SYSTEM Refer to clinic/hospital department * (ABNORMAL) COMPREHENSIVE METABOLIC PANEL (05/06/2006 4:54 PM CDT) GLUCOSE 111(H) 70 - 110 mg/dL INTERFACE SYSTEM BUN 17 7 - 17 mg/dL INTERFACE SYSTEM CREATININE 0.9 0.7 - 1.2 mg/dL INTERFACE SYSTEM SODIUM 140 136 - 145 mEq/L INTERFACE SYSTEM POTASSIUM 4.2 3.5 - 5.0 mEq/L INTERFACE SYSTEM Comment:Specimen slightly he molyzed CHLORIDE 112(H) 95 - 110 mEq/L INTERFACE SYSTEM CO2 26 22 - 32 mmol/l INTERFACE SYSTEM ANION GAP 6(L) 9 - 20 mEq/L INTERFACE SYSTEM OSMOLALITY, CALCULATED 290 275 - 295 mOsm/Kg INTERFACE SYSTEM CALCIUM 9.9 8.4 - 10.5 mg/dL INTERFACE SYSTEM TOTAL PROTEIN 7.0 6.3 - 8.2 g/dL INTERFACE SYSTEM ALBUMIN 4.3 3.5 - 5.0 g/dL INTERFACE SYSTEM GLOBULIN (CALC) 2.7 2.4 - 3.9 g/dL INTERFACE SYSTEM ALBUMIN/GLOBULIN RATIO 1.6 1.0 - 2.3 INTERFACE SYSTEM ALKALINE PHOSPHATASE 46 25 - 100 U/L INTERFACE SYSTEM Comment: As of 05 the [facility] has changed testing methods. The new reference range is 25-100 The old referance range was 38-126 AST 19 8 - 33 U/L INTERFACE SYSTEM Comment: As of 05 the [facility] has changed testing methods. The new reference range is 8-33 The old referance range was Males 17-59 Females 14-36 ALT 16 4 - 36 IU/L INTERFACE SYSTEM Comment: As of 05 the [facility] has changed testing methods. The new reference range is 4-36 The old referance range was Males 21-72 Females 9-52 BILIRUBIN TOTAL 0.2(L) 0.3 - 1.2 mg/dL INTERFACE SYSTEM Comment: As of 05 the [facility] has changed testing methods. The new reference range is 0.3-1.2 The old referance range was 0.2-1.4 05/06/2006 4:54 PM CDT Rajesh Mccoy DO CHEMISTRY ORDERABLES Fi nal Result INTERFACE SYSTEM Refer to clinic/hospital department * (ABNORMAL) CBC WITH DIFFERENTIAL (05/06/2006 4:54 PM CDT) WBC 11.2(H) 4.5 - 11.0 K/ul INTERFACE SYSTEM RBC 4.43 4.20 - 5.40 Mil/ul INTERFACE SYSTEM HEMOGLOBIN 13.9 12.0 - 16.0 g/dL INTERFACE SYSTEM HEMATOCRIT 40.4 36.0 - 46.0 % INTERFACE SYSTEM MCV 91.2 84.0 - 103.0 Fl INTERFACE SYSTEM MCH 31.4 27.0 - 34.0 pg INTERFACE SYSTEM MCHC 34.4 30.0 - 35.0 g/dL INTERFACE SYSTEM RDW 13.7 11.0 - 14.5 % INTERFACE SYSTEM PLATELETS 179 140 - 440 K/ul INTERFACE SYSTEM MPV 11.1 8.9 - 12.8 Fl INTERFACE SYSTEM NEUTROPHILS 44.2 42.2 - 75.2 % INTERFACE SYSTEM LYMPHOCYTES 43.9 24.0 - 44.0 % INTERFACE SYSTEM MONOCYTES 9.1 2.0 - 10.0 % INTERFA CE SYSTEM EOSINOPHILS 2.2 0.0 - 7.0 % INTERF MARTIR SYSTEM BASOPHILS 0.6 0.0 - 1.0 % INTERFAC E SYSTEM NEUTROPHIL ABSOLUTE 5.0 2.0 - 8.0 K/uL INTERFACE SYSTEM LYMPHOCYTE ABSOLUTE 4.9(H) 1.2 - 4.0 K/ul INTERFACE SYSTEM MONOCYTE ABSOLUTE 1.0(H) 0.1 - 0.6 K/ul INTERFACE SYSTEM EOSINOPHIL ABSOLUTE 0.3 0.0 - 0.7 K/ul INTERFACE SYSTEM BASOPHILS ABSOLUTE 0.1 0.0 - 0.2 K/ul INTERFACE SYSTEM PERIPHERAL BLOOD SMEAR REVIEW Automated Diff Automated Diff INTERFACE SYSTEM 05/06/2006 4:54 PM CDT Rajesh Mccoy DO HEMATOLOGY ORDERABLES F inal Result INTERFACE SYSTEM Refer to clinic/hospital department * US RIGHT UPR QUADRANT (05/06/2006 4:01 PM CDT) Anatomical Region Laterality Modality Abdomen Other 05/06/2006 4:01 PM CDT Narrative 05/06/2006 4:01 PM CDT Ultrasound Examination - Right Upper Quadrant. Findings: Gallbladder shows no evidence of echogenic or shadowing defects. No wall thickening isnoted. Gallbladder wall measures 1.9 mm in maximal thickness. Common bile duct is normal at 6.0 mm. No intrahepatic ductal dilatation is noted. Right kidney measures 11.4 cm in length. No hydronephrosis is noted. A small right renal cortical cystis present. Impression: Unremarkable study. - Dictated By: Justo Calderon M.D. Electronically Signed By: Justo Calderon M.D. Date Signed: 05/06/06 AMA Procedure Note 07/13/2009 Ultrasound Examination - Right Upper Quadrant. Findings: Gallbladder shows no evidence of echogenic or shadowing defects. No wallthickening isnoted. Gallbladder wall measures 1.9 mm in maximal thickness. Common bile duct is normal at6.0 mm. No intrahepatic ductal dilatation is noted. Right kidney measures 11.4 cm in length. No hydronephrosis is noted. Asmall right renal cortical cystis present. Impression: Unremarkable study. - Dictated By: Justo Calderon M.D. Electronically Signed By: Justo Calderon M.D. Date Signed: 05/06/06 AMA Rajesh Mccoy DO US ORDERABLES Final R esult documented in this encounter Visit Diagnoses Diagnosis Calculus of gallbladder without mention of cholecystitis or obstruction- Primary documented in this encounter Care Teams Entry Level Automotive Technician Relationship Specialty Start Date End Date Arash Hooper MD [address] [place] [address] PCP - General 06/12/09 documented as of this encounter
--- OUTSIDE RECORDS SUMMARY | 2025-03-14 11:34 | XMS_ITS | Encounter Summary ---
Author Organization [facility] Address [address] [place] [address] Care Team Providers Care Oracle Apex Developer Name Role Phone Arash Hooper MD Primary Care Provider Encounter Details Date Type Department Care Team (Latest Contact Info) Description 04/30/2006 Outpatient Historical [facility] Gen Spec Surg [place] 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
--- OUTSIDE RECORDS SUMMARY | 2025-03-14 11:34 | XMS_ITS | Encounter Summary ---
Author Organization [facility] Address [address] 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
--- OUTSIDE RECORDS SUMMARY | 2025-03-14 11:34 | XMS_ITS | Encounter Summary ---
Author Organization [facility] Address [address] [place] [address] Care Team Providers Care Retort Firer Name Role Phone Arash Hooper MD Primary Care Provider [phone] Encounter Details Date Type Department Care Team (Latest Contact Info) Description 05/13/2006 Outpatient Historical [facility] [address] [phone] Gonzalez Shabazz MD [address] [place] [id number] Chronic Cholecystitis (Primary Dx) Social History Tobacco Use Types Packs/Day Years Used Date Smoking Tobacco: Never Assessed Comments Unknown Sex and Gender Information Value Date Recorded Sex Assigned at Not on file 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
--- OUTSIDE RECORDS SUMMARY | 2025-03-14 11:34 | XMS_ITS | Encounter Summary ---
Author Organization [facility] Address [address] [place] [address] Care Team Providers Care Bias Cutting Machine Operator Vertical Name Role Phone Arash Hooper MD Primary Care Provider [phone] Encounter Details Date Type Department Care Team (Latest Contact Info) Description 05/11/2006 Outpatient Historical [facility] Gen Spec Surg [place] [address] [place] [address] Gonzalez Shabazz MD 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
[2025-03-14 11:35] LABS: Alanine Aminotransferase 8 U/L (0-33); Albumin Level 3.9 g/dL (3.5-5.2); Alkaline Phosphatase 72 U/L (35-105); Anion Gap 17.6 (5-19); Aspartate Amino Transferase 13 U/L (0-32); Blood Urea Nitrogen 18 mg/dL (8-23); Calcium 9.6 mg/dL (8.5-10.5); Carbon Dioxide 22 mmol/L (22-29); Chloride 102 mmol/L (98-107); Creatinine Clr Calc Pharmacy 72.6774; Globulin 3.3 g/dL (1.3-4.6); Glucose 100 mg/dL (65-115); Osmolality Calculated 286 mOsm/kg (285-295); Potassium 4.6 mmol/L (3.5-5.1); Sodium 137 mmol/L (136-145); Total Protein 7.2 g/dL (6.6-8.7)
[2025-03-14 11:42] LABS: Procalcitonin 0.09 ng/mL (0-0.5)
[2025-03-14 11:44] VITALS: PULSE 76; RESP 24; O2SAT 96
[2025-03-14 11:52] VITALS: PULSE 77
[2025-03-14 12:02] LABS: Respiratory Syncytial Virus Ce NEGATIVE (Negative); SARS-CoV-2 PCR NEGATIVE (Negative)
[2025-03-14 12:29] VITALS: BP 139/92; PULSE 81; O2SAT 96
[2025-03-14 12:31] VITALS: BP 132/92; PULSE 81; O2SAT 96
--- NOTE | 2025-03-15 12:45 | PC.NURSE ---
Pulm referral sent.
== END 2025-03-14 12:41 | disposition home or self-care (01) ==
PROVIDERS: Emergency Provider Physician Assistant; PCP Nurse Practitioner
DX: J44.1 Chronic obstructive pulmonary disease with (acute) exacerbation (principal); Z11.52 Encounter for screening for COVID-19; I50.20 Unspecified systolic (congestive) heart failure
CPT/HCPCS: 71045; 80053; 84145; 85025; 87637; 94640; 96374; 99284; J2919; J9999

== ENCOUNTER 2025-04-03 08:57 | Emergency (ER) | payer OTHER, MEDICAID, SELFPAY ==
[2025-04-03 09:08] VITALS: BP 147/84; PULSE 102; RESP 18; TEMP 36.7; O2SAT 94; BMI 18.1
--- NOTE | 2025-04-03 09:17 | XRR_ITS ---
PROCEDURE INFORMATION: Exam: XR Chest Exam date and time: 04/03/2025 9:21 AM Age: 59 years old Clinical indication: Cough; Prior surgery; Surgery date: 6+ months; Surgery type: Lt upper lobectomy; HX of uterine cancer TECHNIQUE: Imaging protocol: Radiologic exam of the chest. Views: 1 view. COMPARISON: CR XR chest 1V portable [id number] 03/14/2025 11:10 AM FINDINGS: Lungs: There is a background of emphysema mild pulmonary fibrosis. Compared with 03/14/2025, there may be a slight increase in the interstitial opacities in the lower wilbert thoraces, finding that could represent atelectasis versus bilateral basilar pneumonitis. Mild pulmonary edema could have this appearance. Pleural spaces: Unremarkable. No pleural effusion. No pneumothorax. Heart/Mediastinum: Unremarkable. No cardiomegaly. Bones/joints: Unremarkable. XR/XR chest 1V portable [id number] IMPRESSION: Subtle increased haziness is seen in the lower wilbert thoraces compared with 03/14/2025, finding that could represent minor basilar pneumonitis or mild pulmonary edema.
--- NOTE | 2025-04-03 09:19 | ED_ITS ---
HPI - GI Bleed 2 General: Chief complaint: GI Bleed Stated complaint: bloody stool Time Seen by Provider: 04/03/25 09:03 Source: patient Mode of arrival: ambulatory Limitations: no limitations History of Present Illness: 59-year-old female who states that she h ad a hard bowel movement on Thursday and since then she did have some rectal pain along with rectal bleeding she states its mainly when she goes to the bathroom it has been bright red blood. She had a colonoscopy a year ago and had polyps removed she denies any severe pain she states she also has had a slight cough but no increased shortness of breath or fevers Associated symptoms: Denies abdominal pain, chills, fever(s), headache(s), nausea, rash or vomiting Related Data Home Medications ?Medication ?Instructions ?Recorded ?Confirmed albuterol sulfate 90 mcg/actuation 2 inh inhalation Q4 H PRN shortness 08/16/24 12/26/24 aerosol inhaler (Ventolin HFA) of breath or wheezing ipratropium 0.5 mg-albuterol 3 mg 3 ml inhalation Q6H 08/16/24 12/26/24 (2.5 mg base)/3 mL nebulization soln sacubitril 49 mg-valsartan 51 mg 1 tab PO BID 08/16/24 12/26/24 tablet (Entresto) dapagliflozin propanediol 10 mg 10 mg PO DAILY 5 12/26/24 tablet (Farxiga) Previous Rx's ?Medication ?Instructions ?Recorded pantoprazole 40 mg tablet,delayed 40 mg PO BID 14 days #28 tabs 06/20/22 release (Protonix) cock up splint #1 ea 03/31/23 Volar Blocking Splint #1 ea 04/17/23 isosorbide mononitrate 30 mg 15 mg (1/2 x 30 mg) PO DA MALLIKA #90 06/02/24 tablet,extended release 24 hr tabs metoprolol succinate 25 mg 25 mg PO DAILY #90 tabs tablet,extended release 24 hr nitroglycerin 0.4 mg sublingual See Rx Instructions .R oute 03/10/25 tablet .COMPLEX #25 tabs prednisone 50 mg tablet 50 mg PO DAILY 5 days #5 tab s 03/14/25 cephalexin 500 mg capsule 500 mg PO TID 7 days #21 cap s 04/03/25 Allergies Allergy/AdvReac Type Severity Reaction Status Date / Time doxycycline Allergy Mild ADR-Nausea Verified 12/26/24 12:41 Iodinated Contrast Media Allergy burning, Verified 12/26/24 12:41 itch, throat swelling morphine Allergy RASH Verified 12/26/24 12:41 Penicillins Allergy ALGY-Anaphy Verified 12/26/24 12:41 laxis Review of Systems 2 Const: Denies: fever(s), chills, body aches or change in appetite ENMT: Denies: throat pain or dental pain Card: Denies: chest pain Resp: Reports: non-productive cough; Denies: dyspnea GI: Reports: hematochezia; Denies: abdominal pain, nausea, vomiting or diarrhea Musc: Denies: neck pain or back pain Skin/Breast: Denies: rash Neuro: Denies: headache(s) PFSH ED 2 PFSH: Medical History Systolic CHF Melena GERD (gastroesophageal reflux disease) COVID-19 Incomplete bladder emptying Surgical History H/O esophagogastroduodenoscopy H/O ventral hernia repair History of colon resection History of lobectomy of lung History of colonoscopy History of appendectomy History of cholecystectomy History of hysterectomy Family History Father , AT 39 No problems noted. Mother Heart disease Social History Smoking and tobacco/nicotine status: current every day tobacco/nicotine user Alcohol intake: never Substance/Drug Use: never Marital status: Current occupational status: disabled Physical Exam 2 Const: COMMON NORMALS: no acute distress, patient oriented x3 and healthy appearing HENMT: COMMON NORMALS: normocephalic and atraumatic HEAD & SCALP: n ormocephalic and atraumatic Eye: COMMON NORMALS: conjunctivae normal CONJUNCTIVA: Yes conjunctivae normal Neck/C-Spine: COMMON NORMALS: full ROM and supple Chest: COMMONS NORMALS: normal inspection of the chest Resp: COMMON NORMALS: normal respiratory effort, No retractions, No use of accessory muscles and clear to auscultation bilaterally AUSCULTATION: clear to auscultation bilaterally Cardio: COMMON NORMALS: regular rate, regular rhythm and No murmurs present (Cardio) RATE: regular rate RHYTHM: regular rhythm GI: COMMON NORMALS: Normal to inspection, nondistended, normoactive bowel sounds present, Soft to palpation, non-tender and no masses PALPATION: Yes Soft to palpation OTHER: Anal fissure noted with some blood no dark tarry stool Extremity: COMMON NORMALS: normal to inspection and full ROM Neuro: COMMON NORMALS: patient oriented x3, moves all extremities and no focal motor deficits Psych: COMMON NORMALS: mental status grossly normal, Normal thought process present and cooperative THOUGHT PROCESS: Normal thought process present Skin: COMMON NORMALS: no rashes or lesions noted and no wounds GENERAL SKIN EXAM: no rashes or lesions noted Course 2 Vital Signs: Vital signs: Vital Signs Temperature 98.1 F 04/03/25 09:08 Pulse Rate 102 H 04/03/25 09:08 Respiratory Rate 18 04/03/25 09:08 Blood Pressure 147/84 04/03/25 09:08 Pulse Oximetry 94 04/03/25 09:08 Oxygen Delivery Me thod Nasal Cannula 04/03/25 09:08 Oxygen Flow Rate 2 04/03/25 09:08 MDM - GI Bleed Medical Decision Making Patient presents with rectal bleeding does have an anal fissure likely causing the bleeding. Also with mild cough no fever x-ray shows a possible pneumonia we will start her on antibiotics she is follow-up with her PCP return if worsening she understands agrees to plan. Medical Records I reviewed the patient's medical records. Lab Data I reviewed the patient's lab results. 04/03/25 09:20 04/03/25 09:20 Radiology Impressions Chest X-Ray 04/03/25 09:17 IMPRESSION: Subtle increased haziness is seen in the lower wilbert thoraces compared with 03/14/2025, finding that could represent minor basilar pneumonitis or mild pulmonary edema. Laboratory Results WBC 7.94 10^3/uL (3.29-11.43) 04/03/25 09:20 RBC 4.63 10^6/uL (3.85-5.65) 04/03/25 09:20 Hgb 13.70 g/dL (11.27-16.99) 04/03/25 09:20 Hct 41.3 % (36-47) 04/03/25 09:20 MCV 89.2 fl (85-98) 04/03/25 09:20 MCH 29.6 pg (27-33) 04/03/25 09:20 MCHC 33.2 g/dL (30-55) 04/03/25 09:20 RDW 15.7 % (12.1-15.1) H 04/03/25 09:20 Plt Count 371 10^3/cmm (157-399) 04/03/25 09:20 MPV 10.0 fL (7.4-10.4) 04/03/25 09:20 Neut % (Auto) 49.1 % 04/03/25 09:20 Lymph % (Auto) 38.5 % 04/03/25 09:20 Orange % (Auto) 6.7 % 04/03/25 09:20 Eos % (Auto) 4.3 % 04/03/25 09:20 Baso % (Auto) 1.3 % 04/03/25 09:20 Neut # (Auto) 3.90 10^3/uL (1.8-7.7) 04/03/25 09:20 Lymph # (Auto) 3.1 10^3/uL (0.8-4.8) 04/03/25 09:20 Orange # (Auto) 0.5 10^3/uL (0.2-0.9) 04/03/25 09:20 Eos # (Auto) 0.3 10^3/uL (0.0-0.8) 04/03/25 09:20 Baso # (Auto) 0.1 10^3/uL (0.0-0.1) 04/03/25 09:20 Nucleated RBC % (auto) 0 % 04/03/25 09:20 Nucleated RBCs # 0.0 /100WBC 04/03/25 09:20 PT 11.40 SECONDS (12.1-14.9) L 04/03/25 09:20 INR 0.78 (0.8-1.2) L 04/03/25 09:20 Sodium 143 mmol/L (136-145) 04/03/25 09:20 Potassium 4.5 mmol/L (3.5-5.1) 04/03/25 09:20 Chloride 105 mmol/L (98-107) 04/03/25 09:20 Carbon Dioxide 28 mmol/L (22-29) 04/03/25 09:20 Anion Gap 14.5 (5-19) 04/03/25 09:20 BUN 15 mg/dL (8-23) 04/03/25 09:20 Creatinine 0.8 mg/dL (0.5-0.9) 04/03/25 09:20 GFR Calculation 73.2 mL/min (90-130) L 04/03/25 09:20 Glucose 94 mg/dL (65-115) 04/03/25 09:20 Calculated Osmolality 297 mOsm/kg (285-295) H 04/03/25 09:20 Calcium 9.5 mg/dL (8.5-10.5) 04/03/25 09:20 Total Bilirubin 0.3 mg/dL (0.15-1.2) 04/03/25 09:20 AST 14 U/L (0-32) 04/03/25 09:20 ALT 10 U/L (0-33) 04/03/25 09:20 Alkaline Phosphatase 66 U/L (35-105) 04/03/25 09:20 Total Protein 7.5 g/dL (6.6-8.7) 04/03/25 09:20 Albumin 4.1 g/dL (3.5-5.2) 04/03/25 09:20 Globulin 3.4 g/dL (1.3-4.6) 04/03/25 09:20 Lipase 23 U/L (13-60) 04/03/25 09:20 All radiology interpretation(s) finalized by discharge Discharge Plan Discharge Patient Disposition: Home Clinical Impression: Anal fissure, Pneumonia Condition: Stable Prescriptions: New cephalexin 500 mg capsule 500 mg PO TID 7 Days Qty: 21 0RF No Action (DME) cock up splint See Rx Instructions .Route .MEDSUPPLY Qty: 1 0RF Rx Instructions: As directed pantoprazole [Protonix] 40 mg tablet,delayed release (DR/EC) 40 mg PO BID 14 Days Qty: 28 0RF (DME) Volar Blocking Splint See Rx Instructions .Route .MEDSUPPLY Qty: 1 0RF Rx Instructions: As directed isosorbide mononitrate 30 mg tablet extended release 24 hr 15 mg PO DAILY Qty: 90 3RF dapagliflozin propanediol [Farxiga] 10 mg tablet 10 mg PO DAILY metoprolol succinate 25 mg tablet extended release 24 hr 25 mg PO DAILY Qty: 90 3RF nitroglycerin 0.4 mg tablet, sublingual See Rx Instructions .ROUTE .COMPLEX Qty: 25 2RF Dose Instruction: DISSOLVE 1 TABLET UNDER THE TONGUE EVERY 5 MINUTES NEEDED CHEST PAIN Rx Instructions: DISSOLVE 1 TABLET UNDER THE TONGUE EVERY 5 MINUTES NEEDED CHEST PAIN albuterol sulfate [Ventolin HFA] 90 mcg/actuation HFA aerosol inhaler 2 inh INHALATION Q4H PRN (Reason: shortness of breath or wheezing) sacubitril-valsartan [Entresto] 49-51 mg tablet 1 tab PO BID ipratropium-albuterol 0.5 mg-3 mg(2.5 mg base)/3 mL solution for nebulization 3 ml INHALATION Q6H prednisone 50 mg tablet 50 mg PO DAILY 5 Days Qty: 5 0RF Discharge Orders: Discharge ED (Routine); Ordered 04/03/25 Ordered By: Ritesh Swenson Referrals: Lulu Briceno FNP [Primary Care Provider, Nurse Practitioner] Discharge Diet: Advance as tolerated Discharge Activity: Resume usual activity Patient Instructions: Anal Fissure (ED), Community Acquired Pneumonia (ED) Print Language: Lao Coding Level of Care Code ED Electric Distribution Engineer for Vicky Alegria
[2025-04-03 09:35] LABS: Hematocrit 41.3 % (36-47); Hemoglobin 13.70 g/dL (11.27-16.99); Mean Corpuscular HGB Conc 33.2 g/dL (30-55); Mean Corpuscular Hemoglobin 29.6 pg (27-33); Mean Corpuscular Volume 89.2 fl (85-98); Nucleated Red Blood Cells % 0 %; Platelet Count 371 10^3/cmm (157-399); Red Blood Count 4.63 10^6/uL (3.85-5.65); White Blood Count 7.94 10^3/uL (3.29-11.43)
[2025-04-03 09:45] LABS: INR 0.78 (0.8-1.2); Prothrombin Time 11.40 SECONDS (12.1-14.9)
[2025-04-03 09:52] LABS: Alanine Aminotransferase 10 U/L (0-33); Albumin Level 4.1 g/dL (3.5-5.2); Alkaline Phosphatase 66 U/L (35-105); Anion Gap 14.5 (5-19); Aspartate Amino Transferase 14 U/L (0-32); Blood Urea Nitrogen 15 mg/dL (8-23); Calcium 9.5 mg/dL (8.5-10.5); Carbon Dioxide 28 mmol/L (22-29); Chloride 105 mmol/L (98-107); Creatinine Clr Calc Pharmacy 61.4508; Globulin 3.4 g/dL (1.3-4.6); Glucose 94 mg/dL (65-115); Lipase 23 U/L (13-60); Osmolality Calculated 297 mOsm/kg (285-295); Potassium 4.5 mmol/L (3.5-5.1); Sodium 143 mmol/L (136-145); Total Protein 7.5 g/dL (6.6-8.7)
[2025-04-03 10:11] VITALS: BP 147/84; PULSE 97; O2SAT 93
--- OUTSIDE RECORDS SUMMARY | 2025-04-05 08:45 | XMS_ITS | Encounter Summary ---
Author Organization [facility] Address [address] [place] [address] Care Team Providers Care Claim Administrator Name Role Phone Arash Hooper MD Primary Care Provider [phone] Encounter Details Date Type Department Care Team (Late st Contact Info) Description 02/12/2004 Outpatient Historical [facility] [address] [place] [address] Social History Tobacco Use Types Packs/Day Years Used Date Smoking Tobacco: Never Assessed Comments Unknown Sex and Gender Information Value Date Recorded Sex Assigned at Not on file Legal Sex Female 4:06 AM MANAGER FORMS Gender Identity Not on file Sexual Orientation Not on file documented as of this encounter Plan of Treatment Not on file documented as of this encounter Visit Diagnoses Not on filedocumented in this encounter Care Teams Claim Administrator Relationship Specialty Start Date End Date Arash Hooper MD [facility] [place] [address] PCP - General 06/12/09 documented as of this encounter
--- OUTSIDE RECORDS SUMMARY | 2025-04-05 08:45 | XMS_ITS | Encounter Summary ---
Author Organization [facility] Address [address] [place] [address] Care Team Providers Care Market Consultant Name Role Phone Arash Hooper MD Primary Care Provider [phone] Encounter Details Date Type Department Care Team (Latest Contact Info) Description 07/01/2004 Outpatient Historical [facility]-[address] [place] [address] Kianna Mao MD [address] [place] [address] SURGERY FOLLOWUP, UNSPEC (Primary Dx); MENSTRUAL DISORDER NEC; DYSMENORRHEA; DYSPLASIA OF CERVIX NOS Social History Tobacco Use Types Packs/Day Years Used Date Smoking Tobacco: Never Assessed Comments Unknown Sex and Gender Information Value Date Recorded Sex Assigned at Not on file Legal Sex Female 4:06 AM FRONT OFFICE CLERK Gender Identity Not on file Sexual Orientation Not on file documented as of this encounter Plan of Treatment Not on file documented as of this encounter Visit Diagnoses Diagnosis Follow-up examination, following unspecified surgery- Primary Other disorder of menstruation and other abnormal bleeding from female genital tract Dysmenorrhea Dysplasia of cervix, unspecified documented in this encounter Care Teams Market Consultant Relationship Specialty Start Date End Date Arash Hooper MD [address], [place] [address] PCP - General 06/12/09 documented as of this encounter
--- OUTSIDE RECORDS SUMMARY | 2025-04-05 08:45 | XMS_ITS | Encounter Summary ---
Author Organization [facility] Address [address] [place] [address] Care Team Providers Care Internal Revenue Agent Name Role Phone Arash Hooper MD Primary Care Provider [phone] Reason for Referral * Outpatient Services (Routine) - Canceled Specialty Diagnoses / Procedures Referred By Tamara kwong Referred To Contact Diagnoses Lump or mass in breast Procedures MAMMO UNILATERAL ADDL VW LEFT Lulu Briceno NP [address] [place] [address] Phone: tel: fax: Referral ID Status Reason Start Date Expiration Date V isits Requested Visits Authorized [id number] Canceled 11/25/2010 05/24/2011 1 1 * Outpatient Services (Routine) - Closed Specialty Diagnoses / Procedures Referred By Tamara kwong Referred To Contact Diagnoses Lump or mass in breast Procedures MAMMO BREAST US BIOPSY LEFT Lulu Briceno NP [address] [place] [address] Phone: tel: fax: Referral ID Status Reason Start Date Expiration Date Visits Re quested Visits Authorized [id number] Closed 11/25/2010 05/24/2011 1 2 Encounter Details Date Type Department Care Team (Late st Contact Info) Description 11/25/2010 Ancillary Orders [facility] [address] [place] [address] Lulu Briceno NP [address] [facility] [place] [address] Lump or mass in breast Social History Tobacco Use Types Packs/Day Years Used Date Smoking Tobacco: Every Day Cigarettes 0.1 30 Smokeless Tobacco: Never Alcohol Use Standard Drinks/Week Comments No 0 (1 standard drink = 0.6 oz pur e alcohol) Comments No Sex and Gender Information Value Date Recorded Sex Assigned at Not on file Legal Sex Female 4: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 Elizabeth Procedure Note Reynaldo Batista MD - 11/28/2010 [...] six-month sonographic follow-up. Elizabeth us Lulu Briceno DIRECTOR ENGINEERING MAMMO ORDERABLES Final Re sult * MAMMO [...] biopsyreport of 11/26/2010. FRANCISCO/jake us Lulu Briceno DIRECTOR ENGINEERING MAMMO ORDERABLES Final Re sult documented in this encounter Visit Diagnoses Diagnosis Lump or mass in breast Lump or mass in breast Lump or mass in breast documented in this encounter Care Teams Internal Revenue Agent Relationship Specialty Start Date End Date Arash Hooper MD [address] [place] [address] PCP - General 06/12/09 documented as of this encounter
--- OUTSIDE RECORDS SUMMARY | 2025-04-05 08:45 | XMS_ITS | Clinical Summary ---
Author Organization [facility] Address [address] [place] [address] Phone Care Team Providers Care Hospital Aide Name Role Phone Arash Hooper MD Primary Care Provider [phone] Allergies Active Allergy Reactions Criticality Noted Date [...] (12/24/2020): Added automatically from request for surgery [id number] SOB (shortness of breath) 12/24/2020 Overview (12/24/2020): Added automatically from request for surgery [id number] History of coronary artery stent placement 12/20 [...] on file Legal Sex Female 4:06 AM PART TIME FLEXIBLE CLERK Gender Identity Not on file Sexual [...] this topic Medical Devices Implanted Type Area Hooker Up Device Identifier Shelf Expiration Date Model / Serial / Lot Closure Perclose Proglide [id number] - [id number] Implanted:Qty: 1 on 01/11/2021 by Aroldo Gonzales MD at [facility] Closure Device Right: Groin FELDER- VASC DEVICE 09/23/2022 [id number] / / [id number] Mesh Proceed [id number] Pcdm1 Implanted:Qty: 1 on 05/17/2009 at [facility] Mesh Abdomen [employer]- [employer] 01/22/2011 PCDM1 / / [id number] Stent- Implanted:Qty: 1 on 10/19/2018 by Aroldo Gonzales MD Stent Heart [id number] 04/13/2020 / / [id number] Description:3.50x16 Procedures Procedure Name Priority Date/Time Associated Diagnosis Comments MAMMO UNILATERAL ADDL VW LEFT Routine 11/26/2010 9:13 AM CDT Lump or mass in breast ENDOSCOPY, COLON, DIAGNOSTIC Routine 09/17/2010 7:51 AM PART TIME FLEXIBLE CLERK Diarrhea Other symptoms involving digestive system from [...] * ENDOSCOPY, COLON, DIAGNOSTIC (09/17/2010 7:51 AM PART TIME FLEXIBLE CLERK) Narrative Transcriptions Constantino Locke MD - 09/17/2010 7:51 AM CST [place], [place] ENDOSCOPY NAME LULI RIOS [facility] # [id number] 1965 AGE 44Y PHYSICIAN Constantino Locke MD [...] path results. Constantino Locke MD medq D: [id number] V: [id number] cc: Arash Hooper MD Lulupablo Briceno NP GI PROCEDURE ORDERABLES F inal Result from Last 3 Months or Most Recently Relevant to Health Maintenance Insurance MEDICAID [place] RX INFOCROSSING Medicaid RX INFOCROSSING Medicaid RX STEWART PLANS (INTERNAL) [facility] Internal Plans Advance Directives For more information, please contact: [phone] * Full Code (Latest Code Status on [...] 2:24 PM 09/16/2010 3:23 PM Care Teams Hospital Aide Relationship Specialty Start Date End Date Arash Hooper MD [address] [place] [facility] [place] [place] [address] PCP - General 06/12/09
--- OUTSIDE RECORDS SUMMARY | 2025-04-05 08:45 | XMS_ITS | Encounter Summary ---
Author Organization [facility] Address [address] [place] [address] Care Team Providers Care Library Aide Name Role Phone Arash Hooper MD Primary Care Provider [phone] Encounter Details Date Type Department Care Team (Late st Contact Info) Description 09/29/2006 Outpatient Historical [facility] [place] [address] [facility] [address] [place] [address] Cierra Bustos MD NO ADDRESS ON FILE Other Screening Mammogram (Primary Dx) Social History Tobacco Use Types Packs/Day Years Used Date Smoking Tobacco: Never Assessed Comments Unknown Sex and Gender Information Value Date Recorded Sex Assigned at Not on file Legal Sex Female 4:06 AM PATTERN ILLUSTRATOR Gender Identity Not on file Sexual Orientation Not on file documented as of this encounter Plan of Treatment Not on file documented as of this encounter Visit Diagnoses Diagnosis Other screening mammogram- Primary documented in this encounter Care Teams Library Aide Relationship Specialty Start Date End Date Arash Hooper MD [address] [place], [place] [address] PCP - General 06/12/09 documented as of this encounter
--- OUTSIDE RECORDS SUMMARY | 2025-04-05 08:45 | XMS_ITS | Encounter Summary ---
Author Organization [facility] Address [address] [place] [address] Care Team Providers Care Weaver Hand Name Role Phone Arash Hooper MD Primary Care Provider [phone] Encounter Details Date Type Department Care Team (Late st Contact Info) Description 10/22/2006 Outpatient Historical [facility] [address] [facility], [address] [place] [address] Stevie Mittal MD [address] [place] [address] [phone] Headache (Primary Dx) Social History Tobacco Use Types Packs/Day Years Used Date Smoking Tobacco: Never Assessed Comments Unknown Sex and Gender Information Value Date Recorded Sex Assigned at Not on file Legal Sex Female 4:06 AM TRAVEL RN OR Gender Identity Not on file Sexual Orientation Not on file documented as of this encounter Plan of Treatment Not on file documented as of this encounter Visit Diagnoses Diagnosis Headache(784.0)- Primary Headache documented in this encounter Care Teams Weaver Hand Relationship Specialty Start Date End Date Arash Hooper MD [facility] [address] [place], [place] [address] PCP - General 06/12/09 documented as of this encounter
--- OUTSIDE RECORDS SUMMARY | 2025-04-05 08:45 | XMS_ITS | Clinical Summary ---
Author Organization [facility] Address [address] [place] [address] Phone Care Team Providers Care Agricultural Systems Specialist Name Role Phone Arash Hooper MD Primary Care Provider [phone] Allergies Active Allergy Reactions Criticality Noted Date Comments Iodinated Contrast Media Other (See Comments) 05/11/2009 My body feels like it is on fire Morphine Hives,Itching,Other (See Comments) High 05/11/2009 Penicillins Rash,Other (See Comments) Low 05/11/2009 Venom-Wasp Anaphylaxis High 12/30/2021 Medications ezetimibe (ZETIA) 10 mg tablet TAKE 1 TABLET(10 MG) BY MOUTH DAILY 90 Tablet 3 0 Active mirtazapine (REMERON) 30 mg tablet Take 30 mg by mouth daily. 9 Active aspirin (ECOTRIN EC) 81 mg Tablet, Delayed Release (E.C.) Take 81 mg by mouth daily. 9 Active clopidogreL (PLAVIX) 75 mg Tablet Take 1 Tablet (75 mg) by mouth daily. 90 Tablet 3 1 Active dicyclomine (BENTYL) 20 mg tablet Take 20 mg by mouth 1 time daily as needed. Active gabapentin (NEURONTIN) 300 mg capsule Take 300 mg by mouth. Active albuterol sulfate 90 mcg/Actuation inhaler Take 2 Puffs by inhalation every 6 hours as needed. Active montelukast (SINGULAIR) 10 mg tablet Take 10 mg by mouth daily at bedtime. Active pantoprazole (PROTONIX) 20 mg Tablet, Delayed Release (E.C.) Take 20 mg by mouth daily. Active tamsulosin (FLOMAX) 0.4 mg capsule Take 0.4 mg by mouth daily. Active acetaminophen (TYLENOL) 500 mg tablet Take 500 mg by mouth every 6 hours as needed. Active diltiaZEM (CARDIZEM CD) 240 mg Controlled Delivery 24 hour capsule Take 1 Capsule (240 mg) by mouth daily. 90 Capsule 1 1 Active hydrALAZINE (APRESOLINE) 10 mg tablet TAKE 1 TABLET(10 MG) BY MOUTH THREE TIMES DAILY 270 Tablet 1 2 Active Cholestyramine- Sucrose 4 gram Powder 2 Active losartan (COZAAR) 50 mg tablet TAKE 1 TABLET(50 MG) BY MOUTH DAILY 90 Tablet 2 Active rosuvastatin (CRESTOR) 40 mg tablet TAKE 1 TABLET BY MOUTH EVERY NIGHT AT BEDTIME 90 Tablet 3 2 Active evolocumab (Repatha SureClick) 140 mg/mL Pen Injector ADMINISTER 1 ML UNDER THE SKIN EVERY 2 WEEKS 2 mL 3 2 Active Active Problems Problem Noted Date Diagnosed Date Angina, class III 12/24/2020 Overview (02/06/2021): Added automatically from request for surgery [id number] SOB (shortness of breath) 12/24/2020 Overview (02/06/2021): Added automatically from request for surgery [id number] History of coronary artery stent placement 12/20 Dyslipidemia, goal LDL below 70 12/05/2018 Benign hypertension 12/05/2018 Tobacco dependence 12/05/2018 Other headache syndrome 09/01/2017 ASHD (arteriosclerotic heart disease) 09/01/2017 Throat pain 11/21/2011 Tonsil asymmetry 08/15/2011 Otalgia 08/15/2011 Diarrhea 09/16/2010 COPD (chronic obstructive pulmonary disease) Hernia of unspecified site o f abdominal cavity without mention of obstruction or gangrene 05/07/2009 Resolved Problems Problem Noted Date Diagnosed Date Resolved Date Abnormal cardiovascular stress test 10/20/2018 12/05/2018 Angina, class III 10/20/2018 12/05/2018 Chest pain 06/15/2009 10/20/2018 Immunizations Immunization Administration Dates Next Due Influenza Seasonal Unspecifi ed Formulation IM 10/03/2021,05/24/2020,06/06/2004 Influenza Vaccine Tri Split 4+ Im 05/24/2020, Family History Medical History Relation Name Comments Heart Disease Brother High Cholesterol Brother Hypertension Brother Other Father murdered Asthma Mother Diabetes Mother Heart Disease Mother High Cholesterol Mother Hypertension Mother Stroke Mother Breast Cancer Sister 1 Cancer Sister 1 cervical Colon Cancer Sister 1 Other Sister 1 alcoholism Cancer Sister 2 uterine Liver Disease Sister 2 Respiratory Disease Sister 2 Healthy Son Other Son SIDS in infancy /no resolved Relation Name Status Comments Brother Alive Father Mother Alive Sister 1 Alive Sister 2 Alive Son Alive Social History Tobacco Use Types Packs/Day Years Used Date Smoking Tobacco: Every Day Cigarettes Smokeless Tobacco: Never Comments:Quit smoking: Curre ntly smokes .50 ppd, 10/23/17 Alcohol Use Standard Drinks/Week Comments No 0 (1 standard drink = 0.6 oz pur e alcohol) Comments No Sex and Gender Information Value Date Recorded Sex Assigned at Not on file Legal Sex Female 4:50 AM SUBSTANCE ABUSE CLINICIAN Gender Identity Not on file Sexual Orientation Not on file Last Filed Vital Signs Vital Sign Reading Time Taken Comments Blood Pressure 120/82 12/30/2021 1:42 PM CDT Pulse 114 12/30/2021 1:42 PM CDT Temperature 36.6 C (97.8 F) 12/30/2021 1:42 PM CDT Respiratory Rate 16 12/30/2021 1:42 PM CDT Oxygen Saturation 92% 12/30/2021 1:42 PM CDT Inhaled Oxygen Concentration - - Weight 51.5 kg (113 lb 9.6 oz) 12/30/2021 1:42 P M CDT Height 162.6 cm (5' 4 ) 12/30/2021 1:42 PM CDT Body Mass Index 19.5 12/30/2021 1:42 PM CDT Plan of Treatment Health Maintenance Due Date Last Done Comments DTAP/TDAP/TD VACCINES (1 - Tdap) 11/17/1983 FIT-DNA Q 3 years 2009 FIT/FOBT Q 1 year 2009 Flex Sig/CT Colonography Q 5 years 2009 BREAST CANCER SCREENING 11/27/2011 11/27/19 11, 11/22/2010, 10/22/2010 ZOSTER VACCINE (1 of 2) 2014 COLORECTAL SCREENING 09/17/2020 09/17/2010, 09/17/19 11 Colorectal Cancer Screening 09/17/2020 RSV VACCINE (60+ or ) (1 - Risk 60-74 years 1-dose series) 2024 INFLUENZA VACCINE (#1) 2025 2, 05/24/2020, 05/24/2020, Additional history exists HEPATITIS B VACCINES Aged Out No long er eligible based on patient's age to complete this topic Medical Devices Implanted Type Area Activities Manager Device Identifier Shelf Expiration Date Model / Serial / Lot Closure Perclose Proglide [id number] - [id number] Implanted:Qt y: 1 on 01/11/2021 by Aroldo Gonzales MD Closure Device Right: Groin FELDER- VASC DEVICE 09/23/2022 [id number] / / [id number] Mesh Proceed [id number] Implanted:Qt y: 1 on 05/17/2009 Mesh Abdomen J[employer]J- [employer] 01/22/2011 [id number] / / [id number] Stent- 019 Implanted:Qt y: 1 on 10/19/2018 by Aroldo Gonzales MD Stent Heart [id number] 04/13/2020 / / [id number] Description:3.50x16 Procedures Procedure Name Priority Date/Time Associated Diagnosis Comments MAMMO UNILATERAL ADDL VW LEFT Routine 11/26/2010 9:13 AM CDT Lump or mass in breast ENDOSCOPY, COLON, DIAGNOSTIC Routine 09/17/2010 7:51 AM SUBSTANCE ABUSE CLINICIAN from Last 3 Months or Most Recently Relevant to Health Maintenance Results * MAMMO UNILATERAL ADDL VW LEFT (11/26/2010 9:13 AM CDT) Anatomical Region Laterality Modality Breast Left Other Narrative 11/26/2010 11:48 AM CDT Post-procedural mammogram report is included in the left breast biopsy report of 11/26/2010. FRANCISCO/jake Procedure Note Reynaldo Batista MD - 10/24/2022 Post-procedural mammogram report is included in the left breast biopsy report of 11/26/2010. FRANCISCO/jake us Lulupablo Briceno CLOTHING PATTERN PREPARER MAMMO ORDERABLES Final Re sult * ENDOSCOPY, COLON, DIAGNOSTIC (09/17/2010 7:51 AM SUBSTANCE ABUSE CLINICIAN) 09/17/2010 7:51 AM SUBSTANCE ABUSE CLINICIAN Narrative Procedure Note Constantino Locke MD - 09/16/2010 12:00 AM CST Procedures signed by Constantino Locke MD at 09/17/2010 8:48 AM Author: Constantino Locke MD Service: -- Author Type: Physician Filed: 09/17/2010 8:48 AM Date of Service: 09/17/2010 7:51 AM Status:Signed Screwdown Operator: Constantino Locke MD (Physician) Procedure Orders 1. ENDOSCOPY, COLON, DIAGNOSTIC (PROCEDURE - ARA) [[id number]]ordered by at 09/02/10 [address] [place], [place] ENDOSCOPY NAME LULI RIOS [facility] # [id number] 1965 AGE 44Y PHYSICIAN Constantino Locke MD DATE: 09/16/2010 REFERRING PHYSICIAN: Arash Hooper MD PROCEDURE: Colonoscopy to cecum with biopsies. INDICATIONS: A 44-year-old woman referred for colonoscopy exam toevaluate chronic diarrhea. The patient also reports episodicconstipation. ENDOSCOPIST: Constantino Locke MD NURSES: Esthela Samuel, YVON and Yamilka Soto RN ENDOSCOPE: Olympus [id number] [...] path results. Constantino Locke MD medq D: [id number] V: [id number] cc: Arash Hooper MD Lulu Briceno NP GI PROCEDURE ORDERABLES F inal Result Performing Organization Address City/State/[facility] Co de Phone Number [facility] from Last 3 Months or Most Recently Relevant to Health Maintenance Insurance [place]ICAID [place] * Guarantor: LULI RIOS Account Type Relation to Patient Date of Phone Billing Address Personal/Family [address] [place] [address] RX INFOCROSSING Medicaid RX [employer] (INTERNAL) [facility] RX INFOCROSSING Medicaid Care Teams Agricultural Systems Specialist Relationship Specialty Start Date End Date Arash Hooper MD [facility] [address] PCP - General 06/12/09
--- OUTSIDE RECORDS SUMMARY | 2025-04-05 08:45 | XMS_ITS | Encounter Summary ---
Author Organization [facility] Address [address] [place] [address] Care Team Providers Care Digital Forensic Analyst Name Role Phone Arash Hooper MD Primary Care Provider [phone] Encounter Details Date Type Department Care Team (Latest Contact Info) Description 05/27/2004 Outpatient Historical [facility] OBGYN-[address] [place] [address] Kianna Mao MD [address] [place] [address] PREOP EXAM OTHER UNSPECIFIED (Primary Dx); DYSPLASIA OF CERVIX NOS Social History Tobacco Use Types Packs/Day Years Used Date Smoking Tobacco: Never Assessed Comments Unknown Sex and Gender Information Value Date Recorded Sex Assigned at Not on file Legal Sex Female 4:06 AM 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
--- OUTSIDE RECORDS SUMMARY | 2025-04-05 08:45 | XMS_ITS | Encounter Summary ---
Author Organization [facility] Address [address] [place] [address] Care Team Providers Care Hand Cultivator Name Role Phone Arash Hooper MD Primary Care Provider [phone] Encounter Details Date Type Department Care Team (Late st Contact Info) Description 09/16/2006 Outpatient Historical [facility] Stevie Mittal MD [address] [place] [phone] Headache (Primary Dx) Social History Tobacco Use Types Packs/Day Years Used Date Smoking Tobacco: Never Assessed Comments Unknown Sex and Gender Information Value Date Recorded Sex Assigned at Not on file Legal Sex Female 4:06 AM TRAIN CALLER Gender Identity Not on file Sexual Orientation Not on file documented as of this encounter Plan of Treatment Not on file documented as of this encounter Procedures Procedure Name Priority Date/Time Associated Diagnosis Comments MRI BRAIN W WO CONTRAST Routine 09/16/2006 4:[address] HEAD WO CONTRAST Routine 09/16/2006 4 :47 PM TRAIN CALLER XR EYE FOREIGN BODY Routine 09/16/2006 4 :47 PM TRAIN CALLER PT AND APTT Routine 09/16/2006 12:43 PM TRAIN CALLER CBC WITH DIFFERENTIAL Routine 09/16/2006 12:43 PM TRAIN CALLER BASIC METABOLIC PANEL Routine 09/16/2006 12:43 PM TRAIN CALLER documented in this encounter Results * MRI BRAIN W WO CONTRAST (09/16/2006 4:47 PM TRAIN CALLER) Anatomical Region Laterality Modality Head Other 09/16/2006 4:47 PM TRAIN CALLER Narrative 09/16/2006 4:47 PM TRAIN CALLER MRI Examination of the Brain With and [...] T1 postcontrast sequences show no signs of [id number]. The postcontrast sequence shows enhancement of the [...] axial T1 postcontrastsequences show no signs of [id number]. The postcontrast sequence shows enhancement of the [...] XR EYE FOREIGN BODY (09/16/2006 4:47 PM TRAIN CALLER) Anatomical Region Laterality Modality Abdomen Other 09/16/2006 4:47 PM TRAIN CALLER Narrative 09/16/2006 4:47 PM TRAIN CALLER MRI orbit screeningFindings: No metallic foreign bodies [...] CT HEAD WO CONTRAST (09/16/2006 4:47 PM TRAIN CALLER) Anatomical Region Laterality Modality Head Other 09/16/2006 4:47 PM TRAIN CALLER Narrative 09/16/2006 4:[address] Head Without ContrastDate: 09/16/2006. History: 40-year-old [...] * PT AND APTT (09/16/2006 12:43 PM TRAIN CALLER) PROTIME 13.4 13.0 - 15.7 Secs INTERFACE SYSTEM Comment: As of 06 note change in normal range. INR 0.9 INTERFACE SYSTEM Comment: Expected Values for INR: DVT/PE Goal INR 2.5; range 2.0 - 3.0 Valve Replacement Tissue Goal INR 2.5; range 2.0 - 3.0 Mechanical Goal INR 3.0; range 2.5 - 3.5 POST-MO Goal INR 2.5; range 2.0 - 3.0 [...] APTT Normal Range. 09/16/2006 12:4 3 PM TRAIN CALLER Bianca Roe MD HEMATOLOGY ORDERABLES Edited INTERFACE SYSTEM Refer to clinic/hospital department * (ABNORMAL) CBC WITH DIFFERENTIAL (09/16/2006 12:43 PM TRAIN CALLER) WBC 9.5 4.5 - 11.0 K/ul INTERFACE [...] Diff INTERFACE SYSTEM 09/16/2006 12:4 3 PM TRAIN CALLER Bianca Roe MD HEMATOLOGY ORDERABLES Edited Performing Organization Address [facility] Phone Number INTERFACE SYSTEM Refer to clinic/hospital department * (ABNORMAL) BASIC METABOLIC PANEL (09/16/2006 12:43 PM TRAIN CALLER) GLUCOSE 132(H) 70 - 110 mg/dL INTERFACE [...] mg/dL INTERFACE SYSTEM 09/16/2006 12:4 3 PM TRAIN CALLER Bianca Roe MD CHEMISTRY ORDERABLES Edited Performing Organization Address [facility] Phone Number INTERFACE SYSTEM Refer to clinic/hospital department documented in this encounter Visit Diagnoses Diagnosis Headache(784.0)- Primary Headache documented in this encounter Care Teams Hand Cultivator Relationship Specialty Start Date End Date Arash Hooper MD [address] [place] [address] PCP - General 06/12/09 documented as of this encounter
--- OUTSIDE RECORDS SUMMARY | 2025-04-05 08:45 | XMS_ITS | Encounter Summary ---
Author Organization [facility] Address [address] [place] [address] Care Team Providers Care Backup Administrator Name Role Phone Arash Hooper MD Primary Care Provider [phone] Encounter Details Date Type Department Care Team (Late st Contact Info) Description 02/04/2008 Outpatient [facility] [address] [place] [address] Breanna Krishnamurthy, DO [address] [place], [place] [id number] Social History Tobacco Use Types Packs/Day Years Used Date Smoking Tobacco: Never Assessed Comments Unknown Sex and Gender Information Value Date Recorded Sex Assigned at Not on file Legal Sex Female 4:06 AM BOARD CERTIFIED ARTS THERAPIST Gender Identity Not on file Sexual Orientation [...] 02/10/2008 12:15 PM CDT Report Available in [facility] Procedure Note 09/25/2008 Report Available in [facility] Breanna Krishnamurthy DO US ORDERABLES Final Result documented in this encounter Visit Diagnoses Not on filedocumented in this encounter Care Teams Backup Administrator Relationship Specialty Start Date End Date Arash Hooper MD [address] [place] [address] PCP - General 06/12/09 documented as of this encounter
--- OUTSIDE RECORDS SUMMARY | 2025-04-05 08:45 | XMS_ITS | Encounter Summary ---
Author Organization [facility] Address [address] [place] [address] Care Team Providers Care Pit Manager Name Role Phone Arash Hooper MD Primary Care Provider [phone] Encounter Details Date Type Department Care Team (Latest Contact Info) Description 05/27/2004 Outpatient Historical [facility] [address] [place] [address] [place] [address] Kianna Mao MD [address] [place] [address] PREOP CARDIOVASC EXAM (Primary Dx) Social History Tobacco Use Types Packs/Day Years Used Date Smoking Tobacco: Never Assessed Comments Unknown Sex and Gender Information Value Date Recorded Sex Assigned at Not on file Legal Sex Female 4:06 AM CANTEEN MANAGER Gender Identity Not on file Sexual Orientation Not on file documented as of this encounter Plan of Treatment Not on file documented as of this encounter Visit Diagnoses Diagnosis Pre-operative cardiovascular examination- Primary documented in this encounter Care Teams Pit Manager Relationship Specialty Start Date End Date Arash Hooper MD [address] [place], [place] [address] PCP - General 06/12/09 documented as of this encounter
--- OUTSIDE RECORDS SUMMARY | 2025-04-05 08:45 | XMS_ITS | Encounter Summary ---
Author Organization [facility] Address [address] [place] [address] Care Team Providers Care Belt Loop Machine Operator Name Role Phone Arash Hooper MD Primary Care Provider [phone] Encounter Details Date Type Department Care Team (Latest Contact Info) Description 06/23/2007 Outpatient [facility] [address] [place] [address] Breanna Krishnamurthy, DO [address] [place] [address] Lump or Mass in Breast (Primary Dx) Social History Tobacco Use Types Packs/Day Years Used Date Smoking Tobacco: Never Assessed Comments Unknown Sex and Gender Information Value Date Recorded Sex Assigned at Not on file Legal Sex Female 4:06 AM EVP [place] Gender Identity Not on file Sexual Orientation Not on file documented as of this encounter Plan of Treatment Not on file documented as of this encounter Visit Diagnoses Diagnosis Lump or mass in breast- Primary documented in this encounter Care Teams Belt Loop Machine Operator Relationship Specialty Start Date End Date Arash Hooper MD [address] [place] [id number] PCP - General 06/12/09 documented as of this encounter
--- OUTSIDE RECORDS SUMMARY | 2025-04-05 08:45 | XMS_ITS | Encounter Summary ---
Author Organization [facility] Address [address] [place] [address] Care Team Providers Care Pie Maker Machine Name Role Phone Arash Hooper MD Primary Care Provider [phone] Encounter Details Date Type Department Care Team (Latest Contact Info) Description 02/12/2004 Outpatient [facility] [address] [place] [address] Kianna Mao MD [address] [place] [address] Excessive menstruation (Primary Dx); Irregular menstruation; DYSPLASIA OF CERVIX Social History Tobacco Use Types Packs/Day Years Used Date Smoking Tobacco: Never Assessed Comments Unknown Sex and Gender Information Value Date Recorded Sex Assigned at Not on file Legal Sex Female 4:06 AM CCNP Gender Identity Not on file Sexual Orientation Not on file documented as of this encounter Plan of Treatment Not on file documented as of this encounter Visit Diagnoses Diagnosis Excessive menstruation- Primary Excessive or frequent menstruation Irregular menstruation Irregular menstrual cycle Dysplasia of cervix (uteri) documented in this encounter Care Teams Pie Maker Machine Relationship Specialty Start Date End Date Arash Hooper MD [address] [place], [place] [address] PCP - General 06/12/09 documented as of this encounter
--- OUTSIDE RECORDS SUMMARY | 2025-04-05 08:45 | XMS_ITS | Encounter Summary ---
Author Organization [facility] Address [address] [place] [address] Care Team Providers Care Selenium Plant Operator Name Role Phone Arash Hooper MD Primary Care Provider [phone] Encounter Details Date Type Department Care Team (Latest Contact Info) Description 02/12/2004 Outpatient Historical [facility] [address] [place] [address] Kianna Mao MD [address] [place] [address] CA IN SITU CERVIX UTERI (Primary Dx) Social History Tobacco Use Types Packs/Day Years Used Date Smoking Tobacco: Never Assessed Comments Unknown Sex and Gender Information Value Date Recorded Sex Assigned at Not on file Legal Sex Female 4:06 AM AUTISTIC TEACHER Gender Identity Not on file Sexual Orientation Not on file documented as of this encounter Plan of Treatment Not on file documented as of this encounter Visit Diagnoses Diagnosis 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
--- OUTSIDE RECORDS SUMMARY | 2025-04-05 08:45 | XMS_ITS | Encounter Summary ---
Author Organization [facility] Address [address] [place] [address] Care Team Providers Care Attendance Officer Name Role Phone Arash Hooper MD Primary Care Provider [phone] Reason for Referral * Eval and Treat (Routine) - Closed Specialty Diagnoses / Procedures Referred By Tamara kwong Referred To Contact Diagnoses Other screening mammogram Procedures MAMMO DIGITAL SCREEN BILAT Jude Flores MD [address] [place] [address] Phone: tel: fax: Referral ID Status Reason Start Date Expiration Date Visits Re quested Visits Authorized [id number] Closed 08/30/2010 02/26/2011 1 1 ET ORGANIZER Encounter Details Date Type Department Care Team (Late st Contact Info) Description 08/30/2010 Ancillary Orders [facility] [address] [phone] Jude Flores MD [address] [place] [address] Other screening mammogram Social History Tobacco Use Types Packs/Day Years Used Date Smoking Tobacco: Every Day Cigarettes 0.1 30 Alcohol Use Standard Drinks/Week Comments No 0 (1 standard drink = 0.6 oz pur e alcohol) Comments No Sex and Gender Information Value Date Recorded Sex Assigned at Not on file Legal Sex Female 4:06 AM CLOSET ORGANIZER Gender Identity Not on file Sexual Orientation Not on file documented as of this encounter Plan of Treatment Not on file documented as of this encounter Results * MAMMO DIGITAL SCREEN BILAT (10/22/2010 3:01 PM CLOSET ORGANIZER) Anatomical Region Laterality Modality Breast Bilateral Mammography Narrative 10/25/2010 4:49 PM CLOSET ORGANIZER SCREENING MAMMOGRAM: Bilateral CC and MLO views [...] by the Computer Aided Detection System (CAD), [employer], Version 8.3. KG/eaw Procedure Note Cierra Busots MD - 10/25/2010 SCREENING MAMMOGRAM: Bilateral CC [...] analyzed by the Computer Aided DetectionSystem (CAD), [employer], Version 8.3. KG/eaw us Jude Flores MD MAMMO ORDERABLES Final R esult documented in this encounter Visit Diagnoses Diagnosis Other screening mammogram Other screening mammogram documented in this encounter Care Teams Attendance Officer Relationship Specialty Start Date End Date Arash Hooper MD [address] [place] [address] PCP - General 06/12/09 documented as of this encounter
--- OUTSIDE RECORDS SUMMARY | 2025-04-05 08:45 | XMS_ITS | Encounter Summary ---
Author Organization [facility] Address [address] [place] [address] Care Team Providers Care Senior Geotechnical Engineer Name Role Phone Arash Hooper MD Primary Care Provider [phone] Encounter Details Date Type Department Care Team (Late st Contact Info) Description 06/11/2009 Ancillary Orders [facility] CT Scan [address] [place] [address] Arash Hooper MD [address] [place] [address] Abdominal Pain Social History Tobacco Use Types Packs/Day Years Used Date Smoking Tobacco: Every Day Cigarettes 0.5 30 Alcohol Use Standard Drinks/Week Comments No 0 (1 standard drink = 0.6 oz pur e alcohol) Comments No Sex and Gender Information Value Date Recorded Sex Assigned at Not on file Legal Sex Female 4:06 AM MELTER SUPERVISOR OXYGEN FURNACE Gender Identity Not on file Sexual Orientation [...] left hemidiaphragm. cgf: 1435 - uploaded from [employer] - [employer] 06/14/2009 4:08 PM CDT Exam: CT ABDOMEN [...] the lefthemidiaphragm. cgf: 1435 - uploaded from [employer] - Arash Hooper MD CT ORDERABLES Final Result documented in this encounter Visit Diagnoses Diagnosis Abdominal pain Abdominal pain, unspecified site Abdominal pain Abdominal pain, unspecified site documented in this encounter Care Teams Senior Geotechnical Engineer Relationship Specialty Start Date End Date Arash Hooper MD [address] [place] [address] PCP - General 06/12/09 documented as of this encounter
--- OUTSIDE RECORDS SUMMARY | 2025-04-05 08:45 | XMS_ITS | Encounter Summary ---
Author Organization [facility] Address [address] [place] [address] Care Team Providers Care Bull Gang Worker Name Role Phone Arash Hooper MD Primary Care Provider [phone] Encounter Details Date Type Department Care Team (Latest Contact Info) Description 07/25/2004 Outpatient Historical [facility] OBGYN[address] [place] [address] Kianna Mao MD [address] [place] [address] SYMPTOMATIC FEMALE CLIMACTERIC STATE (Primary Dx) Social History Tobacco Use Types Packs/Day Years Used Date Smoking Tobacco: Never Assessed Comments Unknown Sex and Gender Information Value Date Recorded Sex Assigned at Not on file Legal Sex Female 4:06 AM SETTER AUTOMATIC SPINNING LATHE Gender Identity Not on file Sexual Orientation Not on file documented as of this encounter Plan of Treatment Not on file documented as of this encounter Visit Diagnoses Diagnosis Symptomatic menopausal or female climacteric states- Primary documented in this encounter Care Teams Bull Gang Worker Relationship Specialty Start Date End Date Arash Hooper MD [address] [place], [place] [address] PCP - General 06/12/09 documented as of this encounter
--- OUTSIDE RECORDS SUMMARY | 2025-04-05 08:45 | XMS_ITS | Encounter Summary ---
Author Organization [facility] Address [address] [place] [address] Care Team Providers Care Customer Energy Specialist Name Role Phone Arash Hooper MD Primary Care Provider Reason for Referral * Outpatient Services (Routine) - Closed Specialty Diagnoses / Procedures Referred By Tamara kwong Referred To Contact Diagnoses Left adnexal tenderness RUQ pain Family history of ovarian cancer Procedures US PELVIS COMPLETE Lulu Briceno NP [address] [place] [address] Phone: tel: fax: Referral ID Status Reason Start Date Expiration Date Visits Re quested Visits Authorized [id number] Closed 09/16/2010 12/15/2010 1 1 RVISOR ADULT EDUCATION Encounter Details Date Type Department Care Team (Latest Contact Info) Description 09/17/2010 Ancillary Orders [facility] Ultrasound [address] [place] [phone] Lulu Briceno NP [address] [place] [address] RUQ pain; History of ovarian [...] on file Legal Sex Female 4:06 AM SUPERVISOR ADULT EDUCATION Gender Identity Not on file Sexual Orientation Not on file documented as of this encounter Plan of Treatment Not on file documented as of this encounter Results * US PELVIS COMPLETE (10/22/2010 2:17 PM SUPERVISOR ADULT EDUCATION) Anatomical Region Laterality Modality Pelvis Ultrasound 10/22/2010 12:4 9 PM SUPERVISOR ADULT EDUCATION Impressions 10/22/2010 5:48 PM SUPERVISOR ADULT EDUCATION Impression: 1. Surgical absence of the uterus. 2. Follicles identified in both ovaries. ljw 1658 PM - uploaded from [employer]- Narrative 10/22/2010 5:48 PM SUPERVISOR ADULT EDUCATION Exam: US PELVIS COMPLETE Date/Time of Exam: [...] ovaries. ljw 8 PM - uploaded from [employer]- us Lulu Briceno PARTS TECHNICIAN US ORDERABLES Final Res ult documented in [...] ovary documented in this encounter Care Teams Customer Energy Specialist Relationship Specialty Start Date End Date Arash Hooper MD [address] [place] [address] PCP - General 06/12/09 documented as of this encounter
--- OUTSIDE RECORDS SUMMARY | 2025-04-05 08:45 | XMS_ITS | Encounter Summary ---
Author Organization [facility] Address [address] [place] [address] Care Team Providers Care International Sales Manager Name Role Phone Arash Hooper MD Primary Care Provider [phone] Encounter Details Date Type Department Care Team (Latest Contact Info) Description 09/29/2006 Outpatient [facility] Breast Center [facility] [address] [place], [place] [address] Aroldo Chery MD [address] [place], [place] [address] Encounters for Unspecified Administrative Purpose (Primary Dx) Social History Tobacco Use Types Packs/Day Years Used Date Smoking Tobacco: Never Assessed Comments Unknown Sex and Gender Information Value Date Recorded Sex Assigned at Not on file Legal Sex Female 4:06 AM METAL PRODUCTS FABRICATOR ASSEMBLER Gender Identity Not on file Sexual Orientation Not on file documented as of this encounter Plan of Treatment Not on file documented as of this encounter Visit Diagnoses Diagnosis Encounters for unspecified administrative purpose- Primary documented in this encounter Care Teams International Sales Manager Relationship Specialty Start Date End Date Arash Hooper MD [address] [place] [id number] PCP - General 06/12/09 documented as of this encounter
--- OUTSIDE RECORDS SUMMARY | 2025-04-05 08:45 | XMS_ITS | Encounter Summary ---
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 Procedures CL LT HEART CATHETERIZATION Aroldo Gonzales MD Phone: tel: fax: [facility] Cardiac Recording Studio Set Up Worker [address] [place] [address] Phone: tel: fax: Referral ID Status Reason Start Date Expiration Date Visits Re quested Visits Authorized [id number] Closed 10/19/2018 11/18/2018 1 1 ING PLASTERER Encounter Details Date Type Department Care Team (Latest Contact Info) Description 10/14/2018 Ancillary Orders [facility] Cardiology- [place] [address] [place] [address] Aroldo Gonzales MD [address] [facility] [address] [place] [address] Arteriosclerotic heart disease (ASHD); 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 Social History [...] on file Legal Sex Female 4:06 AM MOLDING PLASTERER Gender Identity Not on file Sexual Orientation Not on file Occupation Industry Job Start Date Job End Date Not on file Not on file Not on file Not on file documented as of this encounter Plan of Treatment Not on file documented as of this encounter Results * CL LT HEART CATHETERIZATION (10/19/2018 1:55 PM MOLDING PLASTERER) EJECTION FRACTION 65 50 - 65 % [facility] 10/19/2018 1:18 PM MOLDING PLASTERER Addenda Addendum by Aroldo Gonzales MD on 10/26/2018 1:03 PM MOLDING PLASTERER ADDENDUM: ESTIMATED BLOOD LOSS: 5cc Narrative [facility] - 10/20/2018 10:40 AM MOLDING PLASTERER PROCEDURES: Left heart catheterization, selective coronary arteriography and left ventriculography. Percutaneous drug-eluting stent placement proximal right coronary artery. 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 After consents were signed, the patient was taken to the cardiac catheterization laboratory, draped in a sterile fashion with exposure of the right femoral groin. A 6-Surinamese sheath was inserted. A 6-Surinamese Cee right 4 cm curve, Cee left [...] irregularities. Percutaneous intervention performed with a JR-4 6-Surinamese guide. Luge wire was taken beyond the [...] ejection fraction 65%. 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
--- OUTSIDE RECORDS SUMMARY | 2025-04-05 08:45 | XMS_ITS | Encounter Summary ---
Author Organization [facility] Address [address] [place] [address] Care Team Providers Care Help Desk Associate Name Role Phone Arash Hooper MD Primary Care Provider [phone] Encounter Details Date Type Department Care Team (Latest Contact Info) Description 10/22/2006 Outpatient Historical [facility] Ear, Nose and Throat [address] [place] [address] Freddy Bae MD [address] [facility] [address] [place] [address] Unspecified Otalgia (Primary Dx); TMJ Arthralgia Social History Tobacco Use Types Packs/Day Years Used Date Smoking Tobacco: Never Assessed Comments Unknown Sex and Gender Information Value Date Recorded Sex Assigned at Not on file Legal Sex Female 4:06 AM HEMOTHERAPIST Gender Identity Not on file Sexual Orientation Not on file documented as of this encounter Plan of Treatment Not on file documented as of this encounter Visit Diagnoses Diagnosis Otalgia, unspecified- Primary TMJ arthralgia Arthralgia of temporomandibular joint documented in this encounter Care Teams Help Desk Associate Relationship Specialty Start Date End Date Arash Hooper MD [address] [place] [address] PCP - General 06/12/09 documented as of this encounter
--- OUTSIDE RECORDS SUMMARY | 2025-04-05 08:45 | XMS_ITS | Encounter Summary ---
Author Organization [facility] Address [address] [place] [address] Care Team Providers Care Airplane Pilot Photogrammetry Name Role Phone Arash Hooper MD Primary Care Provider [phone] Encounter Details Date Type Department Care Team (Late st Contact Info) Description 10/22/2006 Outpatient Historical [facility] Imaging Services - Sports Medicine [address] [place] [address] Stevie Mittal MD [address] [place] [phone] Unspecified Backache (Primary Dx) Social History Tobacco Use Types Packs/Day Years Used Date Smoking Tobacco: Never Assessed Comments Unknown Sex and Gender Information Value Date Recorded Sex Assigned at Not on file Legal Sex Female 4:06 AM MASTER GREAT LAKES Gender Identity Not on file Sexual Orientation Not on file documented as of this encounter Plan of Treatment Not on file documented as of this encounter Visit Diagnoses Diagnosis Backache, unspecified- Primary documented in this encounter Care Teams Airplane Pilot Photogrammetry Relationship Specialty Start Date End Date Arash Hooper MD [address] [place] [address] PCP - General 06/12/09 documented as of this encounter
--- OUTSIDE RECORDS SUMMARY | 2025-04-05 08:45 | XMS_ITS | Encounter Summary ---
Author Organization [facility] Address [address] [place] [address] Care Team Providers Care Theatrical Performer Name Role Phone Arash Hooper MD Primary Care Provider [phone] Encounter Details Date Type Department Care Team (Latest Contact Info) Description 03/26/2007 Outpatient [facility] [address] [place] [phone] Aroldo Cheyr MD [address] [place], [place] [address] Painful Respiration (Primary Dx) Social History Tobacco Use Types Packs/Day Years Used Date Smoking Tobacco: Never Assessed Comments Unknown Sex and Gender Information Value Date Recorded Sex Assigned at Not on file Legal Sex Female 4:06 AM TALKING BOOKS LIBRARY CLERK Gender Identity Not on file Sexual [...] Primary documented in this encounter Care Teams Theatrical Performer Relationship Specialty Start Date End Date Arash Hooper MD [address] [place] [address] PCP - General 06/12/09 documented as of this encounter
--- OUTSIDE RECORDS SUMMARY | 2025-04-05 08:45 | XMS_ITS | Encounter Summary ---
Author Organization [facility] Address [address] [place] [address] Care Team Providers Care Aerophysics Engineer Name Role Phone Arash Hooper MD Primary Care Provider Encounter Details Date Type Department Care Team (Latest Contact Info) Description 08/10/2009 Ancillary Orders [facility] Imaging Services [address] [place] [address] Arash Hooper MD [address] [place] [address] Diaphragmatic Hernia without Mention of [...] on file Legal Sex Female 4:06 AM WELLHEAD PUMPER Gender Identity Not on file Sexual Orientation Not on file documented as of this encounter Plan of Treatment Not on file documented as of this encounter Results * XR UPR GI AIR CONTRAST (08/14/2009 9:55 AM WELLHEAD PUMPER) Anatomical Region Laterality Modality Abdomen Computed Radiogr aphy 08/14/2009 9:08 AM WELLHEAD PUMPER Impressions 08/14/2009 2:01 PM WELLHEAD PUMPER Impression: Unremarkable UGI. Narrative 08/14/2009 2:01 PM WELLHEAD PUMPER Exam: XR UPR GI AIR CONTRAST Date/Time [...] intestine documented in this encounter Care Teams Aerophysics Engineer Relationship Specialty Start Date End Date Arash Hooper MD [address] [place] [address] PCP - General 06/12/09 documented as of this encounter
--- OUTSIDE RECORDS SUMMARY | 2025-04-05 08:45 | XMS_ITS | Encounter Summary ---
Author Organization [facility] Address [address] [place] [address] Care Team Providers Care Medicaid Eligibility Specialist Name Role Phone Arash Hooper MD Primary Care Provider [phone] Reason for Referral * Outpatient Services (Routine) - Closed Specialty Diagnoses / Procedures Referred By Tamara kwong Referred To Contact Diagnoses Other (abnormal) findings on radiological examination of breast Procedures MAMMO BREAST US LT Jude Flores MD [address] [place] [address] Phone: tel: fax: Referral ID Status Reason Start Date Expiration Date Visits Re quested Visits Authorized [id number] Closed 10/25/2010 04/23/2011 1 1 E TEACHER * Outpatient Services (Routine) - Closed Specialty Diagnoses / Procedures Referred By Tamara kwong Referred To Contact Diagnoses Other (abnormal) findings on radiological examination of breast Procedures MAMMO DIGITAL DIAG UNI LEFT Jude Flores MD [address] [place] [address] Phone: tel: fax: Referral ID Status Reason Start Date Expiration Date Visits Re quested Visits Authorized [id number] Closed 10/25/2010 04/23/2011 1 1 E TEACHER Encounter Details Date Type Department Care Team (Late st Contact Info) Description 10/25/2010 Ancillary Orders [facility] Breast [facility] [address] [facility] [address] [place] [address] Jude Flores MD [address] [place] [address] Other (abnormal) findings on radiological [...] on file Legal Sex Female 4:06 AM VOICE TEACHER Gender Identity Not on file Sexual [...] by the Computer Aided Detection System (CAD), Luminary Micro, Version 8.3. SUMMARY: 1. Indeterminate area on [...] analyzed by the Computer Aided DetectionSystem (CAD), DigitalAdvisorer, Version 8.3. SUMMARY: 1. Indeterminate area on [...] breast documented in this encounter Care Teams Medicaid Eligibility Specialist Relationship Specialty Start Date End Date Arash Hooper MD [address] [place] [address] PCP - General 06/12/09 documented as of this encounter
--- OUTSIDE RECORDS SUMMARY | 2025-04-05 08:45 | XMS_ITS | Encounter Summary ---
Author Organization [facility] Address [address] [place] [address] Care Team Providers Care Shingle Shearing Machine Operator Name Role Phone Arash Hooper MD Primary Care Provider [phone] Encounter Details Date Type Department Care Team (Latest Contact Info) Description 11/13/2005 Outpatient Historical [facility] Imaging Services [address] [place] [address] Aroldo Chery MD [address] [place], [place] [address] Unspecified Disorder of Gallbladder (Primary Dx) Social History Tobacco Use Types Packs/Day Years Used Date Smoking Tobacco: Never Assessed Comments Unknown Sex and Gender Information Value Date Recorded Sex Assigned at Not on file Legal Sex Female 4:06 AM WAFER FABRICATOR Gender Identity Not on file Sexual Orientation Not on file documented as of this encounter Plan of Treatment Not on file documented as of this encounter Procedures Procedure Name Priority Date/Time Associated Diagnosis Comments US RIGHT UPR QUADRANT Routine 11/13/2005 10:48 AM WAFER FABRICATOR documented in this encounter Results * US RIGHT UPR QUADRANT (11/13/2005 10:48 AM WAFER FABRICATOR) Anatomical Region Laterality Modality Abdomen Other 11/13/2005 10:4 8 AM WAFER FABRICATOR Narrative 11/13/2005 10:48 AM WAFER FABRICATOR RIGHT UPPER QUADRANT ULTRASOUND DATE: 11/13/2005. CLINICAL [...] adherentstone. Clinical correlation suggested. massimo Dictated By: Thom Esparza M.D., Ph.D. Electronically Signed By: Thom Esparza M.D., Ph.D. Date Signed: 11/18/05 MASSIMO us Historical Provider US ORDERABLES Final Result documented in this encounter Visit Diagnoses Diagnosis Unspecified disorder of gallbladder- Primary documented in this encounter Care Teams Shingle Shearing Machine Operator Relationship Specialty Start Date End Date Arash Hooper MD [address] [place] [address] PCP - General 06/12/09 documented as of this encounter
--- OUTSIDE RECORDS SUMMARY | 2025-04-05 08:45 | XMS_ITS | Encounter Summary ---
Author Organization [facility] Address [address] [place] [address] Care Team Providers Care Automation Engineering Manager Name Role Phone Arash Hooper MD Primary Care Provider [phone] Encounter Details Date Type Department Care Team (Late st Contact Info) Description 11/22/2010 Ancillary Orders [facility] [address] [phone] Jude Flores MD [address] [place] [address] Lump or mass in breast Social History Tobacco Use Types Packs/Day Years Used Date Smoking Tobacco: Every Day Cigarettes 0.1 30 Smokeless Tobacco: Never Alcohol Use Standard Drinks/Week Comments No 0 (1 standard drink = 0.6 oz pur e alcohol) Comments No Sex and Gender Information Value Date Recorded Sex Assigned at Not on file Legal Sex Female 4:06 AM DUMPSTER OPERATOR Gender Identity Not on file Sexual Orientation Not on file documented as of this encounter Plan of Treatment Not on file documented as of this encounter Visit Diagnoses Diagnosis Lump or mass in breast documented in this encounter Care Teams Automation Engineering Manager Relationship Specialty Start Date End Date Arash Hooper MD [address] [place] [address] PCP - General 06/12/09 documented as of this encounter
--- OUTSIDE RECORDS SUMMARY | 2025-04-05 08:45 | XMS_ITS | Encounter Summary ---
Author Organization [facility] Address [address] [place] [address] Care Team Providers Care Matcher Name Role Phone Arash Hooper MD Primary Care Provider [phone] Encounter Details Date Type Department Care Team (Late st Contact Info) Description 02/10/2008 Outpatient Historical [facility] [address] [facility] [address] [place] [address] Social History Tobacco Use Types Packs/Day Years Used Date Smoking Tobacco: Never Assessed Comments Unknown Sex and Gender Information Value Date Recorded Sex Assigned at Not on file Legal Sex Female 4:06 AM SENIOR SOFTWARE QUALITY ANALYST Gender Identity Not on file Sexual Orientation Not on file documented as of this encounter Plan of Treatment Not on file documented as of this encounter Visit Diagnoses Not on filedocumented in this encounter Care Teams Matcher Relationship Specialty Start Date End Date Arash Hooper MD [address] [place] [address] PCP - General 06/12/09 documented as of this encounter
--- OUTSIDE RECORDS SUMMARY | 2025-04-05 08:45 | XMS_ITS | Encounter Summary ---
Author Organization [facility] Address [address] [place] [address] Care Team Providers Care Mortgage Broker Name Role Phone Arash Hooper MD Primary Care Provider [phone] Encounter Details Date Type Department Care Team (Late st Contact Info) Description 06/04/2004 Inpatient Historical [facility] Kianna Mao MD [address] [place] [address] EXCESSIVE MENSTRUATION (Primary Dx) Social History Tobacco Use Types Packs/Day Years Used Date Smoking Tobacco: Never Assessed Comments Unknown Sex and Gender Information Value Date Recorded Sex Assigned at Not on file Legal Sex Female 4:06 AM RUBBER GASKET INSPECTOR TRIMMER Gender Identity Not on file Sexual Orientation Not on file documented as of this encounter Plan of Treatment Not on file documented as of this encounter Visit Diagnoses Diagnosis Excessive or frequent menstruation- Primary documented in this encounter Care Teams Mortgage Broker Relationship Specialty Start Date End Date Arash Hooper MD [address] [place], [place] [address] PCP - General 06/12/09 documented as of this encounter
--- OUTSIDE RECORDS SUMMARY | 2025-04-05 08:45 | XMS_ITS | Encounter Summary ---
Author Organization [facility] Address [address] [place] [address] Care Team Providers Care Business Intelligence Administrator Name Role Phone Arash Hooper MD Primary Care Provider [phone] Encounter Details Date Type Department Care Team (Late st Contact Info) Description 01/25/2008 Outpatient Historical HIS IN BED Ed, Physician NO ADDRESS ON FILE Yuridia Lantigua MD [address] [place] [address] Parth Flowers MD [address] [place] [address] Marshall Carias MD [address] [place] [address] Unspecified Chest Pain Social History Tobacco Use Types Packs/Day Years Used Date Smoking Tobacco: Never Assessed Comments Unknown Sex and Gender Information Value Date Recorded Sex Assigned at Not on file Legal Sex Female 4:06 AM SPECIAL DELIVERY CARRIER Gender Identity Not on file Sexual Orientation [...] OSMOLALITY, CALCULATED 294 275 - 295 mOsm/Kg [facility] CREATININE 0.9 0.7 - 1.2 mg/dL [facility] CALCIUM 9.6 8.4 - 10.5 mg/dL [facility] GLUCOSE 160(H) 70 - 110 mg/dL [facility] CHLORIDE 112(H) 95 - 110 mEq/L [facility] ANION GAP 9 9 - 20 mEq/L [facility] SODIUM 141 136 - 145 mEq/L [facility] BUN 13 7 - 17 mg/dL [facility] CO2 24 22 - 32 mmol/l [facility] POTASSIUM 4.2 3.5 - 5.0 mEq/L [facility] Blood specimen (specimen) 01/26/2008 3:14 AM CDT 01/26/2008 3:35 AM CDT Parth Flowers MD CHEMISTRY ORDERABLES Final Re sult Performing Organization Address [facility] Co de Phone Number [facility] CLIA# [id number] [address] [place] [address] * CARDIAC ENZYMES (01/26/2008 3:14 AM CDT) [facility] TROPONIN I <0.1 0.0 - 1.3 ng/mL [facility] CKMB 0.9 0.0 - 5.0 ng/mL [facility] Blood specimen (specimen) 01/26/2008 3:14 AM CDT 01/26/2008 3:35 AM CDT Yuridia Lantigua MD CHEMISTRY ORDERABLES Final Result Performing Organization Address [facility] de Phone Number [facility] CLIA# [id number] [address] [place] [address] * CARDIAC ENZYMES (01/25/2008 9:27 PM CDT) [facility] TROPONIN I <0.1 0.0 - 1.3 ng/mL [facility] CKMB 1.2 0.0 - 5.0 ng/mL [facility] Blood specimen (specimen) 01/25/2008 9:27 PM CDT 01/25/2008 9:27 PM CDT Yuridia Lantigua MD CHEMISTRY ORDERABLES Final Result Performing Organization Address [facility] Co de Phone Number [facility] CLIA# [id number] [address] [place] [phone] * (ABNORMAL) BASIC METABOLIC PANEL (01/25/2008 3:11 PM CDT) Pathologist [facility] OSMOLALITY, CALCULATED 288 275 - 295 mOsm/Kg [facility] POTASSIUM 4.1 3.5 - 5.0 mEq/L [facility] CREATININE 0.8 0.7 - 1.2 mg/dL [facility] CALCIUM 9.0 8.4 - 10.5 mg/dL [facility] GLUCOSE 93 70 - 110 mg/dL [facility] CHLORIDE 115(H) 95 - 110 mEq/L [facility] SODIUM 141 136 - 145 mEq/L [facility] ANION GAP 10 9 - 20 mEq/L [facility] BUN 8 7 - 17 mg/dL [facility] CO2 20(L) 22 - 32 mmol/l [facility] Blood specimen (specimen) 01/25/2008 3:11 PM CDT 01/25/2008 7:33 PM CDT us Parth Flowers MD CHEMISTRY ORDERABLES Final Re sult Performing Organization Address [facility] Co de Phone Number [facility] CLIA# [id number] [address] [place] [address] * CARDIAC ENZYMES (01/25/2008 3:11 PM CDT) TROPONIN I <0.1 0.0 - 1.3 ng/mL [facility] CKMB 0.9 0.0 - 5.0 ng/mL [facility] Blood specimen (specimen) 01/25/2008 3:11 PM CDT 01/25/2008 3:11 PM CDT us Yuridia Lantigua MD CHEMISTRY ORDERABLES Edite d Performing Organization Address [facility] de Phone Number [facility] CLIA# [id number] [address] [place] [phone] documented in this encounter Visit Diagnoses Diagnosis Chest pain, unspecified documented in this encounter Care Teams Business Intelligence Administrator Relationship Specialty Start Date End Date Arash Hooper MD [address] [place] [address] PCP - General 10/20/09 documented as of this encounter
--- OUTSIDE RECORDS SUMMARY | 2025-04-05 08:46 | XMS_ITS | Encounter Summary ---
Author Organization [facility] Address [address] [place]: [place] [address] Care Team Providers Care Manager Change Name Role Phone Arash Hooper MD Primary Care Provider [phone] Encounter Details Date Type Department Care Team (Latest Contact Info) Description 03/02/2001 Emergency [facility] Galileo Quinones NO ADDRESS ON FILE Social History Tobacco Use Types Packs/Day Years Used Date Smoking Tobacco: Never Assessed Comments Unknown Sex and Gender Information Value Date Recorded Sex Assigned at Not on file Legal Sex Female 4:06 AM DISTRICT EXTENSION SERVICE AGENT Gender Identity Not on file Sexual Orientation Not on file documented as of this encounter Plan of Treatment Not on file documented as of this encounter Visit Diagnoses Not on filedocumented in this encounter Care Teams Manager Change Relationship Specialty Start Date End Date Arash Hooper MD [address] [place], [place] [address] PCP - General 06/12/09 documented as of this encounter
--- OUTSIDE RECORDS SUMMARY | 2025-04-05 08:46 | XMS_ITS | Encounter Summary ---
Author Organization [facility] Address [address] [place] [address] Care Team Providers Care Shipyard Painter Apprentice Name Role Phone Arash Hooper MD Primary Care Provider [phone] Encounter Details Date Type Department Care Team (Latest Contact Info) Description 04/30/[address] [facility] Gen Spec Surg [place] [address] [place] [address] [place] [address] Gonzalez Shabazz MD [facility] [id number] Other Specified Disorder of Gallbladder (Primary Dx) Social History Tobacco Use Types Packs/Day Years Used Date Smoking Tobacco: Never Assessed Comments Unknown Sex and Gender Information Value Date Recorded Sex Assigned at Not on file Legal Sex Female 4:06 AM ELECTRIC SHOVEL OPERATOR Gender Identity Not on file Sexual Orientation Not on file documented as of this encounter Plan of Treatment Not on file documented as of this encounter Visit Diagnoses Diagnosis Other specified disorder of gallbladder- Primary documented in this encounter Care Teams Shipyard Painter Apprentice Relationship Specialty Start Date End Date Arash Hooper MD [address] [place] [address] PCP - General 06/12/09 documented as of this encounter
--- OUTSIDE RECORDS SUMMARY | 2025-04-05 08:46 | XMS_ITS | Encounter Summary ---
Author Organization [facility] Address [address] [place] [address] Care Team Providers Care Health Information Internship Name Role Phone Arash Hooper MD Primary Care Provider [phone] Encounter Details Date Type Department Care Team (Latest Contact Info) Description 06/22/2006 Outpatient Historical [facility] [place] [address] [place] [address] Constantino Locke MD [address] [facility] [address] [place] [address] Encounter for Fitting and Adjustment of Non-Vascular Catheter NEC (Primary Dx) Social History Tobacco Use Types Packs/Day Years Used Date Smoking Tobacco: Never Assessed Comments Unknown Sex and Gender Information Value Date Recorded Sex Assigned at Not on file Legal Sex Female 4:06 AM TRANSFORMER REPAIRER Gender Identity Not on file Sexual Orientation Not on file documented as of this encounter Plan of Treatment Not on file documented as of this encounter Visit Diagnoses Diagnosis Encounter for fitting and adjustment of non-vascular catheter NEC- Primary documented in this encounter Care Teams Health Information Internship Relationship Specialty Start Date End Date Arash Hooper MD [address] [place], [place] [address] PCP - General 06/12/09 documented as of this encounter
--- OUTSIDE RECORDS SUMMARY | 2025-04-05 08:46 | XMS_ITS | Encounter Summary ---
Author Organization [facility] Address [address] [place] [address] Care Team Providers Care Information Security Analyst Name Role Phone Arash Hooper MD Primary Care Provider [phone] Encounter Details Date Type Department Care Team (Late st Contact Info) Description 05/06/2006 Emergency [facility] Emergency Department [address] [place] [address] Rajesh Mccoy, [address] [place] [address] Calculus of GB w/o Cystitis/Obst (Primary Dx) Social History Tobacco Use Types Packs/Day Years Used Date Smoking Tobacco: Never Assessed Comments Unknown Sex and Gender Information Value Date Recorded Sex Assigned at Not on file Legal Sex Female 4:06 AM LOGISTICS SOLUTION MANAGER Gender Identity Not on file Sexual [...] SYSTEM Comment: As of [address] [facility] has changed testing methods. The new reference range is 20-104 The old referance range was 30-120 05/06/2006 4:54 PM CDT Rajesh Mccoy DO CHEMISTRY ORDERABLES Fi nal Result Performing Organization Address City/[facility]/ZIP Co de Phone Number INTERFACE SYSTEM Refer to clinic/hospital department * LIPASE (05/06/2006 4:54 PM CDT) Pathologist [facility] LIPASE 22 6 - 51 U/L INTERFACE SYSTEM Comment: As of 05 the [facility] has changed testing methods. The new reference range is 6-51 The old referance range was 23-300 05/06/2006 4:54 PM CDT Rajesh Mccoy DO CHEMISTRY ORDERABLES Fi nal Result Performing Organization Address [place]/[facility] Co de Phone Number INTERFACE [...] SYSTEM Comment: As of [address] [facility] has changed testing methods. The new reference range is 25-100 The old referance range was 38-126 AST 19 8 - 33 U/L INTERFACE SYSTEM Comment: As of [address] [facility] has changed testing methods. The new reference range is 8-33 The old referance range was Males 17-59 Females 14-36 ALT 16 4 - 36 IU/L INTERFACE SYSTEM Comment: As of [address] [facility] has changed testing methods. The new reference range is 4-36 The old referance range was Males 21-72 Females 9-52 BILIRUBIN TOTAL 0.2(L) 0.3 - 1.2 mg/dL INTERFACE SYSTEM Comment: As of 05 the [facility] has changed testing methods. The new reference [...] Primary documented in this encounter Care Teams Information Security Analyst Relationship Specialty Start Date End Date Arash Hooper MD [address] [place] [address] PCP - General 06/12/09 documented as of this encounter
--- OUTSIDE RECORDS SUMMARY | 2025-04-05 08:46 | XMS_ITS | Encounter Summary ---
Author Organization [facility] Address [address] [place] [address] Care Team Providers Care Chef Broiler Or Fry Name Role Phone Arash Hooper MD Primary Care Provider [phone] Encounter Details Date Type Department Care Team (Latest Contact Info) Description 05/28/2006 Outpatient Historical [facility] Gen Spec Surg [place] [address] [place] [address] Marshall Mei MD [address] [place] [address] Chronic Cholecystitis (Primary Dx); Follow-Up Examination, Following Unspecified Surgery Social History Tobacco Use Types Packs/Day Years Used Date Smoking Tobacco: Never Assessed Comments Unknown Sex and Gender Information Value Date Recorded Sex Assigned at Not on file Legal Sex Female 4:06 AM TRAFFIC REPORTER Gender Identity Not on file Sexual Orientation Not on file documented as of this encounter Plan of Treatment Not on file documented as of this encounter Visit Diagnoses Diagnosis Chronic cholecystitis- Primary Follow-up examination, following unspecified surgery documented in this encounter Care Teams Chef Broiler Or Fry Relationship Specialty Start Date End Date Arash Hooper MD [address] [place], [place] [address] PCP - General 06/12/09 documented as of this encounter
--- OUTSIDE RECORDS SUMMARY | 2025-04-05 08:46 | XMS_ITS | Patient Health Record ---
Author Organization [facility] Address [address] [place], [place] [address] Care Team Providers Care Tank Pumper Panelboard Name Role Phone Rajesh Briceno MD Primary Care Provider Unavail able Luis THAPA, Luis Daniel Unavailable [phone] Allergies Allergen (clinical drug ingredient) Drug/Non Drug [...] 1 cap orally once a day Active [place] 325 mg-5 mg 1 tab po orally [...] Problem Status W/U Status Risk Notes Problem Sacroiliitis (23186895) Sacroiliitis (720.2) Active confirmed Problem Lumbosacral spondylosis without myelopathy (37984893) Lumbosacral spondylosis without myelopathy (721.3) Active confirmed Problem Displacement of lumbar intervertebral disc without myelopathy (98888672) Lumbar (w/out myelopathy) intervertebral disc disorder (722.10) Active confirmed Problem Spasm (00736901) Muscle spasm (728.85) Active confirmed Problem Limb pain (41167351) Limb pain (729.5) Active confirmed Problem Low back pain (725433993) Low back pain (724.2) Active confirmed Problem Long-term drug therapy (564834976) LONG-TERM USE MEDS NEC (V58.69) Active confirmed r/o substance abuse Problem Anxiety state (692864197) Anxiety State, other, specified: procedure related (300.09) Active confirmed Problem Enthesopathy of hip region (28266536) piriformis (726.5) Active confirmed Problem Solitary sacroiliitis (784870498) Sacroiliitis, not elsewhere classified (M46.1) Active confirmed Problem Low back pain (988048607) Low back pain (M54.5) Active confirmed Problem Lumbosacral spondylosis without myelopathy (62150023) Spondylosis without myelopathy or radiculopathy, lumbar region (M47.816) Active confirmed Problem Hypersomnia (29872479) Hypersomnia, unspecified (G47.10) Active confirmed Problem Radiculopathy due to lumbar intervertebral disc disorder (133668070686235 ) Intervertebral disc disorders with radiculopathy, lumbar region (M51.16) Active confirmed Problem Myalgia (47821126) Myalgia (M79.1) Active confirmed Problem Pain in limb (08342140) Pain in leg, unspecified (M79.606) Active confirmed Plan Of Treatment No Information Insurance Providers Payer Name Payer Address Payer Phone Subscriber Number Group Number Insured Name Patient Relationship to Insured Coverage Start Date Coverage End Date [place] [address] [place] [address] [phone] [id number] Luli Rios Self - patient is the [...]
--- OUTSIDE RECORDS SUMMARY | 2025-04-05 08:46 | XMS_ITS | Encounter Summary ---
Author Organization [facility] Address [address] [place] [address] Care Team Providers Care Waiter/Waitress Take Out Name Role Phone Arash Hooper MD Primary Care Provider [phone] Encounter Details Date Type Department Care Team (Latest Contact Info) Description 01/15/2004 Outpatient Historical [facility] [address] [place] [address] Kianna Mao MD [address] [place] [address] [place] IN SITU CERVIX UTERI (Primary Dx) Social History Tobacco Use Types Packs/Day Years Used Date Smoking Tobacco: Never Assessed Comments Unknown Sex and Gender Information Value Date Recorded Sex Assigned at Not on file Legal Sex Female 4:06 AM CARD CUTTER Gender Identity Not on file Sexual Orientation Not on file documented as of this encounter Plan of Treatment Not on file documented as of this encounter Visit Diagnoses Diagnosis 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
--- OUTSIDE RECORDS SUMMARY | 2025-04-05 08:46 | XMS_ITS | Encounter Summary ---
Author Organization [facility] Address [address] [place] [address] Care Team Providers Care Drive Thru Order Taker Name Role Phone Arash Hooper MD Primary Care Provider [phone] Encounter Details Date Type Department Care Team (Latest Contact Info) Description 06/22/2006 Outpatient Historical [facility] Gastroenterology- [place] [address] [address] Constantino Locke MD [address] [address] Foreign Body in Stomach (Primary Dx) Social History Tobacco Use Types Packs/Day Years Used Date Smoking Tobacco: Never Assessed Comments Unknown Sex and Gender Information Value Date Recorded Sex Assigned at Not on file Legal Sex Female 4:06 AM ECG TECHNICIAN Gender Identity Not on file Sexual Orientation Not on file documented as of this encounter Plan of Treatment Not on file documented as of this encounter Visit Diagnoses Diagnosis Foreign body in stomach- Primary documented in this encounter Care Teams Drive Thru Order Taker Relationship Specialty Start Date End Date Arash Hooper MD [address], [place] [address] PCP - General 06/12/09 documented as of this encounter
--- OUTSIDE RECORDS SUMMARY | 2025-04-05 08:46 | XMS_ITS | Encounter Summary ---
Author Organization [facility] Address [address] [place] [address] Care Team Providers Care Staff Occupational Therapist Name Role Phone Arash Hooper MD Primary Care Provider [phone] Encounter Details Date Type Department Care Team (Late st Contact Info) Description 05/16/2006 Inpatient Historical HIS IN BED Gonzalez Shabazz MD [facility] [address] Digestive System Complication (Primary Dx) Social History Tobacco Use Types Packs/Day Years Used Date Smoking Tobacco: Never Assessed Comments Unknown Sex and Gender Information Value Date Recorded Sex Assigned at Not on file Legal Sex Female 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 05/17/2006 2:24 PM CDT Result [facility] Trevor Shabazz MD HEMATOLOGY ORDERABLES [...] K/ul INTERFACE SYSTEM 05/17/2006 3:45 AM CDT [facility] Trevor Shabazz MD HEMATOLOGY ORDERABLES Final Result INTERFACE SYSTEM Refer to clinic/hospital department * (ABNORMAL) HEPATIC FUNCTION PANEL (05/17/2006 3:45 AM CDT) TOTAL PROTEIN 6.2(L) 6.3 - 8.2 g/dL INTERFACE SYSTEM ALBUMIN 3.6 3.5 - 5.0 g/dL INTERFACE SYSTEM ALKALINE PHOSPHATASE 168(H) 25 - 100 U/L INTERFACE SYSTEM Comment: As of 05 the [facility] has changed testing methods. The new reference range is 25-100 The old referance range was 38-126 AST 167(H) 8 - 33 U/L INTERFACE SYSTEM Comment: As of 05 the [facility] has changed testing methods. The new reference range is 8-33 The old referance range was Males 17-59 Females 14-36 ALT 417(H) 4 - 36 IU/L INTERFACE SYSTEM Comment: As of 05 the [facility] has changed testing methods. The new reference range is 4-36 The old referance range was Males 21-72 Females 9-52 BILIRUBIN DIRECT 0.6(H) 0.0 - 0.4 mg/dL INTERFACE SYSTEM BILIRUBIN TOTAL 1.1 0.3 - 1.2 mg/dL INTERFACE SYSTEM Comment: As of 05 the [facility] has changed testing methods. The new reference range is 0.3-1.2 The old referance range was 0.2-1.4 05/17/2006 3:45 AM CDT [facility] Trevor Shabazz MD CHEMISTRY ORDERABLES Final R [...] By: Oliver Ramirez M.D. Date Signed: 05/17/06 [facility] Trevor Shabazz MD [place] ORDERABLES Final Result documented in this encounter Visit Diagnoses Diagnosis Digestive system complication- Primary documented in this encounter Care Teams Staff Occupational Therapist Relationship Specialty Start Date End Date Arash Hooper MD [address] [place] [address] PCP - General 06/12/09 documented as of this encounter
--- OUTSIDE RECORDS SUMMARY | 2025-04-05 08:46 | XMS_ITS | Encounter Summary ---
Author Organization [facility] Address [address] [place] [address] Care Team Providers Care Remote Sensing Scientist Name Role Phone Arash Hooper MD Primary Care Provider [phone] Encounter Details Date Type Department Care Team (Late st Contact Info) Description 05/22/2006 Emergency [facility] Emergency Department [address] 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 has changed testing methods. The new reference range is 6-51 The old referance range was 23-300 05/22/2006 7:12 PM CDT us Eduardo Masters MD CHEMISTRY ORDERABLES Final Resul t Performing Organization Address City/[facility]/ZIP Co de Phone Number INTERFACE SYSTEM Refer to clinic/hospital department * AMYLASE (05/22/2006 7:12 PM CDT) AMYLASE 45 20 - 104 U/L INTERFACE SYSTEM Comment: As of 05 the [facility] has changed testing methods. The new reference range is 20-104 The old referance range was 30-120 05/22/2006 7:12 PM CDT Eduardo Masters MD CHEMISTRY ORDERABLES Final Resul t Performing Organization Address [facility] Phone Number INTERFACE SYSTEM Refer to clinic/hospital [...] Comment: As of [address] [facility] has changed testing methods. The new reference range is 8-33 The old referance range was Males 17-59 Females 14-36 ALT 96(H) 4 - 36 IU/L INTERFACE SYSTEM Comment: As of 05 the [facility] has changed testing methods. The new reference range is 4-36 The old referance range was Males 21-72 Females 9-52 BILIRUBIN TOTAL 0.4 0.3 - 1.2 mg/dL INTERFACE SYSTEM Comment: As of 05 the [facility] has changed testing methods. The [...] Primary documented in this encounter Care Teams Remote Sensing Scientist Relationship Specialty Start Date End Date Arash Hooper MD [address] [place] [address] PCP - General 06/12/09 documented as of this encounter
--- OUTSIDE RECORDS SUMMARY | 2025-04-05 08:46 | XMS_ITS | Encounter Summary ---
Author Organization [facility] Address [address] [place] [address] Care Team Providers Care Laboratory Chemist Name Role Phone Arash Hooper MD Primary Care Provider [phone] Encounter Details Date Type Department Care Team (Late st Contact Info) Description 05/08/2006 Outpatient Historical [facility] Gen Spec Surg [place] 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
--- OUTSIDE RECORDS SUMMARY | 2025-04-05 08:46 | XMS_ITS | Encounter Summary ---
Author Organization [facility] Address [address] [place] [address] Care Team Providers Care Clerk Typist Name Role Phone Arash oHoper MD Primary Care Provider [phone] Encounter Details Date Type Department Care Team (Latest Contact Info) Description 05/08/2006 Outpatient Historical [facility] Services [address] [place] [id number] Jak Terry MD NO ADDRESS ON FILE Unspecified Congenital Cystic Kidney Disease (Primary Dx) Social History Tobacco Use Types Packs/Day Years Used Date Smoking Tobacco: Never Assessed Comments Unknown Sex and Gender Information Value Date Recorded Sex Assigned at Not on file Legal Sex Female 4: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
--- OUTSIDE RECORDS SUMMARY | 2025-04-05 08:46 | XMS_ITS | Encounter Summary ---
Author Organization [facility] Address [address] [place] [address] Care Team Providers Care Java Front End Web Developer Name Role Phone Arash Hooper MD Primary Care Provider [phone] Reason for Referral * Outpatient Services (Routine) - Closed Specialty Diagnoses / Procedures Referred By Tamara kwong Referred To Contact Diagnoses Bilateral carotid bruits Procedures CT HEAD WO CONTRAST Lulu Briceno NP Phone: tel: [facility] Monitor CALL TO MAKE APPOINTMENT ONLY [address] [place] [address] Phone: tel: fax: Referral ID Status Reason Start Date Expiration Date V isits Requested Visits Authorized [id number] Closed [facility] TO SCHEDULE ([facility]) 09/10/2017 10/10/2017 1 1 ER LAW CLERK * Outpatient Services (Routine) - Closed Specialty Diagnoses / Procedures Referred By Contrd kwong Referred To Contact Diagnoses Bilateral carotid bruits Procedures US CAROTID DOPPLER Lulu Briceno NP Phone: tel: fax[facility] CALL TO MAKE APPOINTMENT ONLY [address] [place] [address] Phone: tel: fax: Referral ID Status Reason Start Date Expiration Date V isits Requested Visits Authorized [id number] Closed [facility] TO SCHEDULE ([facility]) 09/11/2017 10/12/2018 1 1 ER LAW CLERK Encounter Details Date Type Department Care Team (Latest Contact Info) Description 09/11/2017 Ancillary Orders [facility] Pre-Registration Monitor CALL TO MAKE APPOINTMENT ONLY [address] [place] [id number] Lulu Briceno NP [address] [place] [address] Bilateral carotid bruits Social History Tobacco Use Types Packs/Day Years Used Date Smoking Tobacco: Every Day Cigarettes 0.1 30 Smokeless Tobacco: Never Alcohol Use Standard Drinks/Week Comments No 0 (1 standard drink = 0.6 oz pur e alcohol) Comments No Sex and Gender Information Value Date Recorded Sex Assigned at Not on file Legal Sex Female 4:06 AM CAREER LAW CLERK Gender Identity Not on file Sexual Orientation Not on file Occupation Industry Job Start Date Job End Date Not on file Not on file Not on file Not on file documented as of this encounter Plan of Treatment Not on file documented as of this encounter Results * CT HEAD WO CONTRAST (10/08/2017 11:19 AM CAREER LAW CLERK) Anatomical Region Laterality Modality Head Computed Tomogra phy 10/08/2017 11:2 0 AM CAREER LAW CLERK Impressions 10/08/2017 1:09 PM CAREER LAW CLERK IMPRESSION: No intracranial abnormality identified. [id number] Narrative 10/08/2017 1:09 PM CAREER LAW CLERK Exam: CT HEAD WO CONTRAST Date/Time of [...] are clear. IMPRESSION: No intracranial abnormality identified. [id number] us Lulu Briceno PLASTER LATHER CT ORDERABLES Final Res ult * US CAROTID DOPPLER (10/08/2017 10:46 AM CAREER LAW CLERK) Anatomical Region Laterality Modality Neck Ultrasound 10/08/2017 10:1 3 AM CAREER LAW CLERK Narrative 10/09/2017 7:25 AM CAREER LAW CLERK [facility] Noninvasive Vascular Laboratory [address] [place] [id number] Noninvasive Vascular Lab Cerebrovascular Exam Carotid Duplex Patient: Luli Rios Study ID: US CAROTID DOPPL Gender: F : 1965 Age: 51 Room: Height: 162.6cm Weight: 57.3kg BSA: 1.61m\S\2 Pt status: Outpatient Study Date: 10/08/2017 Study Time: 10:13 AM BSA: 1.61m\S\2 Ordering: Tati Briceno Interpreting:Marshall Stanley MD Oven Tender Bagels: Sandi Montanez T Indications: 785.9 Bruit. History: [...] 0.4m/sec - Left vertebral - 0.69m/sec 0.3m/sec [facility] is accredited with the [facility] Commission for the Accreditation of Vascular Laboratories (ICAVL) Prepared and Electronically Authenticated Marshall Stanley MD Confirmed 10/09/2017 07:24 Procedure Note Marshall Stanley MD - 10/09/2017 [facility] Noninvasive Vascular Laboratory [address] [place] [address] Noninvasive Vascular Lab Cerebrovascular Exam Carotid Duplex Patient: Luli Rios Study ID: US CAROTID DOPPL Gender: F : 1965 Age: 51 Room: Height: 162.6cm Weight: 57.3kg BSA: 1.61m\S\2 Pt status: Outpatient Study Date: 10/08/2017 Study Time: 10:13 AM BSA: 1.61m\S\2 Ordering: Tati Briceno Interpreting:Marshall Stanley MD Oven Tender Bagels: Sandi Montanez RVT Indications: 785.9 Bruit. History: [...] 0.4m/sec - Left vertebral - 0.69m/sec 0.3m/sec [facility] is accredited with the Intersocietal Commission for the Accreditation of Vascular Laboratories (ICAVL) Prepared and Electronically Authenticated Marshall Stanley MD Confirmed 10/09/2017 07:24 us Lulu Briceno NP ORDERABLES Final Res ult documented in this encounter Visit Diagnoses Diagnosis Bilateral carotid bruits Bilateral carotid bruits Bilateral carotid bruits documented in this encounter Care Teams Java Front End Web Developer Relationship Specialty Start Date End Date Arash Hooper [place] [address] PCP - General 06/12/09 documented as of this encounter
--- OUTSIDE RECORDS SUMMARY | 2025-04-05 08:46 | XMS_ITS | Encounter Summary ---
Author Organization [facility] Address [address] [place] [address] Care Team Providers Care Webbing Supervisor Name Role Phone Arash Hooper MD Primary Care Provider [phone] Encounter Details Date Type Department Care Team (Latest Contact Info) Description 05/11/2006 Outpatient Historical [facility] Gen Spec Surg 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
--- OUTSIDE RECORDS SUMMARY | 2025-04-05 08:46 | XMS_ITS | Encounter Summary ---
Author Organization [facility] Address [address] [place] [address] Care Team Providers Care Boot Liner Maker Name Role Phone Arash Hooper MD Primary Care Provider [phone] Encounter Details Date Type Department Care Team (Latest Contact Info) Description 11/25/2012 Ancillary Orders [facility] Pre-Registration Chana CALL TO MAKE APPOINTMENT ONLY [address] [place] [address] Lulu Briceno NP [address] [place], [place] [id number] Lack of coordination (Primary Dx); Dyskinesia due [...] on file Legal Sex Female 4:06 AM DANDY TENDER Gender Identity Not on file Sexual [...] coordination documented in this encounter Care Teams Boot Liner Maker Relationship Specialty Start Date End Date Arash Hooper MD [address] [facility] [place] [address] PCP - General 06/12/09 documented as of this encounter
--- OUTSIDE RECORDS SUMMARY | 2025-04-05 08:46 | XMS_ITS | Encounter Summary ---
Author Organization [facility] Address [address] [place] [address] Care Team Providers Care Advertising Dispatch Clerks Supervisor Name Role Phone Arash Hooper MD Primary Care Provider [phone] Encounter Details Date Type Department Care Team (Latest Contact Info) Description 01/15/2004 Outpatient Historical [facility] [address] [place] [address] Kianna Mao MD [address] [place] [address] OT NONSPEC ABNL PAP SMEAR CERVIX (Primary Dx) Social History Tobacco Use Types Packs/Day Years Used Date Smoking Tobacco: Never Assessed Comments Unknown Sex and Gender Information Value Date Recorded Sex Assigned at Not on file Legal Sex Female 4:06 AM BACK SEWER Gender Identity Not on file Sexual Orientation Not on file documented as of this encounter Plan of Treatment Not on file documented as of this encounter Visit Diagnoses Diagnosis Other abnormal Papanicolaou smear of cervix and cervical HPV(795.09)- Primary Other abnormal Papanicolaou smear of cervix and cervical HPV documented in this encounter Care Teams Advertising Dispatch Clerks Supervisor Relationship Specialty Start Date End Date Arash Hooper MD [address] [place], [place] [address] PCP - General 06/12/09 documented as of this encounter
--- OUTSIDE RECORDS SUMMARY | 2025-04-05 08:46 | XMS_ITS | Encounter Summary ---
Author Organization [facility] Address [address] [place] [address] Care Team Providers Care Textile Supervisor Name Role Phone Arash Hooper MD Primary Care Provider [phone] Encounter Details Date Type Department Care Team (Latest Contact Info) Description 05/13/2006 Outpatient Historical [facility] [address] [phone] Gonzalez Shabazz MD [address] [place] [id number] Chronic Cholecystitis (Primary Dx) Social History Tobacco Use Types Packs/Day Years Used Date Smoking Tobacco: Never Assessed Comments Unknown Sex and Gender Information Value Date Recorded Sex Assigned at Not on file Legal Sex Female 4:06 AM TYPE COPYIST Gender Identity Not on file Sexual Orientation Not on file documented as of this encounter Plan of Treatment Not on file documented as of this encounter Visit Diagnoses Diagnosis Chronic cholecystitis- Primary documented in this encounter Care Teams Textile Supervisor Relationship Specialty Start Date End Date Arash Hooper MD [facility] [address] [place], [place] [address] PCP - General 06/12/09 documented as of this encounter
== END 2025-04-03 10:12 | disposition home or self-care (01) ==
PROVIDERS: Emergency Provider Emergency Medicine; PCP Nurse Practitioner
DX: K60.2 Anal fissure, unspecified (principal); J18.9 Pneumonia, unspecified organism; Z72.0 Tobacco use; I50.20 Unspecified systolic (congestive) heart failure
CPT/HCPCS: 36415; 71045; 80053; 83690; 85025; 85610; 96374; 99284; J1100

== ENCOUNTER → 2025-05-24 09:34 | Outpatient (BNVA) | payer OTHER, MEDICAID, SELFPAY | PROVIDERS: PCP Nurse Practitioner; Visit Provider Physician Assistant | DX: M25.512 Pain in left shoulder (principal); M75.42 Impingement syndrome of left shoulder | CPT/HCPCS: 20610; 73030; 99213; J3301; J9999 ==

== ENCOUNTER → 2025-05-29 13:50 | Outpatient (BNVA) | payer OTHER, MEDICAID, SELFPAY | PROVIDERS: PCP Nurse Practitioner; Visit Provider Internal Medicine | DX: J44.89 Other specified chronic obstructive pulmonary disease (principal); Z99.89 Dependence on other enabling machines and devices; Z88.8 Allergy status to other drugs, medicaments and biological substances; F17.210 Nicotine dependence, cigarettes, uncomplicated; J44.9 Chronic obstructive pulmonary disease, unspecified; T78.40XA Allergy, unspecified, initial encounter; X58.XXXA Exposure to other specified factors, initial encounter; J96.10 Chronic respiratory failure, unspecified whether with hypoxia or hypercapnia | CPT/HCPCS: 36415; 85025; 86003; 99204; Q3014 ==

== ENCOUNTER 2025-06-07 08:18 | Outpatient (CLI) | payer OTHER, MEDICAID, SELFPAY ==
--- NOTE | 2025-06-07 08:45 | CTR_ITS ---
PROCEDURE INFORMATION: Exam: CT Chest Without Contrast, Diagnostic, High Resolution Exam date and time: 06/07/2025 8:37 AM Age: 59 years old Clinical indication: Condition or disease; Lung condition and disease; Pulmonary fibrosis; Prior surgery; Surgery date: 6+ months; Surgery type: Left upper lobe; HX of uterine cancer TECHNIQUE: Imaging protocol: Diagnostic computed tomography of the chest without contrast. Exam was performed with high resolution protocol. Radiation optimization: All CT scans at this facility use at least one of these dose optimization techniques: automated exposure control; mA and/or kV adjustment per patient size (includes targeted exams where dose is matched to clinical indication); or iterative reconstruction. COMPARISON: CR XR chest 1V portable [id number] 04/03/2025 9:21 AM RADIATION DOSE METRICS: Total DLP (mGy-cm): 648.14 FINDINGS: Lungs: There are diffuse emphysematous changes with hyperaeration of the lungs. There are bulla in the apices. There is mild bronchiectasis in the lung bases. No focal honeycombing identified. No focal consolidation or ground-glass opacities. No pulmonary nodule is identified. Thickened interlobular septa are present in the lung apices. There are subpleural reticular opacities. Pleural spaces: Unremarkable. No pneumothorax. No pleural effusion. Heart: Unremarkable. No cardiomegaly. No pericardial effusion. Vasculature: Mild atherosclerotic disease of the aorta and branch vessels is evident. There is some ectasia of the aortic arch to 3.4 cm. There are calcifications of the coronary arteries. Lymph nodes: Unremarkable. No enlarged lymph nodes. Gallbladder and biliary ducts: Status post cholecystectomy. Bones/joints: Unremarkable. No acute fracture. Soft tissues: Metallic biopsy marker is present in the left breast. Multiple foreign bodies are present along the anterior abdominal wall consistent with prior hernia repair. CT/CT chest w/o HI-Res(Pulm Only) IMPRESSION: 1. Emphysematous changes with bulla , fibrosis, and mild bronchiectasis. 2. Status post cholecystectomy. COMMENTS: The presence of pulmonary emphysema on CT is an independent risk factor for lung cancer. In the absence of a history or active diagnosis of lung cancer, it is recommended that this patient with emphysema be evaluated for enrollment in a low dose CT lung cancer screening program.
== END 2025-06-07 08:19 | disposition home or self-care (01) ==
LOC: RAD 08:20
PROVIDERS: PCP Nurse Practitioner; Visit Provider Internal Medicine
DX: J96.10 Chronic respiratory failure, unspecified whether with hypoxia or hypercapnia (principal); J43.9 Emphysema, unspecified; J47.9 Bronchiectasis, uncomplicated; I25.10 Atherosclerotic heart disease of native coronary artery without angina pectoris; I77.819 Aortic ectasia, unspecified site; I70.0 Atherosclerosis of aorta; Z90.49 Acquired absence of other specified parts of digestive tract
CPT/HCPCS: 71250

== ENCOUNTER → 2025-06-29 09:40 | Outpatient (BNVA) | payer OTHER, MEDICAID, SELFPAY | PROVIDERS: PCP Nurse Practitioner; Visit Provider Internal Medicine | DX: J44.89 Other specified chronic obstructive pulmonary disease (principal); J47.9 Bronchiectasis, uncomplicated; D72.10 Eosinophilia, unspecified; Z99.81 Dependence on supplemental oxygen; F17.210 Nicotine dependence, cigarettes, uncomplicated; J84.9 Interstitial pulmonary disease, unspecified; J84.10 Pulmonary fibrosis, unspecified; J44.9 Chronic obstructive pulmonary disease, unspecified | CPT/HCPCS: 99214; Q3014 ==

== ENCOUNTER → 2025-07-04 14:51 | Outpatient (BNVA) | payer OTHER, MEDICAID, SELFPAY | PROVIDERS: PCP Nurse Practitioner; Visit Provider Internal Medicine | DX: I25.10 Atherosclerotic heart disease of native coronary artery without angina pectoris (principal); F17.200 Nicotine dependence, unspecified, uncomplicated | CPT/HCPCS: 99213 ==